=== PATIENT | female | born 1955 | race Caucasian/White ===

== ENCOUNTER → 2020-04-16 15:28 | Outpatient (CLI) | payer MEDICARE, OTHER, SELFPAY ==
[2020-04-16 14:34] VITALS: BMI 20.3
[2020-04-16 17:58] LABS: Absolute Lymphocyte Count 2.22 X10^3/uL (0.83-4.51); Absolute Neutrophil Count 3.5 X10^3/uL (2.0-7.7); Basophil# 0.05 X10^3/uL; Basophil% 0.7 % (0-1); Eosinophil# 0.24 X10^3/uL; Eosinophils% 3.6 % (0-5); Hematocrit 41.7 % (37-47); Hemoglobin 13.1 g/dL (12.0-15.0); Lymphocyte # 2.22 X10^3/ul (4.0); Mean Corp Hgb Conc 31.4 g/dL (32-36); Mean Corpuscular Hgb 29.6 pg (27.0-32.0); Mean Corpuscular Volume 94.3 fL (81-99); Mean Platelet Vol. 10.2 fl (6.2-12.0); Monocyte# 0.66 X10^3/uL; Monocyte% 9.8 % (0-10); NRBC Flagged by Analyzer 0 % (0-5); Neutrophil # 3.54 X10^3/uL (2.7-7.7); Neutrophil % 52.8 % (47-70); Platelet Count 318 K/mm3 (150-450); RBC Distribution Width CV 12.4 % (11.6-14.6); Red Blood Count 4.42 M/mm3 (4.2-5.4); White Blood Count 6.7 K/mm3 (4.4-11.0)
[2020-04-16 18:13] LABS: Erythrocyte Sedimentation Rate 32 mm/hr (0-30)
[2020-04-16 18:15] LABS: ALB/GLOB Ratio 0.8 RATIO (0.9-2.4); AST(SGOT) 33 U/L (15-37); Alanine Aminotransfer ALT/SGPT 14 U/L (13-56); Albumin, Serum 3.4 g/dL (3.2-5.0); Alkaline Phosphatase 128 U/L (45-117); Anion Gap 4 (5-15); BUN 17 mg/dL (7-18); BUN/Creat Ratio 19.7 RATIO (10-20); Calcium,Total 8.9 mg/dL (8.5-10.1); Chloride 106 mmol/L (98-107); Creatinine, Serum 0.86 mg/dL (0.55-1.02); EST Glomerular Filtration Rate 70 mL/min (>60); Est Glom Filt Rate - Afr Amer 85 mL/min (>60); Glucose 97 mg/dL (74-106); Potassium 4.3 mmol/L (3.5-5.1); Protein, Total 7.4 g/dL (6.4-8.2); Sodium Level 139 mmol/L (136-145); T4 Free Direct 1.03 ng/dL (0.76-1.46); Thyroid Stim Hormone (TSH) 2.21 uIU/mL (0.358-3.74)
== END ==
PROVIDERS: PCP Internal Medicine; Referring Provider Internal Medicine; Visit Provider Internal Medicine
DX: R53.83 Other fatigue (principal); R19.00 Intra-abdominal and pelvic swelling, mass and lump, unspecified site; Z13.29 Encounter for screening for other suspected endocrine disorder
CPT/HCPCS: 36415; 80053; 84439; 84443; 85025; 85652

== ENCOUNTER → 2020-04-21 06:43 | Outpatient (CLI) | payer MEDICARE, OTHER, SELFPAY ==
[2020-04-16 14:34] VITALS: BMI 20.3
--- NOTE | 2020-04-21 06:44 | CT_ITS ---
ACR Level 3 findings have been noted. An addendum which confirms receipt of the report will follow. STUDY: CT ABDOMEN AND PELVIS WITHOUT CONTRAST REASON FOR EXAM: Female, 64 years old. Right-sided mass found on physical exam. TECHNIQUE: Transaxial images were obtained from the dome of the diaphragm to the symphysis pubis without oral contrast, and without intravenous contrast. Sagittal and coronal images were reconstructed. Individualized dose optimization techniques were used for this CT. COMPARISON: None. FINDINGS: Partially visualized lower chest: Lung bases unremarkable. Liver: No concerning lesions. Gallbladder and biliary tree: No visible gallstones. No pericholecystic inflammation. No biliary ductal dilation. Pancreas: No pancreatic lesions or inflammation. Spleen: Normal size, no splenic lesions. Adrenal glands: No concerning masses. Kidneys and ureters: No hydronephrosis or renal stones. No concerning masses. No ureteral dilation. Bowel: Normal appendix. No obstruction or inflammation of the bowel. Urinary bladder: No stones or wall thickening. Nondistended. Reproductive: A heterogenous mixed attenuation solid appearing multilobular mixed density mass with numerous areas of internal enhancement replaces and expands the uterine parenchyma; the uterus combined with the mass measures 11.8 x 8.3 x 12.5 cm TRV X AP X craniocaudad. The ovaries are not identifiable separable from this mass which also contains some peripheral calcifications. The mass extends into and expands the lower uterine segment and is difficult to separate from the cervix. The endometrium is not identifiable. Some peripheral more solid enhancing regions are also noted. Vascular: No abdominal aortic aneurysm. Mild atherosclerosis. Retroperitoneal and peritoneal spaces: No ascites or free air. No retroperitoneal lesions. No adenopathy. Osseous: No acute osseous abnormality. Prominent degeneration L5-S1. Transitional lumbosacral anatomy with lumbarization of the left transverse process of S1. Abdominal and pelvic wall: No concerning findings. CT/Abdomen/Pelvis W IV Cont ONLY IMPRESSION: Heterogenous mixed attenuation mass replaces and expands the uterine parenchyma. This most likely represents a large, fibroid uterus. However the marked heterogeneity and irregular enhancement are not classic for fibroids, and, while less likely, uterine or endometrial malignancy is possible. Recommend [facility] protocol MRI with and without gadolinium and evaluation by gynecology. Electronically Signed: Mehrdad Felipe, at 8:09 EDT Tel , Service support ,
== END ==
PROVIDERS: PCP Internal Medicine; Referring Provider Internal Medicine; Visit Provider Internal Medicine
DX: R19.05 Periumbilic swelling, mass or lump (principal)
CPT/HCPCS: 74177; Q9967

== ENCOUNTER → 2020-04-30 10:01 | Outpatient (CLI) | payer MEDICARE, OTHER, SELFPAY ==
[2020-04-16 14:34] VITALS: BMI 20.3
--- NOTE | 2020-04-30 10:02 | MRI_ITS ---
HISTORY: palpable uterine mass, abn CT, no complaints from patient ADDITIONAL HISTORY: None provided. COMPARISON: CT 04/21/2020 TECHNIQUE: Multiplanar, multisequence MRI of the pelvis without and with 11 mm Dotarem IV contrast FINDINGS: BLADDER: Unremarkable. REPRODUCTIVE ORGANS: Enlarged, lobulated uterus with heterogeneous signal intensity on all sequences. There is central low signal intensity with peripheral enhancement in the endometrium extending toward the cornua on the left. The endometrial thickness measures 3.6 cm on sagittal image 14 of series 3. The heterogeneous signal intensity and enhancement extends into the myometrium to the level of the serosal surface along the left side of the uterus, evaluation somewhat limited due to motion artifact. The cervix appears prominent but does not have heterogeneous enhancement as does the rest of the above described area No definite adenopathy is seen. Appearance is suggestive of endometrial carcinoma, and MR findings would represent stage III disease. IMAGED GI TRACT: Unremarkable as imaged. ABDOMINAL WALL: Unremarkable. LYMPH NODES: No pathologic appearing adenopathy. FREE FLUID: None. SKELETON AND SOFT TISSUES: No acute skeletal findings. MRI/Pelvis W/WO Contrast IMPRESSION: Heterogeneous uterus with abnormal enhancing mass suspicious for neoplasm, possibly endometrial carcinoma. Evaluation by gynecologic oncology recommended. at 2015 Reported and signed by: Consuelo Tripp MD Electronically Signed: Consuelo Tripp MD at 20:14 EDT Tel , Service support ,
[2020-05-01 12:32] LABS: Cancer Antigen 125 9.5 U/mL (0.0-38.1); Carcinoembryonic Antigen 3.6 ng/mL (0.0-4.7)
== END ==
PROVIDERS: PCP Internal Medicine; Referring Provider Internal Medicine; Visit Provider Internal Medicine
DX: N85.8 Other specified noninflammatory disorders of uterus (principal); R97.8 Other abnormal tumor markers
CPT/HCPCS: 36415; 72197; 82378; 86304; A9575

== ENCOUNTER → 2020-06-01 14:51 | Outpatient (CLI) | payer MEDICARE, OTHER, SELFPAY ==
[2020-05-05 11:14] VITALS: BMI 20.3
--- NOTE | 2020-06-01 15:30 | PET_ITS ---
EXAMINATION: FDG PET-CT INDICATIONS: A 65-year-old female with history of cervical carcinoma presenting for restaging examination. COMPARISON EXAMINATION: CT of the abdomen and pelvis report dated 04/21/2020, MRI of the pelvis report dated 04/29/2020 INDEX LESION SIZE SUV INTERPRETATION Mid-lower pelvic mesentery-heterogeneous soft tissue mass 8.5 x 12.0-cm (frame 57) 22.06 Fulfills quantitative criteria for viable neoplasm TECHNIQUE: Following the intravenous administration of 12.2 mCi of F-18 deoxyglucose via the right antecubital fossa, multiplanar image acquisitions of the neck, chest, abdomen and pelvis to level of mid thigh, obtained at one hour post radiopharmaceutical administration contemporaneously interpreted with the current CT of the neck, chest, abdomen and pelvis, to level of mid thigh, dated 06/01/[address] of the abdomen and pelvis report dated 04/21/2020, MRI of the pelvis report dated 04/29/2020 reveals: BLOOD GLUCOSE LEVEL:?? 91 mg/dl?HEIGHT:?66 inches?WEIGHT: 125 lbs. FINDINGS: 1. A large heterogeneous focus of enhanced glucose metabolism is noted in the mid-lower pelvic mesentery corresponding to soft tissue mass formation. The calculated maximal standard uptake value is 22.06. The maximal axial diameter of the conglomerate metabolic, morphologic abnormality on review of CT of the pelvis dated 06/01/2020 is 8.5-cm (transverse) x 12.0-cm (AP). 2. Normal physiologic distribution of the radiopharmaceutical is apparent in the hepatic (2.0) and splenic parenchyma, both renal units, bladder and visualized intestinal tract. The visualized portion of the cerebral cortex demonstrate symmetric and preserved glucose metabolism. Diffuse radiopharmaceutical concentration is noted in all four quadrants of the abdomen and pelvis. Facilitated radiopharmaceutical concentration is observed in the ascending and descending thoracic aorta commensurate with activated leukocytes associated with atherosclerotic plaque formation. (Selam et al, Clinical Nuclear Medicine 29:93, 2004). Pertinent CT findings are as follows: CHEST: There is atherosclerotic calcification defined in the thoracic aorta without evidence of dilatation-aneurysm formation. Coronary arterial calcification is observed. Multiple bilateral axillary soft tissue densities with fatty hilus are ametabolic. There are no parenchymal densities-nodules defined in the right and left hemithorax with discernible quantitatively significant increased FDG uptake. ABDOMEN AND PELVIS: A large complex, partially calcified mass is defined within the mid-lower pelvic mesentery demonstrating quantitatively significant increased glucose metabolism previously described. Bilateral inguinal subcentimeter soft tissue densities are ametabolic. Calcified phlebolith formation appears evident in the left lower hemipelvis. There is atherosclerotic calcification defined in the abdominal aorta without evidence of dilatation-aneurysm formation. Pelvic arterial calcification is observed. SKELETAL: Degenerative changes are noted in the cervical, thoracic and lumbar spine. PET/PET/CT Tumor Base -Thigh Init IMPRESSION: 1. ABNORMAL EXAMINATION INDICATIVE OF MALIGNANT VIABLE NEOPLASM. 2. The heterogeneous complex soft tissue mass localized to the mid-lower pelvic mesentery fulfills quantitative criteria for viable neoplasm. 3. No other quantitatively significant hypermetabolic abnormalities are noted. There is no definitive scintigraphic evidence of distant metastatic disease. Electronic Signature Bolivar Joya D.O. Accurate Quantification of SUVs for this report are calculated using the exclusive [place] and [place] patented [employer] Technology. Electronically Signed: Bolivar Joya DO at 22:24 EDT Tel , Service support ,
== END ==
PROVIDERS: PCP Internal Medicine; Referring Provider Obstetrics & Gynecology; Visit Provider Obstetrics & Gynecology
DX: C53.8 Malignant neoplasm of overlapping sites of cervix uteri (principal); R93.89 Abnormal findings on diagnostic imaging of other specified body structures
CPT/HCPCS: 78815; A9552

== ENCOUNTER → 2020-12-24 11:06 | Outpatient (CLI) | payer MEDICARE, OTHER, SELFPAY ==
[2020-12-08 13:53] VITALS: BMI 20.9
--- NOTE | 2020-12-24 13:30 | CT_ITS ---
STUDY: CT ABDOMEN AND PELVIS WITH CONTRAST REASON FOR EXAM: Female, 65 years old. FOLLOW UP ON ENDOMETRIAL CA. HYSTERECTOMY NO OTHER TREATMENT RADIATION DOSAGE (If Supplied By Facility): CTDIvol = ( 11.82 ) mGy, DLP = ( 360.34 ) mGycm TECHNIQUE: Transaxial images were obtained from the dome of the diaphragm to the symphysis pubis with oral contrast. Oral and amp; IV Readi-CAT and amp; 100mL Isovue-300 was administered. Sagittal and coronal images were reconstructed. Individualized dose optimization techniques were used for this CT. COMPARISON: Comparison is made with prior examination dated 04/21/2020. FINDINGS: The visualized lung bases are unremarkable. Coronary artery calcification. Stable 6.8 mm cyst in the left lobe of the liver. Normal gallbladder and extrahepatic biliary system. Normal spleen. Normal pancreas. Normal bilateral adrenal glands. Normal right kidney. Normal left kidney. Normal visualized stomach. Normal small intestine. Normal colon. The appendix is visualized and appears normal. There is scattered atherosclerotic calcification of the abdominal aorta, without a demonstrated aneurysm. Normal inferior vena cava. Normal retroperitoneum. Normal urinary bladder. Normal abdominal wall. There are degenerative changes of the visualized lumbar spine. CT/Abdomen/Pelvis WITH Contrast IMPRESSION: The patient is status post hysterectomy. Stable 6.8 mm cyst in the left lobe of the liver. Electronically Signed: Bishnu George MD at 14:25 EST , Service support ,
== END ==
PROVIDERS: PCP Internal Medicine; Referring Provider Obstetrics & Gynecology; Visit Provider Obstetrics & Gynecology
DX: C54.1 Malignant neoplasm of endometrium (principal)
CPT/HCPCS: 74177; Q9967

== ENCOUNTER → 2021-02-18 10:34 | Outpatient (CLI) | payer MEDICARE, OTHER, SELFPAY ==
[2021-02-18 10:16] VITALS: BMI 21.6
[2021-02-18 12:48] LABS: CRP < 2.90 mg/L (0.0-3.0); Erythrocyte Sedimentation Rate 4 mm/hr (0-30); Rheumatoid Factor < 10.0 IU/mL (<15)
[2021-02-21 09:28] LABS: CCP IgG Antibodies 4 units (0-19)
[2021-02-21 17:58] LABS: ANTINUCLEAR ANTIBODIES DIRECT Negative (Negative)
== END ==
PROVIDERS: PCP Internal Medicine; Referring Provider Internal Medicine; Visit Provider Internal Medicine
DX: M19.90 Unspecified osteoarthritis, unspecified site (principal)
CPT/HCPCS: 36415; 85652; 86038; 86140; 86200; 86225; 86235; 86431

== ENCOUNTER → 2021-03-31 14:09 | Outpatient (CLI) | payer MEDICARE, OTHER, SELFPAY ==
[2021-02-18 10:16] VITALS: BMI 21.6
--- NOTE | 2021-03-31 14:13 | RAD_ITS ---
STUDY: X-RAY - PELVIS REASON FOR EXAM: Female, 65 years old. PAIN TECHNIQUE: One view of the pelvis was obtained. COMPARISON: None. FINDINGS: There is a non-specific bowel gas pattern. Normal visualized soft tissue structures. Normal bilateral iliac wings, sacroiliac joints and visualized sacrum. Normal visualized bilateral superior and inferior pubic rami. Normal pubic symphysis. Normal ischial tuberosities. Normal visualized right femoral head. Normal right acetabulum. Normal right hip joint. Normal visualized left femoral head. Normal left acetabulum. Normal left hip joint. RAD/Pelvis 1 or 2 Views IMPRESSION: Normal x-ray examination of the pelvis. Electronically Signed: Bolivar Hough MD at 8:06 EDT Tel , Service support ,
[2021-03-31 17:34] LABS: Absolute Lymphocyte Count 2.65 X10^3/uL (0.83-4.51); Absolute Neutrophil Count 3.6 X10^3/uL (2.0-7.7); Basophil# 0.09 X10^3/uL; Basophil% 1.2 % (0-1); Eosinophils% 4.1 % (0-5); Hematocrit 46.5 % (37-47); Hemoglobin 14.7 g/dL (12.0-15.0); Lymphocyte # 2.65 X10^3/ul (0.83-4.51); Lymphocyte % 36.6 % (19-41); Mean Corp Hgb Conc 31.6 g/dL (32-36); Mean Corpuscular Hgb 30.5 pg (27.0-32.0); Mean Corpuscular Volume 96.5 fL (81-99); Mean Platelet Vol. 10.3 fl (6.2-12.0); Monocyte# 0.61 X10^3/uL; Monocyte% 8.4 % (0-10); NRBC Flagged by Analyzer 0 % (0-5); Neutrophil # 3.58 X10^3/uL (2.7-7.7); Neutrophil % 49.6 % (47-70); Platelet Count 294 K/mm3 (150-450); RBC Distribution Width CV 12.5 % (11.6-14.6); RBC Distribution Width SD 45.1 fl (35.1-43.9); Red Blood Count 4.82 M/mm3 (4.2-5.4); White Blood Count 7.2 K/mm3 (4.4-11.0)
[2021-03-31 17:55] LABS: ALB/GLOB Ratio 1.2 RATIO (0.9-2.4); AST(SGOT) 26 U/L (15-37); Alanine Aminotransfer ALT/SGPT 13 U/L (13-56); Albumin, Serum 4.3 g/dL (3.2-5.0); Alkaline Phosphatase 106 U/L (45-117); Anion Gap 2 (5-15); BUN 15 mg/dL (7-18); BUN/Creat Ratio 19.9 RATIO (10-20); Calcium,Total 9.6 mg/dL (8.5-10.1); Chloride 108 mmol/L (98-107); Creatinine, Serum 0.76 mg/dL (0.55-1.02); EST Glomerular Filtration Rate 82 mL/min (>60); Est Glom Filt Rate - Afr Amer 99 mL/min (>60); Globulin 3.7 g/dL (2.2-4.2); Glucose 88 mg/dL (74-106); Potassium 3.8 mmol/L (3.5-5.1); Sodium Level 141 mmol/L (136-145)
[2021-04-01 09:25] LABS: Hepatitis B Surface Antibody Non-Reactive; Hepatitis B Surface Antigen Non-Reactive (Nonreactive); Hepatitis C Antibody Non-Reactive (Nonreactive)
[2021-04-02 15:14] LABS: Hepatitis B Core AB IgM Negative (Negative)
== END ==
PROVIDERS: PCP Internal Medicine; Referring Provider Internal Medicine Rheumatology; Visit Provider Internal Medicine Rheumatology
DX: L40.59 Other psoriatic arthropathy (principal); L40.8 Other psoriasis; I10 Essential (primary) hypertension; G62.9 Polyneuropathy, unspecified; F31.9 Bipolar disorder, unspecified
CPT/HCPCS: 36415; 72170; 80053; 85025; 86705; 86706; 86803; 87340

== ENCOUNTER → 2021-06-30 11:30 | Outpatient (CLI) | payer MEDICARE, OTHER, SELFPAY ==
--- NOTE | 2021-06-30 11:37 | CT_ITS ---
STUDY: CT ABDOMEN AND PELVIS WITH CONTRAST REASON FOR EXAM: Female, 66 years old. ENDOMETRIAL CANCER. Follow-up examination. RADIATION DOSAGE (If Supplied By Facility): CTDIvol = ( 13.47 ) mGy, DLP = ( 342.40 ) mGycm TECHNIQUE: Transaxial images were obtained from the dome of the diaphragm to the symphysis pubis with oral contrast. Oral and amp; IV Gastrografin and amp; 100mL Isovue-300 was administered. Sagittal and coronal images were reconstructed. Individualized dose optimization techniques were used for this CT. COMPARISON: Comparison is made with prior examination dated 12/24/2020. FINDINGS: The visualized lung bases are unremarkable. Coronary artery calcification. Stable 6.8 mm cyst in the left lobe of the Normal gallbladder and extrahepatic biliary system. Normal spleen. Normal pancreas. Normal bilateral adrenal glands. Normal right kidney. Normal left kidney. Normal visualized stomach. Normal small intestine. Moderate amount of fecal material is seen in the colon. The appendix is visualized and appears normal. There is scattered atherosclerotic calcification of the abdominal aorta, without a demonstrated aneurysm. Normal inferior vena cava. Normal retroperitoneum. Normal urinary bladder. There is absence of the uterus consistent with a prior hysterectomy. Normal abdominal wall. There are degenerative changes of the visualized lumbar spine. CT/Abdomen/Pelvis WITH Contrast IMPRESSION: Status post hysterectomy. Stable 6.8 mm cyst in the left lobe of the liver. Electronically Signed: Bishnu George MD at 15:00 EDT , Service support ,
[2021-07-01 07:39] LABS: CREATININE FINGERSTICK 0.86 mg/dL (0.55-1.02); EGFR FINGERSTICK > 60 mL/min (>60)
== END ==
PROVIDERS: PCP Internal Medicine
DX: C54.1 Malignant neoplasm of endometrium (principal)
CPT/HCPCS: 74177; Q9967

== ENCOUNTER → 2021-08-05 14:53 | Outpatient (CLI) | payer MEDICARE, OTHER, SELFPAY ==
[2021-08-05 17:46] LABS: Absolute Lymphocyte Count 2.51 X10^3/uL (0.83-4.51); Absolute Neutrophil Count 3.4 X10^3/uL (2.0-7.7); Basophil# 0.08 X10^3/uL; Basophil% 1.1 % (0-1); Eosinophil# 0.28 X10^3/uL; Hematocrit 44.9 % (37-47); Hemoglobin 14.4 g/dL (12.0-15.0); Lymphocyte # 2.51 X10^3/ul (0.83-4.51); Lymphocyte % 35.7 % (19-41); Mean Corp Hgb Conc 32.1 g/dL (32-36); Mean Corpuscular Hgb 31.6 pg (27.0-32.0); Mean Corpuscular Volume 98.5 fL (81-99); Mean Platelet Vol. 10.5 fl (6.2-12.0); NRBC Flagged by Analyzer 0 % (0-5); Neutrophil # 3.44 X10^3/uL (2.7-7.7); Neutrophil % 48.9 % (47-70); Platelet Count 276 K/mm3 (150-450); RBC Distribution Width CV 12.2 % (11.6-14.6); RBC Distribution Width SD 44.5 fl (35.1-43.9); Red Blood Count 4.56 M/mm3 (4.2-5.4)
[2021-08-05 18:22] LABS: AST(SGOT) 20 U/L (15-37); Alanine Aminotransfer ALT/SGPT 15 U/L (13-56); Albumin, Serum 3.9 g/dL (3.2-5.0); Alkaline Phosphatase 104 U/L (45-117); Anion Gap 6 (5-15); BUN 17 mg/dL (7-18); BUN/Creat Ratio 21.5 RATIO (10-20); Calcium,Total 9.5 mg/dL (8.5-10.1); Chloride 107 mmol/L (98-107); Creatinine, Serum 0.79 mg/dL (0.55-1.02); EST Glomerular Filtration Rate 78 mL/min (>60); Est Glom Filt Rate - Afr Amer 94 mL/min (>60); Globulin 3.8 g/dL (2.2-4.2); Glucose 86 mg/dL (74-106); Potassium 4.3 mmol/L (3.5-5.1); Protein, Total 7.7 g/dL (6.4-8.2); Sodium Level 142 mmol/L (136-145)
== END ==
PROVIDERS: PCP Internal Medicine; Referring Provider Internal Medicine Rheumatology; Visit Provider Internal Medicine Rheumatology
DX: L40.59 Other psoriatic arthropathy (principal); I10 Essential (primary) hypertension; G62.9 Polyneuropathy, unspecified; F31.9 Bipolar disorder, unspecified; Z85.42 Personal history of malignant neoplasm of other parts of uterus
CPT/HCPCS: 36415; 80053; 85025

== ENCOUNTER → 2021-10-10 15:17 | Outpatient (CLI) | payer MEDICARE, OTHER, SELFPAY ==
[2021-10-10 17:44] LABS: Absolute Lymphocyte Count 1.78 X10^3/uL (0.83-4.51); Basophil# 0.07 X10^3/uL; Basophil% 1.2 % (0-1); Eosinophil# 0.21 X10^3/uL; Eosinophils% 3.7 % (0-5); Hematocrit 44.4 % (37-47); Hemoglobin 14.5 g/dL (12.0-15.0); Lymphocyte # 1.78 X10^3/ul (0.83-4.51); Lymphocyte % 31.5 % (19-41); Mean Corp Hgb Conc 32.7 g/dL (32-36); Mean Corpuscular Hgb 32.1 pg (27.0-32.0); Mean Corpuscular Volume 98.2 fL (81-99); Mean Platelet Vol. 10.1 fl (6.2-12.0); Monocyte# 0.57 X10^3/uL; Monocyte% 10.1 % (0-10); NRBC Flagged by Analyzer 0 % (0-5); Neutrophil % 53.1 % (47-70); Platelet Count 326 K/mm3 (150-450); RBC Distribution Width SD 46.5 fl (35.1-43.9); Red Blood Count 4.52 M/mm3 (4.2-5.4); White Blood Count 5.7 K/mm3 (4.4-11.0)
[2021-10-10 18:08] LABS: ALB/GLOB Ratio 1.1 RATIO (0.9-2.4); AST(SGOT) 19 U/L (15-37); Alanine Aminotransfer ALT/SGPT 15 U/L (13-56); Alkaline Phosphatase 101 U/L (45-117); Anion Gap 6 (5-15); BUN 18 mg/dL (7-18); BUN/Creat Ratio 22.3 RATIO (10-20); Calcium,Total 9.4 mg/dL (8.5-10.1); Chloride 105 mmol/L (98-107); Creatinine, Serum 0.81 mg/dL (0.55-1.02); EST Glomerular Filtration Rate 76 mL/min (>60); Est Glom Filt Rate - Afr Amer 92 mL/min (>60); Globulin 3.7 g/dL (2.2-4.2); Glucose 95 mg/dL (74-106); Potassium 4.3 mmol/L (3.5-5.1); Protein, Total 7.7 g/dL (6.4-8.2); Sodium Level 140 mmol/L (136-145)
== END ==
PROVIDERS: PCP Internal Medicine; Referring Provider Internal Medicine Rheumatology; Visit Provider Internal Medicine Rheumatology
DX: L40.59 Other psoriatic arthropathy (principal); I10 Essential (primary) hypertension; G62.9 Polyneuropathy, unspecified; F31.9 Bipolar disorder, unspecified; Z79.899 Other long term (current) drug therapy; Z85.42 Personal history of malignant neoplasm of other parts of uterus
CPT/HCPCS: 36415; 80053; 85025

== ENCOUNTER 2021-12-06 11:40 | Outpatient (CLI) | payer MEDICARE, OTHER, SELFPAY ==
[2021-12-06 15:26] LABS: Absolute Lymphocyte Count 2.18 X10^3/uL (0.83-4.51); Absolute Neutrophil Count 3.4 X10^3/uL (2.0-7.7); Basophil# 0.06 X10^3/uL; Basophil% 0.9 % (0-1); Eosinophil# 0.13 X10^3/uL; Eosinophils% 2.1 % (0-5); Hemoglobin 13.7 g/dL (12.0-15.0); Lymphocyte # 2.18 X10^3/ul (0.83-4.51); Lymphocyte % 34.4 % (19-41); Mean Corp Hgb Conc 32.6 g/dL (32-36); Mean Corpuscular Hgb 32.2 pg (27.0-32.0); Mean Corpuscular Volume 98.8 fL (81-99); Mean Platelet Vol. 10.3 fl (6.2-12.0); Monocyte# 0.54 X10^3/uL; Monocyte% 8.5 % (0-10); NRBC Flagged by Analyzer 0 % (0-5); Neutrophil # 3.41 X10^3/uL (2.7-7.7); Neutrophil % 53.9 % (47-70); Platelet Count 279 K/mm3 (150-450); Red Blood Count 4.25 M/mm3 (4.2-5.4); White Blood Count 6.3 K/mm3 (4.4-11.0)
[2021-12-06 15:53] LABS: ALB/GLOB Ratio 1.1 RATIO (0.9-2.4); AST(SGOT) 21 U/L (15-37); Alanine Aminotransfer ALT/SGPT 13 U/L (13-56); Albumin, Serum 3.9 g/dL (3.2-5.0); Alkaline Phosphatase 99 U/L (45-117); Anion Gap 3 (5-15); BUN 14 mg/dL (7-18); BUN/Creat Ratio 18.5 RATIO (10-20); Calcium,Total 9.1 mg/dL (8.5-10.1); Chloride 105 mmol/L (98-107); Creatinine, Serum 0.76 mg/dL (0.55-1.02); EST Glomerular Filtration Rate 82 mL/min (>60); Est Glom Filt Rate - Afr Amer 99 mL/min (>60); Globulin 3.5 g/dL (2.2-4.2); Glucose 124 mg/dL (74-106); Potassium 4.1 mmol/L (3.5-5.1); Protein, Total 7.4 g/dL (6.4-8.2); Sodium Level 137 mmol/L (136-145)
== END 2021-12-06 23:59 | disposition short-term general hospital (02) ==
LOC: MTLAB 11:42
PROVIDERS: PCP Internal Medicine; Referring Provider Internal Medicine Rheumatology; Visit Provider Internal Medicine Rheumatology
DX: L40.59 Other psoriatic arthropathy (principal); F31.9 Bipolar disorder, unspecified; L40.8 Other psoriasis; I10 Essential (primary) hypertension; G62.9 Polyneuropathy, unspecified; Z79.899 Other long term (current) drug therapy; Z85.42 Personal history of malignant neoplasm of other parts of uterus
CPT/HCPCS: 36415; 80053; 85025

== ENCOUNTER 2022-02-02 09:44 | Outpatient (CLI) | payer MEDICARE, OTHER, SELFPAY ==
[2022-02-02 12:11] LABS: Absolute Lymphocyte Count 1.08 X10^3/uL (0.83-4.51); Basophil# 0.09 X10^3/uL; Basophil% 1.2 % (0-1); Eosinophil# 0.06 X10^3/uL; Eosinophils% 0.8 % (0-5); Hematocrit 43.4 % (37-47); Hemoglobin 14.2 g/dL (12.0-15.0); Lymphocyte # 1.08 X10^3/ul (0.83-4.51); Mean Corp Hgb Conc 32.7 g/dL (32-36); Mean Corpuscular Hgb 33.3 pg (27.0-32.0); Mean Corpuscular Volume 101.6 fL (81-99); Monocyte# 0.47 X10^3/uL; Monocyte% 6.1 % (0-10); NRBC Flagged by Analyzer 0 % (0-5); Neutrophil # 5.98 X10^3/uL (2.7-7.7); Neutrophil % 77.5 % (47-70); Platelet Count 293 K/mm3 (150-450); RBC Distribution Width CV 13.7 % (11.6-14.6); RBC Distribution Width SD 50.8 fl (35.1-43.9); Red Blood Count 4.27 M/mm3 (4.2-5.4); White Blood Count 7.7 K/mm3 (4.4-11.0)
[2022-02-02 12:54] LABS: ALB/GLOB Ratio 1.2 RATIO (0.9-2.4); AST(SGOT) 32 U/L (15-37); Alanine Aminotransfer ALT/SGPT 24 U/L (13-56); Alkaline Phosphatase 89 U/L (45-117); Anion Gap 2 (5-15); BUN 15 mg/dL (7-18); BUN/Creat Ratio 18.7 RATIO (10-20); Calcium,Total 9.4 mg/dL (8.5-10.1); Chloride 106 mmol/L (98-107); EST Glomerular Filtration Rate 76 mL/min (>60); Est Glom Filt Rate - Afr Amer 92 mL/min (>60); Globulin 3.4 g/dL (2.2-4.2); Glucose 138 mg/dL (74-106); Potassium 4.4 mmol/L (3.5-5.1); Protein, Total 7.4 g/dL (6.4-8.2); Sodium Level 138 mmol/L (136-145)
== END 2022-02-02 23:59 | disposition home or self-care (01) ==
LOC: MTLAB 09:45
PROVIDERS: PCP Internal Medicine; Referring Provider Internal Medicine Rheumatology; Visit Provider Internal Medicine Rheumatology
DX: L40.59 Other psoriatic arthropathy (principal); F31.9 Bipolar disorder, unspecified; L40.8 Other psoriasis; I10 Essential (primary) hypertension; G62.9 Polyneuropathy, unspecified; Z79.899 Other long term (current) drug therapy; Z85.42 Personal history of malignant neoplasm of other parts of uterus
CPT/HCPCS: 36415; 80053; 85025

== ENCOUNTER 2022-02-09 14:32 | Outpatient (CLI) | payer MEDICARE, OTHER, SELFPAY ==
--- NOTE | 2022-02-09 14:35 | CT_ITS ---
STUDY: CT ABDOMEN AND PELVIS WITH CONTRAST REASON FOR EXAM: Female, 66 years old. MALIGNANT NEOPLASM OF UTERUS PART UNSPECIFIED RADIATION DOSAGE (If Supplied By Facility): CTDIvol = ( 12.3 ) mGy, DLP = ( 568.60 ) mGycm TECHNIQUE: Transaxial images were obtained from the dome of the diaphragm to the symphysis pubis with oral contrast. Oral and IV Readi-CAT and 100mL Isovue-300 was administered. Sagittal and coronal images were reconstructed. Individualized dose optimization techniques were used for this CT. COMPARISON: Comparison is made with prior examination of 06/30/2021. FINDINGS: The visualized lung bases are unremarkable. Coronary artery calcification. There is decreased attenuation of the liver consistent with steatosis. Stable 6.8 mm cyst in the left lobe of the liver. Normal gallbladder and extrahepatic biliary system. Normal spleen. Normal pancreas. Normal bilateral adrenal glands. Normal right kidney. Normal left kidney. Normal visualized stomach. Normal small intestine. Normal colon. The appendix is visualized and appears normal. There is scattered atherosclerotic calcification of the abdominal aorta, without a demonstrated aneurysm. Normal inferior vena cava. Normal retroperitoneum. Normal urinary bladder. There is absence of the uterus consistent with a prior hysterectomy. Normal abdominal wall. There are diffuse degenerative changes of the visualized lumbar spine. CT/Abdomen/Pelvis WITH Contrast IMPRESSION: Stable examination. No acute abnormality is seen. Electronically Signed: Bishnu George MD at 15:03 EDT ,
== END 2022-02-09 23:59 | disposition home or self-care (01) ==
LOC: CT 14:33
PROVIDERS: PCP Internal Medicine; Referring Provider Obstetrics & Gynecology; Visit Provider Obstetrics & Gynecology
DX: C55 Malignant neoplasm of uterus, part unspecified (principal); N31.9 Neuromuscular dysfunction of bladder, unspecified; R33.9 Retention of urine, unspecified
CPT/HCPCS: 74177; Q9967

== ENCOUNTER → 2022-04-05 | Outpatient (CLI) | payer MEDICARE, OTHER, SELFPAY ==
[2022-04-05 12:18] LABS: Absolute Lymphocyte Count 0.75 X10^3/uL (0.83-4.51); Absolute Neutrophil Count 5.5 X10^3/uL (2.0-7.7); Basophil# 0.06 X10^3/uL; Basophil% 0.9 % (0-1); Eosinophil# 0.08 X10^3/uL; Eosinophils% 1.1 % (0-5); Lymphocyte # 0.75 X10^3/ul (0.83-4.51); Lymphocyte % 10.7 % (19-41); Mean Corp Hgb Conc 32.6 g/dL (32-36); Mean Corpuscular Hgb 33.5 pg (27.0-32.0); Mean Corpuscular Volume 102.9 fL (81-99); Mean Platelet Vol. 10.4 fl (6.2-12.0); Monocyte% 8.6 % (0-10); NRBC Flagged by Analyzer 0 % (0-5); Neutrophil # 5.49 X10^3/uL (2.7-7.7); Neutrophil % 78.3 % (47-70); Platelet Count 318 K/mm3 (150-450); RBC Distribution Width CV 13.8 % (11.6-14.6); RBC Distribution Width SD 51.7 fl (35.1-43.9); Red Blood Count 4.18 M/mm3 (4.2-5.4)
[2022-04-05 12:40] LABS: ALB/GLOB Ratio 1.2 RATIO (0.9-2.4); AST(SGOT) 22 U/L (15-37); Alanine Aminotransfer ALT/SGPT 16 U/L (13-56); Albumin, Serum 3.9 g/dL (3.2-5.0); Alkaline Phosphatase 80 U/L (45-117); Anion Gap 7 (5-15); BUN 13 mg/dL (7-18); BUN/Creat Ratio 16.5 RATIO (10-20); Calcium,Total 9.4 mg/dL (8.5-10.1); Chloride 105 mmol/L (98-107); Creatinine, Serum 0.79 mg/dL (0.55-1.02); EST Glomerular Filtration Rate 78 mL/min (>60); Est Glom Filt Rate - Afr Amer 94 mL/min (>60); Globulin 3.2 g/dL (2.2-4.2); Glucose 136 mg/dL (74-106); Potassium 4.7 mmol/L (3.5-5.1); Protein, Total 7.1 g/dL (6.4-8.2); Sodium Level 139 mmol/L (136-145)
== END | disposition home or self-care (01) ==
LOC: MTLAB 10:39
PROVIDERS: PCP Internal Medicine; Referring Provider Internal Medicine Rheumatology; Visit Provider Internal Medicine Rheumatology
DX: L40.59 Other psoriatic arthropathy (principal); F31.9 Bipolar disorder, unspecified; L40.8 Other psoriasis; I10 Essential (primary) hypertension; G62.9 Polyneuropathy, unspecified; Z85.42 Personal history of malignant neoplasm of other parts of uterus; Z79.899 Other long term (current) drug therapy
CPT/HCPCS: 36415; 80053; 85025

== ENCOUNTER → 2022-04-13 | Outpatient (CLI) | payer MEDICARE, OTHER, SELFPAY ==
[2022-04-13 17:02] LABS: Erythrocyte Sedimentation Rate 8 mm/hr (0-30)
[2022-04-13 17:21] LABS: Hemoglobin A1c 5.7 % (3.8-5.6)
[2022-04-13 17:25] LABS: Vitamin B12 308 pg/mL (211-911); Vitamin D,25 Hydroxy 14.6 ng/mL
[2022-04-13 17:26] LABS: Thyroid Stim Hormone (TSH) 0.72 uIU/mL (0.358-3.74)
== END | disposition home or self-care (01) ==
LOC: BIMLAB 15:03
PROVIDERS: PCP Internal Medicine; Visit Provider Internal Medicine
DX: R73.9 Hyperglycemia, unspecified (principal); F41.9 Anxiety disorder, unspecified; F32.A Depression, unspecified; D75.89 Other specified diseases of blood and blood-forming organs; E55.9 Vitamin D deficiency, unspecified; Z85.42 Personal history of malignant neoplasm of other parts of uterus; Z13.29 Encounter for screening for other suspected endocrine disorder
CPT/HCPCS: 36415; 82306; 82607; 83036; 84439; 84443; 85652

== ENCOUNTER → 2022-07-11 | Outpatient (CLI) | payer MEDICARE, OTHER, SELFPAY ==
[2022-07-11 15:06] LABS: Absolute Neutrophil Count 4.4 X10^3/uL (2.0-7.7); Basophil# 0.08 X10^3/uL; Eosinophil# 0.19 X10^3/uL; Eosinophils% 2.4 % (0-5); Hematocrit 40.4 % (37-47); Hemoglobin 13.4 g/dL (12.0-15.0); Lymphocyte % 33.2 % (19-41); Mean Corp Hgb Conc 33.2 g/dL (32-36); Mean Corpuscular Hgb 33.4 pg (27.0-32.0); Mean Corpuscular Volume 100.7 fL (81-99); Monocyte# 0.49 X10^3/uL; Monocyte% 6.3 % (0-10); NRBC Flagged by Analyzer 0 % (0-5); Neutrophil # 4.43 X10^3/uL (2.7-7.7); Neutrophil % 56.7 % (47-70); Platelet Count 252 K/mm3 (150-450); RBC Distribution Width CV 13.2 % (11.6-14.6); RBC Distribution Width SD 48.4 fl (35.1-43.9); Red Blood Count 4.01 M/mm3 (4.2-5.4); White Blood Count 7.8 K/mm3 (4.4-11.0)
[2022-07-11 15:22] LABS: ALB/GLOB Ratio 1.1 RATIO (0.9-2.4); AST(SGOT) 34 U/L (15-37); Alanine Aminotransfer ALT/SGPT 24 U/L (13-56); Albumin, Serum 3.7 g/dL (3.2-5.0); Alkaline Phosphatase 83 U/L (45-117); Anion Gap 7 (5-15); BUN 16 mg/dL (7-18); BUN/Creat Ratio 18.6 RATIO (10-20); Calcium,Total 8.9 mg/dL (8.5-10.1); Chloride 103 mmol/L (98-107); Creatinine, Serum 0.86 mg/dL (0.55-1.02); EST Glomerular Filtration Rate 70 mL/min (>60); Est Glom Filt Rate - Afr Amer 85 mL/min (>60); Globulin 3.3 g/dL (2.2-4.2); Glucose 113 mg/dL (74-106); Sodium Level 139 mmol/L (136-145)
== END | disposition home or self-care (01) ==
LOC: MTLAB 13:04
PROVIDERS: PCP Internal Medicine; Referring Provider Internal Medicine Rheumatology; Visit Provider Internal Medicine Rheumatology
DX: L40.59 Other psoriatic arthropathy (principal); F31.9 Bipolar disorder, unspecified; L40.8 Other psoriasis; I10 Essential (primary) hypertension; G62.9 Polyneuropathy, unspecified; Z85.42 Personal history of malignant neoplasm of other parts of uterus; Z79.899 Other long term (current) drug therapy
CPT/HCPCS: 36415; 80053; 85025

== ENCOUNTER → 2022-10-10 | Outpatient (CLI) | payer MEDICARE, OTHER, SELFPAY ==
[2022-10-10 15:07] LABS: Absolute Lymphocyte Count 1.63 X10^3/uL (0.83-4.51); Absolute Neutrophil Count 6.1 X10^3/uL (2.0-7.7); Basophil# 0.09 X10^3/uL; Basophil% 1.1 % (0-1); Eosinophil# 0.16 X10^3/uL; Eosinophils% 1.9 % (0-5); Hematocrit 40.5 % (37-47); Hemoglobin 13.3 g/dL (12.0-15.0); Lymphocyte # 1.63 X10^3/ul (0.83-4.51); Lymphocyte % 19.1 % (19-41); Mean Corp Hgb Conc 32.8 g/dL (32-36); Mean Corpuscular Hgb 33.6 pg (27.0-32.0); Mean Corpuscular Volume 102.3 fL (81-99); Mean Platelet Vol. 9.8 fl (6.2-12.0); Monocyte% 5.9 % (0-10); NRBC Flagged by Analyzer 0 % (0-5); Neutrophil # 6.13 X10^3/uL (2.7-7.7); Neutrophil % 71.8 % (47-70); Platelet Count 313 K/mm3 (150-450); RBC Distribution Width CV 13.2 % (11.6-14.6); RBC Distribution Width SD 49.1 fl (35.1-43.9); Red Blood Count 3.96 M/mm3 (4.2-5.4); White Blood Count 8.5 K/mm3 (4.4-11.0)
[2022-10-10 15:21] LABS: Hemoglobin A1c 5.5 % (3.8-5.6)
[2022-10-10 15:26] LABS: ALB/GLOB Ratio 1.3 RATIO (0.9-2.4); AST(SGOT) 25 U/L (15-37); Alanine Aminotransfer ALT/SGPT 22 U/L (13-56); Albumin, Serum 3.8 g/dL (3.2-5.0); Alkaline Phosphatase 97 U/L (45-117); Anion Gap 7 (5-15); BUN 18 mg/dL (7-18); BUN/Creat Ratio 24.2 RATIO (10-20); Calcium,Total 9.1 mg/dL (8.5-10.1); Chloride 105 mmol/L (98-107); Creatinine, Serum 0.74 mg/dL (0.55-1.02); EST Glomerular Filtration Rate 83 mL/min (>60); Est Glom Filt Rate - Afr Amer 100 mL/min (>60); Glucose 107 mg/dL (74-106); Potassium 4.2 mmol/L (3.5-5.1); Protein, Total 6.8 g/dL (6.4-8.2); Sodium Level 139 mmol/L (136-145)
== END | disposition home or self-care (01) ==
LOC: MTLAB 13:08
PROVIDERS: PCP Internal Medicine; Referring Provider Internal Medicine Rheumatology; Visit Provider Internal Medicine Rheumatology
DX: L40.59 Other psoriatic arthropathy (principal); F31.9 Bipolar disorder, unspecified; Z79.899 Other long term (current) drug therapy; I10 Essential (primary) hypertension; G62.9 Polyneuropathy, unspecified; Z85.42 Personal history of malignant neoplasm of other parts of uterus
CPT/HCPCS: 36415; 80053; 83036; 85025

== ENCOUNTER 2022-10-14 14:40 | Emergency (ER) | payer MEDICARE, OTHER, SELFPAY ==
[2022-10-14 14:41] VITALS: BP 152/80; PULSE 119; RESP 18; TEMP 36.9; O2SAT 95; BMI 24.2
[2022-10-14 14:43] VITALS: BP 152/80; PULSE 96; RESP 20; TEMP 38.4; O2SAT 97
--- NOTE | 2022-10-14 15:15 | EDS_ITS ---
HPI History of Present Illness Chief Complaint: Fever Detail of Chief Complaint: Fever and left facial swelling Informant: patient Narrative Narrative: Patient presents the emergency department with complaint of fever that started last evening. Patient states that she has had some bilateral jaw pain for several days. This morning she woke up and her left upper face was quite swollen. She noted she had a temperature. Patient also complains of some body aches. She is had some chills. Patient denies sick contacts. She did take some Tylenol around 11 AM. Prior similar symptoms: No PFSH PFSH Medical History Abdominal tenderness Anxiety Arthritis Borderline type 2 diabetes mellitus Cataracts, bilateral Depression Fatigue Health care maintenance Heart murmur History of emotional problems History of endometrial cancer History of suicide attempt History of UTI Macrocytosis Neuropathy Psoriatic arthritis Screening for thyroid disorder Seasonal allergies Vision problems Vitamin D deficiency Home Medications pseudoephedrine HCl 30 mg tablet (Sudafed) 60 mg PO ONCE PRN 01/26/20 [History Last Taken Unknown] clonazepam 0.5 mg tablet 0.5 mg PO BID 12/08/20 [History Last Taken Unknown] hydrocortisone 2.5 % topical cream 1 applic topical BID PRN rash #28.35 grams 02/07/21 [Rx Last Taken Unknown] acetaminophen 500 mg tablet (Tylenol Extra Strength) 500 mg PO Q6H PRN 02/18/21 [History Last Taken Unknown] folic acid 1 mg tablet 1 mg PO DAILY 08/19/21 [History Last Taken Unknown] clobetasol 0.05 % shampoo 1 applic topical DAILY 1 week #118 mL 08/25/21 [Rx Last Taken Unknown] cholecalciferol (vitamin D3) 1,250 mcg (50,000 unit) capsule 1,250 mcg PO QWEEK #14 caps 04/13/22 [Rx Last Taken Unknown] cyanocobalamin (vitamin B-12) 2,000 mcg lozenges 2,000 mcg PO DAILY #100 ea 04/13/22 [Rx Last Taken Unknown] duloxetine 20 mg capsule,delayed release 20 mg PO TID 07/17/22 [History Last Taken Unknown] methotrexate sodium 2.5 mg tablet 20 mg PO QWEEK 07/17/22 [History Last Taken Unknown] gabapentin 600 mg tablet 600 mg PO .Q6 pain 3 months #360 tabs 08/07/22 [Rx Last Taken Unknown] amlodipine 5 mg tablet 5 mg PO DAILY #90 tabs 10/03/22 [Rx Last Taken Unknown] clindamycin HCl 300 mg capsule (Cleocin HCl) 300 mg PO Q6H #40 CAPSULES 10/14/22 [Rx Last Taken Unknown] oxycodone-acetaminophen 5 mg-325 mg tablet 1 tab PO Q6H PRN PRN Pain 3 days #12 TABLETS 10/14/22 [Rx Last Taken Unknown] Allergy/AdvReac Type Severity Reaction Status Date / Time No Known Allergies Allergy Verified 10/14/22 14:41 Family History Father Anxiety Diabetes Depression Heart disease Mental Disorders Psychiatric care CVA (cerebral vascular accident) Sister Anxiety Arthritis Depression Diabetes Heart disease Mental Disorders Psychiatric care Respiratory disease Mother Arthritis Otosclerosis Surgical History History of surgical removal of ganglion cyst Social History Smoking Status: Current every day smoker tobacco type: cigarettes alcohol intake: current details: 1-2 glasses substance use type: does not use caffeine: Yes what type of physical activity do you participate in: walking seatbelt use: always do you feel safe at home: Yes additional social history: -Uri ROS ROS ED Review of Systems ROS Unobtainable: other Constitutional Constitutional ED: Reports fever(s) and lethargy; Denies chills, sweats or weight loss Eyes Eyes: Denies blurry vision, change in vision or diplopia ENT ENT ED: Reports other Details: Left facial swelling ; Denies rhinorrhea or sore throat Cardiovascular Cardiovascular: Denies chest pain, orthopnea or racing heartbeat Respiratory/Chest Respiratory/Chest: Denies cough, dyspnea, dyspnea on exertion, orthopnea or sputum Gastrointestinal Gastrointestinal: Denies abdominal pain, diarrhea, nausea or vomiting Genitourinary Genitourinary ED: Denies dysuria, hematuria or urinary frequency Musculoskeletal Musculoskeletal: Denies arthralgias, back pain, myalgias or neck pain Integumentary Denies abscess, Abrasions or rash Neurologic Neurologic: Denies headache(s) or weakness Psychiatric Psychiatric: Denies anxiety, depression or suicidal thoughts Endocrine Endocrinology: Denies polydipsia, polyphagia or polyuria Hematologic/Lymphatic Hematologic/Lymphatic: Denies easy bleeding, easy bruising or lymphadenopathy Allergic/Immunologic Allergic/Immunologic ED: Denies mouth swelling, tongue swelling or urticaria EXAM Physical Exam Narrative Exam Narrative: Patient decided that she did not want to wait for her influenza and COVID testing. I will treat her for suspected dental abscess with clindamycin and [place] for pain. Patient will be given a list of dentists in the area and she is advised to follow-up with a dentist within next 3 to 5 days. She is to return if increased pain, swelling, or condition worsen anyway. I do not feel there is anything amenable to draining at this time I think this is more an inflammatory response. Const Vital Signs: 10/14/22 14:41 10/14/22 14:43 10/14/22 14:55 Temperature 98.5 F 101.2 F H Temperature Source Temporal Oral Pulse Rate 119 H 96 Respiratory Rate 18 20 H Respiratory Pattern Normal Blood Pressure 152/80 H 152/80 H Blood Pressure Mean 104 104 Pulse Ox 95 97 Oxygen Delivery Method Room Air Room Air Positive well nourished and well developed General Appearance ED: well developed and NAD HEENT Reports TM's clear and moist mucous membranes HEENT Narrative: Patient has left-sided upper facial swelling noted with edema but no cellulitic changes. Patient has a broken and carried tooth worn down to the gumline which is #13. No gingival fluctuance or discrete abscess noted at this time. normocephalic and atraumatic; Negative for trauma or tenderness Tympanic Membrane ED: Yes TM's clear Eyes PERRL and EOMs intact bilaterally General Eye ED: Negative for pale conjunctiva or scleral icterus Neck no lymphadenopathy, supple and no JVD General: Negative for tenderness Chest Wall inspection of chest normal and palpation of chest normal Chest: Negative for tenderness Resp normal respiratory effort and clear to auscultation bilaterally Effort and Inspection: Negative for respiratory distress or pain with movement Auscultation: Negative for rhonchi, wheezes or diminished lung sounds Cardio regular rate, regular rhythm, S1 normal heart sound, S2 normal heart sound and no murmurs Peripheral Pulses: pulses 2+ throughout GI normal to inspection, nondistended, normoactive bowel sounds, soft to palpation, non-tender, non-distended and no masses Back/Spine no CVA tenderness and no thoracic nor lumbar tenderness Extremity normal to inspection General Extremety ED: Negative for edema General Extremity: Negative for edema Neuro oriented x3, CN's II-XII intact bilaterally, no sensory deficits noted and gait normal Sensorium / Orientation: awake, alert, oriented to person, oriented to place and oriented to time Motor Exam: strength 5/5 throughout and strength abnormal Psych mental status grossly normal Skin no rashes or lesions noted and no wounds Discharge Plan Triage Chief Complaint: Fever Other Complaint: Cellulitis ED Provider: Sharri Vazquez Dx/Rx/DC Orders Clinical Impression: Abscess, dental Instructions: ED Tooth Abscess Prescriptions: New clindamycin HCl [Cleocin HCl] 300 mg capsule 300 mg PO Q6H Qty: 40 0RF oxycodone-acetaminophen [oxycodone-acetaminophen] 5-325 mg tablet 1 tab PO Q6H PRN PRN (Reason: Pain) 3 Days Qty: 12 0RF No Action pseudoephedrine HCl [Sudafed] 30 mg tablet 60 mg PO ONCE PRN clonazepam 0.5 mg tablet 0.5 mg PO BID acetaminophen [Tylenol Extra Strength] 500 mg tablet 500 mg PO Q6H PRN folic acid 1 mg tablet 1 mg PO DAILY methotrexate sodium 2.5 mg tablet 20 mg PO QWEEK cholecalciferol (vitamin D3) 1,250 mcg (50,000 unit) capsule 1,250 mcg PO QWEEK Qty: 14 2RF cyanocobalamin (vitamin B-12) 2,000 mcg lozenge 2,000 mcg PO DAILY Qty: 100 3RF duloxetine 20 mg capsule,delayed release(DR/EC) 20 mg PO TID hydrocortisone 2.5 % cream 1 applic TOPICAL BID PRN (Reason: rash) Qty: 28.35 2RF clobetasol 0.05 % shampoo 1 applic TOPICAL DAILY 7 Days Qty: 118 1RF Rx Instructions: May repeat treatment after 1 week if rash persists gabapentin 600 mg tablet 600 mg PO .Q6 90 Days Qty: 360 3RF amlodipine 5 mg tablet 5 mg PO DAILY Qty: 90 3RF Primary Care Provider: Sofia Caldwell Referrals: Sofia Caldwell MD [Primary Care Provider] - Activity Restrictions/Additional Instructions: See a dentist at the earliest possible time. Disposition Disposition: Home, Self Care
[2022-10-14] MEDS: Clindamycin HCl 150 MG Capsule 300 MG PO (15:20)
[2022-10-14] MEDS: oxyCODONE 5 MG Tablet PO (15:21)
[2022-10-14] MEDS: Ibuprofen 600 MG Tablet PO (15:21)
[2022-10-14 15:28] VITALS: O2SAT 99
== END 2022-10-14 15:38 | disposition home or self-care (01) ==
LOC: ED 15:34
PROVIDERS: Emergency Provider Emergency Medicine; PCP Internal Medicine; Visit Provider Emergency Medicine
DX: K04.7 Periapical abscess without sinus (principal); F17.210 Nicotine dependence, cigarettes, uncomplicated
CPT/HCPCS: 87428; 99283

== ENCOUNTER → 2022-12-29 | Outpatient (CLI) | payer MEDICARE, OTHER, SELFPAY ==
[2022-12-29 15:36] LABS: Absolute Lymphocyte Count 2.04 X10^3/uL (0.83-4.51); Absolute Neutrophil Count 4.4 X10^3/uL (2.0-7.7); Basophil# 0.09 X10^3/uL; Basophil% 1.2 % (0-1); Eosinophil# 0.16 X10^3/uL; Eosinophils% 2.1 % (0-5); Hematocrit 42.1 % (37-47); Hemoglobin 13.7 g/dL (12.0-15.0); Lymphocyte # 2.04 X10^3/ul (0.83-4.51); Lymphocyte % 26.7 % (19-41); Mean Corp Hgb Conc 32.5 g/dL (32-36); Mean Corpuscular Volume 101.4 fL (81-99); Mean Platelet Vol. 10.5 fl (6.2-12.0); Monocyte% 11.8 % (0-10); NRBC Flagged by Analyzer 0 % (0-5); Neutrophil # 4.41 X10^3/uL (2.7-7.7); Neutrophil % 57.8 % (47-70); Platelet Count 277 K/mm3 (150-450); RBC Distribution Width CV 13.6 % (11.6-14.6); RBC Distribution Width SD 49.8 fl (35.1-43.9); Red Blood Count 4.15 M/mm3 (4.2-5.4); White Blood Count 7.6 K/mm3 (4.4-11.0)
[2022-12-29 15:48] LABS: ALB/GLOB Ratio 1.1 RATIO (0.9-2.4); AST(SGOT) 25 U/L (15-37); Alanine Aminotransfer ALT/SGPT 17 U/L (13-56); Albumin, Serum 3.8 g/dL (3.2-5.0); Alkaline Phosphatase 114 U/L (45-117); Anion Gap 6 (5-15); BUN 15 mg/dL (7-18); Calcium,Total 9.2 mg/dL (8.5-10.1); Chloride 108 mmol/L (98-107); Cholesterol 210 mg/dL (200); Creatinine, Serum 0.83 mg/dL (0.55-1.02); EST Glomerular Filtration Rate 73 mL/min (>60); Est Glom Filt Rate - Afr Amer 88 mL/min (>60); Globulin 3.6 g/dL (2.2-4.2); Glucose 111 mg/dL (74-106); High Density Lipoprotein 63 mg/dL; Potassium 3.9 mmol/L (3.5-5.1); Protein, Total 7.4 g/dL (6.4-8.2); Sodium Level 141 mmol/L (136-145); Triglycerides 79 mg/dL; Very Low Density Lipoprotein 16 mg/dL (5-40); Vitamin B12 934 pg/mL (211-911); Vitamin D,25 Hydroxy 34.7 ng/mL
== END | disposition home or self-care (01) ==
LOC: BIMLAB 13:25
PROVIDERS: PCP Internal Medicine; Referring Provider Internal Medicine; Visit Provider Internal Medicine
DX: L40.50 Arthropathic psoriasis, unspecified (principal); I10 Essential (primary) hypertension; D75.89 Other specified diseases of blood and blood-forming organs; E55.9 Vitamin D deficiency, unspecified
CPT/HCPCS: 36415; 80053; 80061; 82306; 82607; 85025

== ENCOUNTER 2023-06-06 13:30 | Outpatient (RCR) | payer MEDICARE, OTHER, SELFPAY ==
--- NOTE | 2023-04-12 10:55 | HP.PTEVAL_ITS ---
Patient's Visit Information PHYLICIA SLADE is a 67 year old F referred to Physical Therapy by Dr. Diana Kline MD with a diagnosis of LBP. Date of Evaluation: 04/12/23 Physical Therapist: Axel Benitez DPT, OCS, CSCS - Visit Plan Frequency: 2x /Week Duration: 4-6 Weeks Plan: 2x/week for 4-6 weeks start pool based back and hip and LE ROM. DLS and strength LE and progress to I pool or home based on patient wishes. - Subjective Sent over by rhumatologist. Saw her due to psoriatic arthritis diagnosis 3 yrs ago effecting most of joints. She recently has had an increased pain in LB and B knees. She increased methotrexate and did x rays and showed OA in LB and calcium deposits on knees. Sent for therapy. LBP: middle lower back at 5/10 but can get higher with act lying down or getting up. 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 Mostly comfortable sitting unless sits too long. Denies numbness or tingling in LE. Knees hurt anteriorly. 6/10 as she needs to use them, Stooping or kneeling is awful and hard to get back up. Walking is not terrible in a straight line. Low level pain at rest. Sleep is interrupted in that it is hard to find comfortable position for longer periods of time. Employed: Retired. Hobbies: reading, computer and they are not effected. Lives with who needs some caregiving which she can do. Basic ADLs are getting done. Simple meals are prepped due to weakness and pain. 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 Exercises: none. [place] better when used to work out at - Objective Walks into PT I, trasnfers I bed and chair, painful to roll and sit up. Steps with rail reciprocally with some pain in knees. reflexes LE 2/3 patella and achilles. Sensation LE WNl tog ross light touch. Strength hips 3+, knees 4- and painful ext 4/5 flexion, ankles 4- B. - Balance/Special Test Scores Functional Gait Assessment Score: 25 % Disability: 16.6700 Oswestry Low Back Score: 23 - Goals Goal 1:: Pt feel 75% better in overall pain to 1/10 at worst. Goal Time Frame: 2-4 Weeks Goal 2:: I appropriate HEP(pool, gym or home) to manage condition Goal Time Frame: 4-6 Weeks Goal 3:: Oswestry back 5 or better Goal Time Frame: 4-6 Weeks Goal 4:: sleep without interruption due to discomfort Goal Time Frame: 4-6 Weeks - Rehabilitation Potential Physical Therapy Diagnosis: knee and back pain limiting function and activity Rehabilitation Potential: Fair - Anticipated Interventions Patient/Client Instruction: Educate patient on: Condition, Plan of Care For the Purpose of:: To decrease pain, To improve nutrient delivery to tissue, To improve muscle performance and motor function, To improve gait and locomotor functions Therapeutic Exercise to Include: Strength training, Postural training, In an aquatic setting, Passive ROM, Active ROM, Dynamic Lumbar Stabilization For the Purpose of:: To decrease pain, To increase ROM, To improve nutrient delivery to tissue, To improve muscle performance and motor function, To increase tolerance to activity/condition/position, To improve ability of physical actions for home/community/work/leisure Thank you for the opportunity to evaluate your patient. For Medicare and Medicare HMO plans, please review the plan of care and approve it. It will need to be FAXED BACK to us at [phone] for Medicare purposes. For Medicare only, by signing this I certify the plan of care. Please let me know if there are questions or concerns regarding this plan of care. Physician Signature: Date:
--- NOTE | 2023-06-06 13:40 | HP.PTDCSUM ---
Discharge Summary D/C summary: It has been my pleasure to treat PHYLICIA SLADE referred by Dr. Diana Kline MD, with the diagnosis of LBP for a total of 13 visit(s). Discharge Date: 06/06/23 Please see the following information for a summary of their discharge status. Subjective Subjective: Back is much better. Knees still sore. 40-50 % better. Knees still hurt 6-9/10. Back not really problem. HEP: daily. Sleep is reasonably good. Knees sometimes hurt. Activities at home are pretty normal, strated getting back to yard work. Can work for 30 minutes. Pain LBP: Pain Intensity (Out of 10): 7 BLE: Pain Intensity (Out of 10): 5 Overall Improvement % Improvement: 50 Objective Objective/Function: Walks slowly but safely and without antalgia today, steps reciprocally with one rail. LB AROM is min limited in extension and flexionn and no pain or hesitation today. Goals Goal 1:: Pt feel 75% better in overall pain to 1/10 at worst. Goal Progress: 50% Goal 2:: I appropriate HEP(pool, gym or home) to manage condition Goal Progress: Goal Met Goal 3:: Oswestry back 5 or better Goal Progress: Progressing Goal 4:: sleep without interruption due to discomfort Goal Progress: Progressing Plan Plan: *3 more pool sessions* *BDB CORE *F/U with HEP *FWD LUNGES 2x week for 5 more vists per POC, please treat in the pool with aggressive LE and core strength and ROM to LB. Please provide more aggressive LE strength adn core HEP including rotation via HEP as patient compliance. Will d/c after last aquatic visit if patient doing well and able to manage, otherwise rahman chedule recheck with EG. D/C Information Discharge Comments: Pt to cotninue HEP daily and f/u with doctor next week. Overall back is better but knees still bothersome. d/c sentence: If there are questions or concerns regarding this patient's physical therapy, please feel free to call me at [phone]. Thank you for the referral of this patient. Sincerely, Axel Benitez, DPT, OCS, CSCS Balance/Gait/Functional tests Balance/Special Test Scores Functional Gait Assessment Score: 25 % Disability: 16.6700 Oswestry Low Back Score: 16
== END 2023-06-06 19:00 | disposition home or self-care (01) ==
LOC: PT 13:30
PROVIDERS: PCP Internal Medicine; Referring Provider Internal Medicine; Visit Provider Internal Medicine
DX: M54.50 Low back pain, unspecified (principal)
CPT/HCPCS: 97113; 97161; 97164; 97530

== ENCOUNTER → 2023-07-12 | Outpatient (CLI) | payer MEDICARE, OTHER, SELFPAY ==
--- NOTE | 2023-07-12 12:58 | BD_ITS ---
STUDY: DUAL ENERGY X-RAY ABSORPTIOMETRY / DXA REASON FOR EXAM: Female, 68 years old. 733.00OsteoporosisBONE DENSITY REASON FOR EXAM TECHNIQUE: Bone Mineral Density (BMD) measurements of lumbar spine and bilateral hips were obtained. COMPARISON: None. FINDINGS: Lumbar Spine (L1-L4): g/cm2 (0.863) / T-score (-1.7) / Z-score (0.2) Findings are suggestive of osteopenia with a moderate fracture risk. Left Femur Total: g/cm2 (0.793) / T-score (-1.2) / Z-score (0.1) Left Femoral Neck: g/cm2 (0.766) / T-score (-0.7) / Z-score (0.9) Right Femur Total: g/cm2 (0.815) / T-score (-1.0) / Z-score (0.3) Right Femoral Neck: g/cm2 (0.769) / T-score (-0.7) / Z-score (0.9) BD/Dexa Bone Density Study IMPRESSION: The patient is considered osteopenic as outlined below according to World Wade Organization (WHO) criteria with a moderate fracture risk. Reference Information: The T-score is the number of standard deviations above or below the standard which is normal for young adults at their peak bone mineral density. The World Health Organization (WHO) interprets the T-scores as follows: Above -1 Normal bone density Between -1 and -2.5 Osteopenia Equal to / or below -2.5 Osteoporosis As a practical clinical guideline, osteopenia may be graded as follows: Mild -1 through -1.5 Moderate -1.6 through -2.0 Severe -2.1 through -2.4 The Z-score is the number of standard deviations above or below age-matched controls. A Z-score of less than -1.5 would be considered abnormal. References: 1. NIH Osteoporosis and Related Bone Diseases www osteo.org 2. International Society for Clinical Densitometry www iscd.org 3. National Osteoporosis Foundation www nof.org Electronically Signed: Bishnu George MD at 13:08 EDT ,
== END | disposition home or self-care (01) ==
LOC: OPBD 12:53
PROVIDERS: PCP Internal Medicine; Referring Provider Internal Medicine; Visit Provider Internal Medicine
DX: M81.0 Age-related osteoporosis without current pathological fracture (principal)
CPT/HCPCS: 77080

== ENCOUNTER → 2023-08-16 | Outpatient (CLI) | payer MEDICARE, OTHER, SELFPAY ==
[2023-08-16 17:13] LABS: AST(SGOT) 30 U/L (15-37); Alanine Aminotransfer ALT/SGPT 22 U/L (13-56); Albumin, Serum 3.8 g/dL (3.2-5.0); Alkaline Phosphatase 142 U/L (45-117); Anion Gap 4 (5-15); BUN 12 mg/dL (7-18); BUN/Creat Ratio 17.1 RATIO (10-20); Calcium,Total 9.3 mg/dL (8.5-10.1); Chloride 106 mmol/L (98-107); EST Glomerular Filtration Rate 89 mL/min (>60); Est Glom Filt Rate - Afr Amer 107 mL/min (>60); Globulin 3.7 g/dL (2.2-4.2); Glucose 98 mg/dL (74-106); Potassium 3.7 mmol/L (3.5-5.1); Protein, Total 7.5 g/dL (6.4-8.2); Sodium Level 139 mmol/L (136-145); T4 Free Direct 1.02 ng/dL (0.76-1.46)
[2023-08-16 17:18] LABS: Absolute Lymphocyte Count 2.34 X10^3/uL (0.83-4.51); Absolute Neutrophil Count 3.9 X10^3/uL (2.0-7.7); Basophil# 0.11 X10^3/uL; Basophil% 1.4 % (0-1); Eosinophil# 0.39 X10^3/uL; Eosinophils% 5.1 % (0-5); Hematocrit 42.9 % (37-47); Hemoglobin 14.2 g/dL (12.0-15.0); Lymphocyte # 2.34 X10^3/ul (0.83-4.51); Lymphocyte % 30.4 % (19-41); Mean Corp Hgb Conc 33.1 g/dL (32-36); Mean Corpuscular Hgb 33.6 pg (27.0-32.0); Mean Corpuscular Volume 101.7 fL (81-99); Mean Platelet Vol. 10.1 fl (6.2-12.0); Monocyte# 0.93 X10^3/uL; Monocyte% 12.1 % (0-10); NRBC Flagged by Analyzer 0 % (0-5); Neutrophil # 3.91 X10^3/uL (2.7-7.7); Neutrophil % 50.6 % (47-70); Platelet Count 301 K/mm3 (150-450); RBC Distribution Width CV 13.1 % (11.6-14.6); RBC Distribution Width SD 48.2 fl (35.1-43.9); Red Blood Count 4.22 M/mm3 (4.2-5.4); White Blood Count 7.7 K/mm3 (4.4-11.0)
[2023-08-16 17:24] LABS: Hemoglobin A1c 5.5 % (3.8-5.6)
== END | disposition home or self-care (01) ==
LOC: BIMLAB 16:10
PROVIDERS: PCP Internal Medicine; Visit Provider Internal Medicine
DX: I10 Essential (primary) hypertension (principal); F41.9 Anxiety disorder, unspecified; F32.9 Major depressive disorder, single episode, unspecified; I49.9 Cardiac arrhythmia, unspecified; R73.03 Prediabetes
CPT/HCPCS: 36415; 80053; 83036; 84439; 84443; 85025

== ENCOUNTER → 2023-08-28 | Outpatient (CLI) | payer MEDICARE, OTHER, SELFPAY | END | disposition home or self-care (01) | LOC: PSN 13:00 | PROVIDERS: PCP Internal Medicine; Referring Provider Internal Medicine; Visit Provider Internal Medicine | DX: R00.2 Palpitations (principal); I49.9 Cardiac arrhythmia, unspecified | CPT/HCPCS: 93225; 93226 ==

== ENCOUNTER 2023-09-07 22:07 | Emergency (ER) | payer MEDICARE, OTHER, SELFPAY ==
[2023-09-07 22:07] VITALS: BP 135/84; PULSE 79; RESP 16; TEMP 36.4; O2SAT 93; BMI 24.9
--- NOTE | 2023-09-07 22:42 | EX.ED.DYSGE1 ---
HPI History of Present Illness Chief Complaint: Foreign Body Informant: patient and spouse/S.O. Narrative Narrative: Patient is a 68-year-old female with past medical history of hypertension psoriasis and endometrial cancer. She states that roughly 6 months ago she had an episode where while eating felt like the food became stuck. She states she waited a few hours and the symptoms passed. She states around 7 PM today she was eating beef when she felt like the food once again became stuck. She states that since that time she cannot even swallow water without vomiting. She states she gave the symptoms roughly 3 hours to improve and they have not done so and secondary to this she comes to the hospital for evaluation. [facility] Medical History Abdominal tenderness Anxiety Arrhythmia Arthritis Borderline type 2 diabetes mellitus Cataracts, bilateral Depression Fatigue Flu vaccine need Health care maintenance Hearing loss Heart murmur History of emotional problems History of endometrial cancer History of suicide attempt History of UTI Macrocytosis Neuropathy Psoriatic arthritis Screening for thyroid disorder Seasonal allergies Vision problems Vitamin D deficiency Home Medications pseudoephedrine HCl 30 mg tablet (Sudafed) 60 mg PO ONCE PRN 01/26/20 [History Last Taken Unknown] clonazepam 0.5 mg tablet 0.5 mg PO BID 12/08/20 [History Last Taken Unknown] hydrocortisone 2.5 % topical cream 1 applic topical BID PRN rash #28.35 grams 02/07/21 [Rx Last Taken Unknown] acetaminophen 500 mg tablet (Tylenol Extra Strength) 500 mg PO Q6H PRN 02/18/21 [History Last Taken Unknown] folic acid 1 mg tablet 1 mg PO DAILY 08/19/21 [History Last Taken Unknown] clobetasol 0.05 % shampoo 1 applic topical DAILY 1 week #118 mL 08/25/21 [Rx Last Taken Unknown] amlodipine 10 mg tablet 10 mg PO DAILY #90 tabs 01/01/23 [Rx Last Taken Unknown] cholecalciferol (vitamin D3) 1,250 mcg (50,000 unit) capsule 1,250 mcg PO QWEEK #14 caps 01/09/23 [Rx Last Taken Unknown] duloxetine 20 mg capsule,delayed release 60 mg PO BID 04/09/23 [History Last Taken Unknown] methotrexate sodium 2.5 mg tablet mg PO 08/16/23 [History Last Taken Unknown] cyanocobalamin (vitamin B-12) 2,000 mcg lozenges 2,000 mcg PO DAILY #100 ea 09/03/23 [Rx Last Taken Unknown] gabapentin 600 mg tablet 600 mg PO Q8H pain 3 months #270 tabs 09/03/23 [Rx Last Taken Unknown] Allergy/AdvReac Type Severity Reaction Status Date / Time clindamycin AdvReac Mild Nausea Verified 09/07/23 22:09 Family History Father Anxiety Diabetes Depression Heart disease Mental Disorders Psychiatric care CVA (cerebral vascular accident) Sister Anxiety Arthritis Depression Diabetes Heart disease Mental Disorders Psychiatric care Respiratory disease Mother Arthritis Otosclerosis Surgical History History of surgical removal of ganglion cyst Social History Smoking Status: Current every day smoker tobacco type: cigarettes alcohol intake: current details: 1-2 glasses substance use type: does not use caffeine: Yes what type of physical activity do you participate in: walking seatbelt use: always do you feel safe at home: Yes additional social history: -Uri ROS ROS ED Constitutional Constitutional ED: Denies chills or fever(s) ENT ENT ED: Reports sore throat Cardiovascular Cardiovascular: Denies chest pain Respiratory/Chest Respiratory/Chest: Denies cough or dyspnea Gastrointestinal Gastrointestinal: Reports nausea and vomiting; Denies abdominal pain or diarrhea Genitourinary Genitourinary ED: Denies dysuria Musculoskeletal Musculoskeletal: Denies myalgias Integumentary Denies rash Neurologic Neurologic: Denies headache(s) Hematologic/Lymphatic Hematologic/Lymphatic: Denies easy bleeding or easy bruising EXAM Physical Exam Const Vital Signs: 09/07/23 22:07 09/07/23 22:28 Temperature 97.6 F L Temperature Source Temporal Pulse Rate 79 Respiratory Rate 16 Respiratory Effort Normal Non-Labored Respiratory Pattern Normal Blood Pressure 135/84 H Blood Pressure Mean 101 Pulse Ox 93 Oxygen Delivery Method Room Air Positive well nourished and well developed General Appearance ED: well developed HEENT Reports moist mucous membranes HEENT Narrative: No tongue or lip swelling No foreign body noted Eyes PERRL and EOMs intact bilaterally Neck supple Resp normal respiratory effort and clear to auscultation bilaterally Cardio regular rate and regular rhythm Extremity normal to inspection Neuro oriented x3 and CN's II-XII intact bilaterally Sensorium / Orientation: alert Psych mental status grossly normal Skin no rashes or lesions noted MDM MDM MDM Narrative Medical decision making narrative: Patient presented to the ER in no acute distress with history and exam most consistent with complete esophageal obstruction. At this time she does not have respiratory distress or difficulty breathing so my concern for airway obstruction or aspiration is low and I do not feel there is need for imaging or laboratory studies. The patient was given morphine and Ativan to help relax smooth muscle. She then was made to drink soda and with the medication and increased pressure from the carbonated beverage she did have spontaneous passage of the esophageal food bolus. She was watched for another 10 to 15 minutes in the ER and was able to drink without any pain or difficulty. Therefore at this time as patient's had spontaneous passage of the food bolus with no signs of respiratory distress and no difficulty swallowing after the event she is otherwise safe for discharge History & Record Review Discussion w/independent historian: Patient and Significant other Discharge Plan Triage Chief Complaint: Foreign Body ED Provider: Alek Blanc Dx/Rx/DC Orders Clinical Impression: Esophageal obstruction due to food impaction, Psoriasis, Hypertension Instructions: ED Esophageal Foreign Body, Resolved Prescriptions: No Action pseudoephedrine HCl [Sudafed] 30 mg tablet 60 mg PO ONCE PRN clonazepam 0.5 mg tablet 0.5 mg PO BID acetaminophen [Tylenol Extra Strength] 500 mg tablet 500 mg PO Q6H PRN folic acid 1 mg tablet 1 mg PO DAILY duloxetine 20 mg capsule,delayed release(DR/EC) 60 mg PO BID methotrexate sodium 2.5 mg tablet PO hydrocortisone 2.5 % cream 1 applic TOPICAL BID PRN (Reason: rash) Qty: 28.35 2RF clobetasol 0.05 % shampoo 1 applic TOPICAL DAILY 7 Days Qty: 118 1RF Rx Instructions: May repeat treatment after 1 week if rash persists amlodipine 10 mg tablet 10 mg PO DAILY Qty: 90 3RF cholecalciferol (vitamin D3) 1,250 mcg (50,000 unit) capsule 1,250 mcg PO QWEEK Qty: 14 2RF gabapentin 600 mg tablet 600 mg PO Q8H 90 Days Qty: 270 3RF cyanocobalamin (vitamin B-12) 2,000 mcg lozenge 2,000 mcg PO DAILY Qty: 100 3RF Primary Care Provider: Sofia Caldwell Referrals: Sofia Caldwell MD [Primary Care Provider] - Activity Restrictions/Additional Instructions: Please continue all of your home medications as directed by your doctor. As this is the second time this is happened discussed with your family doctor referral to a drop machine operator for potential EGD. If you have any further concerns or worsening symptoms please return for repeat evaluation Disposition Disposition: Home, Self Care
[2023-09-07] MEDS: Morphine 4 MG/ML Syringe IV (22:59)
[2023-09-07] MEDS: LORazepam 2 MG/ML Syringe 0.5 MG IV (22:59)
[2023-09-07] MEDS: Ondansetron 4 MG/2 ML Vial IV (22:59)
[2023-09-07 23:07] VITALS: BP 110/67; PULSE 71; RESP 15; O2SAT 96
[2023-09-08 00:03] VITALS: BP 110/61; PULSE 71; RESP 15; O2SAT 96
== END 2023-09-08 00:06 | disposition home or self-care (01) ==
PROVIDERS: Emergency Provider Emergency Medicine; PCP Internal Medicine; Visit Provider Emergency Medicine
DX: K22.2 Esophageal obstruction (principal); L40.50 Arthropathic psoriasis, unspecified; R11.2 Nausea with vomiting, unspecified; I10 Essential (primary) hypertension; R73.03 Prediabetes; F17.210 Nicotine dependence, cigarettes, uncomplicated; Z79.899 Other long term (current) drug therapy
CPT/HCPCS: 96374; 96375; 99283; A4216; J2405

== ENCOUNTER 2023-11-13 07:04 | Day surgery (SDC) | payer MEDICARE, OTHER, SELFPAY ==
--- OUTSIDE RECORDS SUMMARY | 2023-11-13 07:13 | XMS RPT_ITS | CCD ---
Author Name Unknown Address [address] [place] [address] Organization [facility] Care Team Providers [employer] Guid[employer] Counselor Name Role Phone MALCOLM GE Unavailable Unavailable MALCOLM GE Unavailable Unavailable REFERRED, SELF Unavailable Unavailable Olecésare, Efewongbe B Primary Care Provider Sofia Caldwell MD Primary Care Provider [phone] MISHEL RAMOS Attending Unavailable HIREN AGUILA Attending Unavailable JAMAAL, IFIJEN Primary Care Unavailable Loren Caldwell MD Primary Care Provider Mishel Aguilar APRN, CNP Unavailable Hiren Aguila MD Unavailable DIANA OSCAR Attending Unavailable OLEGHE, EFEWONGBE B Referring Unavailable OLEGHE, EFEWONGBE B Primary Care Unavailable DIANA OSCAR Referring Unavailable OLEGHE, EFEWONGBE B Primary Care Unavailable DIANA OSCAR Referring Unavailable OLEGHE, EFEWONGBE B Primary Care Unavailable KATELYN HEATH Attending Unavailable DIANA OSCAR Referring Unavailable OLEGHE, EFEWONGBE B Primary Care Unavailable Allergies Allergy Classification Reported Allergen(s) Allergy Type Date of Onset Reaction(s) Facility (2 sources) strawberry allergenic extract; Translations: [STRAWBERRY (DIAGNOSTIC)] Drug Allergy [facility] Repository (1 source) QUERCUS ROBUR; Translations: [QUERCUS ROBUR] Propensity to adverse reactions to drug (disorder) [facility] Repository (1 source) OTHER; Translations: [OTHER] Propensity to adverse reactions to food (disorder) AOF [facility] Repository (2 sources) SHELLFISH-DERIV ED PRODUCTS; Translations: [SHELLFISH-DERI ABNER PRODUCTS] Propensity to adverse reactions to drug (disorder) 7 Nausea And Vomiting [facility] Repository (7 sources) clam allergenic extract; Translations: [CLAMS] Drug Allergy 9 [facility] Work Phone: (7 sources) Codeine; Translations: [CODEINE] Drug Allergy 3 GI Upset [facility] (7 sources) Mold Extract; Translations: [MOLD] Drug Allergy 5 [facility] Work Phone: (7 sources) Norethindrone; Translations: [NORETHINDRONE] Drug Allergy 1 Mental Status Change [facility] Work Phone: (7 sources) [place]; Translations: [STRAWBERRIES] Propensity to adverse reactions 5 [facility] Work Phone: (7 sources) [place]; Translations: [OAK] Propensity to adverse reactions 5 [facility] Work Phone: (7 sources) Oysters; Translations: [OYSTERS] Propensity to adverse reactions 9 [facility] Work Phone: (1 source) Doxycycline Drug Allergy 3 [facility] Medications Current Medications Medication Drug Class(es) Dates Sig (Normalized) Sig (Original) acetaminophen 325 mg oral tablet (8 sources) Start: 07-05-2020 take 650 mg by mouth every six hours, then take 4000 mg by mouth every twenty-four hours 650 mg, Oral, EVERY 6 HOURS, First dose on Sun07/05/20 at 1545 Maximum dose of acetaminophen is 4000 mg from all sources in 24 hours. Post-op Completed/Discontinued Medications Medication Drug Class(es) Dates Sig (Normalized) Sig (Original) ALPRAZolam 0.25 mg disintegrating oral tablet (1 source) Benzodiazepine Start: 07-05-2020 End: 07-05-2020 ALPRAZolam (NIRAVAM) dissolvable tablet 0.25 mg amLODIPine 10 mg oral tablet (6 sources) Dihydropyridine Calcium Channel Kimberly take 1 tablet by mouth once daily amLODIPine (NORVASC) 10 mg tablet Take 10 mg by mouth once daily. 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; Translations: [Malignant neoplasm of endometrium] Onset: 07-05-2020 07-05-2020 Chronic Cancer of uterus (2 sources) FIGO EC stage IIIB; Translations: [Endometrial cancer, FIGO stage IIIB (HCC)] 07-05-2020 Mood disorders (6 sources) Bipolar disorder; Translations: [Bipolar disorder, unspecified] Onset: 03-10-2011 10-31-2021 Chronic Nutritional deficiencies (3 sources) Vitamin D deficiency; Translations: [Vitamin D deficiency, unspecified] Onset: 03-15-2023 Chronic Osteoporosis (2 sources) Osteoporosis; Translations: [Age-related osteoporosis without current pathological fracture] Onset: 03-15-2023 Chronic Other inflammatory condition of skin (10 sources) Psoriatic arthritis; Translations: [Arthropathic psoriasis, unspecified] Onset: 03-15-2023 Chronic Other inflammatory condition of skin (1 source) Arthropathic psoriasis, unspecified; Translations: [Psoriasis with arthropathy (HCC)] Onset: 03-15-2023 Chronic Other non-traumatic joint disorders (2 sources) Multiple joint pain; Translations: [Pain in unspecified joint] Episodic Residual codes; unclassified (6 sources) Insomnia; Translations: [Insomnia, unspecified] 09-13-2005 Episodic Residual codes; unclassified (2 sources) Postoperative state; Translations: [Post-operative state] Onset: 07-05-2020 07-05-2020 Secondary malignancies (3 sources) Malignant tumor involving uterine corpus by direct extension from uterine cervix; Translations: [Secondary malignant neoplasm of genital organs] Onset: 07-05-2020 07-05-2020 Chronic Spondylosis; intervertebral disc disorders; other back problems (1 source) Low back pain; Translations: [Low back pain, unspecified back pain laterality, unspecified chronicity, unspecified whether sciatica present] 06-19-2023 Episodic Thyroid disorders (6 sources) Hypothyroidism; Translations: [Hypothyroidism, unspecified] Onset: 05-30-2011 05-30-2011 Chronic Unclassified (1 source) Low back pain, unspecified back pain laterality, unspecified chronicity, unspecified whether sciatica present; Translations: [Low back pain, unspecified back pain laterality, unspecified chronicity, unspecified whether sciatica present] Onset: 06-19-2023 Past or Other Problems Problem Classification Problem Date Documented Da te Episodic/Chronic Administrative/social admission (6 sources) Person with feared health complaint in whom no diagnosis is made; Translations: [Person with feared complaint in whom no diagnosis was made] Onset: 05-22-2014 05-22-2014 Episodic Other and unspecified benign neoplasm (6 sources) Leiomyoma; Translations: [Benign neoplasm of connective and other soft tissue, unspecified] Onset: 03-10-2011 03-10-2011 Episodic Other connective tissue disease (12 sources) Triggering of digit; Translations: [Trigger finger, right ring finger] Onset: 01-08-2014 01-08-2014 Episodic Other connective tissue disease (6 sources) Pain in limb; Translations: [Pain in unspecified limb] Onset: 05-22-2014 05-22-2014 Episodic Other connective tissue disease (6 sources) Ganglion cyst of right wrist; Translations: [Ganglion, right wrist] Onset: 12-21-2016 12-21-2016 Episodic Other nervous system disorders (6 sources) Sensory disorder; Translations: [Unspecified disturbances of skin sensation] Onset: 05-22-2014 05-22-2014 Episodic Other nervous system disorders (6 sources) Skin sensation disturbance; Translations: [Unspecified disturbances of skin sensation] Onset: 05-22-2014 05-22-2014 Episodic Other non-traumatic joint disorders (1 source) Pain in unspecified joint; Translations: [Pain in joint, multiple sites] Onset: 03-15-2023 Episodic Other nutritional; endocrine; and metabolic disorders (6 sources) Weight loss; Translations: [Abnormal weight loss] Onset: 03-10-2011 03-10-2011 Episodic Results Test Name Value Interpretation Reference Range Facil ity Vital Signs Date Time Vital Sign Value Performing Clinician Facility 06-19-2023 15:34-0400 Body height 167.1 cm Katelyn Heath PA-C Work Phone: [facility] 06-19-2023 15:34-0400 Body weight 69.58 kg Katelyn Heath PA-C Work Phone: [facility] 06-19-2023 15:34-0400 Diastolic blood pressure 70 mm[Hg] Katelyn Barile PA-C Work Phone: [facility] 06-19-2023 15:34-0400 Heart rate 72 /min Katelyn Barile PA-C Work Phone: [facility] 06-19-2023 15:34-0400 SaO2% (BldA) [Mass fraction] 96 % Katelyn Barile PA-C Work Phone: [facility] 06-19-2023 15:34-0400 Systolic blood pressure 122 mm[Hg] Katelyn Barile PA-C Work Phone: [facility] 05-24-2023 14:52-0400 Body height 167.6 cm Hiren Aguila MD Work Phone: [id number] 05-24-2023 14:52-0400 Body mass index (BMI) [Ratio] 22.6 kg/m2 Hiren Aguila MD Work Phone: [facility] [id number] 05-24-2023 14:52-0400 Body weight 63.5 kg Hiren Aguila MD Work Phone: [facility] 05-24-2023 14:52-0400 Diastolic blood pressure 80 mm[Hg] Hiren Aguila MD Work Phone: [facility] [id number] 05-24-2023 14:52-0400 Heart rate 69 /min Hiren Aguila MD Work Phone: [facility] [id number] 05-24-2023 14:52-0400 Systolic blood pressure 134 mm[Hg] Hrien Aguila MD Work Phone: [id number] 03-15-2023 13:33-0400 Body temperature 98.1 [degF] Diana Oscar MD Work Phone: [facility] 03-15-2023 13:33-0400 Diastolic blood pressure 75 mm[Hg] Diana Oscar MD Work Phone: [facility] 03-15-2023 13:33-0400 Heart rate 80 /min Diana Oscar MD Work Phone: [facility] 03-15-2023 13:33-0400 Respiratory rate 10 /min Diana Oscar MD Work Phone: [facility] 03-15-2023 13:33-0400 Systolic blood pressure 122 mm[Hg] Diana Oscar MD Work Phone: [facility] 07-10-2020 08:20-0400 Body Temperature 98.29 [degF] Hiren Moura [facility] - [place], [place] 07-10-2020 08:20-0400 BP Diastolic 74 mm[Hg] [facility]ren [facility] - [place], [place] 07-10-2020 08:20-0400 BP Systolic 135 mm[Hg] [facility] [place] [place] [facility] 08:20-0400 Pulse (Heart Rate) 72 /min Hiren Moura [facility]- [place], [place] 07-10-2020 08:20-0400 Pulse Oximetry 97 % Hiren Moura [facility], [place] 07-10-2020 08:20-0400 Respiratory Rate 12 /min Hiren Moura [facility]- [place], [place] 07-05-2020 06:02-0400 BMI (Body Mass Index) 19.85 kg/m2 Hiren Moura [facility]- [place] 07-05-2020 06:02-0400 Body weight 55.79 kg Hiren Moura [facility] - [place], [place] 07-05-2020 06:02-0400 Height 167.6 cm Hiren Moura [facility] [place], [place] 06-25-2020 13:18-0400 BMI (Body Mass Index) 19.85 kg/m2 Hiren Moura [facility] [place] 06-25-2020 13:18-0400 Body Temperature 99.1 [degF] Hiren Moura [facility]- [place], [place] 06-25-2020 13:18-0400 Body weight 55.79 kg Hiren Muora [facility] [place], [facility] 06-25-2020 13:18-0400 BP Diastolic 90 mm[Hg] Hiren Moura [facility] - [place] 06-25-2020 13:18-0400 BP Systolic 126 mm[Hg] Hiren Moura [facility] [place], [place] 06-25-2020 13:18-0400 Height 167.6 cm Hiren Moura [facility] [place], [place] 06-25-2020 13:18-0400 Pulse (Heart Rate) 84 /min Hiren Moura [facility]- [place], [place] 06-25-2020 13:18-0400 Pulse Oximetry 98 % Hiren Moura [facility], [place] 06-25-2020 13:18-0400 Respiratory Rate 16 /min Hiren Moura [facility] - [place], [place] Encounters Encounter Date Encounter Type Care Provider Facility Start: 10-15-2023 Refill Katelyn pickett PA-C Work Phone: [facility] General Rheumatology and Arthritis Procedures Date Procedure Procedure Detail Performing Clinician Start: 07-08-2020 Urnls dip stick/tabl et rgnt auto w/o microscopy Kaylah Nicesriram Work Phone: Start: 07-08-2020 Culture bacterial quanttative colony count urine Kaylah Nicejamesdilcia Work Phone: Start: 07-06-2020 Creatinine blood Kaylah Zasriram Work Phone: Start: 07-06-2020 Blood count complete auto&auto difrntl wbc Xin I Qasim Work Phone: Start: 07-05-2020 OPERATIVE REPORT 3m Sca nning Start: 07-05-2020 Level iv surg pathol ogy gross&microscopic exam Hiren Aguila Work Phone: Start: 06-25-2020 Blood count complete automated Stephanie Oconnor Work Phone: Start: 06-25-2020 Blood typing serologic abo Stephanie Oconnor Work Phone: Start: 06-24-2019 Lipid 1996 panel - S abe or Plasma Katelyn Heath PA-C Work Phone: Start: 06-18-2018 Colonoscopy Diana erwin MD Work Phone: Start: 06-18-2018 Mammography Diana erwin MD Work Phone: Plan of Treatment Date Care Activity Detail Author Start: 03-15-2026 DIABETES SCREEN DIABETES SCREEN [facility] Start: 03-15-2026 Diabetes Screening Diabetes Screening [facility] Start: 08-16-2025 Pneumococcal Vaccine: 65+ (4 - PPSV23 or PCV20) Pneumococcal Vaccine: 65+ (4 - PPSV23 or PCV20) [facility] Start: 08-16-2025 Pneumococcal Vaccine: 65+ Years (3 - PPSV23 if available, else PCV20) Pneumococcal Vaccine: 65+ Years (3 - PPSV23 if available, else PCV20) [facility] Start: 06-24-2024 Lipid 1996 panel - Serum or Plasma Lipid Screening [facility] Start: 06-24-2024 LIPID SCREEN LIPID SCREEN [facility] Start: 11-22-2023 End: 11-22-2023 Patient encounter procedure 11/22/2023 1:40 PM EST Office Visit [facility] Gynecologic Oncology [address] [place] [address] [address] [place] [id number] Hiren Aguila MD [address], [address] [place] [address] [facility]nec[facility]cology Start: 07-06-2023 Covid-19 Vaccine ( season) Covid-19 Vaccine ( season) [facility] Start: 07-06-2023 Influenza vaccination [facility] Start: 05-17-2023 Screening for malignant neoplasm of cervix [facility] [place] Start: 11-05-2022 ADVANCE DIRECTIVE DISCUSSION ADVANCE DIRECTIVE DISCUSSION [facility] Start: 11-05-2022 DEPRESSION ASSESSMENT DEPRESSION ASSESSMENT [facility] Start: 01-02-2022 DTaP/Tdap/Td vaccine (2 - Td) DTaP/Tdap/Td vaccine (2 - Td) [place], [place] Start: 01-02-2022 DTaP/Tdap/Td Vaccines (2 - Td or Tdap) DTaP/Tdap/Td Vaccines (2 - Td or Tdap) [facility] Start: 01-02-2022 Urine microalbumin profile [facility] Start: 12-26-2021 COVID-19 VACCINE (4 - Booster for Pfizer series) COVID-19 VACCINE (4 - Booster for Pfizer series) [facility] Start: 12-26-2021 COVID-19 VACCINE (4 - Pfizer series) COVID-19 VACCINE (4 - Pfizer series) [facility] Start: 2021 BONE DENSITY BONE DENSITY [facility] Start: 2021 Bone Density Screening Bone Density Screening [facility] Start: 07-16-2020 End: 07-16-2020 Office Visit 07/16/2020 Office Visit Gynecologic Oncology Hiren Aguila MD [address] [place] [address] [phone] [facility] [employer] TECHNICIAN Oncology Start: 07-13-2020 End: 07-13-2020 Office Visit 07/13/2020 Office Visit Gynecologic Oncology Gerri Good PA [address] [place] [id number] [facility] [employer] BI[employer] ENGINE[employer]ING TECHNICIAN Oncology Start: 07-06-2020 Influenza vaccination Flu vaccine (#1) [place], [place] Start: 07-05-2020 End: 07-05-2020 Appointment 07/05/2020 Appointment General Surgery Hiren Aguila MD [address] [place] [address] [phone] [facility] Surgery Start: 06-27-2020 ANNUAL PCP TEAM CHRONIC DISEASE VISIT ANNUAL PCP TEAM CHRONIC DISEASE VISIT [facility] Start: 05-05-2020 Annual Wellness Visit (AWV) Annual Wellness Visit (AWV) [place], [place] Start: 06-18-2019 Colonoscopy COLONOSCOPY [facility] Start: 06-18-2019 COLORECTAL CANCER SCREENING COLORECTAL CANCER SCREENING [facility] Start: 06-18-2019 Mammography [facility] Start: 2016 RSV Vaccine (1 - 1-dose 60+ series) RSV Vaccine (1 - 1-dose 60+ series) [facility] Start: 06-24-2014 Pneumococcal 0-64 years Vaccine (2 of 3 - PCV13) Pneumococcal 0-64 years Vaccine (2 of 3 - PCV13) [place], [place] Start: 06-24-2014 PNEUMOCOCCAL: 65+ (2 - PCV) PNEUMOCOCCAL: 65+ (2 - PCV) [facility] Start: 2006 Screening for malignant neoplasm of breast Breast cancer screen [place], [place] Start: 2006 Screening for malignant neoplasm of colon Colon cancer screen colonoscopy [place], [place] Start: 2001 COLOGUARD (FIT-DNA) COLOGUARD (FIT-DNA) [facility] Start: [address] COLONOGRAPHY [facility] Start: 2001 FECAL OCCULT BLOOD FECAL OCCULT BLOOD [facility] Start: 2001 SIGMOIDOSCOPY SIGMOIDOSCOPY [facility] Start: 1996 Lipid panel Lipid screen [place], [place] Start: 1996 Screening for malignant neoplasm of breast Mammogram [facility] Start: 1974 Diabetes mellitus screening Diabetes Screening [facility] Start: 1974 HEPATITIS C SCREENING HEPATITIS C SCREENING [facility] Start: 1974 Hepatitis C screening Hepatitis C Screening [facility] Start: 1971 HIV screening HIV screen [place], [place] Start: 1968 Depression Screening Depression Screening [facility] Start: 1956 Examination of skin Derm Melanoma Skin Check [facility] Start: 1956 Hepatitis C screening Hepatitis C screen [place], [place] Start: 1956 Lipid panel Lipid Panel [facility] Start: 1956 Medicare Annual Wellness (AWV) Medicare Annual Wellness (AWV) [facility] Start: 1956 Screening for malignant neoplasm of colon [facility] Start: 1956 Screening for osteoporosis Bone Density Scan [facility] End: 03-14-2024 25-hydroxyvitamin D3 [Mass/volume] in Serum or Plasma VITAMIN D 25 HYDROXY Lab Routine Pain in joint, multiple sites Vitamin D deficiency, unspecified 4 Occurrences starting 03/15/2023 until 03/14/2024 [facility] Work Phone: Immunizations Immunization Date Immunization Notes Care Provider [address] 09-04-2022 influenza virus vacc ine, unspecified formulation Hiren Aguila MD Work Phone: [facility] 10-31-2021 Pfizer SARS-CoV-2 Vaccination Hiren Aguila MD Work Phone: [facility] 02-05-2021 Pfizer SARS-CoV-2 Vaccination Hiren Aguila MD Work Phone: [facility] 01-15-2021 Pfizer SARS-CoV-2 Vaccination Hiren Aguila MD Work Phone: [facility] 09-19-2019 influenza, injectabl e, quadrivalent, contains preservative Diana Oscar MD Work Phone: [facility] Work Phone: 12-02-2018 zoster vaccine recombinant Diana Oscar MD Work Phone: [facility] Work Phone: 09-07-2018 influenza, injectabl e, quadrivalent, contains preservative Diana Oscar MD Work Phone: [facility] Work Phone: 04-29-2018 zoster vaccine recombinant Diana Oscar MD Work Phone: [facility] Work Phone: 08-27-2017 influenza, injectabl e, quadrivalent, contains preservative Diana Oscar MD Work Phone: [facility] Work Phone: 08-29-2016 influenza, injectabl e, quadrivalent, contains preservative Diana Oscar MD Work Phone: [facility] 06-24-2013 pneumococcal polysaccharide vaccine, 23 valent Diana Oscar MD Work Phone: [facility] 01-03-2012 tetanus toxoid, redu zac diphtheria toxoid, and acellular pertussis vaccine, adsorbed Diana Oscar MD Work Phone: [facility] Payers Date Payer Category Payer Private Health Insurance [id number] 2021 Private Health Insurance [id number] 2019 Private Health Insurance SHAGGY HERNANDEZ [id number] 2019-Present [phone] [address] [place] [address] [id number] 2011 Medicare [id number] 2011 Medicare [id number] Medicare [id number] Social History Date Type Detail Facility Start: 05-14-2014 End: 06-25-2020 Tobacco smoking status NHIS Current every day smoker [facility] Work Phone: History of tobacco use [facility] Start: 06-25-2020 End: 03-15-2023 Cigarettes smoked current (pack per day) - Reported [facility] Start: 06-25-2020 End: 07-09-2020 Tobacco use and exposure Current user [facility] Start: 06-25-2020 End: 06-19-2023 Alcohol intake Current drinker of alcohol (finding) [facility] Start: 1955 [facility] Start: 05-14-2023 End: 05-24-2023 Exposure to SARS-CoV-2 (event) Not sure [facility] Start: 05-14-2014 Tobacco use and exposure Smokeless tobacco non-user [facility] Work Phone: Start: 11-16-2022 End: 03-15-2023 Tobacco use panel [facility] Start: 11-09-2022 Sexual orientation Heterosexual (gretta marte) [facility] Adult Depression Screening Assessment 1 [facility] Clinical Notes 10-12-2006 to 10-15-2023 Telephone Encounter - Yoly Bone MA - 10/15/2023 3:57 PM ESTTelephone Encounter - Lisa Richards MA - 06/20/2023 2:43 PM Katelyn Florian PA-C - 06/19/2023 3:44 PM EDTPatient Instructions Note Date & Type Note Facility 10-15-2023 Miscellaneous Notes Pharmacy faxed requesting the following refill. Requested Prescriptions Pending Prescriptions Disp Refills folic acid 1 mg tablet [Pharmacy Med Name: FOLIC ACID TABS 1MG] 180 tablet 3 Sig: TAKE 2 TABLETS ONCE DAILY methotrexate 2.5 mg tablet [Pharmacy Med Name: METHOTREXATE TAB 2.5MG] 120 tablet 3 Sig: TAKE 10 TABLETS EVERY SUNDAY Patient last appointment: 06/19/2023 Next Appointment: 12/03/2023 Patient Phone numbers: [phone] (home) Request is for script(s) to be escript to pharmacy. Yoly Bone MA documented in this encounter [facility] 06-20-2023 Miscellaneous Notes Rx mail pharmacy faxed requesting the following refill. [facility] faxed a clarification request. They want to clarify the directions on this patient's prescription for Methotrexate. Noted on patient's 06-19-23 visit: On methotrexate 10 tablets weekly and folic acid daily, joints and psoriasis doing much better with increased dose. Requested Prescriptions Pending Prescriptions Disp Refills methotrexate 2.5 mg tablet 120 tablet 0 Sig: Take 10 tablets by mouth every Sunday. Patient is taking 8 tablets PO on Sunday Patient last appointment: 06/19/23 Next Appointment: 12/03/23 Patient Phone numbers: [phone] (home) Request is for script(s) to be escript to pharmacy. Lisa Richards MA documented in this encounter [facility] 06-19-2023 Note HNO ID: [id number] Author: Katelyn Heath PA-C Service: ? Author Type: Physician [facility] Technician Type: Progress Notes Filed: 06/19/2023 4:41 PM Note Text: [facility] [place] [facility] Ar[facility]ritis [facility] Rheumatology Katelyn Heath [address] [place] [address] RHEUMATOLOGY PROGRESS NOTE Patient is here for a follow up visit for Patient presents with: Osteoporosis: Needs refills HPI: Lizzeth Márquez is a 68 year old female who presents with PsA, OA MTX 10 tabs weekly, FA daily Doing better with increased dose of MTX Knee pain, constant ache. Worse with bending/movement. Did water PT. No longer buckling as much LBP- has improved with water PT Swelling- feet AM stiffness- 20 min No rashes, chest pain, shortness of breath No falls, no fx Brief Rheumatological history - Reviewed notes - Psoriasis, seen by Dr. Watson. MTX. PsA Dr. Thayer - neg MELONIE, RF, CCP. She has been on MTX. She thought it worked well in the beginning. Now has more pain in hips, knees, ankles. Sometimes writs. No swelling. Itchy plaques on scalp. She takes pred 5 mg as needed. No recent x rays. HTN, DM2 Total hysterectomy for endometrial cancer 2020 Family history of autoimmune disease: none Smoking status: Tobacco Use: .5 packs/day, for 20 years. Types: Cigarettes Interval Review of Systems CONSTITUTIONAL: Recent Weight change: No Fever: No EYES: Dryness in nose: No Dryness of mouth: No Oral ulcers: No CARDIOVASCULAR: Pain in chest: No RESPIRATORY: Shortness of breath: No Cough: No GASTROINTESTINAL: Nausea: No Vomiting: No Changes in bowel movements: No Jaundice: No Heartburn: No MUSCULOSKELETAL: Per HPI INTEGUMENTARY: Rash: No HEMATOLOGIC/LYMPHATIC: Anemia: No NEUROLOGICAL SYSTEM: Headaches: No Sensitivity or pain of hands and/or feet: No PSYCHIATRIC: Anxiety: No Poor sleep: No PAST MEDICAL HISTORY Diagnosis Date Depressive disorder, not elsewhere classified Excessive or frequent menstruation Insomnia, unspecified Neuropathy stocking glove. Nystagmus unable to drive and causes vision problems PAST SURGICAL HISTORY Procedure Laterality Date ECT TREATMENT, MULTIPLE X6 ENDOMETRIAL BX W/WO ENDOCERVIX BX W/O DILAT SPX 01/28/2009 Menorrhagia and Irregular Menses PAST SURGICAL HISTORY OF 05/22/2014 Right ring trigger finger release PAST SURGICAL HISTORY OF 09/04/2014 left ring trigger finger release TOTAL ABDOM HYSTERECTOMY UNSPECIFIED ORAL SURGERY PROCEDURE, BY REPORT [place] [facility] History Review: I have reviewed and modified as needed, the following during this visit: Allergies, Past Medical History, Past Surgical History, Past Family History, Past Social History. BP 122/70 (BP Site: Left Arm, BP Position: Sitting) Pulse 72 Ht 167.1 cm (5' 5.78 ) Wt 69.6 kg (153 lb 6.4 oz) LMP 12/08/2010 SpO2 96% BMI 24.93 kg/m? Physical Exam GENERAL: Well appearing, alert, comfortable, in no acute distress, well-hydrated, well nourished. HEENT: Negative for external ears normal. Canals are clear. Both TMs visualized and are normal. Eye Exam normal. External nose normal, no nasal ulcer or throat ulcer. NECK: NECK Supple, no adenopathy; thyroid symmetric, normal size, no bruits CARDIAC: regular rate and rhythm, No murmur asculated., and Equal peripheral pulses RESPIRATORY: Lungs clear to auscultation. No wheezing, rhonchi, rales VASCULAR: RRR without murmur, gallop, or rubs. No ectopy. NEURO: Motor and sensory exam normal MOTOR: Normal; including tone, gait, stressed gait, power and coordination. SKIN: Negative for alopecia, skin rash, malar rash, skin lesion, skin ulcer, pits, thickening, color changes, telangiectasias, nail changes, nail ridging, nail pitting, onycholysis MUSCULOSKELETAL: Mild joint line tenderness bl knees Lab Results: 03/2023 Cr 0.73 LFT normal CBC normal Vit D 52.3 Serology: neg MELONIE, RF, CCP. Radiology: X-rays 03/2023 Knees No radiographic evidence of acute osseous abnormalities. Meniscal calcifications may be seen in setting of chondrocalcinosis. This can be seen in setting of CPPD. Lumbar spine and SI joints Alignment maintained Vertebral body heights maintained Mild disc space narrowing L4/5, and severe narrowing L5/S1 Multilevel endplate osteophytes Lower lumbar predominant facet degenerative change Moderate hip degenerative changes bilaterally SI joints maintained without sclerosis or erosive change, with small osteophytes bilaterally. Lower lumbar degenerative changes. Right-sided sacralization L5. Hip joints maintained bilaterally. No acute fracture or dislocation. Assessment and Plan (L40.50) Psoriasis with arthropathy (HCC) (primary encounter diagnosis) (E55.9) Vitamin D deficiency, unspecified (M54.50) Low back pain, unspecified back pain laterality, unspecified chronicity, unspecified whether sciatica pr (more content not included)... [facility] 06-19-2023 History of Present illness Narrative Images from the original note were not included. [facility] Arthritis [facility] Rheumatology Katelyn Heath [address] [place] [address] RHEUMATOLOGY PROGRESS NOTE Patient is here for a follow up visit for Patient presents with: Osteoporosis: Needs refills HPI: Lizzeth Márquez is a 68 year old female who presents with PsA, OA MTX 10 tabs weekly, FA daily Doing better with increased dose of MTX Knee pain, constant ache. Worse with bending/movement. Did water PT. No longer buckling as much LBP- has improved with water PT Swelling- feet AM stiffness- 20 min No rashes, chest pain, shortness of breath No falls, no fx Brief Rheumatological history - Reviewed notes - Psoriasis, seen by Dr. Watson. MTX. PsA Dr. Thayer - neg MELONIE, RF, CCP. She has been on MTX. She thought it worked well in the beginning. Now has more pain in hips, knees, ankles. Sometimes writs. No swelling. Itchy plaques on scalp. She takes pred 5 mg as needed. No recent x rays. HTN, DM2 Total hysterectomy for endometrial cancer 2019 Family history of autoimmune disease: none Smoking status: Tobacco Use: .5 packs/day, for 20 years. Types: Cigarettes Interval Review of Systems CONSTITUTIONAL: Recent Weight change: No Fever: No EYES: Dryness in nose: No Dryness of mouth: No Oral ulcers: No CARDIOVASCULAR: Pain in chest: No RESPIRATORY: Shortness of breath: No Cough: No GASTROINTESTINAL: Nausea: No Vomiting: No Changes in bowel movements: No Jaundice: No Heartburn: No MUSCULOSKELETAL: Per HPI INTEGUMENTARY: Rash: No HEMATOLOGIC/LYMPHATIC: Anemia: No NEUROLOGICAL SYSTEM: Headaches: No Sensitivity or pain of hands and/or feet: No PSYCHIATRIC: Anxiety: No Poor sleep: No PAST MEDICAL HISTORY Diagnosis Date Depressive disorder, not elsewhere classified Excessive or frequent menstruation Insomnia, unspecified Neuropathy stocking glove. Nystagmus unable to drive and causes vision problems PAST SURGICAL HISTORY Procedure Laterality Date ECT TREATMENT, MULTIPLE X6 ENDOMETRIAL BX W/WO ENDOCERVIX BX W/O DILAT SPX 01/28/2009 Menorrhagia and Irregular Menses PAST SURGICAL HISTORY OF 05/22/2014 Right ring trigger finger release PAST SURGICAL HISTORY OF 09/04/2014 left ring trigger finger release TOTAL ABDOM HYSTERECTOMY UNSPECIFIED ORAL SURGERY PROCEDURE, BY REPORT [place] [facility] History Review: I have reviewed and modified as needed, the following during this visit: Allergies, Past Medical History, Past Surgical History, Past Family History, Past Social History. BP 122/70 (BP Site: Left Arm, BP Position: Sitting) Pulse 72 Ht 167.1 cm (5' 5.78 ) Wt 69.6 kg (153 lb 6.4 oz) LMP 12/08/2010 SpO2 96% BMI 24.93 kg/m Physical Exam GENERAL: Well appearing, alert, comfortable, in no acute distress, well-hydrated, well nourished. HEENT: Negative for external ears normal. Canals are clear. Both TMs visualized and are normal. Eye Exam normal. External nose normal, no nasal ulcer or throat ulcer. NECK: NECK Supple, no adenopathy; thyroid symmetric, normal size, no bruits CARDIAC: regular rate and rhythm, No murmur asculated., and Equal peripheral pulses RESPIRATORY: Lungs clear to auscultation. No wheezing, rhonchi, rales VASCULAR: RRR without murmur, gallop, or rubs. No ectopy. NEURO: Motor and sensory exam normal MOTOR: Normal; including tone, gait, stressed gait, power and coordination. SKIN: Negative for alopecia, skin rash, malar rash, skin lesion, skin ulcer, pits, thickening, color changes, telangiectasias, nail changes, nail ridging, nail pitting, onycholysis MUSCULOSKELETAL: Mild joint line tenderness bl knees Lab Results: 03/2023 Cr 0.73 LFT normal CBC normal Vit D 52.3 Serology: neg MELONIE, RF, CCP. Radiology: X-rays 03/2023 Knees No radiographic evidence of acute osseous abnormalities. Meniscal calcifications may be seen in setting of chondrocalcinosis. This can be seen in setting of CPPD. Lumbar spine and SI joints Alignment maintained Vertebral body heights maintained Mild disc space narrowing L4/5, and severe narrowing L5/S1 Multilevel endplate osteophytes Lower lumbar predominant facet degenerative change Moderate hip degenerative changes bilaterally SI joints maintained without sclerosis or erosive change, with small osteophytes bilaterally. Lower lumbar degenerative changes. Right-sided sacralization L5. Hip joints maintained bilaterally. No acute fracture or dislocation. Assessment and Plan (L40.50) Psoriasis with arthropathy (HCC) (primary encounter diagnosis) (E55.9) Vitamin D deficiency, unspecified (M54.50) Low back pain, unspecified back pain laterality, unspecified chronicity, unspecified whether sciatica present 68-year-old female with previously diagnosed with psoriasis and psoriatic arthritis on methotrexate is here for evaluation management recommendation. 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 On methotrexate 10 tablets weekly and folic acid daily, joints and psoriasis doing much better with increased dose. Blood work every 3 months. Appointments every 3 months. She has osteoarthritis in her lumbar spine, knees, hips. Water therapy recently helped tremendously and has noticed reduced pain. Continue home exercises, Tylenol, ibuprofen as needed. She is postmenopausal. Recommend bone density scan No orders found for this visit on 06/19/23. Medication orders placed this encounter folic acid 1 mg tablet Sig: Take 2 tablets by mouth once daily. Dispense: 180 tablet Refill: 0 methotrexate 2.5 mg tablet Sig: Take 10 tablets by mouth every Sunday. Patient is taking 8 tablets PO on Sunday Dispense: 120 tablet Refill: 0 Return in about 3 months (around 09/19/2023) for PsA, Dr. Oscar. Katelyn Heath PA-C documented in this encounter [facility] 05-24-2023 History of Present illness Narrative Chief Complaint Patient presents with Endometrial Cancer Undifferentiated uterine carcinoma -pt has no concerns HISTORY OF THE PRESENT ILLNESS: Lizzeth Márquez is a 68 y.o. female with stage IIIB undifferentiated uterine carcinoma. I initially saw her in early 05/2020. About 3 weeks prior to presentation she saw her new PCP. She found a mass on examination. The patient was unaware of the mass at the time of her exam. She underwent an magnetic resonance imaging of the pelvis on 04/30/2020. This showed an enlarged, lobular uterus with heterogeneous signal intensities. There is a central low signal intensity with peripheral enhancement and endometrium extending towards the cornua. Endometrial thickness measured 3.6 cm. It appeared that the heterogeneous signal intensity extended to the serosal service on the left side of the uterus. The cervix was prominent. There was no definitive adenopathy seen in the pelvis. Additionally there were T2 hyperintense lesions and L5 and S1 were incompletely assessed. Metastatic disease is a possibility at these sites. CEA and CA-125 were normal. Often accompanied by her sample case porter/counselor and transportation, [place]. Patient underwent endometrial biopsy: DIAGNOSIS: ENDOMETRIAL BIOPSY - FRAGMENTS OF HIGH-GRADE MALIGNANT NEOPLASM. PET scan showed that the bony lesions seen on MRI were not FDG avid. There were no other sites of metastatic disease. Management options discussed with the patient and she agreed to proceed with surgery. On 07/05/2020 underwent: 1. EXPLORATORY LAPAROTOMY. 2. RADICAL ABDOMINAL HYSTERECTOMY WITH BILATERAL SALPINGO-OOPHORECTOMY. 3. BILATERAL PELVIC LYMPH NODE SAMPLING. 4. OMENTAL BIOPSY. Final pathology showed: UNDIFFERENTIATED CARCINOMA OF ENDOMETRIUM, WITH TRANSMURAL INVASION, AND INVOLVEMENT OF CERVICAL STROMA AND PARAMETRIUM SEE COMMENT SPECIMEN Procedure: Radical hysterectomy, Node sampling and omental biopsy TUMOR Histologic Type: Undifferentiated carcinoma Histologic Grade: FIGO grade 3 Myometrial Invasion: Present Depth of Myometrial Invasion (Millimeters): 30 mm Myometrial Thickness (Millimeters): 30 mm Percentage of Myometrial Invasion: 100 % Uterine Serosa Involvement: Present Lower Uterine Segment Involvement: Present, myoinvasive Cervical Stromal Involvement: Present Other Tissue / Organ Involvement: Left ovary Lymphovascular Invasion: Present Margins: Ectocervical / Vaginal Cuff Margin: Uninvolved by carcinoma LYMPH NODES Lymph Node Status: All lymph nodes negative for tumor cells Total Number of Pelvic Nodes Examined: 4 Number of Pelvic [place] Nodes Examined: 0 Total Number of Para-aortic Nodes Examined: 0 Number of Para-aortic [place] Nodes Examined: 0 PATHOLOGIC STAGE CLASSIFICATION (pTNM, AJCC 8th Edition) Note: Reporting of pT, pN, and (when applicable) pM categories is based on information available to the pathologist at the time the report is issued. As per the AJCC (Chapter 1, 8th Ed.) it is the managing physician's responsibility to establish the final pathologic stage based upon all pertinent information, including but potentially not limited to this pathology report. Primary Tumor (pT): pT3a Regional Lymph Nodes (pN): pN0 FIGO STAGE FIGO Stage: IIIB Discharged home with andujar due to urinary retention. Passed void trial in the office several days later. Adjuvant treatment recommended and the patient declined. Interval History: Presents to the office today for routine surveillance of disease. She has been doing well since her last visit. She denies chest pain, shortness of breath, nausea, vomiting, bloating, early satiety. She denies abdominal or pelvic pain, constipation, urinary problems. Denies vaginal bleeding or abnormal vaginal discharge. Sob with exertion, not worsening. Is the primary care provider for her chronically ill . Past Medical History: Diagnosis Date Arthritis Bipolar 2 disorder (CMS/HCC) ([facility]) Cancer (CMS/HCC) ([facility]) Endometrial Cataract bilateral H/O emotional problems Heart murmur HTN (hypertension) Neuropathy Psoriatic arthritis ([facility]) Suicide attempt ([facility]) 2009 or before Past Surgical History: Procedure Laterality Date CYST REMOVAL removed on palms TOTAL ABDOMINAL HYSTERECTOMY W/ BILATERAL SALPINGOOPHORECTOMY 07/05/2020 Exploratory laparotomy, radical abdominal hysterectomy with bilateral salpingo-oophorectomy, bilateral pelvic lymph node sampling, omental biopsy; DR. HIREN VANEGAS [facility]CH [facility] WISDOM TOOTH EXTRACTION Bilateral as teen Social History Socioeconomic History Marital status: Tobacco Use Smoking status: Every Day Packs/day: 0.50 Types: Cigarettes Smokeless tobacco: Current Substance and Sexual Activity Alcohol use: Yes Alcohol/week: 7.0 standard drinks of alcohol Drug use: Never Often accompanied by her casework manager who is a good source of support. Family History Problem Relation Name Age of Onset Depression Father Arthritis Sister Anxiety disorder Sister Mental illness Father psychiatric care Other ([id number]) Father CVA Anxiety disorder Father Other ([id number]) Mother otosclerosis Uterine cancer Neg Hx Heart disease Father Mental illness Sister psychiatric care Breast cancer Neg Hx Arthritis Mother Ovarian cancer Neg Hx Depression Sister Diabetes Father Heart disease Sister Colon cancer Neg Hx Diabetes Sister Current Outpatient Medications on File Prior to Visit Medication Sig Dispense Refill amLODIPine-atorvastatin (Caduet) 10-10 MG tablet Take 1 tablet by mouth daily. cholecalciferol (Vitamin D-3) 1.25 MG (08544 UT) capsule clobetasol (Temovate) 0.05 % cream Apply topically 2 times daily. clonazePAM (KlonoPIN) 0.5 MG tablet Take 0.5 mg by mouth. cyanocobalamin (Vitamin B-12) 1000 MCG tablet Take 1,000 mcg by mouth in the morning and 1,000 mcg in the evening. DULoxetine (Cymbalta) [address] capsule Take 20 mg by mouth 2 times daily. Do not crush or chew. folic acid (Folvite) 1 MG tablet Take by mouth. gabapentin (Neurontin) 600 MG tablet Take 600 mg by mouth. hydrocortisone 0.5 % cream Apply topically 2 times daily. methotrexate 2.5 MG tablet Take by mouth. mirtazapine (Remeron) 30 MG tablet Take 30 mg by mouth Nightly. predniSONE (Deltasone) 5 MG tablet TAKE 1 TABLET Oral EVERY DAY NEEDED take for 3-5 days with a flare No current facility-administered medications on file prior to visit. Allergies as of 05/24/2023 - Reviewed 05/24/2023 Allergen Reaction Noted Doxycycline Dizziness 05/24/2023 Shellfish-derived products Nausea And Vomiting 02/27/2017 [place] (diagnostic) 02/27/2017 REVIEW OF SYSTEMS: A 12 point review of systems was performed and is as per the history of the present illness, all other systems were reviewed and are negative. Vitals: 05/24/23 1452 BP: 134/80 Pulse: 69 Body mass index is 22.6 kg/m . Physical Exam Constitutional: Appearance: Normal appearance. HENT: Head: Normocephalic. Pulmonary: Effort: Pulmonary effort is normal. Abdominal: Palpations: Abdomen is soft. Comments: Well-healed abdominal incision. Genitourinary: Comments: Surgically absent uterus/cervix/adnexa. No lesions visible in the vagina, no masses palpated on bimanual exam. Mild amount of yellow discharge seen at vaginal cuff, atrophic changes. Skin: General: Skin is warm and dry. Neurological: Mental Status: She is alert and oriented to person, place, and time. Psychiatric: Mood and Affect: Mood normal. Behavior: Behavior normal. ASSESSMENT/PLAN: Diagnosis Plan 1. Endometrial cancer, FIGO stage IIIB (HCC) Lizzeth Márquez is a 68 y.o. with stage IIIB undifferentiated endometrial cancer. She is at high risk of recurrence given the advanced stage disease and high risk histology. Again, she is at risk for both local as well as distant recurrence based upon the histology and advanced stage at diagnosis. No evidence of recurrence on exam. The signs and symptoms of recurrence were reviewed and the patient will contact our office in the interim should any of these arise. Follow up in 6 months. We discussed routine surveillance of disease per the NCCN guidelines with history and physical examination every 3-6 months for the first 2 years followed by every 6-12 months for years 3 through 5. We discussed the imaging will be obtained on an as-needed basis, based upon history and physical exam findings. The patient had an opportunity to ask questions, all of which were answered to the best of my ability. She is in agreement with the above noted plan. I spent a total time of 15 minutes reviewing previous notes, test results, obtaining history, communicating results to the patient as well as counseling the patient, documenting clinical information in the patient's electronic medical record and coordinating care for the patient. Disclaimer: This note was dictated by speech recognition. I apologize for minor errors in critical care cns which may be present. documented in this encounter [facility] 04-23-2023 Miscellaneous Notes Faxed signed PT evaluation to [facility] ([facility]) [phone]. Received transmission confirmation. Vita Collado LPN documented in this encounter [facility] 03-15-2023 Note HNO ID: [id number] Author: RT Mickie(R) Service: Radiology Author Type: Technologist Type: Progress Notes Filed: 03/15/2023 2:53 PM Note Text: Radiology Service Progress Note PATIENT NAME: Lizzeth Márquez DATE OF SERVICE: March 15, 2023 TIME: 2:53 PM PATIENT IDENTITY VERIFICATION COMPLETED USING TWO (2) IDENTIFIERS: Name and Date of confirmed by patient verbally. FALL SCREENING: Has the patient had 2 falls in the last year or 1 fall with injury or currently using an Ambulatory Assistive Device (Walker, Cane, Wheelchair, Crutches, etc.)? No PATIENT GENDER DATA: Female. status: : No status: NO. PATIENT RELEVANT IMPLANT DATA REVIEWED: Not Applicable RADIOLOGY DEPARTMENT: General X-ray: Exam(s) Completed: Spine X-Ray(s): Lumbar AP / LAT / L5-S1 Pelvis X-Ray: sacroiliac joints Lower Extremity X-Ray(s): Knee, AP Only Bilateral PERIPHERAL IV DATA: Not applicable SIGNED BY: RT Mickie(R) March 15, 2023 2:53 PM [facility] 03-15-2023 Note HNO ID: [id number] Author: Diana Oscar MD Service: ? Author Type: Physician Type: Progress Notes Filed: 03/15/2023 2:43 PM Note Text: RHEUMATOLOGY NEW PATIENT NOTE REFERRING PHYSICIAN: Sofia Caldwell CHIEF COMPLAINT: Patient presents with: Joint Pain New Patient HPI: Lizzeth Márquez is a 67 year old female who presents with joint pain Reviewed notes - Psoriasis, seen by Dr. Watson. MTX. PsA Dr. Thayer - neg MELONIE, RF, CCP. She has been on MTX. She thought it worked well in the beginning. Now has more pain in hips, knees, ankles. Sometimes writs. No swelling. Itchy plaques on scalp. She takes pred 5 mg as needed. No recent x rays. HTN, DM2 Total hysterectomy for endometrial cancer 2020 Family history of autoimmune disease: none Smoking status: Tobacco Use: .5 packs/day, for 20 years. Types: Cigarettes Rheumatology REVIEW OF SYSTEMS: Constitutional: Recent Weight Change: YES gained 10 lb Fatigue: No Fever: No Night sweats: No Heent: Alopecia: No H/o Inflammatory eye disease (iritis/scleritis): No Hearing loss: No Frequent sinusitis: No Oral ulcers: No [place]: YES dry eyes, dry mouth Parotid swelling: No Hoarseness: No Dysphagia: No Heme/lymph: Lymphadenopathy: No Hematological abnormalities (anemia, thrombocytopenia, leukopenia): No Abnormal bleeding: No Skin: Malar or discoid lesions: No Photosensitivity: No Other rashes: No Raynaud's phenomenon: No Hives: No Tightness: No Nodules/bumps: No Easy Bruising: No Nail changes: No H/o psoriasis: No Gastroenterology: Nausea: No Vomiting: No Change in bowel movements: No Heartburn: No Respiratory: Dry cough/SOB: No Cardiovascular: Pain in chest: No Musculoskeletal: Per HPI Genitourinary: Vaginal dryness: No Rash/ulcers: No Neurological: Headaches: No Sensitivity or pain of hands and/or feet: YES sometimes Psychiatry: Anxiety: No Depression: No Bipolar disorder Poor sleep: YES H/o loss: No H/o thrombosis: No Increased susceptibility to infection: No PAST MEDICAL HISTORY Diagnosis Date Depressive disorder, not elsewhere classified Excessive or frequent menstruation Insomnia, unspecified Neuropathy stocking glove. Nystagmus unable to drive and causes vision problems PAST SURGICAL HISTORY Procedure Laterality Date ECT TREATMENT, MULTIPLE X6 ENDOMETRIAL BX W/WO ENDOCERVIX BX W/O DILAT SPX 01/28/2009 Menorrhagia and Irregular Menses PAST SURGICAL HISTORY OF 05/22/2014 Right ring trigger finger release PAST SURGICAL HISTORY OF 09/04/2014 left ring trigger finger release TOTAL ABDOM HYSTERECTOMY UNSPECIFIED ORAL SURGERY PROCEDURE, BY REPORT [place] [facility] Current Outpatient Medications Medication Sig amLODIPine (NORVASC) 10 mg tablet Take 10 mg by mouth once daily. acetaminophen (TYLENOL EXTRA STRENGTH) 500 mg tablet Take 500 mg by mouth twice daily as needed. Clobetasol Propionate 0.05 % sham Apply to affected area. hydrocortisone 2.5 % cream Apply to affected area. methotrexate 2.5 mg tablet Take by mouth every Sunday. Patient is taking 8 tablets PO on Sunday folic acid 1 mg tablet Take 2 mg by mouth once daily. prednisoLONE 5 mg tab Take 5 mg by mouth. Patient states she takes PRN vitamin D3-vitamin K2 1,250-200 mcg cap Take 1 capsule by mouth one time a week. ergocalciferol, vitamin D2, (VITAMIN D2 ORAL) Take 1,000 Units by mouth once daily. cyanocobalamin (VITAMIN B-12) 1,000 mcg tab Take 1,000 mcg by mouth twice daily. DULoxetine (CYMBALTA) 20 mg capsule Take 60 mg by mouth once daily. clonazePAM (KLONOPIN) 0.5 mg tablet Take 1 tablet by mouth daily at bedtime. gabapentin (NEURONTIN) 600 mg tablet Take 1-2 tablets (600mg to 1200mg) in the morning, 2 tablets (1200mg) at noon, and 2 tablets (1200mg) at bedtime. (Patient taking differently: Take 600 mg by mouth twice daily.) Ibuprofen 200 mg cap Take by mouth as needed. (Patient not taking: Reported on 03/15/2023) mirtazapine (REMERON) 30 mg tablet Take 1 tablet by mouth daily at bedtime. (Patient not taking: Reported on 03/15/2023) multivitamin tablet Take 1 tablet by mouth once daily. (Patient not taking: Reported on 03/15/2023) No current facility-administered medications for this visit. ALLERGIES Allergen Reactions Aygestin [Norethind* Mental Status Change Severe depression Clams Codeine GI Upset Mold [place] Oysters Strawberries FAMILY HISTORY Problem Relation Age of Onset Arthritis Mother Osteoporosis Mother Hearing Loss Mother Heart Father Diabetes Father Stroke Father Cataract Father other (Other) Father other (Menorrhagia) Sister Hysterectomy other (Depression) Paternal Grandmother Heart Paternal Grandfather Diabetes Sister Social History Tobacco Use Smoking status: Every Day Packs/day: 0.50 Years: 20.00 Pack years: 10.00 Types: Cigarettes Smokeless tobacco: Never Vaping Use Vap (more content not included)... [facility] 03-15-2023 History of Present illness Narrative Radiology Service Progress Note PATIENT NAME: Lizzeth Márquez DATE OF SERVICE: March 15, 2023 TIME: 2:53 PM PATIENT IDENTITY VERIFICATION COMPLETED USING TWO (2) IDENTIFIERS: Name and Date of confirmed by patient verbally. FALL SCREENING: Has the patient had 2 falls in the last year or 1 fall with injury or currently using an Ambulatory Assistive Device (Walker, Cane, Wheelchair, Crutches, etc.)? No PATIENT GENDER DATA: Female. status: : No status: NO. PATIENT RELEVANT IMPLANT DATA REVIEWED: Not Applicable RADIOLOGY DEPARTMENT: General X-ray: Exam(s) Completed: Spine X-Ray(s): Lumbar AP / LAT / L5-S1 Pelvis X-Ray: sacroiliac joints Lower Extremity X-Ray(s): Knee, AP Only Bilateral PERIPHERAL IV DATA: Not applicable SIGNED BY: RT Mickie(R) March 15, 2023 2:53 PM documented in this encounter [facility] 03-15-2023 Instructions Diana Oscar MD - 03/15/2023 1:55 PM EDT Patient education: Dry eye (The Basics) Written by the doctors and editors at [facility] What is dry eye? -- Dry eye happens when your eyes either do not make enough tears or the tears that they make evaporate (go away) too quickly. This causes your eyes to feel dry and irritated. The medical term for dry eye is keratoconjunctivitis sicca. What causes dry eye? -- Many people have dry eye, including about one-third of older adults. A few people with dry eye might have another disease, such as Sj gren's syndrome, diabetes, or Parkinson disease. Some medicines can cause dry eye symptoms or make them worse. What are the symptoms of dry eye? -- People have different symptoms but the most common ones are eyes that: ?Feel dry or burn ?Look red Other symptoms can include: ?Being bothered by light ?Feeling like something is in your eyes ?Blurry vision ?Watery eyes ?Discomfort wearing contact lenses In some people the symptoms are worse when it is cold or windy or if they are in a dry environment. Should I see a doctor or nurse? -- Yes. If your eye stays red, irritated, or painful for several days, you should see your doctor or nurse. Will I need tests? -- Probably not. The doctor or nurse should be able to tell if you have dry eye by learning about your symptoms and doing an exam. How is dry eye treated? -- Artificial tears are the main treatment for dry eye. They can keep the eye moist and help with the symptoms of dry eye. You can buy artificial tears at the drug store or grocery store without a prescription. They come in liquid, gel, or ointments. Your doctor or nurse will help you decide which form is best for you. It is usually best to avoid eye drops that are meant to reduce redness. Artificial tears help with the symptoms of dry eye, but they do not cure the condition. They work only as long as you keep using them. Other things you can do to help improve your symptoms are: ?Try to blink a lot, especially when you are reading or using the computer. This helps keep your eye moist. ?Avoid excess air conditioning or heating as much as you can. Also avoid sitting directly in the flow of the cold or hot air. ?Use a humidifier in your bedroom and any other space where you spend a lot of time. ?Avoid smoke and smoky air ?Wear protective eyewear when you are outside. Glasses that cover more of your face, or have special londono on the sides, can protect your eyes from wind and dry air. Over the counter artificial eye drops like Genteal/Systane can be helpful. If your dry eye does not get better in 3 to 4 weeks, your doctor or nurse might send you to see an eye doctor (called an bait digger ). The eye doctor can do more tests and might suggest other treatments. These include prescription eye drops (like Restasis) or ointments, special glasses or goggles, oral medicines (pills), or surgery. This topic retrieved from [employer] on: Jan 24, 2018. BONE MINERAL DENSITY PATIENT INSTRUCTIONS ======= Bone mineral density testing measures the amount of calcium in certain parts of your bones. This information determines how strong your bones are. The test is used to detect osteoporosis, a disease in which the bone's mineral content and density are low, increasing a person's risk of fractures. The lumbar spine (lower back) and the hip are the skeletal sites usually examined. For the test, remember that: 1. You cannot take this test if you are . 2. Eat a normal diet on the day of the test. 3. Take your medications as you normally would. 4. DO NOT take calcium supplements (such as Tums) for 24 hours before the test. 5. On the day of the test, leave valuables (jewelry or credit cards) at home. 6. The test should be performed prior to oral, rectal or IV contrast studies, or at least 7 days after any of these studies. For the test, you may be asked to wear a hospital gown. You will lie on your back, on a padded table, in a comfortable position. Generally, you can resume your usual activities immediately. documented in this encounter [facility] 03-15-2023 History of Present illness Narrative RHEUMATOLOGY NEW PATIENT NOTE REFERRING PHYSICIAN: Sofia Caldwell CHIEF COMPLAINT: Patient presents with: Joint Pain New Patient HPI: Lizzeth Márquez is a 67 year old female who presents with joint pain Reviewed notes - Psoriasis, seen by Dr. Watson. MTX. PsA Dr. Thayer - neg MELONIE, RF, CCP. She has been on MTX. She thought it worked well in the beginning. Now has more pain in hips, knees, ankles. Sometimes writs. No swelling. Itchy plaques on scalp. She takes pred 5 mg as needed. No recent x rays. HTN, DM2 Total hysterectomy for endometrial cancer 2019 Family history of autoimmune disease: none Smoking status: Tobacco Use: .5 packs/day, for 20 years. Types: Cigarettes Rheumatology REVIEW OF SYSTEMS: Constitutional: Recent Weight Change: YES gained 10 lb Fatigue: No Fever: No Night sweats: No Heent: Alopecia: No H/o Inflammatory eye disease (iritis/scleritis): No Hearing loss: No Frequent sinusitis: No Oral ulcers: No Sicca: YES dry eyes, dry mouth Parotid swelling: No Hoarseness: No Dysphagia: No Heme/lymph: Lymphadenopathy: No Hematological abnormalities (anemia, thrombocytopenia, leukopenia): No Abnormal bleeding: No Skin: Malar or discoid lesions: No Photosensitivity: No Other rashes: No Raynaud's phenomenon: No Hives: No Tightness: No Nodules/bumps: No Easy Bruising: No Nail changes: No H/o psoriasis: No Gastroenterology: Nausea: No Vomiting: No Change in bowel movements: No Heartburn: No Respiratory: Dry cough/SOB: No Cardiovascular: Pain in chest: No Musculoskeletal: Per HPI Genitourinary: Vaginal dryness: No Rash/ulcers: No Neurological: Headaches: No Sensitivity or pain of hands and/or feet: YES sometimes Psychiatry: Anxiety: No Depression: No Bipolar disorder Poor sleep: YES H/o loss: No H/o thrombosis: No Increased susceptibility to infection: No PAST MEDICAL HISTORY Diagnosis Date Depressive disorder, not elsewhere classified Excessive or frequent menstruation Insomnia, unspecified Neuropathy stocking glove. Nystagmus unable to drive and causes vision problems PAST SURGICAL HISTORY Procedure Laterality Date ECT TREATMENT, MULTIPLE X6 ENDOMETRIAL BX W/WO ENDOCERVIX BX W/O DILAT SPX 01/28/2009 Menorrhagia and Irregular Menses PAST SURGICAL HISTORY OF 05/22/2014 Right ring trigger finger release PAST SURGICAL HISTORY OF 09/04/2014 left ring trigger finger release TOTAL ABDOM HYSTERECTOMY UNSPECIFIED ORAL SURGERY PROCEDURE, BY REPORT [place] [facility] Current Outpatient Medications Medication Sig amLODIPine (NORVASC) 10 mg tablet Take 10 mg by mouth once daily. acetaminophen (TYLENOL EXTRA STRENGTH) 500 mg tablet Take 500 mg by mouth twice daily as needed. Clobetasol Propionate 0.05 % sham Apply to affected area. hydrocortisone 2.5 % cream Apply to affected area. methotrexate 2.5 mg tablet Take by mouth every Sunday. Patient is taking 8 tablets PO on Sunday folic acid 1 mg tablet Take 2 mg by mouth once daily. prednisoLONE 5 mg tab Take 5 mg by mouth. Patient states she takes PRN vitamin D3-vitamin K2 1,250-200 mcg cap Take 1 capsule by mouth one time a week. ergocalciferol, vitamin D2, (VITAMIN D2 ORAL) Take 1,000 Units by mouth once daily. cyanocobalamin (VITAMIN B-12) 1,000 mcg tab Take 1,000 mcg by mouth twice daily. DULoxetine (CYMBALTA) 20 mg capsule Take 60 mg by mouth once daily. clonazePAM (KLONOPIN) 0.5 mg tablet Take 1 tablet by mouth daily at bedtime. gabapentin (NEURONTIN) 600 mg tablet Take 1-2 tablets (600mg to 1200mg) in the morning, 2 tablets (1200mg) at noon, and 2 tablets (1200mg) at bedtime. (Patient taking differently: Take 600 mg by mouth twice daily.) Ibuprofen 200 mg cap Take by mouth as needed. (Patient not taking: Reported on 03/15/2023) mirtazapine (REMERON) 30 mg tablet Take 1 tablet by mouth daily at bedtime. (Patient not taking: Reported on 03/15/2023) multivitamin tablet Take 1 tablet by mouth once daily. (Patient not taking: Reported on 03/15/2023) No current facility-administered medications for this visit. ALLERGIES Allergen Reactions Aygestin [Norethind* Mental Status Change Severe depression Clams Codeine GI Upset Mold [place] Oysters Strawberries FAMILY HISTORY Problem Relation Age of Onset Arthritis Mother Osteoporosis Mother Hearing Loss Mother Heart Father Diabetes Father Stroke Father Cataract Father other (Other) Father other (Menorrhagia) Sister Hysterectomy other (Depression) Paternal Grandmother Heart Paternal Grandfather Diabetes Sister Social History Tobacco Use Smoking status: Every Day Packs/day: 0.50 Years: 20.00 Pack years: 10.00 Types: Cigarettes Smokeless tobacco: Never Vaping Use Vaping Use: Never used Substance Use Topics Alcohol use: Yes Comment: occasional glass of wine Drug use: No 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 BP 122/75 Pulse 80 Temp 36.7 C (98.1 F) (Temporal) Resp 10 LMP 12/08/2010 Physical Exam GENERAL: Well appearing, alert, comfortable, in no acute distress, well-hydrated, well nourished. HEENT: Negative for external ears normal. Canals are clear. Both TMs visualized and are normal. Eye Exam normal. External nose normal, no nasal ulcer or throat ulcer. NECK: NECK Supple, no adenopathy; thyroid symmetric, normal size, no bruits CARDIAC: regular rate and rhythm, No murmur asculated., and Equal peripheral pulses RESPIRATORY: Lungs clear to auscultation. No wheezing, rhonchi, rales VASCULAR: RRR without murmur, gallop, or rubs. No ectopy. ABDOMEN: Soft, non tender. BS active. No masses or organomegaly. LYMPHATIC: Negative for adenopathy in the neck, axillae, groin, supraclavicular and auricular. NEURO: Motor and sensory exam normal MOTOR: Normal; including tone, gait, stressed gait, power and coordination. SKIN: Negative for alopecia, skin rash, malar rash, skin lesion, skin ulcer, pits, thickening, color changes, telangiectasias, nail changes, nail ridging, nail pitting, onycholysis MUSCULOSKELETAL: DIPS: Normal PIPS: Normal MCPs: Normal Wrists: Normal Elbows: Normal Shoulders: Normal C-Spine: Normal Hips: Normal Knees: Normal Ankles: Normal MTPs / Toes: Normal Arches: Normal Summary of old labs/radiology: Review/request of outside labs and imaging: Pertinent labs: Glucose 88 06/24/2019 ALT 6 06/24/2019 WBC 6.10 06/24/2019 Hemoglobin 13.9 06/24/2019 Platelet Count 309 06/24/2019 WSR 5 04/28/2013 Serology: Pertinent imaging: Assessment and Plan (M81.0) Osteoporosis, unspecified osteoporosis type, unspecified pathological fracture presence (primary encounter diagnosis) (M25.50) Pain in joint, multiple sites (E55.9) Vitamin D deficiency, unspecified 67-year-old female with previously diagnosed with psoriasis and psoriatic arthritis on methotrexate is here for evaluation management recommendation. Patient currently reports pain over her lower back and knees. Reports some itching of psoriatic spots under her scalp. Would like to increase methotrexate from 8 to 10 tablets. Her pain is likely due to osteoarthritis and she may benefit from physical therapy. No synovitis on exam. Also has renal edema for which she was advised to follow-up with primary care physician. Office Visit on 03/15/23 DXA-AXIAL SKELETON XR KNEE SURVEY ARTHRITIS 1V AP BILATERAL XR LUMBAR GENERAL 3V AP/LAT/L5-S1 XR SACROILIAC JOINTS 2V AP PELVIS/FERGUESON CBC + DIFF COMP METABOLIC PANEL VITAMIN D 25 HYDROXY No orders of the defined types were placed in this encounter. No follow-ups on file. Diana Oscar MD documented in this encounter [facility] documented as of this encounter (statuses as of 03/15/2023) [facility] History of Past illness Narrative* Problem Noted Date Resolved Date Pain in limb 10/12/2006 03/10/2011 documented as of this encounter (statuses as of 03/16/2023) [facility] History of Past illness Narrative* Problem Noted Date Resolved Date Pain in limb 10/12/2006 03/10/2011 documented as of this encounter (statuses as of 04/23/2023) [facility] History of Past illness Narrative* Problem Noted Date Diagnosed Date Resolved Date Pain in limb 10/12/2006 03/10/2011 documented as of this encounter (statuses as of 06/20/2023) [place] [address]-08-2006 History of Past illness Narrative* Problem Noted Date Diagnosed Date Resolved Date Pain in limb 10/12/2006 03/10/2011 documented as of this encounter (statuses as of 06/21/2023) [facility] History of Past illness Narrative* Problem Noted Date Diagnosed Date Resolved Date Pain in limb 10/12/2006 03/10/2011 documented as of this encounter (statuses as of 10/16/2023) [facility] note* Diagnosis Osteoporosis, unspecified osteoporosis type, unspecified pathological fracture presence- Primary Pain in joint, multiple sites Vitamin D deficiency, unspecified Psoriasis with arthropathy (HCC) Psoriatic arthropathy documented in this encounter [facility] note* Diagnosis Pain in joint, multiple sites documented in this encounter [facility] note* Diagnosis Endometrial cancer, FIGO stage IIIB (HCC)- Primary documented in this encounter [facility] note* Diagnosis Psoriasis with arthropathy (HCC)- Primary Psoriatic arthropathy Vitamin D deficiency, unspecified Low back pain, unspecified back pain laterality, unspecified chronicity, unspecified whether sciatica present documented in this encounter [facility] note* Diagnosis Psoriasis with arthropathy (HCC) Psoriatic arthropathy documented in this encounter [facility] note* Diagnosis Psoriasis with arthropathy (HCC) Psoriatic arthropathy documented in this encounter [facility] for referral (narrative)* Diagnostic Procedure Only (Routine) - Closed Specialty Diagnoses / Procedures Referred By Contac t Referred To Contact XR IMAGING Diagnoses Pain in joint, multiple sites Procedures XR SACROILIAC JOINTS 2V AP PELVIS/FERGUESON RADIOLOGIC EXAMINATION SACROILIAC JNTS <3 VIEWS Diana Oscar MD [address] [id number] Xr Imaging Referral ID Status Reason Start Date Expiration Date V isits Requested Visits Authorized [id number] Closed Auto-Generate d Referral 03/15/2023 04/13/2024 1 1 * Diagnostic Procedure Only (Routine) - Closed Specialty Diagnoses / Procedures Referred By Contac t Referred To Contact XR IMAGING Diagnoses Pain in joint, multiple sites Procedures XR LUMBAR GENERAL 3V AP/LAT/L5-S1 RADEX SPINE LUMBOSACRAL 2/3 VIEWS Diana Oscar MD [address] [place] [address] Xr Imaging Referral ID Status Reason Start Date Expiration Date V isits Requested Visits Authorized [id number] Closed Auto-Generate d Referral 03/15/2023 04/13/2024 1 1 * Diagnostic Procedure Only (Routine) - Closed Specialty Diagnoses / Procedures Referred By Contac t Referred To Contact XR IMAGING Diagnoses Pain in joint, multiple sites Procedures XR KNEE SURVEY ARTHRITIS 1V AP BILATERAL RADIOLOGIC EXAM BOTH KNEES STANDING ANTEROPOST Diana Oscar MD [address] [place] [address] Xr Imaging Referral ID Status Reason Start Date Expiration Date V isits Requested Visits Authorized [id number] Closed Auto-Generate d Referral 03/15/2023 04/13/2024 1 1 [facility] for referral (narrative)* Diagnostic Procedure Only (Routine) - Closed Specialty Diagnoses / Procedures Referred By Contac t Referred To Contact XR IMAGING Diagnoses Pain in joint, multiple sites Procedures XR SACROILIAC JOINTS 2V AP PELVIS/FERGUESON RADIOLOGIC EXAMINATION SACROILIAC JNTS <3 VIEWS Diana Oscar MD [address] [place] [address] Xr Imaging Referral ID Status Reason Start Date Expiration Date V isits Requested Visits Authorized [id number] Closed Auto-Generate d Referral 03/15/2023 04/13/2024 1 1 * Diagnostic Procedure Only (Routine) - Closed Specialty Diagnoses / Procedures Referred By Contac t Referred To Contact XR IMAGING Diagnoses Pain in joint, multiple sites Procedures XR LUMBAR GENERAL 3V AP/LAT/L5-S1 RADEX SPINE LUMBOSACRAL 2/3 VIEWS Diana Oscar MD [address] [place] [address] Xr Imaging Referral ID Status Reason Start Date Expiration Date V isits Requested Visits Authorized [id number] Closed Auto-Generate d Referral 03/15/2023 04/13/2024 1 1 * Diagnostic Procedure Only (Routine) - Closed Specialty Diagnoses / Procedures Referred By Contac t Referred To Contact XR IMAGING Diagnoses Pain in joint, multiple sites Procedures XR KNEE SURVEY ARTHRITIS 1V AP BILATERAL RADIOLOGIC EXAM BOTH KNEES STANDING ANTEROPOST Diana Oscar MD [address] [place] [address] Xr Imaging Referral ID Status Reason Start Date Expiration Date V isits Requested Visits Authorized [id number] Closed Auto-Generate d Referral 03/15/2023 04/13/2024 1 1 [facility] for visit Narrative* Diagnostic Procedure Only (Routine) - Closed Specialty Diagnoses / Procedures Referred By Contac t Referred To Contact XR IMAGING Diagnoses Pain in joint, multiple sites Procedures XR SACROILIAC JOINTS 2V AP PELVIS/FERGUESON RADIOLOGIC EXAMINATION SACROILIAC JNTS <3 VIEWS Diana Oscar MD [address] [place] [address] Xr Imaging Referral ID Status Reason Start Date Expiration Date V isits Requested Visits Authorized [id number] Closed Auto-Generate d Referral 03/15/2023 04/13/2024 1 1 [facility] Summary Purpose Family History No Family History Records FoundNo Family History Records FoundNo Family History Records FoundNo Family History Records Found Advance Directives Documents on File Type Date Recorded 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 ACP-Advance Directive 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 Latest Code Status on File Code Status Date Activated Date Inactivated Comments Full Code 07/05/2020 3:20 PM Full Code 07/05/2020 5:46 AM 07/05/2020 3:17 PM Documents on File Type Date Recorded 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 Advance Directive(s) 09/04/2014 2:45 PM Advance Directive(s) 09/04/2014 2:46 PM Documents on File Type Date Recorded 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 Please harley the last dose taken (date and time ) on your Daily Medications List provided in your After Visit Summary. Please bring a photo ID and insurance information Do NOT take the following medications on the morning of surgery: Vitamins TAKE the following medications the morning of your surgery: Clonazepam, Gabapentin, Cymbalta You may take your prescription pain medications. You may take Tylenol (Acetaminophen) if needed forpain. No Motrin, Ibuprofen, or Advil 24 hours prior to surgery, or longer if instructed by your surgeon. No Aleve or Naprosyn 3 days prior to surgery, or longer if instructed by your surgeon. If you are on BLOOD THINNERS or ASPIRIN Additional instructions: Shower kit given with instructions. You will receive a reminder call the day before surgery with your Same Day Surgery arrival time. If you have specific questions, please call your surgeon. * Attachments The following attachments cannot be sent through Care Everywhere. * Hysterectomy: Abdominal: Pre-op (Swedish) * Oophorectomy: Laparoscopic: Pre-op (Swedish) documented in this encounter* Discharge Instr - Lab* Vale Higgins RN - 07/09/2020 11:22 AM EDT Your physician has ordered skilled home care services for you. Your home care will be provided by: [facility] [phone] * Additional Instructions* Xin Tripp MD - 07/05/2020 Please follow your post operative care instructions given to you by your Swing Manager Oncologist's office at your pre operative visit. Please call the office with questions or concerns and be sure to follow up at your scheduled post operative visit. * Attachments The following attachments cannot be sent through Care Everywhere. * Coronavirus Disease (COVID-19): General Info (Swedish) documented in this encounter History of Present Illness * Gerardo Littlejohn - 06/25/2020 1:00 PM EDT Labs obtained on first attempt with 22 gauge needle at R AC site, patient tolerated well, site benign. 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 female POD # 5 s/p ex lap, radical YOANDY, BSO, LNS, omental biopsy Patient seen and examined. No complaints this AM. Pain is controlled. Patient is tolerating oral intake. She has a Andujar in place. She denies any vaginal bleeding. She is ambulating without difficulty. She is passing flatus. She had several BMs last night. She denies Fever/Chills, Chest Pain, SOB, N/V. Vitals: Vitals: 07/09/20 1446 07/09/20 1938 07/09/20 2309 07/10/20 0322 BP: 132/76 138/83 133/69 124/66 Pulse: 63 64 69 65 Resp: 15 16 18 16 Temp: 97.6 F (36.4 C) 96.9 F (36.1 C) 97.8 F (36.6 C) 97 F (36.1 C) TempSrc: Temporal Temporal Temporal Temporal SpO2: 97% 98% 98% 97% Weight: Height: Intake/Output: Last Shift: @[id number]@ Current Shift: No intake/output data recorded. Physical Exam: Gen: NAD, alert and cooperative HEENT: Normocephalic, atraumatic, EOMI, MMM Resp: CTABL, no WRR Card: RRR, no murmur Abd: soft, NT/ND, no rebound, no guarding. Present BS Incisions: vertical midline C/D/I with steristrips Ext: No LE edema, no calf tenderness or swelling Medications: Current Facility-Administered Medications Medication Dose Route Frequency Provider Last Rate Last Dose ipratropium (ATROVENT) 0.06 % nasal spray 2 spray 2 spray Each Nostril BID Isauro Medel, bisacodyl (DULCOLAX) suppository 10 mg 10 mg Rectal Daily PRN Kaylah Larry MD 10 mg at 07/09/20 1713 sulfamethoxazole-trimethoprim (BACTRIM DS;SEPTRA DS) 800-160 MG per tablet 1 tablet 1 tablet Oral 2times per day Kaylah Larry MD 1 tablet at 07/09/202120 docusate sodium (COLACE) capsule 100 mg 100 mg Oral BID Kaylah Larry MD 100 mg at 07/09/202120 polyethylene glycol (GLYCOLAX) packet 17 g 17 g Oral Daily Kaylah Larry MD 17 g at 07/09/20 0817 labetalol (NORMODYNE;TRANDATE) injection 5 mg 5 mg Intravenous Q3H PRN Kaylah Larry MD 5 mg at07/07/205 hydrALAZINE (APRESOLINE) injection 5 mg 5 mg Intravenous Q4H PRN Kaylah Larry MD simethicone (MYLICON) chewable tablet 80 mg 80 mg Oral Q6H PRN Steff C Lamari, DO 80 mg at 07/09/20 1225 ibuprofen (ADVIL;MOTRIN) tablet 600 mg 600 mg Oral Q6H Steff C Lamari, DO 600 mg at 07/09/20 1813 enoxaparin (LOVENOX) injection 40 mg 40 mg Subcutaneous Daily Kaylah Larry MD 40 mg at 07/09/20 1226 clonazePAM (KLONOPIN) tablet 0.5 mg 0.5 mg Oral BID PRN Xin Tripp MD 0.5 mg at 07/09/202120 DULoxetine (CYMBALTA) extended release capsule 30 mg 30 mg Oral Daily Xin Tripp MD 30 mg at 07/09/20919 gabapentin (NEURONTIN) capsule 600 mg 600 mg Oral 4x Daily Xin Tripp MD 600 mg at 07/09/202120 mirtazapine (REMERON) tablet 30 mg 30 mg Oral Nightly Xin Tripp MD 30 mg at 07/09/202120 sodium chloride flush 0.9 % injection 10 mL 10 mL Intravenous 2 times per day Xin Tripp MD 10 mL at 07/09/202124 sodium chloride flush 0.9 % injection 10 mL 10 mL Intravenous PRN Xin Tripp MD acetaminophen (TYLENOL) tablet 650 mg 650 mg Oral Q6H Xin Tripp MD 650 mg at 07/09/202120 ondansetron (ZOFRAN) injection 4 mg 4 mg Intravenous Q6H PRN Xin Tripp MD oxyCODONE (ROXICODONE) immediate release tablet 5 mg 5 mg Oral Q4H PRN Xin Tripp MD 5 mg at 07/09/20 1506 Or oxyCODONE (ROXICODONE) immediate release tablet 10 mg 10 mg Oral Q4H PRN Xin Tripp MD 10 mg at 07/07/20 0521 Diagnostics: No results found. Labs: Admission on 07/05/2020 Component Date Value Ref Range Status Surgical Pathology Report 07/05/2020 SEE BELOW NA Final WBC 07/06/2020 15.3* 3.6 - 10.7 10*3/uL Final RBC 07/06/2020 4.06 3.80 - 5.20 10*6/uL Final Hemoglobin 07/06/2020 12.4 11.7 - 16.0 g/dL Final Hematocrit 07/06/2020 37.4 35.0 - 47.0 % Final MCV 07/06/2020 92.1 79.0 - 98.0 fL Final MCH 07/06/2020 30.4 26.0 - 34.0 pg Final MCHC 07/06/2020 33.0 32.0 - 36.0 % Final RDW 07/06/2020 12.7 11.5 - 14.5 % Final Platelets 07/06/2020 323 140 - 440 10*3/uL Final MPV 07/06/2020 8.4 7.4 - 10.4 fL Final Granulocytes % 07/06/2020 84.7* 40.0 - 80.0 % Final Lymphocyte % 07/06/2020 9.3* 20.0 - 40.0 % Final Monocytes 07/06/2020 5.8 2.0 - 10.0 % Final Eosinophils 07/06/2020 0.0* 1.0 - 6.0 % Final Basophils 07/06/2020 0.2 0.0 - 2.0 % Final Absolute Neut # 07/06/2020 13.0* 1.8 - 7.0 10*3/uL Final Absolute Lymph # 07/06/2020 1.4 1.0 - 4.3 10*3/uL Final Absolute [place] # 07/06/2020 0.9* 0.0 - 0.8 10*3/uL Final Absolute Eos # 07/06/2020 0.0 0.0 - 0.5 10*3/uL Final Absolute Baso # 07/06/2020 0.0 0.0 - 0.2 10*3/uL Final CREATININE 07/06/2020 0.58 0.52 - 1.25 mg/dL Final eGFR 07/06/2020 >90.0 >60 mL/min Final EGFR IF NonAfrican [place] 07/06/2020 >90.0 >60 mL/min Final Comment: KDIGO guidelines provide the following GFR categories: Stage GFR(ml/min/1.73 m2) Terms G1 >=90 Normal or high G2 60-89 Mildly decreased* G3a 45-59 Mildly to moderately decreased G3b 30-44 Moderately to severely decreased G4 15-29 Severely decreased G5 <15 Kidney failure *Relative to young adult level. In the absence of evidence of kidney damage, neither GFR category G1 nor G2 fulfill the criteria for CKD. The CKD-EPI equation is validated in individuals 18 years of age and older. Currently the best equation for estimating glomerular filtration rate (GFR) from serum creatinine in children is the Bedside Bustillos equation. It is less accurate in patients with extremes of muscle mass, restriction of dietary protein, ingestion of creatine, extra-renal metabolism of creatinine, or treatment with medications that affect renal tubular creatinine secretion. Urine Culture, Routine 07/08/2020 No growth (<1,000 CFU/ml). Final Glucose, Ur 07/08/2020 Normal Normal (<70) mg/dL Final . Total Protein, Urine 07/08/2020 Negative Negative mg/dL Final . Bilirubin Urine 07/08/2020 Negative Negative mg/dL Final . Urobilinogen, Urine 07/08/2020 Normal Normal (0-1) mg/dL Final . pH, Urine 07/08/2020 6.0 5.0 - 8.0 NA Final . Specific [place], Urine 07/08/2020 1.013 1.005 - 1.030 NA Final . Occult Blood,Urine 07/08/2020 0.5* Negative mg/dL Final . Ketones, Urine 07/08/2020 Negative Negative mg/dL Final . Nitrite, Urine 07/08/2020 Negative Negative NA Final . LEUKOCYTES, UA 07/08/2020 75* Negative Samuel/uL Final . Appearance 07/08/2020 Clear Clear NA Final . Color, Urine 07/08/2020 Light-Yellow Lt. Yellow NA Final . RBC, UA 07/08/2020 >100* 0 - 2 /[HPF] Final . WBC, UA 07/08/2020 11-25* 0 - 5 /[HPF] Final . Bacteria, UA 07/08/2020 Few* Negative /[HPF] Final . Mucous Threads 07/08/2020 Few Negative /[LPF] Final . Assessment/Plan: Lizzeth Márquez 65 y.o. female POD#5 s/p ex lap, radical YOANDY, BSO, LNS, omental biopsy Postoperative Care - Doing well - continue andujar catheter - Encourage ambulation and use of incentive spirometer - Pain controlled: yes - DVT Proph: SCDs while in bed, Lovenox - Diet:General - ADAT Urinary Retention - Andujar in place - to be discharged with Andujar UTI - UA + Leuks - Bactrim started 07/09 - No growth on Urine culture Constipation - bowel regimen ordered - several bowel movements overnight Transient Hypotension - on 07/08 - normotensive since Anxiety, Depression, Bipolar disorder - continue home Klonopin, Cymbalta, Remeron Peripheral Neuropathy - continue home gabapentin Principal Problem: Post-operative state Active Problems: Cancer of lower uterine segment (HCC) 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 * Isauro Medel, DO 07/10/2020, 5:14 AM Associated attestation - Ant Lucero MD - 07/10/2020 7:47 AM EDT Pt doing well. No isues. Agree with D/C home * Kaylah Larry MD - 07/09/2020 6:06 PM EDT Patient was evaluated at the bedside this afternoon. She had no acute complaints. She denies Fever/Chills, Chest Pain, SOB, N/V, BLANCAS, VC. Pain is well- controlled. Andujar remains in place. She denies vaginal bleeding. She is ambulating well. She is passing flatus, denies bowel movement. Physical Exam: Gen: NAD, alert and cooperative Resp: CTABL, no WRR Card: RRR, no murmur Abd: Soft, non-distended, non-tender. No rebound tenderness, guarding, or rigidity. active bowel sounds on auscultation Incisions: C/D/I Ext: No LE edema, no calf tenderness or swelling A&P: Anticipate discharge home tomorrow, bowel regimen ordered * Mitch Oakes, PT - 07/09/2020 9:33 AM EDT Physical Therapy Facility/Department: [facility] Initial Assessment NAME: Lizzeth Márquez : 1955 Date of Service: 07/09/2020 Discharge Recommendations: Home independently Assessment Assessment: pt amb safely without assist or device; no LOB; anticipate pt returning home at disch; no further PT needs identified; disch PT Prognosis: Good Decision Making: Low Complexity REQUIRES PT FOLLOW UP: No Activity Tolerance Activity Tolerance: Patient limited by fatigue Patient Diagnosis(es): There were no encounter diagnoses. has a past medical history of Arthritis, Bipolar 2 disorder (HCC), Cancer (HCC), Cataract, H/O emotional problems, Heart murmur, Neuropathy, and Suicide attempt (HCC). has a past surgical history that includes cyst removal; [place] tooth extraction (Bilateral); and yoandy and bso (cervix removed) (07/05/2020). Restrictions Vision/Hearing Subjective General Chart Reviewed: Yes Patient assessed for rehabilitation services?: Yes Diagnosis: s/p exp lap, radical abd hyst, BSO, biopsy (07/05) Follows Commands: Within Functional Limits Subjective Subjective: pleasant and cooperative; pt states she has impaired vision Pain Screening Patient Currently in Pain: Yes Pain Assessment Pain Level: 3 Pain Location: Abdomen Vital Signs Patient Currently in Pain: Yes Orientation Orientation Overall Orientation Status: Within Normal Limits Social/Functional History Social/Functional History Lives With: Spouse Type of Home: House Home Layout: Two level, Able to Live on Main level with bedroom/bathroom Home Access: Stairs to enter with rails Entrance Stairs - Number of Steps: 2 Bathroom Shower/Tub: Tub/Shower unit Bathroom Toilet: Standard Bathroom Equipment: (NA) Bathroom Accessibility: Accessible Home Equipment: (NA) Receives Help From: Family, Friend(s) ADL Assistance: Independent Homemaking Assistance: Independent Homemaking Responsibilities: Yes Ambulation Assistance: Independent Transfer Assistance: Independent Active Trash Collector: No Mode of Transportation: Walk Occupation: Retired Cognition Objective PROM RLE (degrees) RLE PROM: WNL AROM RLE (degrees) RLE AROM: WNL PROM LLE (degrees) LLE PROM: WNL AROM LLE (degrees) LLE AROM : WNL Strength RLE Strength RLE: WNL Strength LLE Strength LLE: WNL Sensation Overall Sensation Status: (Denies any numbness or tingling Luis Daniel LEs) Bed mobility Supine to Sit: Independent Scooting: Independent Transfers Sit to Stand: Independent Stand to sit: Independent Comment: from bed and chair Ambulation Ambulation?: Yes More Ambulation?: Yes Ambulation 1 Surface: level tile Device: No Device Assistance: Independent Distance: 25 feet Ambulation 2 Surface - 2: level tile Device 2: No device Assistance 2: Independent Distance: 150 feet Stairs/Curb Stairs?: Yes Stairs # Steps : 3 Stairs Height: 6 Rails: Right ascending Assistance: Modified independent Balance Posture: Fair Sitting - Static: Good Sitting - Dynamic: Good Standing - Static: Good;- Standing - Dynamic: Good;- Comments: states she is cautious when amb in unfamiliar places due to decreased vision Exercises Comments: pt performed standing exercises by EOB holding rail for balance; each ex Luis Daniel x10 reps: shallow knee bends, marching, heel raises, hip ABD, hamstring curls; pt provided with written booklet with standing exercises Plan Plan Plan Comment: Disch PT Safety Devices Type of devices: All fall risk precautions in place, Left in chair, Call light within reach, Gait belt AM-PAC Score AM-PAC Inpatient Mobility Raw Score : 24 (07/09/20920) AM-PAC Inpatient T-Scale Score : 61.14 (07/09/20920) Mobility Inpatient CMS 0-100% Score: 0 (07/09/20920) Mobility Inpatient CMS G-Code Modifier : CH (07/09/20920) Goals Therapy Time Individual Concurrent Group Co-treatment Time In 08 Time Out 09 Minutes 23 Timed Code Treatment Minutes: 10 Minutes(Treatment procedure) Patient s Physical Therapy Plan of Care supervision is transferred to [facility] Department Physical Therapist. This PT wore N95, face shield, and gloves throughout the entire session. Pt wore mask while amb in hallway. Mitch Oakes, PT * Kaylah Larry MD - 07/09/2020 6:01 AM EDT Gynecologic Oncology Progress Note Date: 07/09/2020 Time: 6:01 AM Lizzeth Márquez 65 y.o. female POD#4 s/p ex lap, radical YOANDY, BSO, LNS, omental biopsy Patient seen and examined. She had no acute complaints. Pain is controlled. Patient is tolerating oral intake. She is urinating. She denies any vaginal bleeding. She has been ambulating around her room only. She is passing flatus, still denies bowel movement. She denies Fever/Chills, Chest Pain, SOB, N/V. Vitals: Vitals: 07/08/20 2238 07/08/20 2248 07/09/20 0018 07/09/20 0331 BP: (!) 78/47 (!) 82/52 139/81 133/80 Pulse: 65 59 57 Resp: 16 16 Temp: 97.3 F (36.3 C) 98.5 F (36.9 C) TempSrc: Temporal Temporal Temporal SpO2: 97% 96% Weight: Height: Intake/Output: Current Shift: No intake/output data recorded. Physical Exam: Gen: NAD, alert and cooperative HEENT: Normocephalic, atraumatic, EOMI, MMM Resp: CTABL, no WRR Card: RRR, no murmur Abd: soft, NT/ND, no rebound, no guarding. Present BS Incisions: C/D/I Ext: No LE edema, no calf tenderness or swelling Medications: Current Facility-Administered Medications Medication Dose Route Frequency Provider Last Rate Last Dose polyethylene glycol (GLYCOLAX) packet 17 g 17 g Oral Daily Kaylah Larry MD 17 g at 07/08/20 1632 labetalol (NORMODYNE;TRANDATE) injection 5 mg 5 mg Intravenous Q3H PRN Kaylah Larry MD 5 mg at07/07/20 2115 hydrALAZINE (APRESOLINE) injection 5 mg 5 mg Intravenous Q4H PRN Kaylah Larry MD simethicone (MYLICON) chewable tablet 80 mg 80 mg Oral Q6H PRN Steff Huntley, ibuprofen (ADVIL;MOTRIN) tablet 600 mg 600 mg Oral Q6H Steff Huntley, DO 600 mg at 07/09/20 0542 enoxaparin (LOVENOX) injection 40 mg 40 mg Subcutaneous Daily Kaylah Larry MD 40 mg at 07/08/20 1632 clonazePAM (KLONOPIN) tablet 0.5 mg 0.5 mg Oral BID PRN Xin Tripp MD 0.5 mg at 07/08/20 2133 DULoxetine (CYMBALTA) extended release capsule 30 mg 30 mg Oral Daily Xin Tripp MD 30 mg at 07/08/20 0850 gabapentin (NEURONTIN) capsule 600 mg 600 mg Oral 4x Daily Xin Tripp MD 600 mg at 07/08/20 213 mirtazapine (REMERON) tablet 30 mg 30 mg Oral Nightly Xin Tripp MD 30 mg at 07/08/20 2132 sodium chloride flush 0.9 % injection 10 mL 10 mL Intravenous 2 times per day Xin Tripp MD 10 mL at 07/08/20 2138 sodium chloride flush 0.9 % injection 10 mL 10 mL Intravenous PRN Xin Tripp MD acetaminophen (TYLENOL) tablet 650 mg 650 mg Oral Q6H Xin Tripp MD 650 mg at 07/09/20 0331 ondansetron (ZOFRAN) injection 4 mg 4 mg Intravenous Q6H PRN Xin Tripp MD oxyCODONE (ROXICODONE) immediate release tablet 5 mg 5 mg Oral Q4H PRN Xin Tripp MD 5 mg at 07/07/20 1915 Or oxyCODONE (ROXICODONE) immediate release tablet 10 mg 10 mg Oral Q4H PRN Xin Tripp MD 10 mg at 07/07/20 0521 docusate sodium (COLACE) capsule 100 mg 100 mg Oral BID PRN Xin Tripp MD Diagnostics: No results found. Labs: Admission on 07/05/2020 Component Date Value Ref Range Status Surgical Pathology Report 07/05/2020 SEE BELOW NA Final WBC 07/06/2020 15.3* 3.6 - 10.7 10*3/uL Final RBC 07/06/2020 4.06 3.80 - 5.20 10*6/uL Final Hemoglobin 07/06/2020 12.4 11.7 - 16.0 g/dL Final Hematocrit 07/06/2020 37.4 35.0 - 47.0 % Final MCV 07/06/2020 92.1 79.0 - 98.0 fL Final MCH 07/06/2020 30.4 26.0 - 34.0 pg Final MCHC 07/06/2020 33.0 32.0 - 36.0 % Final RDW 07/06/2020 12.7 11.5 - 14.5 % Final Platelets 07/06/2020 323 140 - 440 10*3/uL Final MPV 07/06/2020 8.4 7.4 - 10.4 fL Final Granulocytes % 07/06/2020 84.7* 40.0 - 80.0 % Final Lymphocyte % 07/06/2020 9.3* 20.0 - 40.0 % Final Monocytes 07/06/2020 5.8 2.0 - 10.0 % Final Eosinophils 07/06/2020 0.0* 1.0 - 6.0 % Final Basophils 07/06/2020 0.2 0.0 - 2.0 % Final Absolute Neut # 07/06/2020 13.0* 1.8 - 7.0 10*3/uL Final Absolute Lymph # 07/06/2020 1.4 1.0 - 4.3 10*3/uL Final Absolute [place] # 07/06/2020 0.9* 0.0 - 0.8 10*3/uL Final Absolute Eos # 07/06/2020 0.0 0.0 - 0.5 10*3/uL Final Absolute Baso # 07/06/2020 0.0 0.0 - 0.2 10*3/uL Final CREATININE 07/06/2020 0.58 0.52 - 1.25 mg/dL Final eGFR 07/06/2020 >90.0 >60 mL/min Final EGFR IF NonAfrican [place] 07/06/2020 >90.0 >60 mL/min Final Comment: KDIGO guidelines provide the following GFR categories: Stage GFR(ml/min/1.73 m2) Terms G1 >=90 Normal or high G2 60-89 Mildly decreased* G3a 45-59 Mildly to moderately decreased G3b 30-44 Moderately to severely decreased G4 15-29 Severely decreased G5 <15 Kidney failure *Relative to young adult level. In the absence of evidence of kidney damage, neither GFR category G1 nor G2 fulfill the criteria for CKD. The CKD-EPI equation is validated in individuals 18 years of age and older. Currently the best equation for estimating glomerular filtration rate (GFR) from serum creatinine in children is the Bedside Bustillos equation. It is less accurate in patients with extremes of muscle mass, restriction of dietary protein, ingestion of creatine, extra-renal metabolism of creatinine, or treatment with medications that affect renal tubular creatinine secretion. Glucose, Ur 07/08/2020 Normal Normal (<70) mg/dL Final . Total Protein, Urine 07/08/2020 Negative Negative mg/dL Final . Bilirubin Urine 07/08/2020 Negative Negative mg/dL Final . Urobilinogen, Urine 07/08/2020 Normal Normal (0-1) mg/dL Final . pH, Urine 07/08/2020 6.0 5.0 - 8.0 NA Final . Specific [place], Urine 07/08/2020 1.013 1.005 - 1.030 NA Final . Occult Blood,Urine 07/08/2020 0.5* Negative mg/dL Final . Ketones, Urine 07/08/2020 Negative Negative mg/dL Final . Nitrite, Urine 07/08/2020 Negative Negative NA Final . LEUKOCYTES, UA 07/08/2020 75* Negative Samuel/uL Final . Appearance 07/08/2020 Clear Clear NA Final . Color, Urine 07/08/2020 Light-Yellow Lt. Yellow NA Final . RBC, UA 07/08/2020 >100* 0 - 2 /[HPF] Final . WBC, UA 07/08/2020 11-25* 0 - 5 /[HPF] Final . Bacteria, UA 07/08/2020 Few* Negative /[HPF] Final . Mucous Threads 07/08/2020 Few Negative /[LPF] Final . Assessment/Plan: Lizzeth Márquez 65 y.o. female POD#4 s/p ex lap, radical YOANDY, BSO, LNS, omental biopsy Postoperative care - Doing well - andujar catheter - Encourage ambulation and use of incentive spirometer, PT consulted - Pain controlled - DVT Proph:SCDs while in bed, lovenox - Diet:General - ADAT Urinary retention - andujar in place, will go home with it Pelvic pressure - UA +leuks, will discuss with attending - Urine culture pending Constipation - cont miralax - dulcolax prn Transient hypotension - hypotensive overnight, asymptomatic - resolved spontaneously Anxiety, depression, bipolar disorder - cont home klonopin, cymbalta, remeron Peripheral neuropathy - cont home gabapentin Principal Problem: Post-operative state Active Problems: Cancer of lower uterine segment (HCC) 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 * Kaylah Larry MD 07/09/2020, 6:01 AM Associated attestation - Hiren Aguila MD - 07/09/2020 2:48 PM EDT Attending Supervising Physician's Attestation Statement I performed a history and physical examination on the patient and discussed the management with theresident physician. I reviewed and agree with the findings and plan as documented in her note . Doing well this afternoon. Reports that her pain is well controlled. Continues to have intermittent episodes of dizziness likely secondary to a combination of her psychiatric medications as well as pain medications. She did ambulate with physical therapy this morning and this went well. She felt safe ambulating and has been cleared for discharge to home. She is concerned about her ability to ambulateat home with a Andujar catheter in place. We discussed using a leg bag draining the day and the larger collection bag overnight. She will come into our office on Sunday for a voiding trial. She was able to give herself the Lovenox ingestion today without complication. She is passing flatus but has not had a bowel movement. She is on a bowel regimen consisting of Colace and MiraLAX. I anticipated the patient will be stable for discharge to home tomorrow. Her pathology did result. This is consistent with stage IIIB disease. I did recommend adjuvant treatment given the high-grade histology and advanced stage. The patient is going to consider her options and let me know how she would like to proceed. * Kaylah Larry MD - 07/08/2020 3:55 PM EDT Patient was evaluated at the bedside this afternoon. She had no acute complaints. She denies Fever/Chills, Chest Pain, SOB, N/V, BLANCAS, VC. Pain is well- controlled. Andujar in place, reports some pressure/pain and is concerned for a UTI. She denies vaginal bleeding. She is able to minimally ambulate in her room but has otherwise not gotten up out of bed. She is passing flatus, denies bowel movement. Physical Exam: Gen: NAD, alert and cooperative Resp: CTABL, no WRR Card: RRR, no murmur Abd: Soft, non-distended, non-tender. No rebound tenderness, guarding, or rigidity Incisions: C/D/I Ext: No LE edema, no calf tenderness or swelling A&P: PT consulted. UA/Ucx ordered for pelvic pressure. Miralax ordered as she has not yet had a BM sincesurgery. Continue inpatient care. * Kaylah Larry MD - 07/08/2020 5:36 AM EDT BIOMEDICAL ENGINEERING TECHNICIAN Progress Note Date: 07/08/2020 Time: 5:37 AM Lizzeth Márquez 65 y.o. female POD#3 s/p ex lap, radical YOANDY, BSO, LNS, omental biopsy Patient seen and examined. She has no acute complaints. Pain is controlled on pain medication. Patient is tolerating oral intake. Andujar removed yesterday, PVR on bladder scan consistently >400-600ml. She denies any vaginal bleeding. She is ambulating without difficulty. She is passing flatus but denies BM. She denies Fever/Chills, Chest Pain, SOB, N/V. Vitals: Vitals: 07/07/20 1955 07/07/20 2200 07/07/20 2326 07/08/20 0257 BP: (!) 162/85 (!) 150/76 104/66 (!) 141/76 Pulse: 59 67 63 Resp: 12 16 16 Temp: 98.6 F (37 C) 97.8 F (36.6 C) 97.7 F (36.5 C) TempSrc: Temporal Temporal Temporal SpO2: 96% 95% 95% Weight: Height: Intake/Output: Current Shift: I/O this shift: In: - Out: 859 [Urine:859] Physical Exam: Gen: NAD, alert and cooperative HEENT: Normocephalic, atraumatic, EOMI, MMM Resp: CTABL, no WRR Card: RRR, no murmur Abd: soft, NT/ND, no rebound, no guarding. Present BS Incisions: C/D/I Ext: No LE edema, no calf tenderness or swelling Medications: Current Facility-Administered Medications Medication Dose Route Frequency Provider Last Rate Last Dose labetalol (NORMODYNE;TRANDATE) injection 5 mg 5 mg Intravenous Q3H PRN Kaylah Larry MD 5 mg at07/07/202114 hydrALAZINE (APRESOLINE) injection 5 mg 5 mg Intravenous Q4H PRN Kaylah Larry MD simethicone (MYLICON) chewable tablet 80 mg 80 mg Oral Q6H PRN Steff Huntley DO ibuprofen (ADVIL;MOTRIN) tablet 600 mg 600 mg Oral Q6H Steff Huntley DO 600 mg at 07/08/20 0529 enoxaparin (LOVENOX) injection 40 mg 40 mg Subcutaneous Daily Kaylah Larry MD 40 mg at 07/07/20 141 clonazePAM (KLONOPIN) tablet 0.5 mg 0.5 mg Oral BID PRN Xin Tripp MD 0.5 mg at 07/07/202112 DULoxetine (CYMBALTA) extended release capsule 30 mg 30 mg Oral Daily Xin Tripp MD 30 mg at 07/07/201914 gabapentin (NEURONTIN) capsule 600 mg 600 mg Oral 4x Daily Xin Tripp MD 600 mg at 07/07/202112 mirtazapine (REMERON) tablet 30 mg 30 mg Oral Nightly Xin Tripp MD 30 mg at 07/06/202153 sodium chloride flush 0.9 % injection 10 mL 10 mL Intravenous 2 times per day Xin Tripp MD 10 mL at 07/07/202113 sodium chloride flush 0.9 % injection 10 mL 10 mL Intravenous PRN Xin Tripp MD acetaminophen (TYLENOL) tablet 650 mg 650 mg Oral Q6H Xin Tripp MD 650 mg at 07/08/20 042 promethazine (PHENERGAN) tablet 12.5 mg 12.5 mg Oral Q6H PRN Xin Tripp MD Or ondansetron (ZOFRAN) injection 4 mg 4 mg Intravenous Q6H PRN Xin Tripp MD oxyCODONE (ROXICODONE) immediate release tablet 5 mg 5 mg Oral Q4H PRN Xin Tripp MD 5 mg at 07/07/20 1915 Or oxyCODONE (ROXICODONE) immediate release tablet 10 mg 10 mg Oral Q4H PRN Xin rTipp MD 10 mg at 07/07/20 0521 docusate sodium (COLACE) capsule 100 mg 100 mg Oral BID PRN Xin Tripp MD Diagnostics: No results found. Labs: Admission on 07/05/2020 Component Date Value Ref Range Status WBC 07/06/2020 15.3* 3.6 - 10.7 10*3/uL Final RBC 07/06/2020 4.06 3.80 - 5.20 10*6/uL Final Hemoglobin 07/06/2020 12.4 11.7 - 16.0 g/dL Final Hematocrit 07/06/2020 37.4 35.0 - 47.0 % Final MCV 07/06/2020 92.1 79.0 - 98.0 fL Final MCH 07/06/2020 30.4 26.0 - 34.0 pg Final MCHC 07/06/2020 33.0 32.0 - 36.0 % Final RDW 07/06/2020 12.7 11.5 - 14.5 % Final Platelets 07/06/2020 323 140 - 440 10*3/uL Final MPV 07/06/2020 8.4 7.4 - 10.4 fL Final Granulocytes % 07/06/2020 84.7* 40.0 - 80.0 % Final Lymphocyte % 07/06/2020 9.3* 20.0 - 40.0 % Final Monocytes 07/06/2020 5.8 2.0 - 10.0 % Final Eosinophils 07/06/2020 0.0* 1.0 - 6.0 % Final Basophils 07/06/2020 0.2 0.0 - 2.0 % Final Absolute Neut # 07/06/2020 13.0* 1.8 - 7.0 10*3/uL Final Absolute Lymph # 07/06/2020 1.4 1.0 - 4.3 10*3/uL Final Absolute [place] # 07/06/2020 0.9* 0.0 - 0.8 10*3/uL Final Absolute Eos # 07/06/2020 0.0 0.0 - 0.5 10*3/uL Final Absolute Baso # 07/06/2020 0.0 0.0 - 0.2 10*3/uL Final CREATININE 07/06/2020 0.58 0.52 - 1.25 mg/dL Final eGFR 07/06/2020 >90.0 >60 mL/min Final EGFR IF NonAfrican [place] 07/06/2020 >90.0 >60 mL/min Final Comment: KDIGO guidelines provide the following GFR categories: Stage GFR(ml/min/1.73 m2) Terms G1 >=90 Normal or high G2 60-89 Mildly decreased* G3a 45-59 Mildly to moderately decreased G3b 30-44 Moderately to severely decreased G4 15-29 Severely decreased G5 <15 Kidney failure *Relative to young adult level. In the absence of evidence of kidney damage, neither GFR category G1 nor G2 fulfill the criteria for CKD. The CKD-EPI equation is validated in individuals 18 years of age and older. Currently the best equation for estimating glomerular filtration rate (GFR) from serum creatinine in children is the Bedside Bustillos equation. It is less accurate in patients with extremes of muscle mass, restriction of dietary protein, ingestion of creatine, extra-renal metabolism of creatinine, or treatment with medications that affect renal tubular creatinine secretion. Assessment/Plan: Lizzeth Márquez 65 y.o. female POD#3 s/p ex lap, radical YOANDY, BSO, LNS, omental biopsy 1. Postoperative care - Doing well, vitals stable - andujar reinserted 2/2 urinary retention - Encourage ambulation and use of incentive spirometer - Pain controlled - DVT Proph:SCDs while in bed, lovenox - s/p 2g Ancef - general diet 2. Anxiety, depression, bipolar disorder - cont home klonopin, cymbalta, remeron 3. 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 * Kaylah Larry MD 07/08/2020, 5:37 AM Associated attestation - Hiren Aguila MD - 07/08/2020 3:32 PM EDT Attending Supervising Physician's Attestation Statement I performed a history and physical examination on the patient and discussed the management with theresident physician. I reviewed and agree with the findings and plan as documented in her note . This afternoon, the patient reports that her pain is better controlled than it was yesterday. She is tolerating a regular diet and passing flatus. She has not yet had a bowel movement and is requesting alaxative. She complains of irritation near the urethra and bladder pressures since her Andujar catheter was replaced yesterday for urinary retention. The patient has ambulated to the restroom by herself but has otherwise been primarily confined to the bed. She reports dizziness and feels unsteady with transfers and ambulation. She is concerned about how this will affect her ability to go home. Asksabout operative findings again which we previously discussed and I again reviewed today. Afebrile, vital signs stable. Physical exam findings confirmed. Physical therapy consult. Discussed the need for patient to increase her physical activity. Will check urinalysis and urine culture although I suspect the patient's urinary complaints are secondary to the Andujar catheter. Given the radical nature of her surgery she will require prolonged catheterization. Patient will follow-up in our office nextweek for a voiding trial. * Nikki Villegas RN - 07/07/2020 4:43 PM EDT Pt frequently refusing medication stating I feel too doped up. Refused oxycodone first thing thismorning yet reporting pain 05/14. Refused morning dose cymbalta as well. Informed pt cymbalta would just be re-scheduled for a bit later * Steff Huntley DO - 07/07/2020 3:47 PM EDT BIOMEDICAL ENGINEERING TECHNICIAN Oncology PM Rounding Note Patient was evaluated at the bedside this afternoon. She is complaining of mild upper abdominal pain. She denies Fever/Chills, Chest Pain, SOB, N/V, BLANCAS, VC. She denies vaginal bleeding. She is ambulating well. She is passing flatus, no bowel movement. Andujar removed this AM and patient voided spontaneously but had a PVR of 491. Almost immediately afterwards, she spontaneously voided again for 200cc of urine but had a PVR of 693. Bladder was then straight cathed. Vitals: 07/07/20 1400 BP: (!) 161/101 Pulse: 54 Resp: 18 Temp: 97.8 F (36.6 C) SpO2: 98% Physical Exam: Gen: NAD, alert and cooperative Resp: CTABL, no WRR Card: RRR, no murmur Abd: Soft, non-distended, non-tender. No rebound tenderness, guarding, or rigidity. Active bowel sounds appreciated on auscultation Incisions: C/D/I Ext: No LE edema, no calf tenderness or swelling A&P: - Plan to allow patient to void one more time and obtain PVR. If greater than 150, will plan to replace andujar. - Hydralazine ordered PRN for elevated BP - Ordered simethicone for gas pain and colace ordered PRN as patient has not yet had bowel movementand is likely contributing to discomfort - Last received oxycodone 5mg at 1000 this AM. Continued oxycodone PRN for pain control. Ibuprofen and tylenol scheduled. * Nikki Villegas RN - 07/07/2020 12:24 PM EDT Straight cath done at this time without difficulty, pt tolerated well * Elizabeth Coelho DTR - 07/07/2020 9:20 AM EDT Nutrition rescreen completed. Chart reviewed. Patient to be monitored and followed by the diet agricultural engineering technician. * Kaylah Larry MD - 07/07/2020 5:48 AM EDT Gynecologic Oncology Progress Note Date: 07/07/2020 Time: 5:49 AM Lizzeth Márquez 65 y.o. female POD#2 s/p ex lap, radical YOANDY, BSO, LNS, omental biopsy Patient seen and examined. She has no acute complaints. Pain is controlled. Patient is tolerating oral intake. Andujar remains in place. She denies any vaginal bleeding. She is ambulating without difficulty. She is passing flatus. She denies Fever/Chills, Chest Pain, SOB, N/V. Vitals: Vitals: 07/06/20 1530 07/06/20 1856 07/06/20 2153 07/07/20 0432 BP: 120/72 138/78 (!) 116/54 (!) 158/76 Pulse: 50 50 54 56 Resp: 17 18 16 16 Temp: 97.6 F (36.4 C) 97.1 F (36.2 C) 97.4 F (36.3 C) 97.8 F (36.6 C) TempSrc: Temporal Temporal Temporal Temporal SpO2: 95% 96% 97% 96% Weight: Height: Intake/Output: Current Shift: I/O this shift: In: 800 [P.O.:800] Out: 1500 [Urine:1500] Physical Exam: Gen: NAD, alert and cooperative HEENT: Normocephalic, atraumatic, EOMI, MMM Resp: CTABL, no WRR Card: RRR, no murmur Abd: soft, NT/ND, no rebound, no guarding. Present BS Incisions: C/D/I Ext: No LE edema, no calf tenderness or swelling Medications: Current Facility-Administered Medications Medication Dose Route Frequency Provider Last Rate Last Dose ibuprofen (ADVIL;MOTRIN) tablet 600 mg 600 mg Oral Q6H PRN Kaylah Larry MD enoxaparin (LOVENOX) injection 40 mg 40 mg Subcutaneous Daily Kaylah Larry MD 40 mg at 07/06/20 1628 clonazePAM (KLONOPIN) tablet 0.5 mg 0.5 mg Oral BID PRN Xin Tripp MD 0.5 mg at 07/06/202153 DULoxetine (CYMBALTA) extended release capsule 30 mg 30 mg Oral Daily Xin Tripp MD 30 mg at 07/06/20 1000 gabapentin (NEURONTIN) capsule 600 mg 600 mg Oral 4x Daily Xin Tripp MD 600 mg at 07/06/202153 mirtazapine (REMERON) tablet 30 mg 30 mg Oral Nightly Xin Tripp MD 30 mg at 07/06/202153 sodium chloride flush 0.9 % injection 10 mL 10 mL Intravenous 2 times per day Xin Tripp MD 10 mL at 07/06/202154 sodium chloride flush 0.9 % injection 10 mL 10 mL Intravenous PRN Xin Tripp MD acetaminophen (TYLENOL) tablet 650 mg 650 mg Oral Q6H Xin Tripp MD 650 mg at 07/07/20 0428 promethazine (PHENERGAN) tablet 12.5 mg 12.5 mg Oral Q6H PRN Xin Tripp MD Or ondansetron (ZOFRAN) injection 4 mg 4 mg Intravenous Q6H PRN Xin Tripp MD oxyCODONE (ROXICODONE) immediate release tablet 5 mg 5 mg Oral Q4H PRN Xin Tripp MD 5 mg at 07/06/20 0238 Or oxyCODONE (ROXICODONE) immediate release tablet 10 mg 10 mg Oral Q4H PRN Xin Tripp MD 10 mg at 07/07/20 0521 docusate sodium (COLACE) capsule 100 mg 100 mg Oral BID PRN Xin Tripp MD Diagnostics: No results found. Labs: Admission on 07/05/2020 Component Date Value Ref Range Status WBC 07/06/2020 15.3* 3.6 - 10.7 10*3/uL Final RBC 07/06/2020 4.06 3.80 - 5.20 10*6/uL Final Hemoglobin 07/06/2020 12.4 11.7 - 16.0 g/dL Final Hematocrit 07/06/2020 37.4 35.0 - 47.0 % Final MCV 07/06/2020 92.1 79.0 - 98.0 fL Final MCH 07/06/2020 30.4 26.0 - 34.0 pg Final MCHC 07/06/2020 33.0 32.0 - 36.0 % Final RDW 07/06/2020 12.7 11.5 - 14.5 % Final Platelets 07/06/2020 323 140 - 440 10*3/uL Final MPV 07/06/2020 8.4 7.4 - 10.4 fL Final Granulocytes % 07/06/2020 84.7* 40.0 - 80.0 % Final Lymphocyte % 07/06/2020 9.3* 20.0 - 40.0 % Final Monocytes 07/06/2020 5.8 2.0 - 10.0 % Final Eosinophils 07/06/2020 0.0* 1.0 - 6.0 % Final Basophils 07/06/2020 0.2 0.0 - 2.0 % Final Absolute Neut # 07/06/2020 13.0* 1.8 - 7.0 10*3/uL Final Absolute Lymph # 07/06/2020 1.4 1.0 - 4.3 10*3/uL Final Absolute [place] # 07/06/2020 0.9* 0.0 - 0.8 10*3/uL Final Absolute Eos # 07/06/2020 0.0 0.0 - 0.5 10*3/uL Final Absolute Baso # 07/06/2020 0.0 0.0 - 0.2 10*3/uL Final CREATININE 07/06/2020 0.58 0.52 - 1.25 mg/dL Final eGFR 07/06/2020 >90.0 >60 mL/min Final EGFR IF NonAfrican [place] 07/06/2020 >90.0 >60 mL/min Final Comment: KDIGO guidelines provide the following GFR categories: Stage GFR(ml/min/1.73 m2) Terms G1 >=90 Normal or high G2 60-89 Mildly decreased* G3a 45-59 Mildly to moderately decreased G3b 30-44 Moderately to severely decreased G4 15-29 Severely decreased G5 <15 Kidney failure *Relative to young adult level. In the absence of evidence of kidney damage, neither GFR category G1 nor G2 fulfill the criteria for CKD. The CKD-EPI equation is validated in individuals 18 years of age and older. Currently the best equation for estimating glomerular filtration rate (GFR) from serum creatinine in children is the Bedside Bustillos equation. It is less accurate in patients with extremes of muscle mass, restriction of dietary protein, ingestion of creatine, extra-renal metabolism of creatinine, or treatment with medications that affect renal tubular creatinine secretion. Assessment/Plan: Lizzeth Márquez 65 y.o. female POD#2 s/p ex lap, radical YOANDY, BSO, LNS, omental biopsy 1. Postoperative care - Doing well, vitals stable - remove andujar catheter today and perform bladder scans after voiding - Encourage ambulation and use of incentive spirometer - Pain controlled - DVT Proph:Lovenox, SCDs while in bed - s/p ancef - Diet:General - ADAT 2. Anxiety, depression, bipolar disorder - panic attack yesterday, improved after home klonopin - cont home Cymbalta, Remeron 3. 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 * Kaylah Larry MD 07/07/2020, 5:49 AM Associated attestation - Hiren Aguila MD - 07/07/2020 1:20 PM EDT Attending Supervising Physician's Attestation Statement I performed a history and physical examination on the patient and discussed the management with theresident physician. I reviewed and agree with the findings and plan as documented in her note . Patient sleepy, just got pain medications, more incisional pain today. High PVR earlier today, requiredstraight cath. AFVSS. PE findings confirmed. Discussed that urinary retention is very common following radical hysterectomy and she may have to go home with andujar. Working on optimizing pain control.Remainder of plan as outlined above. * Kenya Camp RN - 07/06/2020 6:46 PM EDT Pt up ambulating in hallway with standby assist . Good tolerance and offers no complaints * Kaylah Larry MD - 07/06/2020 3:56 PM EDT PM Rounds Patient was evaluated at the bedside this afternoon. She had no acute complaints. She denies Fever/Chills, Chest Pain, SOB, N/V, BLANCAS, VC. Pain is well- controlled. Pt has andujar in. She denies vaginal bleeding. Is ambulating. She is passing flatus, denies any bowel movement. She is able to tolerate Verduzco. Physical Exam: Gen: NAD, alert and cooperative Resp: resting comfortably on room air, normal rate Abd: Soft, non-distended, non-tender. No rebound tenderness, guarding, or rigidity. Active bowel sounds on auscultation in all four quadrants Incisions: Midline incision C/D/I Ext: No LE edema, no calf tenderness or swelling A&P: 1. Pt is doing well, no complaints. Continue routine post-operative care. Continue andujar until tomorrow AM. I evaluated the patient this afternoon and agree with above note. Patient meeting post-operative milestones. * Kaylah Larry MD - 07/06/2020 5:47 AM EDT BIOMEDICAL ENGINEERING TECHNICIAN Progress Note Date: 07/06/2020 Time: 5:47 AM Lizzeth Márquez 65 y.o. female POD#1 s/p ex lap, radical YOANDY, BSO, LNS, omental biopsy Patient seen and examined. She has no acute complaints. Pain is controlled. Patient is tolerating oral intake. Andujar in place. She denies any vaginal bleeding. She has not yet ambulated. She is passing flatus. She denies Fever/Chills, Chest Pain, SOB, N/V. Vitals: Vitals: 07/05/20 2311 07/06/20 0229 07/06/20 0505 07/06/20 0543 BP: 114/68 114/70 114/63 Pulse: 52 61 52 56 Resp: 18 16 Temp: 97.7 F (36.5 C) 97.5 F (36.4 C) TempSrc: Temporal Temporal Temporal SpO2: 97% 97% 96% 98% Weight: Height: Intake/Output: Current Shift: I/O this shift: In: 1164.6 [I.V.:1064.6; IV Piggyback:100] Out: 975 [Urine:975] Physical Exam: Gen: NAD, alert and cooperative HEENT: Normocephalic, atraumatic, EOMI, MMM Resp: CTABL, no WRR Card: RRR, no murmur Abd: soft, NT/ND, no rebound, no guarding. Present BS Incisions: C/D/I Ext: No LE edema, no calf tenderness or swelling Medications: Current Facility-Administered Medications Medication Dose Route Frequency Provider Last Rate Last Dose ibuprofen (ADVIL;MOTRIN) tablet 600 mg 600 mg Oral Q6H PRN Kaylah Larry MD clonazePAM (KLONOPIN) tablet 0.5 mg 0.5 mg Oral BID PRN Xin Tripp MD DULoxetine (CYMBALTA) extended release capsule 30 mg 30 mg Oral Daily Xin Tripp MD gabapentin (NEURONTIN) capsule 600 mg 600 mg Oral 4x Daily Xin Tripp MD mirtazapine (REMERON) tablet 30 mg 30 mg Oral Nightly Xin Tripp MD sodium chloride flush 0.9 % injection 10 mL 10 mL Intravenous 2 times per day Xin Tripp MD 10 mL at 07/05/20 1920 sodium chloride flush 0.9 % injection 10 mL 10 mL Intravenous PRN Xin Tripp MD acetaminophen (TYLENOL) tablet 650 mg 650 mg Oral Q6H Xin Tripp MD 650 mg at 07/06/20 0359 promethazine (PHENERGAN) tablet 12.5 mg 12.5 mg Oral Q6H PRN Xin Tripp MD Or ondansetron (ZOFRAN) injection 4 mg 4 mg Intravenous Q6H PRN Xin Tripp MD oxyCODONE (ROXICODONE) immediate release tablet 5 mg 5 mg Oral Q4H PRN Xin Tripp MD 5 mg at 07/06/20 0238 Or oxyCODONE (ROXICODONE) immediate release tablet 10 mg 10 mg Oral Q4H PRN Xin Tripp MD docusate sodium (COLACE) capsule 100 mg 100 mg Oral BID PRN Xin Tripp MD Diagnostics: No results found. Labs: Admission on 07/05/2020 Component Date Value Ref Range Status WBC 07/06/2020 15.3* 3.6 - 10.7 10*3/uL Final RBC 07/06/2020 4.06 3.80 - 5.20 10*6/uL Final Hemoglobin 07/06/2020 12.4 11.7 - 16.0 g/dL Final Hematocrit 07/06/2020 37.4 35.0 - 47.0 % Final MCV 07/06/2020 92.1 79.0 - 98.0 fL Final MCH 07/06/2020 30.4 26.0 - 34.0 pg Final MCHC 07/06/2020 33.0 32.0 - 36.0 % Final RDW 07/06/2020 12.7 11.5 - 14.5 % Final Platelets 07/06/2020 323 140 - 440 10*3/uL Final MPV 07/06/2020 8.4 7.4 - 10.4 fL Final Granulocytes % 07/06/2020 84.7* 40.0 - 80.0 % Final Lymphocyte % 07/06/2020 9.3* 20.0 - 40.0 % Final Monocytes 07/06/2020 5.8 2.0 - 10.0 % Final Eosinophils 07/06/2020 0.0* 1.0 - 6.0 % Final Basophils 07/06/2020 0.2 0.0 - 2.0 % Final Absolute Neut # 07/06/2020 13.0* 1.8 - 7.0 10*3/uL Final Absolute Lymph # 07/06/2020 1.4 1.0 - 4.3 10*3/uL Final Absolute [place] # 07/06/2020 0.9* 0.0 - 0.8 10*3/uL Final Absolute Eos # 07/06/2020 0.0 0.0 - 0.5 10*3/uL Final Absolute Baso # 07/06/2020 0.0 0.0 - 0.2 10*3/uL Final Assessment/Plan: Lizzeth Seng Márquez 65 y.o. female POD#1 s/p ex lap, radical YOANDY, BSO, LNS, omental biopsy 1. Postoperative care - Doing well, vitals stable - continue andujar catheter - Encourage ambulation and use of incentive spirometer - Pain controlled - hgb stable - DVT Proph:SCDs while in bed, lovenox - s/p Ancef - Diet:General - ADAT - s/p IVF 2. Anxiety, depression, bipolar disorder - cont home klonopin, Cymbalta, remeron 3. 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 * Kaylah Larry MD 07/06/2020, 5:47 AM Associated attestation - Hiren Aguila MD - 07/06/2020 12:08 PM EDT Attending Supervising Physician's Attestation Statement I performed a history and physical examination on the patient and discussed the management with theresident physician. I reviewed and agree with the findings and plan as documented in her note . Doing well this morning. Had a panic attack but has anxiety at baseline. Working on optimizing pain regimen. Has not been OOB yet, andujar in place. Tolerated breakfast. AFVSS. PE findings confirmed. Operative findings reviewed with the patient. We discussed the plan for 28 days of prophylactic Lovenox. Plan for voiding trial tomorrow. We discussed that approximately 50% of the time patients who undergo radical hysterectomy are unable to void and need to go home with a catheter temporarily. Continue the remainder of the plan as outlined above. * Leti Malave - 07/05/2020 4:36 PM EDT Belongings taken to pt admit room 7E--711 Cari Davis MA * Jayro Santiago DO - 07/05/2020 3:24 PM EDT PM Rounding Note POD#0 from Radical LDE-MGL-Dbycit Lymph node sampling and omental biopsy. Patient seen and examined. Doing well drowsy from anesthesia. Pain controlled. Tolerating sips of water. Denies nausea/vomiting. Denies flatus. Vitals: 07/05/20 1415 BP: 127/77 Pulse: 51 Resp: 12 Temp: SpO2: 94% Abd: small areas of staining noted on dressing otherwise C/D/I Plan: continue routine post-operative care Andujar to stay in D/C IVF once tolerating PO CBC in AM * Bren Franco RN - 07/05/2020 12:43 PM EDT Patient states no family present at this time. 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 Post- operative state Surgical Operations & Procedures: exploratory laparotomy, radical abdominal hysterectomy with bilateral salpingo-oophorectomy, bilateral pelvic lymph node sampling, omental biopsy 07/05/2020 Consultations: PT Hospital Course: Lizzeth Márquez is a 65 y.o. female admitted on 07/05/2020 for planned exploratory laparotomy, radical abdominal hysterectomy with bilateral salpingo-oophorectomy, bilateral pelvic lymph node sampling, omental biopsy 07/05/2020 due to locally advanced high grade gynecologic malignancy on EMB. She was admitted for post-operative care. She had urinary retention and her andujar remained in place at discharge. She was also diagnosed with (more content not included)... Additional Source Comments INFORMATION SOURCE (unrecogn ized section and content) DATE CREATED AUTHOR AUTHOR'S ORGANIZ ATION 01/27/2021 [facility] DATE CREATED AUTHOR AUTHOR'S ORGANIZ ATION 05/27/2023 [facility] DATE CREATED AUTHOR AUTHOR'S ORGANIZ ATION 06/22/2023 [facility] Source Comments (unrecognize d section and content) In the event this informatio n is protected by the Federal Confidentiality of Alcohol and Drug Abuse Patient Records regulations: The Federal rules restrict any use of the information to criminally investigate or prosecute any alcohol or drug abuse patient.[facility] the event this information is protected by the Federal Confidentiality of Alcohol and Drug Abuse Patient Records regulations: The Federal rules restrict any use of the information to criminally investigate or prosecute any alcohol or drug abuse patient.[facility] the event this information is protected by the Federal Confidentiality of Alcohol and Drug Abuse Patient Records regulations: The Federal rules restrict any use of the information to criminally investigate or prosecute any alcohol or drug abuse patient.[facility] the event this information is protected by the Federal Confidentiality of Alcohol and Drug Abuse Patient Records regulations: The Federal rules restrict any use of the information to criminally investigate or prosecute any alcohol or drug abuse patient.[facility] the event this information is protected by the Federal Confidentiality of Alcohol and Drug Abuse Patient Records regulations: The Federal rules restrict any use of the information to criminally investigate or prosecute any alcohol or drug abuse patient.[facility] System[facility] the event this information is protected by the Federal Confidentiality of Alcohol and Drug Abuse Patient Records regulations: The Federal rules restrict any use of the information to criminally investigate or prosecute any alcohol or drug abuse patient.[facility] Reason for Visit (unrecogniz ed section and content) Reason Comments Orders Reason Comments Endometrial Cancer Undifferentiated [place]ine carcinoma-pt has no concerns Reason Comments Osteoporosis Needs refills Reason Comments medication question clarify directions on medication Reason Comments Refill Request Care Teams (unrecognized sec tion and content) [employer] Guidance Counselor Relationship Specialty Start Date End Date Sofia Caldwell MD [address] [place] [address] PCP - General Internal Medicine 11/08/22 [employer] Guidance Counselor Relationship Specialty Start Date End Date Sofia Caldwell MD [address] [place], [place] [id number] PCP - General Internal Medicine 11/08/22 [employer] Guidance Counselor Relationship Specialty Start Date End Date Loren Caldwell MD [address] [facility] [address] [place], [place] [phone] PCP - General 06/18/20 Mishel Ramos APRN - [facility] [address] [facility] [address] [place], [place] [id number] Nurse Practitioner Certified Nurse Practitioner 11/14/22 Hiren Aguila MD [address] [facility] [place], [place] [phone] Consulting Physician Gynecologic Oncology 05/24/23 [employer] Guidance Counselor Relationship Specialty Start Date End Date Sofia Caldwell MD [address] [place], [place] [phone] PCP - General Internal Medicine 11/08/22 [employer] Guidance Counselor Relationship Specialty Start Date End Date Sofia Caldwell MD [address] [place], [place] [phone] PCP - General Internal Medicine 11/08/22 FOR RECORDS PERTAINING TO PATIENTS WHO ARE OR HAVE BEEN ENROLLED IN A CHEMICAL DEPENDENCY/SUBSTANCEABUSE PROGRAM, SOME INFORMATION MAY BE OMITTED. This clinical summary was aggregated from multiple sources. Caution should be exercised in using it in the provision of clinical care. This summary normalizes information from multiple sources, and as a consequence, information in this document may materially change the coding, format and clinical context of patient data. In addition, data may be omitted in some cases. CLINICAL DECISIONS SHOULD BE BASED ON THE PRIMARY CLINICAL RECORDS. [employer] [facility]. provides no warranty or guarantee of the accuracy or completeness of information in this document.
[2023-11-13] MEDS: Lactated Ringers 1,000 ML 15 ML IV (07:34)
[2023-11-13 07:35] VITALS: BP 135/78; PULSE 71; RESP 18; TEMP 36.8; O2SAT 98; BMI 24.5
--- NOTE | 2023-11-13 08:30 | EGD_PTH ---
PATHOLOGY RESULTS PATIENT: PHYLICIA SLADE LOC: EN U#:[id number] AGE/SX: 68/F ROOM: RE11/13/[address]: Dr. Prasanth Webber MD : 1955 BED: DIS: 11/13/2023 SPEC #: [id number] RECD: 11/13/23 11:43 STATUS: ADOLPH GRANADOS #: [id number] MERRILL: 11/13/23 08:[address]: Prasanth Webber DEPT: SURGICAL PATHOLOGY RECD BY: Nikki Bolaños ENTERED: 11/13/23 11:44 SP TYPE: EGD BIOPSY OTHR DR: Dr. Sofia Caldwell MD Tissues: Gastric mucous membrane Procedures: Surgery Specimen Level IV HEADER OPERATION: EGD with biopsy and dilation PRE-OP DIAGNOSIS: Difficulty swallowing TISSUE SUBMITTED: Gastric antrum biopsy for H. pylori and path MICROSCOPIC DIAGNOSIS Gastric antrum, biopsy: Mild gastritis. See microscopic description and comment. SJ:alex 11/14/2023 COMMENT The results of immunohistochemistry for Helicobacter pylori will be reported separately ([id number]). MICROSCOPIC DESCRIPTION Slides are reviewed. The specimen shows fragments of gastric mucosa with chronic inflammatory cell infiltrates in the lamina propria consisting of lymphocytes and plasma cells, consistent with mild chronic gastritis. GROSS DESCRIPTION Received in fixative is one container labeled with the patient's name and designated gastric antrum biopsy. The specimen consists of multiple irregular fragments of light hooks soft tissue that in aggregate measure 0.6 x 0.3 x 0.1 cm. The specimen is totally submitted in one cassette. / DAVEY:alex 11/13/2023 TC:3 CPT: 97591
--- NOTE | 2023-11-13 08:30 | IMM_PTH ---
PATHOLOGY RESULTS PATIENT: PHYLICIA SLADE LOC: EN U#:[id number] AGE/SX: 68/F ROOM: RE11/13/[address]: Dr. Prasanth Webber MD : 1955 BED: DIS: 11/13/2023 SPEC #: [id number] RECD: 11/13/23 13:53 STATUS: ADOLPH REQ #: [id number] MERRILL: 11/13/23 08:[address]: Prasanth Webber DEPT: IMMUNOHISTOCHEMISTRY RECD BY: Candida Patel ENTERED: 11/13/23 13:54 SP TYPE: IMMUNO OTHR DR: Dr. Sofia Caldwell MD Tissues: Stomach, NOS Procedures: H Pylori (initial) PHYSICIAN & INSTITUTION [place] [address] SPECIMEN INFORMATION: Tissue Source: Gastric antrum Clinical Info: Difficulty swallowing Specimen Number: [id number] CPT code: 71872 METHODOLOGY: Deparaffinized sections of prefer/formalin-fixed tissue or PAP/DQ stained slides are incubated with monoclonal/polyclonal antibodies/oligonucleotide probes. Localization is made via biotin free immunoperoxidase method. Appropriate controls are performed and reacted as expected. Results on target cell population are indicated in the following table: RESULTS: ANTIBODY / CLONE RESULT H Pylori (polyclonal) negative These tests were developed and their performance characteristics determined by [facility]. They may not have been cleared or approved by the U.S. Food and Drug Administration. The FDA has determined that such clearance or approval is not necessary. The above immunohistochemical/dualISH markers are ordered and reviewed by the Pathologist. INTERPRETATION: Gastric antrum, biopsy: Negative for Helicobacter pylori organisms. DAVEY:alex 11/14/2023
--- NOTE | 2023-11-13 08:38 | HP.PCM_ITS ---
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: No Is patient in pain?: Yes (pain while swallowing ) Pain scale (1-10): 2 Allergies oak Allergy (Mild, Verified 10/22/23 08:59) Itchingclams Adverse Reaction (Mild, Verified 10/22/23 08:59) Abd cramps/diarrheaclindamycin Adverse Reaction (Mild, Verified 09/07/23 22:09) Nausea Medications pseudoephedrine HCl 30 mg tablet (Sudafed) 60 mg PO ONCE PRN 01/26/20 [History Confirmed 10/22/23] clonazepam 0.5 mg tablet 0.5 mg PO BID 12/08/20 [History Confirmed 10/22/23] hydrocortisone 2.5 % topical cream 1 applic topical BID PRN rash #28.35 grams 02/07/21 [Rx Confirmed 10/22/23] acetaminophen 500 mg tablet (Tylenol Extra Strength) 500 mg PO Q6H PRN 02/18/21 [History Confirmed 10/22/23] folic acid 1 mg tablet 1 mg PO DAILY 08/19/21 [History Confirmed 10/22/23] clobetasol 0.05 % shampoo 1 applic topical DAILY 1 week #118 mL 08/25/21 [Rx Confirmed 10/22/23] amlodipine 10 mg tablet 10 mg PO DAILY #90 tabs 01/01/23 [Rx Confirmed 10/22/23] cholecalciferol (vitamin D3) 1,250 mcg (50,000 unit) capsule 1,250 mcg PO QWEEK #14 caps 01/09/23 [Rx Confirmed 10/22/23] duloxetine 20 mg capsule,delayed release 60 mg PO BID 04/09/23 [History Confirmed 10/22/23] methotrexate sodium 2.5 mg tablet mg PO 08/16/23 [History Confirmed 10/22/23] gabapentin 600 mg tablet 600 mg PO Q8H pain 3 months #270 tabs 09/03/23 [Rx Confirmed 10/22/23] cyanocobalamin (vitamin B-12) 2,000 mcg tablet 2,000 mcg PO DAILY #90 tabs 09/11/23 [Rx Confirmed 10/22/23] omeprazole 40 mg capsule,delayed release 40 mg PO DAILY #60 caps 10/22/23 [Rx Confirmed 10/22/23] PFSH Medical History (Updated 10/22/23 @ 12:[address] Prasanth Webber MD) Abdominal tenderness Anxiety Arrhythmia Arthritis Borderline type 2 diabetes mellitus Cataracts, bilateral Depression Difficulty swallowing Fatigue Flu vaccine need Health care maintenance Hearing loss Heart murmur History of emotional problems History of endometrial cancer History of suicide attempt History of UTI Macrocytosis Neuropathy Psoriatic arthritis Screening for thyroid disorder Seasonal allergies Vision problems Vitamin D deficiency Surgical History (Updated 10/22/23 @ 08:55 by Vale Mejia LPN) History of surgical removal of ganglion cyst S/P hysterectomy Family History Father Anxiety Diabetes Depression Heart disease Mental Disorders Psychiatric care CVA (cerebral vascular accident) ArthritisSister Anxiety Arthritis Depression Diabetes Heart disease Mental Disorders Psychiatric care Respiratory diseaseMother Arthritis Otosclerosis Social History (Updated 10/22/23 @ 08:56 by Vale Mejia LPN) Smoking Status: Current every day smoker tobacco type: cigarettes alcohol intake: current details: 1-2 glasses substance use type: does not use caffeine: Yes what type of physical activity do you participate in: walking seatbelt use: always do you feel safe at home: Yes additional social history: -Uri HPI HPI HPI: Patient is a 68-year-old female here with dysphagia. She reports that for about a year she has been having difficulty swallowing only occasionally. She reports that it is usually food. She says it feels like a sticking in her chest. She does not take anything for reflux. She has never had an EGD. ROS General General: Yes fatigue; No weight change, appetite, colon cancer, breast cancer or weakness HEENT HEENT: Yes difficulty swallowing; No eye injury, eye surgery, swollen glands or hoarseness Endo Endocrine: No thyroid disease, diabetes mellitus, thyroid cancer, Hair loss, heat intolerance or cold intolerance Skin Skin: No rash or changing moles Breast Breast: No left breast lump, right breast lump, nipple discharge, breast pain, abnormal mammogram, abnormal US or breast enlargement Musc Musculoskeletal: Yes back problems and arthritis; No rheumatoid arthritis, gout or joint pain Cardio Cardiovascular: Yes murmur and high blood pressure; No pacemaker, heart disease, atrial fibrillation, heart attack, heart stent, palpitations, shortness of breat with exertion or chest pain Psych Psychiatric: Yes depression and anxiety; No hearing voices Resp Respiratory: No shortness of breath, No sleep apnea, Yes cough, No COPD, No asthma, No emphysema and No wheezing Gastro Gastrointestinal: No abdominal pain, No nausea or vomiting, No diarrhea, No constipation, No blood in stool, No acid reflux, No hemorrhoids, No ulcers, No gallbladder problem and No black,tarry stools Devyn Hematologic: No blood thinners, No blood disorders, No bleeding, No anemia and No blood clots Neuro Neurologic: No system reviewed and no additional complaints, except as documented, No as per HPI, No abnormal gait, No abnormal hearing, No abnormal movements, No abnormal speech, No behavioral changes, No burning sensations, No confusion, No convulsions, No disequilibrium, No dizziness, No localized weakness, No frequent falls, No headache(s), No lack of coordination, No loss of vision, No memory loss, Yes numbness, No other visual disturbances, No radicular pain, No restless legs, No sensory deficit, No syncope, Yes tingling, No tremor(s), No weakness and No other Exam Const General: cooperative Orientation: alert and oriented x3 HENMT Head: normal to inspection Neck Neck: normal visual inspection and full ROM Chest Chest palpation & inspection: normal inspection of the chest Resp Effort & Inspection: normal respiratory effort Auscultation: clear to auscultation bilaterally Cardio Rate: regular rate Rhythm: regular rhythm GI Inspection: non-distended Palpation: soft and nontender Skin General: no rashes or lesions noted Neuro General: patient alert and patient oriented x3 Extrem General: full ROM Psych Appearance: grossly normal Mental Status: mental status grossly normal Assessment and Plan Assessment and Plan (1) Difficulty swallowing: Status: Acute Qualifiers: Dysphagia type: esophageal phase Qualified Code(s): R13.19 - Other dysphagia Plan: Patient is having dysphagia. I started her on a PPI until I am able to scope her. I explained EGD to her and possible dilation. I explained increased risk of bleeding and perforation with dilation. Patient understands the risks and is when to proceed with EGD and possible dilation. I explained endoscopy in detail to the patient. I explained the risks including but not limited to stroke or heart attack with anesthesia, perforation of the GI tract, bleeding, infection. I explained that any of these could necessitate further emergency surgery. The patient understands and all questions were answered sufficiently. The patient wishes to proceed with procedure. Prasanth Webber MD Pager: [facility] [address] [place] [address] [address] [place] [address] Office: I have examined the patient and the H&P has been reviewed. There are no clinical changes since date of exam.
[2023-11-13 09:06] VITALS: BP 119/75; BP 135/78; PULSE 68; RESP 16; TEMP 37.1; O2SAT 97
--- NOTE | 2023-11-13 09:06 | OP.EGD_ITS ---
Patient Name: Lizzeth Márquez Procedure Date: 11/13/2023 8:49 AM Date of : 1955 Age: 68 Procedure: Upper GI endoscopy Indications: Dysphagia Providers: Prasanth Webber MD Medicines: Monitored Anesthesia Care Patient Profile: This is a 68 year old female. Refer to note in patient chart for documentation of history and physical. Complications: No immediate complications. Estimated blood loss: Minimal. Procedure: Pre-Anesthesia Assessment: - Prior to the procedure, a History and Physical was performed, and patient medications and allergies were reviewed. The patient's tolerance of previous anesthesia was also reviewed. The risks and benefits of the procedure and the sedation options and risks were discussed with the patient. All questions were answered, and informed consent was obtained. Prior Anticoagulants: The patient has taken no anticoagulant or antiplatelet agents. After reviewing the risks and benefits, the patient was deemed in satisfactory condition to undergo the procedure. After obtaining informed consent, the endoscope was passed under direct vision. Throughout the procedure, the patient's blood pressure, pulse, and oxygen saturations were monitored continuously. The Endoscope was introduced through the mouth, and advanced to the fourth part of duodenum. The upper GI endoscopy was accomplished without difficulty. The patient tolerated the procedure well. Scope In: 8:53:22 AM Scope Out: 9:00:13 AM Total Procedure Duration Time 0 hours 6 minutes 51 seconds Findings: One benign-appearing, intrinsic moderate (circumferential scarring or stenosis; an endoscope may pass) stenosis was found at the gastroesophageal junction. This stenosis measured less than one cm (in length). The stenosis was traversed. A TTS dilator was passed through the scope. Dilation with an 18-19-20 mm balloon dilator was performed to 19 mm. The dilation site was examined following endoscope reinsertion and showed moderate improvement in luminal narrowing. The stomach was normal. Biopsies were taken with a cold forceps in the gastric antrum for Helicobacter pylori testing. The examined duodenum was normal. Impression: - Benign-appearing esophageal stenosis. Dilated. - Normal stomach. - Normal examined duodenum. - Biopsies were taken with a cold forceps for Helicobacter pylori testing. Recommendation: - Discharge patient to home. - Soft diet for 2 days. - Continue present medications. Procedure Code(s): --- Professional --- 54798, Esophagogastroduodenoscopy, flexible, transoral; with transendoscopic balloon dilation of esophagus (less than 30 mm diameter) Diagnosis Code(s): --- Professional --- K22.2, Esophageal obstruction R13.10, Dysphagia, unspecified CPT copyright 2021 [employer]. All rights reserved. The codes documented in this report are preliminary and upon mill beam fitter review may be revised to meet current compliance requirements. Prasanth Webber MD 11/13/2023 9:05:36 AM This report has been signed electronically. Number of Addenda: 0 Note Initiated On: 11/13/2023 8:49 AM
--- NOTE | 2023-11-13 09:06 | OP.CCLET_ITS ---
11/13/2023 Sofia Caldwell MD [address] [place] [address] [place] [address] Re : Upper GI endoscopy procedure for Lizzeth Márquez Dear Dr. Caldwell This procedure was performed on Monday, November 13, 2023. My impressions and recommendations are as follows: Impressions : - Benign-appearing esophageal stenosis. Dilated. - Normal stomach. - Normal examined duodenum. - Biopsies were taken with a cold forceps for Helicobacter pylori testing. Recommendations : - Discharge patient to home. - Soft diet for 2 days. - Continue present medications. My findings are described in the full procedure note, which is enclosed. If I can be of further assistance, please feel free to contact me at Doctor phone number(s): , Work: . Sincerely, Prasanth Webber MD 11/13/2023 9:05:36 AM This report has been signed electronically.
[2023-11-13 09:10] VITALS: BP 123/78; BP 135/78; PULSE 67; RESP 16; O2SAT 98
[2023-11-13 09:15] VITALS: BP 121/81; BP 135/78; PULSE 68; RESP 18; O2SAT 97
[2023-11-13 09:20] VITALS: BP 115/76; BP 135/78; PULSE 66; RESP 16; TEMP 36.2; O2SAT 97
[2023-11-13 09:32] VITALS: BP 135/78
== END 2023-11-13 09:46 | disposition home or self-care (01) ==
LOC: EN 07:06 → AC 07:08
PROVIDERS: PCP Internal Medicine; Referring Provider Internal Medicine; Visit Provider Surgery
PROC: 0DJ08ZZ Inspection of Upper Intestinal Tract, Via Natural or Artificial Opening Endoscopic (ICD-10-PCS; CPT 43235; principal; 2023-11-13 08:25)
DX: K29.70 Gastritis, unspecified, without bleeding (principal); K22.2 Esophageal obstruction; F17.210 Nicotine dependence, cigarettes, uncomplicated; I10 Essential (primary) hypertension; K21.9 Gastro-esophageal reflux disease without esophagitis; Z79.899 Other long term (current) drug therapy
CPT/HCPCS: 43249; 43239; 88305; 88342; J7120; J2405

== ENCOUNTER 2024-02-17 14:54 | Emergency (ER) | payer MEDICARE, OTHER, SELFPAY ==
[2024-02-17] VITALS (11 sets, daily range): BP systolic 112–142; BP diastolic 48–86; PULSE 69–83; RESP 13–18; TEMP 36.3–36.7; O2SAT 90–98; BMI 25.4
--- NOTE | 2024-02-17 15:26 | EDS_ITS ---
HPI HPI - GI History of Present Illness Chief Complaint: Foreign Body Narrative Narrative: 68-year-old female past medical history of esophageal stenosis presents via EMS with esophageal food impaction. She states this happened to her a few months ago. She was seen in the emergency department and given morphine and another medication she cannot remember, then drink Coca-Cola which helped her food pass. She states that later on she was scoped by Dr. Webber and was found to have esophageal stenosis where he dilated with a balloon. She was eating a piece of chicken today around lunchtime, a few hours ago, and feels a piece of food stuck in her esophagus more towards the top of her chest. She has been coughing and spitting up ever since. She has attempted to swallow liquids including Coca-Cola, but is unable to do so. [facility] Medical History Abdominal tenderness Alcohol use Anxiety Arrhythmia Arthritis Back pain Borderline type 2 diabetes mellitus Cancer Depression Difficulty swallowing Esophageal stenosis Fatigue Flu vaccine need Gastric reflux Health care maintenance Hearing loss History of edema History of endometrial cancer History of Holter monitoring History of irregular heartbeat History of suicide attempt Hypertension Leg cramps Macrocytosis Marijuana use Neuropathy Psoriatic arthritis Screening for thyroid disorder Smoker Vitamin D deficiency Wears glasses Home Medications pseudoephedrine HCl 30 mg tablet (Sudafed) 60 mg PO ONCE PRN nasal congestion 01/26/20 [History Last Taken Unknown] clonazepam 0.5 mg tablet 0.5 mg PO BID 12/08/20 [History Last Taken 11/12/23] acetaminophen 500 mg tablet (Tylenol Extra Strength) 500 mg PO Q6H PRN pain 02/18/21 [History Last Taken Unknown] folic acid 1 mg tablet 1 mg PO DAILY 08/19/21 [History Last Taken 11/12/23] duloxetine 20 mg capsule,delayed release 60 mg PO BID 04/09/23 [History Last Taken 11/13/23] methotrexate sodium 2.5 mg tablet 25 mg PO SA 08/16/23 [History Last Taken 11/10/23] cyanocobalamin (vitamin B-12) 2,000 mcg tablet 2,000 mcg PO DAILY #90 tabs 09/11/23 [Rx Last Taken 11/12/23] hydrocortisone 2.5 % topical cream 1 applic topical BID PRN rash #28.35 grams 11/02/23 [Rx Last Taken Unknown] clobetasol 0.05 % shampoo 1 applic topical DAILY PRN SKIN 11/08/23 [History Last Taken Unknown] gabapentin 600 mg tablet 600 mg PO BID pain 11/08/23 [History Last Taken 11/13/23] amlodipine 10 mg tablet 10 mg PO DAILY #90 tabs 11/21/23 [Rx Last Taken Unknown] omeprazole 40 mg capsule,delayed release 40 mg PO DAILY #90 caps 01/11/24 [Rx Last Taken Unknown] Allergy/AdvReac Type Severity Reaction Status Date / Time strawberry Allergy Severe Angioedema Verified 11/21/23 14:46 oak Allergy Mild Itching Verified 11/21/23 14:46 clams AdvReac Mild Abd Verified 11/21/23 14:46 cramps/diarrhea clindamycin AdvReac Mild Nausea Verified 11/21/23 14:46 Family History Father Anxiety Diabetes Depression Heart disease Mental Disorders Psychiatric care CVA (cerebral vascular accident) Arthritis Sister Anxiety Arthritis Depression Diabetes Heart disease Mental Disorders Psychiatric care Respiratory disease Mother Arthritis Otosclerosis Surgical History History of surgical removal of ganglion cyst S/P hysterectomy Social History household members: spouse housing: house Smoking Status: Current every day smoker tobacco type: cigarettes alcohol intake: current details: 1-2 glasses substance use type: does not use caffeine: Yes what type of physical activity do you participate in: walking seatbelt use: always do you feel safe at home: Yes additional social history: -Uri HINTON ROS ED ROS Narrative Constitutional: No fever, no chills. HEENT: No sore throat. No neck pain. No loss of vision. No rhinorrhea. Positive esophageal food impaction/foreign body sensation in throat. Cardiovascular: No chest pain. No palpitations. No pedal edema. Respiratory: No cough, no shortness of breath. Abdominal: No abdominal pain. No nausea. No vomiting. Positive spitting up. Unable to handle own secretions. Genitourinary: No dysuria. No hematuria. Musculoskeletal: No myalgias. No arthralgias. Neurologic: No headaches. No dizziness. No lightheadedness. Skin: No rash. No change in color. Psychiatric: No depression. No anxiety. EXAM Physical Exam Narrative Exam Narrative: Afebrile. Vital signs noted. HEENT: Normocephalic. Atraumatic. PERRL, EOMI. Neck soft and supple. No point tenderness or step off. Airway patent. Mild drooling/spitting up of saliva. Cardiovascular: Regular rate and rhythm. No murmurs, rubs, or gallops appreciated. Respiratory: No tachypnea. Lungs clear to auscultation bilaterally. Gastrointestinal: Abdomen soft, nontender, with normoactive bowel sounds. No rebound or guarding. Neurological: Awake. Alert. Nonfocal, nonlateralizing. Skin: No rash. Normal color. No pallor. Musculoskeletal: No pedal edema. Full range of motion extremities. Const Vital Signs: 02/17/24 14:55 02/17/24 15:00 02/17/24 15:02 Temperature 97.9 F Temperature Source Oral Pulse Rate 74 78 Respiratory Rate 16 14 Respiratory Effort Normal Respiratory Pattern Tachypnea Blood Pressure 135/74 H 142/80 H Blood Pressure Mean 94 100 Blood Pressure Source Blood Pressure Position Blood Pressure Location Pulse Ox 90 96 Oxygen Delivery Method Room Air Nasal Cannula Oxygen Flow Rate (L/min) 2 02/17/24 16:00 02/17/24 16:46 02/17/24 16:59 Temperature 98.1 F 97.9 F Temperature Source Oral Oral Pulse Rate 73 80 69 Respiratory Rate 14 13 16 Respiratory Effort Respiratory Pattern Blood Pressure 141/79 H 136/86 H 135/72 H Blood Pressure Mean 99 102 93 Blood Pressure Source Monitor Blood Pressure Position Sitting Blood Pressure Location Left Arm Pulse Ox 91 94 94 Oxygen Delivery Method Nasal Cannula Nasal Cannula Nasal Cannula Oxygen Flow Rate (L/min) 4 4 4 MDM MDM MDM Narrative Medical decision making narrative: I reviewed her prior records. During her last ED visit, she was administered morphine and Ativan and then drinking a carbonated beverage helped her esophageal food impaction past. She had been scoped afterwards by Dr. Prasanth Webber. IV will be inserted and she was given glucagon first. Additionally, in review of her prior records she had endoscopy performed in November, on the , 3 months ago and was found to have benign esophageal stenosis. Dilation was performed at that time. Chest x-ray was obtained in 1 view which shows no evidence of pneumothorax, or pneumonia. I do not feel antibiotics are indicated. I reviewed the radiology report which confirms my independent interpretation. Bedside swallow test with Coca-Cola performed after glucagon had been administered an hour previously show that the patient spit the liquid back up and states that she was having pain. She was given morphine 4 mg intravenously and Ativan 0.5 mg intravenously which she had been given previously. In the event that this is ineffective in treating her food impaction, I discussed the patient with Dr. Webber, who states that he would take her for endoscopy sometime later today. I do feel that she may benefit from endoscopy today even if her food bolus were to pass currently, to relieve any stenosis that may have redeveloped. She is in stable condition. Radiography Diagnostic Testing: Clinical Impression(s) from Imaging Studies Chest X-Ray 02/17/24 15:29 IMPRESSION: No acute cardiopulmonary disease. Electronically Signed: Jh Bianchi MD at 16:04 EDT , Discharge Plan Triage Chief Complaint: Foreign Body ED Provider: Arya Stanton Dx/Rx/DC Orders Prescriptions: No Action pseudoephedrine HCl [Sudafed] 30 mg tablet 60 mg PO ONCE PRN (Reason: nasal congestion) clonazepam 0.5 mg tablet 0.5 mg PO BID acetaminophen [Tylenol Extra Strength] 500 mg tablet 500 mg PO Q6H PRN (Reason: pain) folic acid 1 mg tablet 1 mg PO DAILY duloxetine 20 mg capsule,delayed release(DR/EC) 60 mg PO BID methotrexate sodium 2.5 mg tablet 25 mg PO SA amlodipine 10 mg tablet 10 mg PO DAILY Qty: 90 3RF gabapentin 600 mg tablet 600 mg PO BID clobetasol 0.05 % shampoo 1 applic TOPICAL DAILY PRN (Reason: SKIN) Rx Instructions: May repeat treatment after 1 week if rash persists cyanocobalamin (vitamin B-12) 2,000 mcg tablet 2,000 mcg PO DAILY Qty: 90 3RF hydrocortisone 2.5 % cream 1 applic TOPICAL BID PRN (Reason: rash) Qty: 28.35 2RF omeprazole 40 mg capsule,delayed release(DR/EC) 40 mg PO DAILY Qty: 90 1RF Primary Care Provider: Sofia Caldwell Referrals: Sofia Caldwell MD [Primary Care Provider] -
--- NOTE | 2024-02-17 15:29 | RAD_ITS ---
EXAM: XR CHEST, 1 VIEW CLINICAL INDICATION: hypoxia TECHNIQUE: Frontal view of the chest. COMPARISON: No relevant prior studies available. FINDINGS: LUNGS AND PLEURAL SPACES: Normal. No consolidation or edema. No pneumothorax. No effusion. HEART: Normal heart size. MEDIASTINUM: No mediastinal or hilar mass. BONES/JOINTS: No acute abnormality. RAD/Chest 1 View (Portable) IMPRESSION: No acute cardiopulmonary disease. Electronically Signed: Jh Bianchi MD at 16:04 EDT ,
[2024-02-17] MEDS: Glucagon 1 MG/ML Syringe IV (15:35)
--- NOTE | 2024-02-17 16:35 | NURSING ---
Warm coke given again. Pt could not keep it down. Pt c/o of increased chest pain. MD notified. Order for ativan and morphine given.
[2024-02-17] MEDS: Morphine 4 MG/ML Syringe IM (16:43)
[2024-02-17] MEDS: LORazepam 2 MG/ML Syringe 0.5 MG IV (16:43)
--- NOTE | 2024-02-17 16:52 | NURSING ---
PT requested that Next of kin Uri be called and updated on plan of care. This RN called him as requested.
--- NOTE | 2024-02-17 18:41 | PCM.HP.STD ---
HPI - General HPI Narrative PHYLICIA SLADE, is a 68 F who presents with food stuck in her esophagus. She reports chicken got stuck today and she has not been and able to swallow her saliva. She has tried coke but is only vomited it back up. She had a EGD with dilation in November that I performed. She says she has been taking her PPI and says it has been helping immensely and she has not had any food stuck until now. [facility] Medical History Abdominal tenderness Alcohol use Anxiety Arrhythmia Arthritis Back pain Borderline type 2 diabetes mellitus Cancer Depression Difficulty swallowing Esophageal stenosis Fatigue Flu vaccine need Gastric reflux Health care maintenance Hearing loss History of edema History of endometrial cancer History of Holter monitoring History of irregular heartbeat History of suicide attempt Hypertension Leg cramps Macrocytosis Marijuana use Neuropathy Psoriatic arthritis Screening for thyroid disorder Smoker Vitamin D deficiency Wears glasses Home Medications pseudoephedrine HCl 30 mg tablet (Sudafed) 60 mg PO ONCE PRN nasal congestion 01/26/20 [History Last Taken Unknown] clonazepam 0.5 mg tablet 0.5 mg PO BID 12/08/20 [History Last Taken 11/12/23] acetaminophen 500 mg tablet (Tylenol Extra Strength) 500 mg PO Q6H PRN pain 02/18/21 [History Last Taken Unknown] folic acid 1 mg tablet 1 mg PO DAILY 08/19/21 [History Last Taken 11/12/23] duloxetine 20 mg capsule,delayed release 60 mg PO BID 04/09/23 [History Last Taken 11/13/23] methotrexate sodium 2.5 mg tablet 25 mg PO SA 08/16/23 [History Last Taken 11/10/23] cyanocobalamin (vitamin B-12) 2,000 mcg tablet 2,000 mcg PO DAILY #90 tabs 09/11/23 [Rx Last Taken 11/12/23] hydrocortisone 2.5 % topical cream 1 applic topical BID PRN rash #28.35 grams 11/02/23 [Rx Last Taken Unknown] clobetasol 0.05 % shampoo 1 applic topical DAILY PRN SKIN 11/08/23 [History Last Taken Unknown] gabapentin 600 mg tablet 600 mg PO BID pain 11/08/23 [History Last Taken 11/13/23] amlodipine 10 mg tablet 10 mg PO DAILY #90 tabs 11/21/23 [Rx Last Taken Unknown] omeprazole 40 mg capsule,delayed release 40 mg PO DAILY #90 caps 01/11/24 [Rx Last Taken Unknown] Allergy/AdvReac Type Severity Reaction Status Date / Time strawberry Allergy Severe Angioedema Verified 11/21/23 14:46 oak Allergy Mild Itching Verified 11/21/23 14:46 clams AdvReac Mild Abd Verified 11/21/23 14:46 cramps/diarrhea clindamycin AdvReac Mild Nausea Verified 11/21/23 14:46 Family History Father Anxiety Diabetes Depression Heart disease Mental Disorders Psychiatric care CVA (cerebral vascular accident) Arthritis Sister Anxiety Arthritis Depression Diabetes Heart disease Mental Disorders Psychiatric care Respiratory disease Mother Arthritis Otosclerosis Surgical History History of surgical removal of ganglion cyst S/P hysterectomy Social History household members: spouse housing: house Smoking Status: Current every day smoker tobacco type: cigarettes alcohol intake: current details: 1-2 glasses substance use type: does not use caffeine: Yes what type of physical activity do you participate in: walking seatbelt use: always do you feel safe at home: Yes additional social history: -Uri ROS Constitutional Constitutional: Denies anorexia, chills or fatigue Eyes Eyes: Denies blurry vision ENT HEENT: Denies abnormal hearing Cardiovascular Cardiovascular: Denies chest pain Respiratory/Chest Respiratory/Chest: Denies cough or dyspnea Gastrointestinal Gastrointestinal: Reports dysphagia, nausea and vomiting; Denies abdominal pain or diarrhea Genitourinary Genitourinary: Denies difficulty urinating Musculoskeletal Musculoskeletal: Denies abnormal gait Neurologic Neurologic: Denies abnormal gait Psychiatric Psychiatric: Denies anxiety Endocrine Endocrinology: Denies flushing Vital Signs Vital Signs Vital Signs: 02/17/24 14:55 02/17/24 15:00 02/17/24 15:02 Temperature 97.9 F Temperature Source Oral Pulse Rate 74 78 Respiratory Rate 16 14 Respiratory Effort Normal Respiratory Pattern Tachypnea Blood Pressure 135/74 H 142/80 H Blood Pressure Mean 94 100 Blood Pressure Source Blood Pressure Position Blood Pressure Location Pulse Ox 90 96 Oxygen Delivery Method Room Air Nasal Cannula Oxygen Flow Rate (L/min) 2 04/14/24 16:00 02/17/24 16:46 02/17/24 16:59 Temperature 98.1 F 97.9 F Temperature Source Oral Oral Pulse Rate 73 80 69 Respiratory Rate 14 13 16 Respiratory Effort Respiratory Pattern Blood Pressure 141/79 H 136/86 H 135/72 H Blood Pressure Mean 99 102 93 Blood Pressure Source Monitor Blood Pressure Position Sitting Blood Pressure Location Left Arm Pulse Ox 91 94 94 Oxygen Delivery Method Nasal Cannula Nasal Cannula Nasal Cannula Oxygen Flow Rate (L/min) 4 4 4 02/17/24 17:49 02/17/24 18:10 Temperature 97.8 F 98.1 F Temperature Source Oral Pulse Rate 74 83 Respiratory Rate 16 17 Respiratory Effort Respiratory Pattern Blood Pressure 139/71 H 139/73 H Blood Pressure Mean 93 95 Blood Pressure Source Blood Pressure Position Blood Pressure Location Pulse Ox 96 95 Oxygen Delivery Method Nasal Cannula Oxygen Flow Rate (L/min) 4 Weight Weight: 157 lb 13.616 oz Body Mass Index (BMI) 25.4 Physical Exam Const oriented x3 and no apparent distress Resp normal respiratory effort GI soft to palpation and non-tender Results Imaging Radiology Impression Chest X-Ray 02/17/24 15:29 IMPRESSION: No acute cardiopulmonary disease. Electronically Signed: Jh Bianchi MD at 16:04 EDT , Assessment & Plan Assessment/Plan (1) Esophageal obstruction due to food impaction: PLAN: Patient has food impaction of her esophagus due to chicken that is stuck at her distal esophagus. I discussed performing EGD with passing the chicken down into the stomach. I will likely have to bring her back for elective EGD with recurrent dilation. I discussed endoscopy in detail as well as increased risk of bleeding and aspiration given the foreign body. Patient understands the risks and is on to proceed. I explained endoscopy in detail to the patient. I explained the risks including but not limited to stroke or heart attack with anesthesia, perforation of the GI tract, bleeding, infection. I explained that any of these could necessitate further emergency surgery. The patient understands and all questions were answered sufficiently. The patient wishes to proceed with procedure. Prasanth Webber MD Pager: [facility] [address] [place] [address], [facility] [address] [place] [address] Office:
--- NOTE | 2024-02-17 19:09 | OP.EGD_ITS ---
Patient Name: Lizzeth Márquez Procedure Date: 02/17/2024 6:06 PM Date of : 1955 Age: 68 Procedure: Upper GI endoscopy Indications: Stricture of the esophagus Providers: Prasanth Webber MD Medicines: Propofol per Anesthesia Patient Profile: This is a 68 year old female. Refer to note in patient chart for documentation of history and physical. Complications: No immediate complications. Procedure: Pre-Anesthesia Assessment: - Prior to the procedure, a History and Physical was performed, and patient medications and allergies were reviewed. The patient's tolerance of previous anesthesia was also reviewed. The risks and benefits of the procedure and the sedation options and risks were discussed with the patient. All questions were answered, and informed consent was obtained. Prior Anticoagulants: The patient has taken no anticoagulant or antiplatelet agents. After reviewing the risks and benefits, the patient was deemed in satisfactory condition to undergo the procedure. After obtaining informed consent, the endoscope was passed under direct vision. Throughout the procedure, the patient's blood pressure, pulse, and oxygen saturations were monitored continuously. The adult colonoscope was introduced through the mouth, and advanced to the third part of duodenum. The Endoscope was introduced through the mouth, and advanced to the. The upper GI endoscopy was accomplished without difficulty. The patient tolerated the procedure well. Scope In: 6:09:33 PM Scope Withdrawal Time 0 hours 1 minute 20 seconds Scope Out: 6:18:25 PM Total Procedure Duration Time 0 hours 8 minutes 52 seconds Findings: One benign-appearing, intrinsic severe (stenosis; an endoscope cannot pass) stenosis was found in the upper third of the esophagus. The stenosis was traversed. A TTS dilator was passed through the scope. Dilation with a 10-11-12 mm balloon dilator was performed to 12 mm. The dilation site was examined and showed moderate mucosal disruption. Estimated blood loss was minimal. Impression: - Benign-appearing esophageal stenosis. Dilated. - No specimens collected. Recommendation: - Discharge patient to home. - Soft diet for 2 days. - Continue present medications. - Await pathology results. - Return to my office in 2 weeks. Procedure Code(s): --- Professional --- 60481, Esophagogastroduodenoscopy, flexible, transoral; with transendoscopic balloon dilation of esophagus (less than 30 mm diameter) Diagnosis Code(s): --- Professional --- K22.2, Esophageal obstruction CPT copyright 2021 [employer]. All rights reserved. The codes documented in this report are preliminary and upon detective bureau chief review may be revised to meet current compliance requirements. Prasanth Webber MD 02/17/2024 7:08:43 PM This report has been signed electronically. Number of Addenda: 0 Note Initiated On: 02/17/2024 6:06 PM
--- NOTE | 2024-02-17 19:09 | OP.CCLET_ITS ---
02/18/2024 Sofia Caldwell MD [address] [place] [address] [place] [address] Re : Upper GI endoscopy procedure for Lizzeth Márquez Dear Dr. Caldwell This procedure was performed on Saturday, February 17, 2024. My impressions and recommendations are as follows: Impressions : - Benign-appearing esophageal stenosis. Dilated. - No specimens collected. Recommendations : - Discharge patient to home. - Soft diet for 2 days. - Continue present medications. - Await pathology results. - Return to my office in 2 weeks. My findings are described in the full procedure note, which is enclosed. If I can be of further assistance, please feel free to contact me at Doctor phone number(s): , Work: . Sincerely, Prasanth Webber MD 02/17/2024 7:08:43 PM This report has been signed electronically.
== END 2024-02-17 19:34 | disposition home or self-care (01) ==
PROVIDERS: Surgery; Emergency Provider Emergency Medicine; PCP Internal Medicine; Visit Provider Emergency Medicine
PROC: 0DJ08ZZ Inspection of Upper Intestinal Tract, Via Natural or Artificial Opening Endoscopic (ICD-10-PCS; CPT 43235; principal; 2024-02-17 17:45)
DX: K22.2 Esophageal obstruction (principal); I10 Essential (primary) hypertension; T18.128A Food in esophagus causing other injury, initial encounter; R73.03 Prediabetes; F17.210 Nicotine dependence, cigarettes, uncomplicated; Z79.899 Other long term (current) drug therapy
CPT/HCPCS: 43249; 71045; 96372; 96374; 96375; 99285; J7030; A4216; J1610

== ENCOUNTER → 2024-06-04 | Outpatient (CLI) | payer MEDICARE, OTHER, SELFPAY ==
[2024-06-04 12:52] LABS: Absolute Lymphocyte Count 1.72 X10^3/uL (0.83-4.51); Absolute Neutrophil Count 2.9 X10^3/uL (2.0-7.7); Basophil# 0.08 X10^3/uL; Basophil% 1.4 % (0-1); Eosinophil# 0.16 X10^3/uL; Eosinophils% 2.9 % (0-5); Hematocrit 43.4 % (37-47); Hemoglobin 13.9 g/dL (12.0-15.0); Lymphocyte # 1.72 X10^3/ul (0.83-4.51); Lymphocyte % 31.1 % (19-41); Mean Corpuscular Hgb 32.2 pg (27.0-32.0); Mean Corpuscular Volume 100.5 fL (81-99); Mean Platelet Vol. 10.6 fl (6.2-12.0); Monocyte# 0.63 X10^3/uL; Monocyte% 11.4 % (0-10); NRBC Flagged by Analyzer 0 % (0-5); Neutrophil # 2.93 X10^3/uL (2.7-7.7); Platelet Count 330 K/mm3 (150-450); RBC Distribution Width CV 13.1 % (11.6-14.6); RBC Distribution Width SD 47.9 fl (35.1-43.9); Red Blood Count 4.32 M/mm3 (4.2-5.4); White Blood Count 5.5 K/mm3 (4.4-11.0)
[2024-06-04 13:16] LABS: AST(SGOT) 52 U/L (15-37); Alanine Aminotransfer ALT/SGPT 27 U/L (13-56); Albumin, Serum 3.9 g/dL (3.2-5.0); Alkaline Phosphatase 159 U/L (45-117); Anion Gap 6 (5-15); BUN 14 mg/dL (7-18); BUN/Creat Ratio 19.3 RATIO (10-20); Calcium,Total 9.5 mg/dL (8.5-10.1); Chloride 104 mmol/L (98-107); Cholesterol 239 mg/dL (200); Creatinine, Serum 0.72 mg/dL (0.55-1.02); EST Glomerular Filtration Rate 85 mL/min (>60); Est Glom Filt Rate - Afr Amer 103 mL/min (>60); Globulin 3.8 g/dL (2.2-4.2); Glucose 92 mg/dL (74-106); High Density Lipoprotein 57 mg/dL; Potassium 4.3 mmol/L (3.5-5.1); Protein, Total 7.7 g/dL (6.4-8.2); Sodium Level 137 mmol/L (136-145); Triglycerides 98 mg/dL; Very Low Density Lipoprotein 20 mg/dL (5-40)
== END | disposition home or self-care (01) ==
LOC: BIMLAB 10:56
PROVIDERS: PCP Internal Medicine; Referring Provider Internal Medicine; Visit Provider Internal Medicine
DX: I10 Essential (primary) hypertension (principal)
CPT/HCPCS: 36415; 80053; 80061; 85025

== ENCOUNTER 2024-06-07 12:05 | Emergency (ER) | payer MEDICARE, OTHER, SELFPAY ==
[2024-06-07 12:05] VITALS: BP 131/82; PULSE 99; RESP 18; TEMP 35; O2SAT 97
--- NOTE | 2024-06-07 12:48 | CT_ITS ---
STUDY: CT BRAIN WITHOUT CONTRAST REASON FOR EXAM: Female, 69 years old. Headache after fall RADIATION DOSAGE (If Supplied By Facility): CTDIvol = ( 44.99 ) mGy, DLP = ( 796.11 ) mGycm TECHNIQUE: Transaxial CT imaging of the brain was performed without administration of intravenous contrast material. Individualized dose optimization techniques were used for this CT. COMPARISON: No relevant priors. FINDINGS: Normal soft tissue structures. Normal calvarium. Normal size ventricles and extra-axial spaces for the patient''s age. Normal white matter tracts of the cerebral hemispheres. Normal basal ganglia and thalami. Normal brainstem. Normal cerebellum. There is no intracranial hemorrhage. There are no findings of an acute ischemic infarction. Normal visualized paranasal sinuses. CT/Brain/Head without Contrast IMPRESSION: Chronic involutional changes of the brain, no acute hemorrhage. Electronically Signed: Marvin Bhakta MD at 14:16 EDT ,
--- NOTE | 2024-06-07 12:48 | CT_ITS ---
STUDY: CT FACIAL BONES WITHOUT CONTRAST REASON FOR EXAM: Female, 69 years old. Pain after a fall RADIATION DOSAGE (If Supplied By Facility): CTDIvol = ( 29.38 ) mGy, DLP = ( 620.92 ) mGycm TECHNIQUE: The patient was scanned in a multi detector CT scanner. Sagittal and coronal images were reconstructed. Individualized dose optimization techniques were used for this CT. COMPARISON: None. FINDINGS: Normal soft tissue structures. Normal orbital beckford and orbital contents. Normal nasal bones and anterior nasal spine. Normal facial bones. There is no demonstrated fracture. Minimal mucosal thickening in the paranasal sinuses CT/Sinus/Facial Bone IMPRESSION: No demonstrated fracture or suspicious osseous lesion Paranasal sinusitis Electronically Signed: Marvin Bhakta MD at 14:18 EDT ,
--- NOTE | 2024-06-07 12:48 | CT_ITS ---
STUDY: CT CERVICAL SPINE WITHOUT CONTRAST REASON FOR EXAM: Female, 69 years old. Headache and neck pain after fall RADIATION DOSAGE (If Supplied By Facility): CTDIvol = ( 15.90 ) mGy, DLP = ( 366.23 ) mGycm TECHNIQUE: High resolution transaxial imaging was performed without contrast material. Sagittal and coronal images were reconstructed. Individualized dose optimization techniques were used for this CT. COMPARISON: None FINDINGS: Normal craniovertebral junction. Normal anterior atlantoaxial articulation. Normal odontoid process. There is straightening of the normal cervical lordosis. Normal vertebral bodies and posterior osseous elements. C2-3: Normal endplates. Disc space narrowing.. Normal central canal and intervertebral neuroforamina. C3-4: Normal endplates. Disc space narrowing. No central canal narrowing, bilateral foraminal narrowing due to facet joint hypertrophy. C4-5: Normal endplates. Disc space narrowing.. Normal central canal and intervertebral neuroforamina. C5-6: Normal endplates. Disc space narrowing. No central canal narrowing, bilateral foraminal narrowing due to facet joint hypertrophy. C6-7: Normal endplates. Disc space narrowing. No central canal narrowing, bilateral foraminal narrowing due to facet joint hypertrophy. C7-T1: Normal endplates. Normal disc height and morphology. Normal central canal and intervertebral neuroforamina. Dense calcifications in the carotid artery bulbs, no airway narrowing or deviation. Thyroid gland is unremarkable, lung apices are clear CT/Spine Cervical without Contras IMPRESSION: Multilevel degenerative changes, as described above. Electronically Signed: Marvin Bhakta MD at 14:20 EDT ,
--- NOTE | 2024-06-07 12:49 | EDS_ITS ---
HPI History of Present Illness Chief Complaint: Fall Detail of Chief Complaint: Fall with injury to face and head Narrative Narrative: Patient presents the emergency department after sustaining a fall. Patient states that she was walking when she lost her balance and tripped and fell striking her face on the ground. No loss consciousness. She sustained a laceration to her upper lip. She complains of a headache. She is not anticoagulated. Patient has had multiple falls in the past and has an appointment to follow-up with a neurologist. She also has history of arthritis. She is up-to-date on tetanus. She denies recent illness. [facility] Medical History Abrasion of left upper extremity Change in skin mole Tremor Frequent falls Esophageal stenosis Wears glasses Cancer Marijuana use Alcohol use Back pain Gastric reflux Smoker Leg cramps Hypertension History of edema History of Holter monitoring History of irregular heartbeat Difficulty swallowing Flu vaccine need Arrhythmia Hearing loss Vitamin D deficiency Borderline type 2 diabetes mellitus Fatigue Macrocytosis Screening for thyroid disorder Abdominal tenderness History of endometrial cancer Health care maintenance Psoriatic arthritis History of suicide attempt Depression Anxiety Neuropathy Arthritis Home Medications ?Medication ?Instructions ?Recorded ?Last Taken ?Type acetaminophen 500 mg tablet 500 mg PO Q6H PRN pain 02/18/21 Unknown History (Tylenol Extra Strength) folic acid 1 mg tablet 1 mg PO DAILY 08/19/21 11/12/23 History duloxetine 20 mg capsule,delayed 60 mg PO BID 04/09/23 11/13/23 History release hydrocortisone 2.5 % topical cream 1 applic topical BID PRN rash 11/02/23 Unknown Rx #28.35 grams clobetasol 0.05 % shampoo 1 applic topical DAILY PRN SKIN 11/08/23 Unknown History gabapentin 600 mg tablet 600 mg PO BID pain 11/08/23 11/13/23 History amlodipine 10 mg tablet 10 mg PO DAILY #90 tabs 11/21/23 Unknown Rx omeprazole 40 mg capsule,delayed 40 mg PO DAILY #90 caps 01/11/24 Unknown Rx release methotrexate sodium 2.5 mg tablet 25 mg PO SA 02/20/24 Unknown History albuterol sulfate 90 mcg/actuation 2 puff inhalation Q4-6H PRN 04/01/24 Unknown Rx aerosol inhaler shortness of breath or wheezing #6.7 grams clonazepam 0.5 mg tablet 0.5 mg PO DAILY 06/04/24 Unknown History cyanocobalamin (vitamin B-12) 2,000 mcg PO DAILY #90 tabs 06/04/24 Unknown Rx 2,000 mcg tablet Allergy/AdvReac Type Severity Reaction Status Date / Time strawberry Allergy Severe Angioedema Verified 06/07/24 12:05 oak Allergy Mild Itching Verified 06/07/24 12:05 clams AdvReac Mild Abd Verified 06/07/24 12:05 cramps/diarrhea clindamycin AdvReac Mild Nausea Verified 06/07/24 12:05 Family History Father Anxiety Diabetes Depression Heart disease Mental Disorders Psychiatric care CVA (cerebral vascular accident) Arthritis Sister Anxiety Arthritis Depression Diabetes Heart disease Mental Disorders Psychiatric care Respiratory disease Mother Arthritis Otosclerosis Surgical History S/P hysterectomy History of surgical removal of ganglion cyst Social History household members: spouse housing: house Smoking Status: Current every day smoker tobacco type: cigarettes alcohol intake: current details: 1-2 glasses substance use type: does not use caffeine: Yes what type of physical activity do you participate in: walking seatbelt use: always do you feel safe at home: Yes additional social history: -Uri ROS ROS ED Review of Systems ROS Unobtainable: other Constitutional Constitutional ED: Reports lethargy; Denies chills, fever(s), sweats or weight loss Eyes Eyes: Denies blurry vision, change in vision or diplopia ENT ENT ED: Reports other Details: Upper lip laceration, forehead contusion ; Denies rhinorrhea or sore throat Cardiovascular Cardiovascular: Denies chest pain, orthopnea or racing heartbeat Respiratory/Chest Respiratory/Chest: Denies cough, dyspnea, dyspnea on exertion, orthopnea or sputum Gastrointestinal Gastrointestinal: Denies abdominal pain, diarrhea, nausea or vomiting Genitourinary Genitourinary ED: Denies dysuria, hematuria or urinary frequency Musculoskeletal Musculoskeletal: Denies arthralgias, back pain, myalgias or neck pain Integumentary Denies abscess, Abrasions or rash Neurologic Neurologic: Denies headache(s) or weakness Psychiatric Psychiatric: Denies anxiety, depression or suicidal thoughts Endocrine Endocrinology: Denies polydipsia, polyphagia or polyuria Hematologic/Lymphatic Hematologic/Lymphatic: Denies easy bleeding, easy bruising or lymphadenopathy Allergic/Immunologic Allergic/Immunologic ED: Denies mouth swelling, tongue swelling or urticaria EXAM Physical Exam Const Vital Signs: 06/07/24 12:05 06/07/24 12:56 Temperature 95 F L Temperature Source Temporal Pulse Rate 99 Respiratory Rate 18 Respiratory Effort Normal Blood Pressure 131/82 H Blood Pressure Mean 98 Pulse Ox 97 Oxygen Delivery Method Room Air Room Air Positive well nourished and well developed General Appearance ED: well developed and NAD HEENT Reports TM's clear and moist mucous membranes HEENT Narrative: Patient has a 2 cm laceration to the right upper lip mucosal surface. It does not gape and there is no active bleeding. There is no fat extruding. No involvement of the vermilion border or dermal surface. Dentitions intact. Midface stable. normocephalic and atraumatic; Negative for trauma or tenderness Tympanic Membrane ED: Yes TM's clear Eyes PERRL and EOMs intact bilaterally General Eye ED: Negative for pale conjunctiva or scleral icterus Neck no lymphadenopathy, supple and no JVD Neck Narrative: Mild diffuse tenderness. No bony step-offs or depressions. Good range of motion. General: tenderness Chest Wall inspection of chest normal and palpation of chest normal Chest: Negative for tenderness Resp normal respiratory effort and clear to auscultation bilaterally Effort and Inspection: Negative for respiratory distress or pain with movement Auscultation: Negative for rhonchi, wheezes or diminished lung sounds Cardio regular rate, regular rhythm, S1 normal heart sound, S2 normal heart sound and no murmurs Peripheral Pulses: pulses 2+ throughout GI normal to inspection, nondistended, normoactive bowel sounds, soft to palpation, non-tender, non-distended and no masses Back/Spine no CVA tenderness and no thoracic nor lumbar tenderness Extremity normal to inspection General Extremety ED: Negative for edema General Extremity: Negative for edema Neuro oriented x3, CN's II-XII intact bilaterally, no sensory deficits noted and gait normal Sensorium / Orientation: awake, alert, oriented to person, oriented to place and oriented to time Motor Exam: strength 5/5 throughout and strength abnormal Psych mental status grossly normal Skin no rashes or lesions noted and no wounds MDM MDM MDM Narrative Medical decision making narrative: Patient presents after a mechanical fall with injury to her face. CT scans of the brain and C-spine as well as facial bones obtained were negative. She does have a laceration to her right upper lip mucosal surface only that is well- approximated and there is no fat extrusion. She clinically looks well. I do not feel any repair is indicated. Instructed on a soft diet for the next day or 2. Advised to follow-up with primary care physician for wound check in 3 to 5 days. Radiography Diagnostic Testing: Clinical Impression(s) from Imaging Studies Brain CT 06/07/24 12:48 IMPRESSION: Chronic involutional changes of the brain, no acute hemorrhage. Electronically Signed: Marvin Bhakta MD at 14:16 EDT , Cervical Spine CT 06/07/24 12:48 IMPRESSION: Multilevel degenerative changes, as described above. Electronically Signed: Marvin Bhakta MD at 14:20 EDT , Facial/Sinus 06/07/24 12:48 IMPRESSION: No demonstrated fracture or suspicious osseous lesion Paranasal sinusitis Electronically Signed: Marvin Bhakta MD at 14:18 EDT , Discharge Plan Triage Chief Complaint: Fall ED Provider: Sharri Vazquez Dx/Rx/DC Orders Clinical Impression: Fall, Closed head injury, Contusion of face, Laceration of lip Instructions: ED Facial Contusion, ED Head Injury (Adult), ED Laceration, Lip or Mouth Prescriptions: No Action clonazepam 0.5 mg tablet 0.5 mg PO DAILY acetaminophen [Tylenol Extra Strength] 500 mg tablet 500 mg PO Q6H PRN (Reason: pain) folic acid 1 mg tablet 1 mg PO DAILY duloxetine 20 mg capsule,delayed release(DR/EC) 60 mg PO BID methotrexate sodium 2.5 mg tablet 25 mg PO SA Rx Instructions: 8 pills q week amlodipine 10 mg tablet 10 mg PO DAILY Qty: 90 3RF cyanocobalamin (vitamin B-12) 2,000 mcg tablet 2,000 mcg PO DAILY Qty: 90 3RF albuterol sulfate 90 mcg/actuation HFA aerosol inhaler 2 puff inhalation Q4-6H PRN (Reason: shortness of breath or wheezing) Qty: 6.7 0RF gabapentin 600 mg tablet 600 mg PO BID clobetasol 0.05 % shampoo 1 applic TOPICAL DAILY PRN (Reason: SKIN) Rx Instructions: May repeat treatment after 1 week if rash persists hydrocortisone 2.5 % cream 1 applic TOPICAL BID PRN (Reason: rash) Qty: 28.35 2RF omeprazole 40 mg capsule,delayed release(DR/EC) 40 mg PO DAILY Qty: 90 1RF Primary Care Provider: Sofia Caldwell Referrals: Sofia Caldwell MD [Primary Care Provider] - 3-5 Days Print Language: Luxembourgish Disposition Disposition: Home, Self Care
== END 2024-06-07 15:36 | disposition home or self-care (01) ==
PROVIDERS: Emergency Provider Emergency Medicine; PCP Internal Medicine; Visit Provider Emergency Medicine
DX: S01.511A Laceration without foreign body of lip, initial encounter (principal); W18.09XA Striking against other object with subsequent fall, initial encounter; I10 Essential (primary) hypertension; R73.03 Prediabetes; R29.6 Repeated falls; K21.9 Gastro-esophageal reflux disease without esophagitis; F17.210 Nicotine dependence, cigarettes, uncomplicated; Z79.899 Other long term (current) drug therapy
CPT/HCPCS: 70450; 70486; 72125; 99282

== ENCOUNTER → 2025-01-07 | Outpatient (CLI) | payer MEDICARE, OTHER, SELFPAY ==
[2025-01-07 13:06] LABS: Hemoglobin A1c 5.6 % (<=5.6)
[2025-01-07 13:51] LABS: ALB/GLOB Ratio 1.5 RATIO (0.9-2.4); AST(SGOT) 58 U/L (<=31); Alanine Aminotransfer ALT/SGPT 30 U/L (<=34); Albumin, Serum 4.5 g/dL (3.4-4.8); Alkaline Phosphatase 154 U/L (35-104); Anion Gap 15 (5-15); BUN 16 mg/dL (4-19); BUN/Creat Ratio 21.8 RATIO (10-20); Calcium,Total 9.6 mg/dL (7.6-11.0); Chloride 102 mmol/L (98-108); Cholesterol 244 mg/dL (<=200); Creatinine, Serum 0.72 mg/dL (0.70-1.20); EST Glomerular Filtration Rate 91 (>60); Globulin 3.1 g/dL (2.2-4.2); Glucose 107 mg/dL (70-99); High Density Lipoprotein 64 mg/dL; Low Density Lipoprotein Calc. 160 mg/dL; Potassium 4.3 mmol/L (3.3-5.1); Protein, Total 7.6 g/dL (5.9-8.4); Sodium Level 139 mmol/L (133-145); Total Bilirubin 0.37 mg/dL (0.00-1.30); Triglycerides 96 mg/dL; Very Low Density Lipoprotein 19 mg/dL (5-40); cholesterol:hdl ratio screen 3.79
== END | disposition home or self-care (01) ==
LOC: BIMLAB 10:59
PROVIDERS: PCP Internal Medicine; Referring Provider Internal Medicine; Visit Provider Internal Medicine
DX: E78.5 Hyperlipidemia, unspecified (principal); R73.03 Prediabetes
CPT/HCPCS: 36415; 80053; 80061; 83036

== ENCOUNTER → 2025-02-16 | Outpatient (CLI) | payer MEDICARE, OTHER, SELFPAY ==
[2025-02-16 13:05] LABS: ALB/GLOB Ratio 1.6 RATIO (0.9-2.4); AST(SGOT) 45 U/L (<=31); Alanine Aminotransfer ALT/SGPT 7 U/L (<=34); Albumin, Serum 4.5 g/dL (3.4-4.8); Alkaline Phosphatase 159 U/L (35-104); Anion Gap 10 (5-15); BUN 9 mg/dL (4-19); BUN/Creat Ratio 12.5 RATIO (10-20); Calcium,Total 9.5 mg/dL (7.6-11.0); Carbon Dioxide 25.4 mmol/L (21.0-32.0); Chloride 103 mmol/L (98-108); Creatinine, Serum 0.76 mg/dL (0.70-1.20); EST Glomerular Filtration Rate 86 (>60); Globulin 2.8 g/dL (2.2-4.2); Glucose 104 mg/dL (70-99); Potassium 4.2 mmol/L (3.3-5.1); Protein, Total 7.3 g/dL (5.9-8.4); Sodium Level 139 mmol/L (133-145); Total Bilirubin 0.49 mg/dL (0.00-1.30)
== END | disposition home or self-care (01) ==
LOC: BIMLAB 09:31
PROVIDERS: PCP Internal Medicine; Referring Provider Internal Medicine; Visit Provider Internal Medicine
DX: E78.5 Hyperlipidemia, unspecified (principal)
CPT/HCPCS: 36415; 80053

== ENCOUNTER → 2025-04-22 | Outpatient (CLI) | payer MEDICARE, OTHER, SELFPAY ==
[2025-04-22 12:37] LABS: Absolute Lymphocyte Count 1.44 X10^3/uL (0.83-4.51); Absolute Neutrophil Count 2.9 X10^3/uL (2.0-7.7); Basophil# 0.07 X10^3/uL; Basophil% 1.3 % (0-1); Eosinophil# 0.14 X10^3/uL; Eosinophils% 2.7 % (0-5); Hematocrit 40.3 % (37-47); Hemoglobin 13.3 g/dL (12.0-15.0); Lymphocyte # 1.44 X10^3/ul (0.83-4.51); Lymphocyte % 27.5 % (19-41); Mean Corpuscular Hgb 32.2 pg (27.0-32.0); Mean Corpuscular Volume 97.6 fL (81-99); Mean Platelet Vol. 10.6 fl (6.2-12.0); Monocyte# 0.63 X10^3/uL; NRBC Flagged by Analyzer 0 % (0-5); Neutrophil # 2.93 X10^3/uL (2.7-7.7); Neutrophil % 55.9 % (47-70); Platelet Count 255 K/mm3 (150-450); RBC Distribution Width CV 12.2 % (11.6-14.6); RBC Distribution Width SD 43.8 fl (35.1-43.9); Red Blood Count 4.13 M/mm3 (4.2-5.4); White Blood Count 5.2 K/mm3 (4.4-11.0)
[2025-04-22 13:14] LABS: Hemoglobin A1c 5.9 % (<=5.6)
[2025-04-22 13:25] LABS: ALB/GLOB Ratio 1.6 RATIO (0.9-2.4); AST(SGOT) 46 U/L (<=31); Alanine Aminotransfer ALT/SGPT 9 U/L (<=34); Albumin, Serum 4.3 g/dL (3.4-4.8); Alkaline Phosphatase 159 U/L (35-104); Anion Gap 9 (5-15); BUN 13 mg/dL (4-19); BUN/Creat Ratio 18.8 RATIO (10-20); Calcium,Total 9.4 mg/dL (7.6-11.0); Carbon Dioxide 25.4 mmol/L (21.0-32.0); Chloride 104 mmol/L (98-108); Cholesterol 164 mg/dL (<=200); EST Glomerular Filtration Rate 94 (>60); Globulin 2.7 g/dL (2.2-4.2); Glucose 87 mg/dL (70-99); High Density Lipoprotein 52 mg/dL; Low Density Lipoprotein Calc. 94 mg/dL; Potassium 4.5 mmol/L (3.3-5.1); Protein, Total 7.1 g/dL (5.9-8.4); Sodium Level 139 mmol/L (133-145); Total Bilirubin 0.41 mg/dL (0.00-1.30); Triglycerides 91 mg/dL; Very Low Density Lipoprotein 18 mg/dL (5-40); Vitamin D,25 Hydroxy 14.8 ng/mL (30-100); cholesterol:hdl ratio screen 3.15
== END | disposition home or self-care (01) ==
LOC: BIMLAB 10:05
PROVIDERS: PCP Internal Medicine; Referring Provider Internal Medicine; Visit Provider Internal Medicine
DX: I10 Essential (primary) hypertension (principal); R73.03 Prediabetes; M85.80 Other specified disorders of bone density and structure, unspecified site; Z78.0 Asymptomatic menopausal state
CPT/HCPCS: 36415; 80053; 80061; 82306; 83036; 85025

== ENCOUNTER → 2025-06-19 | Outpatient (CLI) | payer MEDICARE, OTHER, SELFPAY ==
--- OUTSIDE RECORDS SUMMARY | 2025-06-19 06:19 | XMS RPT_ITS | CCD ---
Author Organization [facility] Care Team Providers Care [place] Supervisor Name Role Phone MALCOLM GE Unavailable Unavailable MALCOLM GE Unavailable Unavailable REFERRED, SELF Unavailable Unavailable Bindu Caldwell Primary Care Provider Javi, Dr. Black Primary Care Provider [phone] Javi, Dr. Black Attending Provider 1(330)2 Javi, Dr. Black Referring Provider 1(330)2 Javi, Dr. Black Primary Care Provider 1(33 0) Javi, Dr. Black Attending Provider 1(330)2 Javi, Dr. Black Referring Provider 1(330)2 Javi, Dr. Black Primary Care Provider 1(33 0) Javi, Dr. Black Attending Provider 1(330)2 Javi, Dr. Black Referring Provider 1(330)2 Dr. Bindu Caldwell Primary Care Provider 1(33 0) Dr. Bindu Caldwell Attending Provider 1(330)2 Dr. Bindu Caldwell Referring Provider [phone] Bindu Caldwell MD Primary Care Provider 1(3 30) Javi HI, Loren Granda Primary Care Provider Mishel Aguilar APRN, CNP Unavailable Iwona Aguila MD Unavailable Dr. Bindu Caldwell Primary Care Provider 1(33 0) Javi, Dr. Black Attending Provider 1(330)2 Javi, Dr. Black Referring Provider 1(330)2 Javi, Dr. Black Primary Care Provider 1(33 0) Javi, Dr. Black Attending Provider 1(330)2 Javi, Dr. Black Referring Provider 1(330)2 Javi, Dr. Black Primary Care Provider 1(33 0) Javi, Dr. Black Attending Provider 1(330)2 Javi, Dr. Black Referring Provider 1(330)2 Dr. Prasanth Webber Attending Provider Lawanda, Dr. Rader Other Provider Lewis Colunga CNP, Mishel Unavailable Iwona Aguila MD Unavailable Javi, Dr. Black Primary Care Provider 1(33 0) Javi, Dr. Black Referring Provider 1(330)2 Dr. Prasanth Webber Attending Provider Lawanda, Dr. Rader Other Provider Javi, Dr. Black Attending Provider 1(330)2 Bindu Caldwell MD Primary Care Provider 1(3 30) OLEGHE, EFEWONGBE B Primary Care Unavailable WINSOME HEATH Attending Unavailable DIANA OSCAR Attending Unavailable OLECÉSARE, EFEWONGBE B Primary Care Unavailable DIANA OSCAR Referring Unavailable OLEGHE, EFEWONGBE B Primary Care Unavailable WINSOME HEATH Attending Unavailable Bindu Caldwell MD Primary Care Provider [phone] IWONA AGUILA Attending Unavailable SUSANE, IFIJEN Primary Care Unavailable IWONA AGUILA Attending Unavailable SUSANE, IFIJEN Primary Care Unavailable Loren Caldwell MD M Primary Care Provider Lewis TIRE REPAIR MECHANIC - TAG CLERK, Mishel Unavailable Javi HI, Dr. Black Primary Care Provider Javi HI, Dr. Black Attending Provider [phone] Javi HI, Dr. Black Referring Provider [phone] FEMI HOLMAN JR Referring Unavailable OLEGHE, EFEWONGBE B Primary Care Unavailable FEMI HOLMAN JR Attending Unavailable OLEGHE, EFEWONGBE B Primary Care Unavailable FEMI HOLMAN JR Attending Unavailable OLEGHE, EFEWONGBE B Primary Care Unavailable FEMI HOLMAN JR Attending Unavailable OLEGHE, EFEWONGBE B Primary Care Unavailable Javi HI, Dr. Black Primary Care Provider Javi HI, Dr. Black Attending Provider 1(33 0) Javi HI, Dr. Black Referring Provider 1(33 0) Jose J Wright Attending Provider Oleghe, Efewongbe Referring Unavailable Oleghe, Efewongbe Attending Unavailable Oleghe, Efewongbe Primary Care Unavailable Oleghe, Efewongbe Primary Care Unavailable Oleghe, Efewongbe Referring Unavailable Oleghe, Efewongbe Attending Unavailable Oleghe, Efewongbe Primary Care Unavailable Oleghe, Efewongbe Referring Unavailable Oleghe, Efewongbe Attending Unavailable Oleghe, Efewongbe Referring Unavailable Oleghe, Efewongbe Attending Unavailable Oleghe, Efewongbe Primary Care Unavailable Oleghe, Efewongbe Primary Care Unavailable Oleghe, Efewongbe Referring Unavailable Oleghe, Efewongbe Attending Unavailable Oleghe, Efewongbe Primary Care Unavailable Oleghe, Efewongbe Referring Unavailable Oleghe, Efewongbe Attending Unavailable Oleghe, Efewongbe Referring Unavailable Oleghe, Efewongbe Primary Care Unavailable Jose J Wright Attending Unavailable Allergies Allergy Classification Reported Allergen(s) Allergy Type Date of Onset Reaction(s) Facility Berries (1 source) [place] Food Allergy 5 [facility] clam allergenic extract (1 source) clam allergenic extract Drug Allergy 9 [facility] Work Phone: Mold Extract (1 source) Mold Extract Drug Allergy 5 [facility] Work Phone: Norethindrone (1 source) Norethindrone Drug Allergy 1 Mental Status Change [facility] Work Phone: Opioid Agonists (1 source) Codeine Drug Allergy 3 GI Upset [facility] (6 sources) strawberry allergenic extract; Translations: [STRAWBERRY (DIAGNOSTIC)] Drug Allergy 7 [facility] Repository (1 source) QUERCUS ROBUR; Translations: [QUERCUS ROBUR] Propensity to adverse reactions to drug (disorder) 7 [facility] Repository (1 source) OTHER; Translations: [OTHER] Propensity to adverse reactions to food (disorder) [facility] ([facility] sources) SHELLFISH-DERIVED PRODUCTS; Translations: [SHELLFISH-DERIVE D PRODUCTS] Propensity to adverse reactions to drug (disorder) 7 Nausea And Vomiting [facility] Repository (20 sources) clam allergenic extract; Translations: [CLAMS] Drug Allergy 9 Abd cramps/diarrhe a [facility] Work Phone: Comment on above: intolerance (19 sources) Codeine; Translations: [CODEINE] Drug Allergy 3 GI Upset [facility] (19 sources) Mold Extract; Translations: [MOLD] Drug Allergy 5 [facility] Work Phone: (19 sources) Norethindrone; Translations: [NORETHINDRONE] Drug Allergy 1 Mental Status Change [facility] Work Phone: (19 sources) [place]; Translations: [STRAWBERRIES] Propensity to adverse reactions 5 [facility] Work Phone: (20 sources) [place]; Translations: [OAK] Propensity to adverse reactions 5 Itching [facility] Work Phone: Comment on above: sneezing (20 sources) Oysters; Translations: [OYSTERS] Propensity to adverse reactions 9 [facility] Work Phone: (5 sources) Doxycycline Drug Allergy 3 Dizziness [facility] (9 sources) Clindamycin Drug Allergy 3 Nausea [facility] (6 sources) strawberry allergenic extract Drug Allergy 4 Angioedema [facility] (1 source) Clindamycin Drug Allergy 5 [facility] Repository (1 source) strawberry allergenic extract Drug Allergy 5 [facility] Repository (1 source) clams Drug allergy (disorder) 5 [facility] Repository Medications Current Medications Medication Drug Class(es) Dates Sig (Normalized) Sig (Original) acetaminophen 500 mg oral tablet (20 sources) Start: 02-18-2021 take 1 tablet by mouth every six hours as needed for pain Acetaminophen (Tylenol Extra Strength) 500 mg tablet Active 500 mg PO EVERY 6 HOURS as needed for pain February 18, 2021 12:00am Start: 07-05-2020 take 650 mg by mouth every six hours, then take 4000 mg by mouth every twenty-four hours 650 mg, Oral, EVERY 6 HOURS, First dose on Sun07/05/20 at 1545 Maximum dose of acetaminophen is 4000 mg from all sources in 24 hours. Post-op take 1 tablet by paige th every twelve hours as needed acetaminophen (TYLENOL EXTRA STRENGTH) 500 mg tablet Take 500 mg by mouth twice daily as needed. Active take 1 tablet by paige th every six hours as needed for pain acetaminophen (TYLENOL) 500 MG tablet Take 500 mg by mouth every 6 hours as needed for Pain 0 Active Comment on above: Take 500 mg by mouth twice daily as needed. amLODIPine 10 mg / atorvastatin 10 mg oral tablet (6 sources) Dihydropyridine Calcium Channel Kimberly, HMG-CoA Reductase Inhibitor take 1 tablet by mouth once daily amLODIPine-atorvasta tin (Caduet) 10-10 MG tablet Take 1 tablet by mouth daily. Active atorvastatin 20 mg oral tablet (8 sources) HMG-CoA Reductase Inhibitor Start: 01-09-20 End: 02-18-20 take 1 tablet by mouth once daily Atorvastatin 20 mg tablet Active 20 mg PO daily 90 1 February 17, 2025 11:59am bisacodyl 10 mg rectal suppository (1 source) Stimulant Laxative Start: 07-09-20 bisacodyl (DULCOLAX) suppository 10 mg carbidopa 50 mg / levodopa 200 mg extended release oral tablet (20 sources) Aromatic Amino Acid Decarboxylation Inhibitor, Aromatic Amino Acid Start: 04-22-20 Carbidopa-Levodopa 50-200 mg tablet extended release Active 1 {tbl} PO AT BEDTIME April 22, 2025 12:00am Start: 04-17-2025 End: 10-17-2025 carbidopa-levodopa CR (LETHA ET CR) 50-200 mg per tablet Indications: Parkinson's disease, unspecified whether dyskinesia present, unspecified whether manifestations fluctuate (HCC) Take 1 tablet at bedtime. 90 tablet 3 04/17/2025 10/17/2025 Active Start: 09-08-2024 End: 04-22-2025 Carbidopa-Levodopa 25-100 mg tablet Active 1.5 {tbl} PO THREE TIMES A DAY April 22, 2025 9:15am Start: 07-25-2024 End: 04-17-2025 carbidopa-levodopa (SINEMET) 25-100 mg per tablet Indications: Parkinson's disease, unspecified whether dyskinesia present, unspecified whether manifestations fluctuate (HCC) Take 1.5 tab with breakfast, lunch and dinner (about 4-5 hours apart). 405 tablet 3 04/17/2025 Active docusate sodium 100 mg oral capsule (2 sources) Start: 07-05-2020 End: 07-09-2020 docusate sodium (COLACE) capsule 100 mg DULoxetine 20 mg delayed release oral capsule (20 sources) Serotonin and Norepinephrine Reuptake Inhibitor Start: 04-09-2023 take 3 capsules by mouth twice daily Duloxetine 20 mg capsule,delayed release(DR/EC) Active 60 mg PO TWICE A DAY April 09, 2023 1:04pm Start: 04-09-2023 take 60 mg by mouth twice sanjiv y Duloxetine Active 60 MG PO TWICE A DAY April 09, 2023 1:04pm Start: 07-17-2022 End: 04-09-2023 take 1 capsule by mouth three times daily Duloxetine 20 mg capsule,delayed release(DR/EC) Discontinued 20 mg PO THREE TIMES A DAY July 17, 2022 12:00am April 09, 2023 1:04pm Start: 05-20-2021 End: 07-17-2022 take 1 capsule by mouth twice daily Duloxetine 40 mg capsule,delayed release(DR/EC) Discontinued 40 mg PO TWICE A DAY May 20, 2021 9:35am July 17, 2022 1:32pm Start: 02-18-2021 End: 05-20-2021 take 1 capsule by mouth once daily Duloxetine 40 mg capsule,delayed release(DR/EC) Discontinued 40 mg PO DAILY February 18, 2021 12:00am May 20, 2021 9:36am Start: 01-26-2020 End: 02-18-2021 take 1 capsule by mouth once daily Duloxetine 30 mg capsule,delayed release(DR/EC) Discontinued 30 mg PO DAILY January 26, 2020 12:00am February 18, 2021 10:13am Start: 04-23-2018 take 3 capsules by m outh once daily DULoxetine (CYMBALTA) 20 mg capsule Take 60 mg by mouth once daily. 04/23/2018 Active take 1 capsule by mo uth twice daily DULoxetine (Cymbalta) [address] capsule Take 20 mg by mouth 2 times daily. Do not crush or chew. Active Comment on above: Take 60 mg by mouth once daily. 0.4 ml enoxaparin sodium 100 mg/ml prefilled syringe (2 sources) Low Molecular Weight Heparin Start: 07-09-2020 End: 08-03-2020 enoxaparin (LOVENOX) 40 MG/0.4ML injection Inject 0.4 mLs into the skin daily for 25 days 10 mL 0 07/09/2020 08/03/2020 Active Start: 07-06-2020 enoxaparin (LO VENOX) injection 40 mg folic acid 1 mg oral tablet (20 sources) Start: 01-31-2024 take 2 tablets by mouth once daily folic acid 1 mg tablet Indications: Psoriasis with arthropathy (HCC) Take 2 tablets by mouth once daily. 180 tablet 3 01/31/2024 Active Start: 10-15-2023 folic acid 1 m g tablet Indications: Psoriasis with arthropathy (HCC) TAKE 2 TABLETS ONCE DAILY 180 tablet 3 10/15/2023 Active Start: 06-19-2023 End: 09-17-2023 take 2 tablets by mouth once daily folic acid 1 mg tablet Indications: Psoriasis with arthropathy (HCC) Take 2 tablets by mouth once daily. 180 tablet 0 06/19/2023 09/17/2023 Active Start: 08-19-2021 End: 04-22-2025 take 1 tablet by mouth once daily Folic Acid 1 mg tablet Discontinued 1 mg PO DAILY August 19, 2021 12:00am April 22, 2025 9:16am Comment on above: Take 2 mg by mouth o nce daily. Take 2 tablets by mo uth once daily. TAKE 2 TABLETS ONCE DAILY gabapentin 600 mg oral tablet (20 sources) Anti-epileptic Agent Start: 04-22-2025 take 1 tablet by mouth once Gabapentin 600 mg tablet Active 600 mg PO ONCE April 22, 2025 9:16am pain Start: 08-25-2021 End: 12-29-2022 take 6 tablets by mouth once Gabapentin 600 mg tablet Discontinued 600 mg PO .Q6 360 90 August 07, 2022 10:31am December 29, 2022 2:02pm pain Start: 07-06-2020 take 600 mg by mouth four times daily 600 mg, Oral, 4 TIMES DAILY, First dose on Sun07/06/20 at 0900 Start: 01-26-2020 End: 08-19-2021 take 1 tablet by mouth every six hours Gabapentin 600 mg tablet Discontinued 600 mg PO EVERY 6 HOURS 120 0 July 12, 2021 10:43am August 19, 2021 11:06am pain Start: 01-26-2020 End: 08-25-2021 take 1 tablet by mouth four times daily Gabapentin 600 mg tablet Discontinued 600 mg PO .QID August 19, 2021 11:06am August 25, 2021 1:06pm pain Start: 01-26-2020 End: 11-08-2023 take 1 tablet by mouth every eight hours Gabapentin 600 mg tablet Discontinued 600 mg PO Q8H 270 90 3 September 03, 2023 9:15am November 08, 2023 4:42pm pain Start: 01-26-2020 End: 04-22-2025 take 1 tablet by mouth twice daily Gabapentin 600 mg tablet Discontinued 600 mg PO TWICE A DAY 180 November 06, 2024 11:46am April 22, 2025 9:16am pain Comment on above: Take 1-2 tablets (60 0mg to 1200mg) in the morning, 2 tablets (1200mg) at noon, and 2 tablets (1200mg) at bedtime. 1 ml hydrALAZINE hydrochloride 20 mg/ml injection (1 source) Arteriolar Vasodilator Start: 07-07-2020 hydrALAZINE (APRESOLINE) injection 5 mg hydrocortisone 25 mg/ml topical cream (20 sources) Corticosteroid Start: 12-09-2024 Hydrocortisone 2.5 % cream Active 1 NMA TOPICAL TWICE A DAY as needed for rash 28.35 2 December 09, 2024 1:35pm Start: 11-02-2023 End: 12-09-2024 Hydrocortisone 2.5 % cream D iscontinued 1 NMA TOPICAL TWICE A DAY as needed for rash 28.35 2 November 02, 2023 1:10pm December 09, 2024 1:35pm Start: 02-07-2021 End: 11-02-2023 Hydrocortisone 2.5 % cream D iscontinued 1 NMA TOPICAL TWICE A DAY as needed for rash 28.35 2 February 07, 2021 4:47pm November 02, 2023 1:10pm Start: 08-16-2020 End: 02-07-2021 Hydrocortisone 2.5 % cream D iscontinued 1 NMA TOPICAL TWICE A DAY as needed for rash 28.35 2 August 16, 2020 12:00am February 07, 2021 4:47pm Start: 08-16-2020 End: 11-02-2023 Hydrocortisone Discontinued 1 APPLIC TOPICAL TWICE A DAY 28.35 February 07, 2021 4:47pm November 02, 2023 1:10pm hydrocortisone 2 .5 % cream Apply to affected area. Active hydrocortisone 0 .5 % cream Apply topically 2 times daily. Active Comment on above: Apply to affected ar ea. 4 ml labetalol hydrochloride 5 mg/ml cartridge (1 source) beta-Adrenergic Kimberly Start: 0 labetalol (NORMODYNE;TRANDAT E) injection 5 mg meloxicam 15 mg oral tablet (20 sources) Nonsteroidal Anti-inflammatory Drug Start: 08-08-202 5 take 1 tablet by mouth once daily Meloxicam 15 mg tablet Active 15 mg PO daily 30 0 June 12, 2025 12:00am Start: 12-08-2020 End: 01-09-2022 take 1 tablet by mouth once daily as needed for pain Meloxicam 15 mg tablet Discontinued 15 mg PO DAILY as needed for pain 90 1 May 30, 2021 4:01pm January 09, 2022 12:04pm mirtazapine 15 mg oral tablet (20 sources) Start: 07-06-2020 take 30 mg by mouth once daily 30 mg, Oral, NIGHTLY, First dose on Sun07/06/20 at 2100 Start: 07-07-2014 End: 11-20-2023 take 1 tablet by mouth once daily Mirtazapine 30 mg tablet Discontinued 30 mg PO DAILY January 26, 2020 12:00am July 17, 2022 1:34pm Comment on above: Take 1 tablet by paige th daily at bedtime. 2 ml ondansetron 2 mg/ml injection (1 source) Serotonin-3 Receptor Antagonist Start: 0 take 4 mg by mouth every six hours as needed for nausea 4 mg, Intravenous, EVERY 6 HOURS PRN, Nausea, Vomiting, Starting Sun07/05/20 at 1520 Administer if oral route cannot be used. Post-op oxyCODONE hydrochloride 5 mg oral tablet (3 sources) Opioid Agonist Start: 0 End: 0 take 1 tablet by mouth every six hours as needed for pain, then take 1 tablet by mouth as needed for pain oxyCODONE (ROXICODONE) 5 MG immediate release tablet Indications: Post-operative state Take 1 tablet by mouth every 6 hours as needed for Pain for up to 7 days. Intended supply: 7 days. Take lowest dose possible to manage pain 20 tablet 0 07/10/2020 07/17/2020 Active Start: 07-05-2020 oxyCODONE (JOSLYN ICODONE) immediate release tablet 5 mg polyethylene glycol 3350 [id number] mg powder for oral solution (1 source) Osmotic Laxative Start: 07-08-2020 polyethylene glycol (GLYCOLAX) packet 17 g simethicone 80 mg chewable tablet (1 source) Start: 07-07-2020 simethicone (M YLICON) chewable tablet 80 mg 3 ml sodium chloride 9 mg/ml injection (3 sources) Start: 07-05-2020 10 mL, Intrave nous, EVERY 12 HOURS SCHEDULED (2 times per day), First dose on Sun07/05/20 at 2100, Post-op Start: 07-05-2020 take 10 mL intravenous route o nce 10 mL, Intravenous, PRN, Line Care, Starting Sun07/05/20 at 1520 After every IV line use Post-op Start: 07-05-2020 End: 07-06-2020 take 1 mL by mouth every hour Intravenous, at 125 mL/h r, CONTINUOUS, Starting Sun07/05/20 at 1545 Until tolerating PO fluids Post-op sulfamethoxazole 800 mg / trimethoprim 160 mg oral tablet (1 source) Dihydrofolate Reductase Inhibitor Antibacterial, Sulfonamide Antimicrobial Start: 07-09-2020 End: 07-12-2020 sulfamethoxazole-trimethopri m (BACTRIM DS;SEPTRA DS) 800-160 MG per tablet 1 tablet Completed/Discontinued Medications Medication Drug Class(es) Dates Sig (Normalized) Sig (Original) acetaminophen 325 mg / oxyCODONE hydrochloride 5 mg oral tablet (14 sources) Opioid Agonist Start: 10-14-2022 End: 12-29-2022 Oxycodone-Acetamino phen 5-325 mg tablet Discontinued 1 {tbl} PO EVERY 6 HOURS NEEDED as needed for Pain 12 3 0 October 14, 2022 December 29, 2022 2:01pm Dental abscess Periapical abscess without sinus Start: 10-14-2022 End: 12-29-2022 take 1 tablet by mouth every six hours as needed Oxycodone-Acetaminophen Discontinued 1 TABLET PO EVERY 6 HOURS NEEDED 12 3 October 14, 2022 December 29, 2022 2:01pm [id number] 200 actuat albuterol 0.09 mg/actuat metered dose inhaler (4 sources) beta2-Adrenergic Agonist Start: 04-01-2024 End: 09-08-2024 Albuterol Sulfate 90 mcg/actuation HFA aerosol inhaler Discontinued 2 NMA INHALATION EVERY 4-6 HOURS as needed for shortness of breath or wheezing 6.7 0 April 01, 2024 12:00am September 08, 2024 10:42am ALPRAZolam 0.25 mg disintegrating oral tablet (1 source) Benzodiazepine Start: 07-05-2020 End: 07-05-2020 ALPRAZolam (NIRAVAM) dissolvable tablet 0.25 mg amLODIPine 10 mg oral tablet (20 sources) Dihydropyridine Calcium Channel Kimberly Start: 01-01-2023 End: 12-09-2024 take 1 tablet by mouth once daily Amlodipine 10 mg tablet Discontinued 10 mg PO DAILY 90 3 November 21, 2023 4:22pm December 09, 2024 1:35pm Start: 09-15-2020 End: 01-01-2023 take 1 tablet by mouth once daily Amlodipine 5 mg tablet Discontinued 5 mg PO DAILY 90 3 October 03, 2022 1:51pm January 01, 2023 10:47am Comment on above: Take 10 mg by mouth once daily. apremilast 30 mg oral tablet (18 sources) Start: 0 End: 1 take 1 tablet by mouth once Apremilast (Otezla Starter) 10 mg (4)-20 mg (4)-30 mg (47) tablets,dose pack Discontinued 0 PO per package directions October 11, 2020 1:00am December 08, 2020 2:57pm PO PER PKG DIR calcium chloride 0.0014 meq/ml / potassium chloride 0.004 meq/ml / sodium chloride 0.103 meq/ml / sodium lactate 0.028 meq/ml injectable solution (1 source) Start: 0 End: 0 lactated ringers infusion ceFAZolin 2000 mg injection (2 sources) Cephalosporin Antibacterial Start: 0 End: 0 2 g, Intravenous, EVERY 8 HOURS, 2 doses, First dose on Sun07/05/20 at 1600, Last dose on Sun07/06/20 at 0000, Post-op Start: 07-05-2020 End: 07-05-2020 ceFAZolin (ANCEF) 2 g in dex trose 4 % 100 mL IVPB (premix) chlorhexidine gluconate 20 m g/ml medicated pad (1 source) Start: 07-05-2020 End: 07-05-2020 chlorhexidine 2% cloth Start: 07-05-2020 End: 07-05-2020 chlorhexidine 2% cloth cholecalciferol 1.25 mg oral capsule (20 sources) Vitamin D Start: 04-13-2022 End: 02-17-2024 take 1 capsule by mouth every week Cholecalciferol (Vitamin D3) 1,250 mcg (50,000 unit) capsule Discontinued 1250 ug PO EVERY WEEK 14 2 January 09, 2023 11:57am February 17, 2024 3:04pm clindamycin 300 mg oral capsule (14 sources) Lincosamide Antibacterial Start: 10-14-2022 End: 12-29-2022 take 1 capsule by mouth every six hours Clindamycin Hcl (Cleocin Hcl) 300 mg capsule Discontinued 300 mg PO EVERY 6 HOURS 40 0 October 14, 2022 1:00am December 29, 2022 2:00pm clobetasol propionate 0.5 mg/ml medicated shampoo (20 sources) Corticosteroid Start: 11-02-2023 End: 11-08-2023 Clobetasol 0.05 % shampoo Discontinued 1 NMA TOPICAL DAILY 118 7 1 November 02, 2023 1:10pm November 08, 2023 4:42pm May repeat treatment after 1 week if rash persists Start: 03-16-2021 End: 11-02-2023 Clobetasol 0.05 % shampoo Di scontinued 1 NMA TOPICAL DAILY 118 7 1 August 25, 2021 1:06pm November 02, 2023 1:10pm May repeat treatment after 1 week if rash persists Start: 09-15-2020 End: 09-08-2024 Clobetasol 0.05 % shampoo Di scontinued 1 NMA TOPICAL DAILY as needed for SKIN November 08, 2023 1:00am September 08, 2024 11:17am May repeat treatment after 1 week if rash persists Start: 09-15-2020 End: 03-16-2021 Clobetasol 0.05 % shampoo Di scontinued 1 NMA TOPICAL DAILY 118 7 2 September 15, 2020 1:00am March 16, 2021 3:18pm May repeat treatment after 1 week if rash persists Clobetasol Propi sona 0.05 % sham Apply to affected area. Active clobetasol (Juve vate) 0.05 % cream Apply topically 2 times daily. Active Comment on above: Apply to affected ar ea. clonazePAM 0.5 mg oral tablet (20 sources) Benzodiazepine Start: End: 4 take 1 tablet by mouth twice daily Clonazepam 0.5 mg tablet Discontinued 0.5 mg PO TWICE A DAY December 08, 2020 2:57pm June 04, 2024 10:28am Start: 08-16-2020 End: 12-08-2020 take 0.25 mg by mouth twice daily Clonazepam 0.5 mg tablet Discontinued 0.25 mg PO TWICE A DAY August 16, 2020 1:30pm December 08, 2020 2:58pm Start: 08-16-2020 End: 12-08-2020 take 0.25 mg by mouth twice daily Clonazepam Discontinued 0.25 MG PO TWICE A DAY August 16, 2020 1:30pm December 08, 2020 2:58pm Start: 07-05-2020 take 0.5 mg by mouth twice daily as needed for anxiety 0.5 mg, Oral, 2 TIMES DAILY PRN, Anxiety, Starting 07/05/20 at 1520 Start: 01-26-2020 End: 04-16-2020 take 1 tablet by mouth 30 minutes before bedtime Clonazepam 0.5 mg tablet Discontinued 0.5 mg PO AT BEDTIME January 26, 2020 12:00am April 16, 2020 2:35pm administer 30 minutes before bedtime Start: 01-26-2020 End: 08-16-2020 take 0.25 mg by mouth once daily Clonazepam 0.5 mg tablet Discontinued 0.25 mg PO DAILY January 26, 2020 12:00am August 16, 2020 1:30pm Start: 01-26-2020 End: 08-16-2020 take 0.25 mg by mouth once daily Clonazepam Discontinued 0.25 MG PO DAILY January 26, 2020 12:00am August 16, 2020 1:30pm Start: 02-25-2014 take 1 tablet by paige th once daily Clonazepam 0.5 mg tablet Active 0.5 mg PO DAILY June 04, 2024 10:26am Comment on above: Take 1 tablet by paige th daily at bedtime. doxycycline hyclate 100 mg oral capsule (4 sources) Tetracycline-class Drug Start: 4 End: 4 take 1 capsule by mouth twice daily Doxycycline Hyclate 100 mg capsule Discontinued 100 mg PO TWICE A DAY 14 7 0 April 01, 2024 12:00am April 07, 2024 12:00am April 08, 2024 12:04am ergocalciferol, vitamin D2, (VITAMIN D2 ORAL) (17 sources) End: take 1000 [IU] by mouth once daily ergocalciferol, vitamin D2, (VITAMIN D2 ORAL) Take 1,000 Units by mouth once daily. Out of med 10/17/2024 Discontinued take 1000 [IU] by mouth once marylu ly ergocalciferol, vitamin D2, (VITAMIN D2 ORAL) Take 1,000 Units by mouth once daily. Out of med Active take 1000 [IU] by mouth once marylu ly ergocalciferol, vitamin D2, (VITAMIN D2 ORAL) Take 1,000 Units by mouth once daily. Out of med 0 Active take 1000 [IU] by mouth once marylu ly ergocalciferol, vitamin D2, (VITAMIN D2 ORAL) Take 1,000 Units by mouth once daily. 0 Active Comment on above: Take 1,000 Units by mouth once daily. famotidine 20 mg oral tablet (1 source) Histamine-2 Receptor Antagonist Start: 07-05-2020 End: 07-05-2020 famotidine (PEPCID) tablet 20 mg Start: 07-05-2020 End: 07-05-2020 famotidine (PEPCID) tablet 2 0 mg Fluad Quad (65yr up)(PF) 60 mcg (15 mcg x 4)/0.5mL IM syringe (flu vac (4 sources) Start: 08-19-2021 End: 08-19-2021 Fluad Quad (65yr up)(PF) 60 mcg (15 mcg x 4)/0.5mL IM syringe (flu vac Discontinued 60 MCG IM ONCE 0.5 August 19, 2021 10:31am August 19, 2021 11:56am 1 ml HYDROmorphone hydrochloride 1 mg/ml cartridge (2 sources) Opioid Agonist Start: 07-05-2020 End: 07-05-2020 HYDROmorphone (DILAUDID) injection 0.5 mg ibuprofen 600 mg oral tablet (20 sources) Nonsteroidal Anti-inflammatory Drug Start: 07-07-2020 End: 07-10-2020 take 1 tablet by mouth every six hours as needed for pain ibuprofen (ADVIL;MOTRIN) 600 MG tablet Take 1 tablet by mouth every 6 hours as needed for Pain 60 tablet 0 07/10/2020 07/10/2020 Discontinued (REORDER) Start: 01-26-2020 End: 12-08-2020 take 2 tablets by mouth every six hours Ibuprofen (Advil) 200 mg tablet Discontinued 400 mg PO EVERY 6 HOURS January 26, 2020 12:00am December 08, 2020 3:20pm End: 10-17-2024 Ibuprofen 200 mg cap Take by mouth as needed. 10/17/2024 Discontinued Comment on above: Take by mouth as nee ded. 1 ml ketorolac tromethamine 30 mg/ml cartridge (1 source) Nonsteroidal Anti-inflammatory Drug, Cyclooxygenase Inhibitor Start: 07-05-20 End: 07-06-20 20 30 mg, Intravenous, EVERY 6 HOURS, First dose on Sun07/05/20 at 1600, For 8 doses Do not administer for more than 5 days. Post-op methotrexate 2.5 mg oral tablet (20 sources) Folate Analog Metabolic Inhibitor Start: 01-31-20 End: 04-22-20 25 take 8 tablets by mouth every week Methotrexate Sodium 2.5 mg tablet Discontinued 25 mg PO February 20, 2024 12:45pm April 22, 2025 9:16am 8 pills q week Start: 08-16-2023 End: 02-20-2024 Methotrexate Sodium 2.5 mg t ablet Discontinued 25 mg PO August 16, 2023 12:00am February 20, 2024 12:46pm Start: 08-16-2023 Methotrexate S odium Active 25 MG PO SA August 16, 2023 12:00am Start: 08-16-2023 Methotrexate S odium Active MG PO August 16, 2023 12:00am Start: 06-23-2023 End: 01-07-2024 methotrexate 2.5 mg tablet Indications: Psoriasis with arthropathy (HCC) TAKE 10 TABLETS EVERY SUNDAY 120 tablet 0 01/07/2024 Active Start: 06-23-2023 End: 06-20-2023 methotrexate 2.5 mg tablet Indications: Psoriasis with arthropathy (HCC) Take 10 tablets by mouth every Sunday. Patient is taking 8 tablets PO on Sunday 120 tablet 0 06/23/2023 06/20/2023 Discontinued Start: 06-23-2023 End: 09-21-2023 methotrexate 2.5 mg tablet Indications: Psoriasis with arthropathy (HCC) Take 10 tablets by mouth every Sunday. 120 tablet 0 06/23/2023 09/21/2023 Active Start: 04-09-2023 End: 07-08-2023 Methotrexate Sodium 2.5 mg t ablet Discontinued 25 mg PO EVERY WEEK 130 90 0 April 09, 2023 1:21pm July 07, 2023 12:00am July 08, 2023 12:03am Start: 04-09-2023 End: 07-08-2023 take 25 mg by mouth every week Methotrexate Sodium Dis continued 25 MG PO EVERY WEEK 130 90 April 09, 2023 1:21pm July 08, 2023 12:03am Start: 07-17-2022 End: 04-09-2023 Methotrexate Sodium 2.5 mg t ablet Discontinued 20 mg PO EVERY WEEK 104 90 3 November 02, 2022 2:04pm April 09, 2023 1:04pm Start: 07-17-2022 End: 04-09-2023 take 20 mg by mouth every week Methotrexate Sodium Dis continued 20 MG PO EVERY WEEK 104 90 November 02, 2022 2:04pm April 09, 2023 1:04pm Start: 01-09-2022 End: 07-17-2022 Methotrexate Sodium 2.5 mg t ablet Discontinued 17.5 mg PO EVERY WEEK January 09, 2022 12:02pm July 17, 2022 1:34pm Start: 01-09-2022 End: 07-17-2022 take 17.5 mg by mouth every week Methotrexate Sodium Discontinued 17.5 MG PO EVERY WEEK January 09, 2022 12:02pm July 17, 2022 1:34pm Start: 08-19-2021 methotrexate 2 .5 MG tablet Take by mouth. 08/19/2021 Active Start: 08-19-2021 End: 01-09-2022 take 4 tablets by mouth every week Methotrexate Sodium 2.5 mg tablet Discontinued 10 mg PO EVERY WEEK August 19, 2021 12:00am January 09, 2022 12:03pm Start: 08-19-2021 End: 01-09-2022 take 10 mg by mouth every week Methotrexate Sodium Dis continued 10 MG PO EVERY WEEK August 19, 2021 12:00am January 09, 2022 12:03pm End: 06-19-2023 take 8 tablets by mouth once methotrexate 2.5 mg table t Take by mouth every Sunday. Patient is taking 8 tablets PO on Sunday 0 06/19/2023 Discontinued Comment on above: Take by mouth every Sunday. Patient is taking 8 tablets PO on Sunday Take 10 tablets by m outh every Sunday. Patient is taking 8 tablets PO on Sunday Take 10 tablets by m outh every Sunday. TAKE 10 TABLETS EVER Y SUNDAY multivitamin tablet (8 sources) Start: 01-08-2014 End: 04-22-2024 take 1 tablet by mouth once daily multivitamin tablet Take 1 tablet by mouth once daily. 0 01/08/2014 04/22/2024 Discontinued Start: 01-08-2014 take 1 tablet by paige th once daily multivitamin tablet Take 1 tablet by mouth once daily. 0 01/08/2014 Active Comment on above: Take 1 tablet by paige th once daily. omeprazole 40 mg delayed release oral capsule (20 sources) Proton Pump Inhibitor Start: 2022 End: 2023 take 1 capsule by mouth once daily Omeprazole 40 mg capsule,delayed release(DR/EC) Discontinued 40 mg PO DAILY 90 1 January 11, 2024 5:05pm July 10, 2024 1:11pm prednisoLONE 5 mg oral tablet (4 sources) Corticosteroid End: 2022 prednisoLONE 5 mg tab Take 5 mg by mouth. Patient states she takes PRN 0 06/19/2023 Discontinued Comment on above: Take 5 mg by mouth. Patient states she takes PRN predniSONE 5 mg oral tablet (3 sources) Start: 2020 End: 2023 take 1 tablet by mouth once daily as needed predniSONE (Deltasone) 5 MG tablet TAKE 1 TABLET Oral EVERY DAY NEEDED take for 3-5 days with a flare 0 09/14/2021 11/20/2023 Discontinued (Therapy completed) pseudoephedrine hydrochloride 30 mg oral tablet (20 sources) alpha-Adrenergic Agonist Start: 2019 End: 2023 take 2 tablets by mouth once as needed for congestion Pseudoephedrine Hcl (Sudafed) 30 mg tablet Discontinued 60 mg PO ONCE as needed for nasal congestion January 26, 2020 12:00am February 20, 2024 12:46pm take 1 tablet by paige th every four hours as needed for congestion pseudoephedrine (SUDAFED) 30 MG tablet T thomas 30 mg by mouth every 4 hours as needed for Congestion 0 Active vitamin b12 2 mg oral tablet (20 sources) Vitamin B12 Start: 09-11-2023 End: 09-08-2024 take 1 tablet by mouth once daily Cyanocobalamin (Vitamin B-12) 2,000 mcg tablet Discontinued 2000 ug PO DAILY 90 3 September 11, 2023 1:41pm June 04, 2024 10:57am Start: 09-03-2023 End: 09-11-2023 take 2000 ug by mouth once daily Cyanocobalamin (Vitamin B-12) 2,000 mcg lozenge Discontinued 2000 ug PO DAILY 100 3 September 03, 2023 9:15am September 11, 2023 1:39pm Start: 09-03-2023 End: 09-11-2023 take 2000 ug by mouth once daily Cyanocobalamin (Vitamin B-12) 2,000 mcg lozenge Discontinued 2000 ug PO DAILY 100 September 03, 2023 9:15am September 11, 2023 1:39pm Start: 09-03-2023 End: 09-11-2023 take 2000 ug by mouth once daily Cyanocobalamin (Vitamin B-12) Discontinued 2000 MCG PO DAILY 100 September 03, 2023 9:15am September 11, 2023 1:39pm Start: 09-03-2023 End: 09-11-2023 take 2000 ug by mouth once daily Cyanocobalamin (Vitamin B-12) Discontinued 2000 MCG PO DAILY 100 September 03, 2023 8:15am September 11, 2023 12:39pm Start: 09-03-2023 take 2000 ug by mout h once daily Cyanocobalamin (Vitamin B-12) Active 2000 MCG PO DAILY 100 September 03, 2023 9:15am Start: 04-13-2022 take 2000 ug by mout h once daily Cyanocobalamin (Vitamin B-12) Active 2000 MCG PO DAILY April 13, 2022 5:57pm Start: 04-13-2022 End: 09-03-2023 take 2000 ug by mouth once daily Cyanocobalamin (Vitamin B-12) 2,000 mcg lozenge Discontinued 2000 ug PO DAILY 100 3 April 13, 2022 12:00am September 03, 2023 9:15am Start: 04-13-2022 End: 09-03-2023 take 2000 ug by mouth once daily Cyanocobalamin (Vitamin B-12) 2,000 mcg lozenge Discontinued 2000 ug PO DAILY April 13, 2022 12:00am September 03, 2023 9:15am Start: 04-13-2022 End: 09-03-2023 take 2000 ug by mouth once daily Cyanocobalamin (Vitamin B-12) Discontinued 2000 MCG PO DAILY April 12, 2022 11:00pm September 03, 2023 8:15am Start: 04-13-2022 End: 09-03-2023 take 2000 ug by mouth once daily Cyanocobalamin (Vitamin B-12) Discontinued 2000 MCG PO DAILY April 13, 2022 12:00am September 03, 2023 9:15am Start: 04-13-2022 take 2000 ug by mout h once daily Cyanocobalamin (Vitamin B-12) Active 2000 MCG PO DAILY April 13, 2022 12:00am Start: 04-13-2022 take 2000 ug by mout h once daily Cyanocobalamin (Vitamin B-12) Active 2000 MCG PO DAILY April 12, 2022 11:00pm End: 10-17-2024 take 1 tablet by mouth twice daily cyanocobalamin (VITAMIN B-12) 1,000 mcg tab Take 1,000 mcg by mouth two times a day. Ran out of med 10/17/2024 Discontinued Comment on above: Take 1,000 mcg by mo uth twice daily. vitamin D3-vitamin K2 1,250-200 mcg cap (17 sources) End: 10-17-2024 take 1 capsule by mouth every week vitamin D3-vitamin K2 1,250-200 mcg cap Take 1 capsule by mouth one time a week. Out of med 10/17/2024 Discontinued take 1 capsule by mouth every we ek vitamin D3-vitamin K2 1,250-200 mcg cap Take 1 capsule by mouth one time a week. Out of med Active take 1 capsule by mouth every we ek vitamin D3-vitamin K2 1,250-200 mcg cap Take 1 capsule by mouth one time a week. Out of med 0 Active take 1 capsule by mouth every we ek vitamin D3-vitamin K2 1,250-200 mcg cap Take 1 capsule by mouth one time a week. 0 Active Comment on above: Take 1 capsule by mo uth one time a week. Problems Active Problems Problem Classification Problem Date Documented Da te Episodic/Chronic Abdominal pain (20 sources) Abdominal tenderness; Translations: [Abdominal tenderness, unspecified site] Episodic Acute bronchitis (4 sources) Acute bronchitis; Translations: [Acute bronchitis, unspecified] 04-01-2024 Episodic Adjustment disorders (7 sources) Grief finding; Translations: [Adjustment disorder with depressed mood] 01-07-2025 Chronic Anxiety disorders (20 sources) Mixed anxiety and depressive disorder; Translations: [Anxiety disorder, unspecified] Chronic Cancer of uterus (19 sources) 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; Translations: [FIGO EC stage IIIB] Onset: 07-05-2020 07-05-2020 Chronic Cancer of uterus (20 sources) History of malignant neoplasm of endometrium; Translations: [Personal history of malignant neoplasm of other parts of uterus] Episodic Cancer of uterus (2 sources) FIGO EC stage IIIB; Translations: [Endometrial cancer, FIGO stage IIIB (HCC)] 07-05-2020 Cardiac dysrhythmias (13 sources) Cardiac arrhythmia; Translations: [Cardiac arrhythmia, unspecified] 08-16-2023 Chronic Complications of surgical procedures or medical care (4 sources) Drug therapy finding; Translations: [Unspecified adverse effect of drug or medicament, initial encounter] 04-22-2025 Episodic Diabetes mellitus without complication (20 sources) Prediabetes; Translations: [Prediabetes] Onset: 04-22-2025 Episodic Disorders of lipid metabolism (5 sources) Hyperlipidemia; Translations: [Hyperlipidemia, unspecified] Onset: 02-20-2025 06-09-2024 Chronic Disorders of teeth and jaw (14 sources) Dental abscess; Translations: [Periapical abscess without sinus] 10-22-2022 Episodic E Codes: Fall (4 sources) Fall; Translations: [Unspecified fall, initial encounter] 06-15-2024 Episodic Esophageal disorders (6 sources) Lesion of esophagus; Translations: [Esophageal obstruction] 11-21-2023 Chronic Essential hypertension (20 sources) Hypertensive disorder; Translations: [Essential (primary) hypertension] Onset: 04-29-2025 Chronic Immunizations and screening for infectious disease (13 sources) Needs influenza immunization; Translations: [Encounter for immunization] 08-16-2023 Episodic Malaise and fatigue (20 sources) Fatigue; Translations: [Other fatigue] Episodic Mood disorders (18 sources) Bipolar disorder; Translations: [Bipolar disorder, unspecified] Onset: 03-10-2011 10-31-2021 Chronic Nutritional deficiencies (20 sources) Vitamin D deficiency; Translations: [Vitamin D deficiency, unspecified] Onset: 04-22-2024 Chronic Open wounds of head; neck; and trunk (4 sources) Laceration of lip ; Translations: [Laceration without foreign body of lip, initial encounter] 06-15-2024 Episodic Osteoarthritis (20 sources) Arthritis; Translations: [Unspecified osteoarthritis, unspecified site] Onset: 04-22-2024 12-08-2020 Chronic Osteoporosis (1 source) Osteoporosis; Translations: [Age-related osteoporosis without current pathological fracture] Chronic Other and unspecified benign neoplasm (4 sources) Change in skin lesion; Translations: [Melanocytic nevi, unspecified] 02-20-2024 Episodic Other bone disease and musculoskeletal deformities (2 sources) Osteopenia; Translations: [Other specified disorders of bone density and structure, multiple sites] 04-22-2024 Episodic Other bone disease and musculoskeletal deformities (1 source) Other specified disorders of bone density and structure, multiple sites; Translations: [Osteopenia of multiple sites] Onset: 04-22-2024 Episodic Other bone disease and musculoskeletal deformities (1 source) Other specified disorders of bone density and structure, unspecified site; Translations: [Other specified disorders of bone density and structure, unspecified site] Onset: 04-22-2025 Episodic Other connective tissue disease (6 sources) Recurrent falls ; Translations: [Repeated falls] 07-25-2024 Episodic Other ear and sense organ disorders (12 sources) Hearing loss; Translations: [Unspecified hearing loss, unspecified ear] 12-29-2022 Chronic Comment on above: MILD LOSS Other ear and sense organ disorders (1 source) Unspecified hearing loss, unspecified ear; Translations: [Unspecified hearing loss] 12-29-2022 Chronic Other female genital disorders (18 sources) Mass of uterus; Translations: [Other specified noninflammatory disorders of uterus] 05-20-2020 Episodic Comment on above: based on MRI suspect endometrial cancer stage III/IV, 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 onc referralEMB- fragments of high grade malignant neoplasm Other gastrointestinal disorders (6 sources) Dysphagia; Translations: [Dysphagia, unspecified] 11-08-2023 Episodic Comment on above: FOOD GETS STUCK Other gastrointestinal disorders (2 sources) Dysphagia, unspecified; Translations: [Dysphagia, unspecified] 10-22-2023 Episodic Other gastrointestinal disorders (4 sources) Passing flatus; Translations: [Flatulence] 04-22-2025 Episodic Other hematologic conditions (15 sources) Macrocytosis; Translations: [Other specified diseases of blood and blood-forming organs] 04-13-2022 Chronic Other hematologic conditions (1 source) Other specified diseases of blood and blood-forming organs; Translations: [Other specified diseases of blood and blood-forming organs] Chronic Other inflammatory condition of skin (20 sources) Psoriatic arthritis; Translations: [Arthropathic psoriasis, unspecified] Onset: 03-15-2023 05-20-2021 Chronic Comment on above: ON METHOTREXATE Other inflammatory condition of skin (18 sources) Psoriasis; Translations: [Psoriasis, unspecified] 10-11-2020 Chronic Other inflammatory condition of skin (10 sources) Arthropathic psoriasis, unspecified; Translations: [Psoriatic arthropathy] Onset: 03-15-2023 Chronic Other injuries and conditions due to external causes (11 sources) Obstruction of esophagus; Translations: [Food in esophagus causing other injury, initial encounter] 09-07-2023 Episodic Other injuries and conditions due to external causes (4 sources) Closed injury of head; Translations: [Unspecified injury of head, initial encounter] 06-15-2024 Episodic Other nervous system disorders (8 sources) Tremor; Translations: [Tremor, unspecified] 04-22-2024 Episodic Other nervous system disorders (1 source) Impairment of balance; Translations: [Other abnormalities of gait and mobility] 04-22-2024 Episodic Other nervous system disorders (1 source) Tremor, unspecified; Translations: [Tremor] Onset: 04-22-2024 Episodic Other nervous system disorders (1 source) Other abnormalities of gait and mobility; Translations: [Balance disorder] Onset: 04-22-2024 Episodic Other nervous system disorders (2 sources) Abnormal gait; Translations: [Unspecified abnormalities of gait and mobility] 07-25-2024 Episodic Other non-traumatic joint disorders (2 sources) Multiple joint pain; Translations: [Pain in unspecified joint] Episodic Other non-traumatic joint disorders (3 sources) Pain in left knee; Translations: [Left knee pain] Onset: 06-12-2025 06-12-2025 Episodic Other screening for suspected conditions (not mental disorders or infectious disease) (16 sources) Patient encounter status; Translations: [Encounter for screening for other suspected endocrine disorder] Episodic Parkinson`s disease (1 source) Parkinson`s disease; Translations: [Parkinson's disease, unspecified whether dyskinesia present, unspecified whether manifestations fluctuate (HCC)] Onset: 08-28-2024 Residual codes; unclassified (18 sources) Insomnia; Translations: [Insomnia, unspecified] 09-13-2005 Episodic Residual codes; unclassified (3 sources) Postmenopausal state; Translations: [Asymptomatic menopausal state] 04-22-2025 Episodic Residual codes; unclassified (4 sources) Detailed recall of dream; Translations: [Other general symptoms and signs] 04-22-2025 Episodic Residual codes; unclassified (1 source) Asymptomatic menopausal state; Translations: [Asymptomatic menopausal state] Onset: 04-22-2025 Episodic Residual codes; unclassified (2 sources) Postoperative state; Translations: [Post-operative state] Onset: 07-05-2020 07-05-2020 Secondary malignancies (8 sources) Malignant tumor involving uterine corpus by direct extension from uterine cervix; Translations: [Secondary malignant neoplasm of genital organs] Onset: 07-05-2020 07-05-2020 Chronic Spondylosis; intervertebral disc disorders; other back problems (1 source) Low back pain; Translations: [Low back pain, unspecified back pain laterality, unspecified chronicity, unspecified whether sciatica present] 06-19-2023 Episodic Superficial injury; contusion (8 sources) Abrasion of left upper arm, initial encounter; Translations: [Abrasion of left upper extremity] 04-29-2024 Episodic Thyroid disorders (18 sources) Hypothyroidism; Translations: [Hypothyroidism, unspecified] Onset: 05-30-2011 05-30-2011 Chronic Unclassified (6 sources) Parkinson's disease; Translations: [Parkinson's disease, unspecified whether dyskinesia present, unspecified whether manifestations fluctuate (HCC)] 07-25-2024 Chronic Unclassified (1 source) Low back pain, unspecified back pain laterality, unspecified chronicity, unspecified whether sciatica present; Translations: [Low back pain, unspecified back pain laterality, unspecified chronicity, unspecified whether sciatica present] Onset: 06-19-2023 Past or Other Problems Problem Classification Problem Date Documented Date Episodic/Chronic Administrative/social admission (18 sources) Person with feared health complaint in whom no diagnosis is made; Translations: [Person with feared complaint in whom no diagnosis was made] Onset: 05-22-2014 05-22-2014 Episodic Other and unspecified benign neoplasm (18 sources) Leiomyoma; Translations: [Benign neoplasm of connective and other soft tissue, unspecified] Onset: 03-10-2011 03-10-2011 Episodic Other connective tissue disease (20 sources) Triggering of digit; Translations: [Trigger finger, right ring finger] Onset: 01-08-2014 01-08-2014 Episodic Other connective tissue disease (20 sources) Pain in limb; Translations: [Pain in unspecified limb] Onset: 10-12-2006 Resolved: 03-10-2011 05-22-2014 Episodic Other connective tissue disease (18 sources) Ganglion cyst of right wrist; Translations: [Ganglion, right wrist] Onset: 12-21-2016 12-21-2016 Episodic Other connective tissue disease (1 source) Repeated falls; Translations: [Recurrent falls] Onset: 08-28-2024 Episodic Other nervous system disorders (18 sources) Sensory disorder; Translations: [Unspecified disturbances of skin sensation] Onset: 05-22-2014 05-22-2014 Episodic Other nervous system disorders (18 sources) Skin sensation disturbance; Translations: [Unspecified disturbances of skin sensation] Onset: 05-22-2014 05-22-2014 Episodic Other nervous system disorders (1 source) Unspecified abnormalities of gait and mobility; Translations: [Abnormality of gait] Onset: 08-28-2024 Episodic Other nutritional; endocrine; and metabolic disorders (17 sources) Weight loss; Translations: [Abnormal weight loss] Onset: 03-10-2011 03-10-2011 Episodic Other nutritional; endocrine; and metabolic disorders (1 source) Weight decreased; Translations: [Abnormal weight loss] Onset: 03-10-2011 03-10-2011 Episodic Results Test Name Value Interpretation Reference Range Facility Internal Medicine Office Vis venkatesh 06-12-2025 Internal Medicine Office Visit [facility] [address] [place] [address] [place], [place] [id number] OFFICE VISIT Date of Service: 06/12/25 MR#: [id number] Acct: [id number] Name: LIZZETH SLADE Rep #: [id number] : [id number] Provider: TI Rabago Age/Sex: 70/F Location: [facility] Status: Signed Intake Vital Signs 04/22/25 09:13 06/12/25 12:45 Height 5 ft 6 in 5 ft 6 in Weight: 157 lb 160 lb 4 oz BMI 25.3 25.8 BP 118/70 118/58 L Blood Pressure Location Lt brachial Lt brachial Position Sitting Sitting Respiration 17 16 Pulse 72 71 Pulse Source Monitor Monitor Temp 98.0 F 97.3 F L Temp Source Temporal Temporal Pulse Oximetry (%) 98 97 Oxygen Delivery Method room air room air Intake Visit Reasons: LEFT KNEE PAIN Chief Complaint: L 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: No Accompanied by: Self Is patient in pain?: Yes Allergies strawberry Allergy (Severe, Verified 06/12/25 12:40) Angioedema oak Allergy (Mild, Verified 06/12/25 12:40) Itching clams Adverse Reaction (Mild, Verified 06/12/25 12:40) Abd cramps/diarrhea clindamycin Adverse Reaction (Mild, Verified 06/12/25 12:40) Nausea Medications ???Medication ???Instructions ???Recorded ???Confirmed ???Type acetaminophen 500 mg tablet 500 mg PO Q6H PRN pain 02/18/21 History (Tylenol Extra Strength) duloxetine 20 mg capsule,delayed 60 mg PO BID 04/09/23 06/12/25 His tory release clonazepam 0.5 mg tablet 0.5 mg PO DAILY 06/04/24 06/12/25 History omeprazole 40 mg capsule,delayed 40 mg PO DAILY #90 caps 07/10/24 0 06/12/25 Rx release clobetasol 0.05 % shampoo 1 applic topical DAILY PRN SKIN 06/12/25 Rx #118 mL amlodipine 10 mg tablet 10 mg PO DAILY #90 tabs 12/09/24 0 06/12/25 Rx hydrocortisone 2.5 % topical cream 1 applic topical BID PRN rash 06/12/25 Rx #28.35 grams atorvastatin 20 mg tablet 20 mg PO QDAY #90 tabs 02/17/25 Rx carbidopa 25 mg-levodopa 100 mg 1.5 tab PO TID 04/22/25 06/12/25 H istory tablet carbidopa ER 50 mg-levodopa 200 mg 1 tab PO QHS 04/22/25 06/12/25 H istory tablet,extended release gabapentin 600 mg tablet 600 mg PO ONCE pain 04/22/2506/12 History meloxicam 15 mg tablet 15 mg PO QDAY #30 tabs 06/12/25 Rx Have you fallen in the past year?: Yes Nurse's Note: 70 year old F patient presents with L knee pain. She says there was no injury to cause the pain. The pain is more medial and during extension with popping/clicking. Says the pain while moving is 7 of 8 out of 10. Pain has been present for 1 month, and has been taking extra strength tylenol for the pain. Patient has a history of arthritis and recenlty diagnosised with parkinson's disease by Dr. Holman at [facility] last year. [facility] Medical History (Updated 06/12/25 @ 13:16 by TI Matthews) Flatulence Vivid dream Medication side effects Post-menopausal Grief reaction Hyperlipidemia Abrasion of left upper extremity Change in skin mole Tremor Frequent falls Esophageal stenosis Wears glasses Cancer Marijuana use Alcohol use Back pain Gastric reflux Smoker Leg cramps Hypertension History of edema History of Holter monitoring History of irregular heartbeat Difficulty swallowing Flu vaccine need Arrhythmia Hearing loss Vitamin D deficiency Borderline type 2 diabetes mellitus Fatigue Macrocytosis Screening for thyroid disorder Abdominal tenderness History of endometrial cancer Health care maintenance Psoriatic arthritis History of suicide attempt Depression Anxiety Neuropathy Arthritis Surgical History S/P hysterectomy History of surgical removal of ganglion cyst Family History Father Anxiety Diabetes Depression Heart disease Mental Disorders Psychiatric care CVA (cerebral vascular accident) Arthritis Sister Anxiety Arthritis Depression Diabetes Heart disease Mental Disorders Psychiatric care Respiratory disease Mother Arthritis Otosclerosis Social History household members: spouse housing: house Smoking Status: Current every day smoker tobacco type: cigarettes alcohol intake: current details: 1-2 glasses substance use type: does not use caffeine: Yes what type of physical activity do you participate in: walking seatbelt use: always do you feel safe at home: Yes additional social history: -Uri HPI HPI Chief Complaint: L Knee Details: LIZZETH SLADE, is a 70 F who presents to the office today for left knee pains for probably around the past month. She does not recall any injury or new activities. She states that she did do a lot of gardening (more content not included)... Normal [facility] Absolute lymphocyte countOrd ered By: Bindu Caldwell on 04-22-2025 Lymphocytes Auto (Unsp spec) [#/Vol] 1.44 10*3/uL 0.83-4.51 [facility] Absolute neutrophil countOrd ered By: Bindu Caldwell on 04-22-2025 Neutrophils (Bld) [#/Vol] 2.9 10*3/uL 2.0-7.7 [facility] Anion gap in Serum or Plasma Ordered By: Bindu Caldwell on 04-22-2025 Anion gap [Moles/Vol] 9 mmol/L 5-15 [facility] Automated lymphocyte count a s percentage of total leukocytesOrdered By: Bindu Caldwell on 04-22-2025 Lymphocytes/100 WBC Auto (Unsp spec) 27.5 % 19-41 [facility] BUN/creatinine ratioOrdered By: Bindu Caldwell on 04-22-2025 Urea nitrogen/Creatinine [Mass ratio] 18.8 mg/mg 10-20 [facility] Basophil percentageOrdered B y: Bindu Caldwell on 04-22-2025 Basophils/100 WBC (Bld) 1.3 % High 0-1 [facility] Bilirubin, totalOrdered By: Bindu Caldwell on 04-22-2025 Bilirubin [Mass/Vol] 0.41 mg/dL 0.00-1.30 [facility] CBC W/Diff, Automatedon 04-05 Absolute Lymph 1.44 X10 3/uL Normal 0.83-4.51 [facility] Comment on above: Performed By: #### L 500.4050, L500.4100, L100.0100, L506.1001, L501.9985 #### [facility] [address] [place], [address] Absolute Neut 2.9 X10 3/uL Normal 2.0-7.7 [facility] Comment on above: Performed By: #### L 500.4050, L500.4100, L100.0100, L506.1001, L501.9985 #### [facility] [address] [place], [address] Basophils/100 WBC (Bld) 1.3 % High 0-1 [facility] Comment on above: Performed By: #### L 500.4050, L500.4100, L100.0100, L506.1001, L501.9985 #### [facility] [address] [place], [address] Eosinophils/100 WBC (Bld) 2.7 % Normal 0-5 [facility] Comment on above: Performed By: #### L 500.4050, L500.4100, L100.0100, L506.1001, L501.9985 #### [facility] [address] [place], [address] Erythrocyte distribution width (RBC) [Ratio] 12.2 % Normal 11.6-14.6 [facility] Comment on above: Performed By: #### L 500.4050, L500.4100, L100.0100, L506.1001, L501.9985 #### [facility] [address] [place], [address] Hematocrit (Bld) [Volume fraction] 40.3 % Normal 37-47 [facility] Comment on above: Performed By: #### L 500.4050, L500.4100, L100.0100, L506.1001, L501.9985 #### [facility] [address] [place], [address] Hemoglobin (Bld) [Mass/Vol] 13.3 g/dL Normal 12.0-15.0 [facility] Comment on above: Performed By: #### L 500.4050, L500.4100, L100.0100, L506.1001, L501.9985 #### [facility] [address] [place], [address] IG% 0.600 Normal 0.0-0.9 [facility] Comment on above: Result Comment: IG% - Immature Granulocytes (promyelocytes, myelocytes and metamyelocytes) > 1% indicates that a LEFT SHIFT is Present. Performed By: #### L 500.4050, L500.4100, L100.0100, L506.1001, L501.9985 #### [facility] [address] [place], [address] Lymphocytes/100 WBC (Bld) 27.5 % Normal 19-41 [facility] Comment on above: Performed By: #### L 500.4050, L500.4100, L100.0100, L506.1001, L501.9985 #### [facility] [address] [place], [address] MCH (RBC) [Entitic mass] 32.2 pg High 27.0-32.0 [facility] Comment on above: Performed By: #### L 500.4050, L500.4100, L100.0100, L506.1001, L501.9985 #### [facility] [address] [place], [address] MCHC (RBC) [Mass/Vol] 33.0 g/dL Normal 32-36 [facility] Comment on above: Performed By: #### L 500.4050, L500.4100, L100.0100, L506.1001, L501.9985 #### [facility] [address] [place], [address] MCV (RBC) [Entitic vol] 97.6 fL Normal 81-99 [facility] Comment on above: Performed By: #### L 500.4050, L500.4100, L100.0100, L506.1001, L501.9985 #### [facility] [address] [place], [address] Monocytes/100 WBC (Bld) 12.0 % High 0-10 [facility] Comment on above: Performed By: #### L 500.4050, L500.4100, L100.0100, L506.1001, L501.9985 #### [facility] [address] [place], [address] Neutrophils/100 WBC (Bld) 55.9 % Normal 47-70 [facility] Comment on above: Performed By: #### L 500.4050, L500.4100, L100.0100, L506.1001, L501.9985 #### [facility] [address] [place], [address] Nucleated RBC (Bld) [#/Vol] 0 10*3/uL Normal 0-5 [facility] Comment on above: Performed By: #### L 500.4050, L500.4100, L100.0100, L506.1001, L501.9985 #### [facility] [address] [place], [address] Platelet mean volume (Bld) [Entitic vol] 10.6 fL Normal 6.2-12.0 [facility] Comment on above: Performed By: #### L 500.4050, L500.4100, L100.0100, L506.1001, L501.9985 #### [facility] [address] [place], [address] Platelets (Bld) [#/Vol] 255 10*3/uL Normal 150-450 [facility] Comment on above: Performed By: #### L 500.4050, L500.4100, L100.0100, L506.1001, L501.9985 #### [facility] [address] [place], [address] RBC (Bld) [#/Vol] 4.13 10*6/uL Low 4.2-5.4 [facility] Comment on above: Performed By: #### L 500.4050, L500.4100, L100.0100, L506.1001, L501.9985 #### [facility] [address] [place], [address] RDW SD 43.8 fl Normal 35.1-43.9 [facility] Comment on above: Performed By: #### L 500.4050, L500.4100, L100.0100, L506.1001, L501.9985 #### [facility] [address] [place], [address] WBC (Bld) [#/Vol] 5.2 10*3/uL Normal 4.4-11.0 [facility] Comment on above: Performed By: #### L 500.4050, L500.4100, L100.0100, L506.1001, L501.9985 #### [facility] [address] [place], [address] Calculated very low density lipoprotein (VLDL) cholesterol measurementOrdered By: Bindu Caldwell on 04-22-2025 Calculated very low density lipoprotein (VLDL) cholesterol measurement 18 mg/dL 5-40 [facility] Carbon dioxide, total [Moles /volume] in Central venous bloodOrdered By: Bindu Caldwell on 04-22-2025 CO2 [Moles/Vol] 25.4 mmol/L 21.0-32.0 [facility] Chloride assayOrdered By: Kash Caldwell on 04-22-2025 Chloride [Moles/Vol] 104 mmol/L 98-108 [facility] Comprehensive Metabolic Prof ilon 04-22-2025 Albumin [Mass/Vol] 4.3 g/dL Normal 3.4-4.8 [facility] Comment on above: Performed By: #### L 500.4050, L500.4100, L100.0100, L506.1001, L501.9985 #### [facility] [address] [place], [address] Albumin/Globulin [Mass ratio] 1.6 {ratio} Normal 0.9-2.4 [facility] Comment on above: Performed By: #### L 500.4050, L500.4100, L100.0100, L506.1001, L501.9985 #### [facility] [address] [place], [address] ALK PHOS 159 U/L High 35-104 [facility] Comment on above: Performed By: #### L 500.4050, L500.4100, L100.0100, L506.1001, L501.9985 #### [facility] [address] [place], [address] ALT [Catalytic activity/Vol] 9 U/L Normal <=34 [facility] Comment on above: Performed By: #### L 500.4050, L500.4100, L100.0100, L506.1001, L501.9985 #### [facility] [address] [place], [address] AST [Catalytic activity/Vol] 46 U/L High <=31 [facility] Comment on above: Performed By: #### L 500.4050, L500.4100, L100.0100, L506.1001, L501.9985 #### [facility] [address] [place], [address] Bilirubin [Mass/Vol] 0.41 mg/dL Normal 0.00-1.30 [facility] Comment on above: Performed By: #### L 500.4050, L500.4100, L100.0100, L506.1001, L501.9985 #### [facility] [address] [place], [address] BUN/CRE 18.8 RATIO Normal 10-20 [facility] Comment on above: Performed By: #### L 500.4050, L500.4100, L100.0100, L506.1001, L501.9985 #### [facility] [address] [place], [address] Calcium [Mass/Vol] 9.4 mg/dL Normal 7.6-11.0 [facility] Comment on above: Performed By: #### L 500.4050, L500.4100, L100.0100, L506.1001, L501.9985 #### [facility] [address] [place], [address] Chloride [Moles/Vol] 104 mmol/L Normal 98-108 [facility] Comment on above: Performed By: #### L 500.4050, L500.4100, L100.0100, L506.1001, L501.9985 #### [facility] [address] [place], [address] CO2 [Moles/Vol] 25.4 mmol/L Normal 21.0-32.0 [facility] Comment on above: Performed By: #### L 500.4050, L500.4100, L100.0100, L506.1001, L501.9985 #### [facility] [address] [place], [address] Creatinine [Mass/Vol] 0.70 mg/dL Normal 0.70-1.20 [facility] Comment on above: Performed By: #### L 500.4050, L500.4100, L100.0100, L506.1001, L501.9985 #### [facility] [address] [place], [address] GAP 9 Normal 5-15 [facility] Comment on above: Performed By: #### L 500.4050, L500.4100, L100.0100, L506.1001, L501.9985 #### [facility] [address] [place], [address] GFR/1.73 sq M.predicted among non-blacks MDRD (S/P/Bld) [Vol rate/Area] 94 mL/min/{1.73_m2} Normal >60 [facility] Comment on above: Result Comment: mL/m in/1.73m2 CKD-EPI Creatinine Equation (2020) Performed By: #### L 500.4050, L500.4100, L100.0100, L506.1001, L501.9985 #### [facility] [address] [place], [address] Globulin (S) [Mass/Vol] 2.7 g/dL Normal 2.2-4.2 [facility] Comment on above: Performed By: #### L 500.4050, L500.4100, L100.0100, L506.1001, L501.9985 #### [facility] [address] [place], [address] Glucose [Mass/Vol] 87 mg/dL Normal 70-99 [facility] Comment on above: Performed By: #### L 500.4050, L500.4100, L100.0100, L506.1001, L501.9985 #### [facility] [address] [place], [address] Potassium [Moles/Vol] 4.5 mmol/L Normal 3.3-5.1 [facility] Comment on above: Performed By: #### L 500.4050, L500.4100, L100.0100, L506.1001, L501.9985 #### [facility] [address] [place], [address] Sodium [Moles/Vol] 139 mmol/L Normal 133-145 [facility] Comment on above: Performed By: #### L 500.4050, L500.4100, L100.0100, L506.1001, L501.9985 #### [facility] [address] [place], [address] T PROT 7.1 g/dL Normal 5.9-8.4 [facility] Comment on above: Performed By: #### L 500.4050, L500.4100, L100.0100, L506.1001, L501.9985 #### [facility] [address] [place], [address] Urea nitrogen [Mass/Vol] 13 mg/dL Normal 4-19 [facility] Comment on above: Performed By: #### L 500.4050, L500.4100, L100.0100, L506.1001, L501.9985 #### [facility] [address] [place], [address] Eosinophil percentageOrdered By: Bindu Caldwell on 04-22-2025 Eosinophils/100 WBC (Bld) 2.7 % 0-5 [facility] Erythrocyte distribution wid th ratioOrdered By: Bindu Caldwell on 04-22-2025 Erythrocyte distribution width (RBC) [Ratio] 12.2 % 11.6-14.6 [facility] Erythrocyte distribution wid th standard deviationOrdered By: Bindu Caldwell on 04-22-2025 Erythrocyte distribution width (RBC) [Ratio] 43.8 fl 35.1-43.9 [facility] Glomerular filtration rate ( GFR) estimation/1.73 sq m using serum, plasma, or whole bOrdered By: Bindu Caldwell on 04-22-2025 GFR/1.73 sq M.predicted among non-blacks MDRD (S/P/Bld) [Vol rate/Area] 94 mL/min/{1.73_m2} >60 [facility] Comment on above: mL/min/1.73m2 CKD-EP I Creatinine Equation (2020) Hematocrit Auto (Bld) [Volum e fraction]Ordered By: Bindu Caldwell on 04-22-2025 Hematocrit (Bld) [Volume fraction] 40.3 % 37-47 [facility] Hemoglobin A1con 04-22-2025 HbA1c (Bld) [Mass fraction] 5.9 % High <=5.6 [facility] Comment on above: Result Comment: Norm al < 5.7 % Prediabetic 5.7 - 6.4 % Diabetic >or= 6.5 % Please note range changes. Performed By: #### L 500.4050, L500.4100, L100.0100, L506.1001, L501.9985 #### [facility] [place], [address] Hemoglobin A1c percentageOrd ered By: Bindu Caldwell on 04-22-2025 HbA1c (Bld) [Mass fraction] 5.9 % High <5.7 [facility] Comment on above: Normal < 5.7 % Predi abetic 5.7 - 6.4 % Diabetic >or= 6.5 % Please note range changes. Hemoglobin measurementOrdere d By: Bindu Caldwell on 04-22-2025 Hemoglobin (Bld) [Mass/Vol] 13.3 g/dL 12.0-15.0 [facility] Immature granulocytes/100 WB C Auto (Bld)Ordered By: Bindu Caldwell on 04-22-2025 Immature granulocytes/100 WBC (Bld) 0.600 % 0.0-0.9 [facility] Comment on above: IG% - Immature Granu locytes (promyelocytes, myelocytes and metamyelocytes) > 1% indicates that a LEFT SHIFT is Present. Internal Medicine Office Vis venkatesh 04-22-2025 Internal Medicine Office Visit [facility] [address] [place] [address] [place] [address] OFFICE VISIT Date of Service: 04/22/25 MR#: [id number] Acct: [id number] Name: LIZZETH SLADE Rep #: [id number] : 1955 Provider: Dr. Bindu campbell MD Age/Sex: 69/F Location: [facility] Status: Signed Intake Vital Signs 01/07/25 10:26 04/22/25 09:13 Height 5 ft 6 in 5 ft 6 in Weight: 157 lb BMI 25.3 BP 118/70 Blood Pressure Location Lt brachial Position Sitting Respiration 17 Pulse 72 Pulse Source Monitor Temp 98.0 F Temp Source Temporal Pulse Oximetry (%) 98 Oxygen Delivery Method room air Intake Visit Reasons: 3 M FU Chief Complaint: 3 M FU Is patient in pain?: No Allergies strawberry Allergy (Severe, Verified 04/22/25 09:14) Angioedema oak Allergy (Mild, Verified 04/22/25 09:14) Itching clams Adverse Reaction (Mild, Verified 04/22/25 09:14) Abd cramps/diarrhea clindamycin Adverse Reaction (Mild, Verified 04/22/25 09:14) Nausea Medications ???Medication ???Instructions ???Recorded ???Confirmed ???Type acetaminophen 500 mg tablet 500 mg PO Q6H PRN pain 02/18/21 History (Tylenol Extra Strength) duloxetine 20 mg capsule,delayed 60 mg PO BID 04/09/23 04/22/25 His tory release clonazepam 0.5 mg tablet 0.5 mg PO DAILY 06/04/24 04/22/25 History omeprazole 40 mg capsule,delayed 40 mg PO DAILY #90 caps 07/10/24 0 04/22/25 Rx release clobetasol 0.05 % shampoo 1 applic topical DAILY PRN SKIN 04/22/25 Rx #118 mL amlodipine 10 mg tablet 10 mg PO DAILY #90 tabs 12/09/24 0 04/22/25 Rx hydrocortisone 2.5 % topical cream 1 applic topical BID PRN rash 04/22/25 Rx #28.35 grams atorvastatin 20 mg tablet 20 mg PO QDAY #90 tabs 02/17/25 Rx carbidopa 25 mg-levodopa 100 mg 1.5 tab PO TID 04/22/25 04/22/25 H istory tablet carbidopa ER 50 mg-levodopa 200 mg 1 tab PO QHS 04/22/25 04/22/25 H istory tablet,extended release gabapentin 600 mg tablet 600 mg PO ONCE pain 04/22/25 Hist ory Have you fallen in the past year?: Yes (x1) [facility] Medical History (Updated 04/22/25 @ 20:[address] Bindu Caldwell MD) Flatulence Vivid dream Medication side effects Post-menopausal Grief reaction Hyperlipidemia Abrasion of left upper extremity Change in skin mole Tremor Frequent falls Esophageal stenosis Wears glasses Cancer Marijuana use Alcohol use Back pain Gastric reflux Smoker Leg cramps Hypertension History of edema History of Holter monitoring History of irregular heartbeat Difficulty swallowing Flu vaccine need Arrhythmia Hearing loss Vitamin D deficiency Borderline type 2 diabetes mellitus Fatigue Macrocytosis Screening for thyroid disorder Abdominal tenderness History of endometrial cancer Health care maintenance Psoriatic arthritis History of suicide attempt Depression Anxiety Neuropathy Arthritis Surgical History S/P hysterectomy History of surgical removal of ganglion cyst Family History Father Anxiety Diabetes Depression Heart disease Mental Disorders Psychiatric care CVA (cerebral vascular accident) Arthritis Sister Anxiety Arthritis Depression Diabetes Heart disease Mental Disorders Psychiatric care Respiratory disease Mother Arthritis Otosclerosis Social History household members: spouse housing: house Smoking Status: Current every day smoker tobacco type: cigarettes alcohol intake: current details: 1-2 glasses substance use type: does not use caffeine: Yes what type of physical activity do you participate in: walking seatbelt use: always do you feel safe at home: Yes additional social history: -Uri [facility] HPI Chief Complaint: 3 M FU Details: Lizzeth Slade is a 69-year-old female presenting with fatigue, unsteadiness on feet, and medication side effects following an increased dose of Carbidopa/Levodopa. The patient reports increased fatigue since her neurologist, Dr. Holman, adjusted her Carbidopa/Levodopa dosage last week. She recalls experiencing similar symptoms when initially prescribed the medication a year ago, including tiredness and gastrointestinal discomfort. The adjustment was made to address her unsteadiness, particularly in the mornings, and weakness in her left arm and hand. The patient has not yet noticed any improvement in these symptoms. Additionally, she experiences vivid dreams, which have persisted for several months, though she is uncertain if they are related to her medication. Gastrointestinal issues include frequent gas, which she finds embarrassing, but not painful. (more content not included)... Normal [facility] LDL calc ser/plasOrdered By: Bindu Caldwell on 04-22-2025 Cholesterol in LDL [Mass/Vol] 94 mg/dL [facility] Comment on above: Nfzjfjplru=443-505 m g/dL & Higher Pmpp=658 mg/dL or greater Laboratory - Chemistry and C hemistry - challengeOrdered By: Bindu Caldwell on 04-22-2025 AST [Catalytic activity/Vol] 46 U/L High <32 [facility] Lipid Profileon 04-22-2025 CHOL:HDL 3.15 Normal [facility] Comment on above: Performed By: #### L 500.4050, L500.4100, L100.0100, L506.1001, L501.9985 ####[facility] [address] [place], [address] Cholesterol [Mass/Vol] 164 mg/dL Normal <=200 [facility] Comment on above: Result Comment: Chol esterol level, Desirable <200 mg/dL Borderline high cholesterol 200-239 mg/dL High cholesterol >=240 mg/dL Recommendations of the NCEP Adult Treatment Panel for the following risk-cutoff thresholds for the [place] population. Performed By: #### L 500.4050, L500.4100, L100.0100, L506.1001, L501.9985 ####[facility] [address] [place], [address] Cholesterol in HDL [Mass/Vol] 52 mg/dL Normal [facility] Comment on above: Result Comment: Jossy onal Cholesterol Education Program (NCEP) guidelines: <40 mg/dL: Low HDL-cholesterol (major risk factor for CHD) >= 60 mg/dL: High HDL-cholesterol (negative risk factor for CHD) HDL-cholesterol is affected by a number of factors, e.g. smoking, exercise, hormones, sex and age. Performed By: #### L 500.4050, L500.4100, L100.0100, L506.1001, L501.9985 ####[facility] [address] [place], [address] Cholesterol in LDL [Mass/Vol] 94 mg/dL Normal [facility] Comment on above: Result Comment: Bord nrwrxt=535-537 mg/dL Higher Bmdn=316 mg/dL or greater Performed By: #### L 500.4050, L500.4100, L100.0100, L506.1001, L501.9985 ####[facility] [address] [place], [address] Cholesterol in VLDL [Mass/Vol] 18 mg/dL Normal 5-40 [facility] Comment on above: Performed By: #### L 500.4050, L500.4100, L100.0100, L506.1001, L501.9985 ####[facility] [address] [place], [address] Triglyceride [Mass/Vol] 91 mg/dL Normal [facility] Comment on above: Result Comment: The drugs N-Acetylcysteine and Metamizole may falsely depress this assay. Normal range: <150 mg/dL Borderline High: 150-199 mg/dL High: 200-499 mg/dL Very High: >500 mg/dL Performed By: #### L 500.4050, L500.4100, L100.0100, L506.1001, L501.9985 ####[facility] [address] [place], [address] MCV (mean corpuscular volume ) determinationOrdered By: Bindu Caldwell on 04-22-2025 MCV (RBC) [Entitic vol] 97.6 fL 81-99 [facility] Mean corpuscular hemoglobin (MCH) determinationOrdered By: Bindu Caldwell on 04-22-2025 MCH (RBC) [Entitic mass] 32.2 pg High 27.0-32.0 [facility] Mean corpuscular hemoglobin concentration (MCHC) determinationOrdered By: Bindu Caldwell on 04-22-2025 MCHC (RBC) [Mass/Vol] 33.0 g/dL 32-36 [facility] Mean platelet volume determi nationOrdered By: Bindu Caldwell on 04-22-2025 Platelet mean volume (Bld) [Entitic vol] 10.6 fL 6.2-12.0 [facility] Monocyte percentageOrdered B y: Bindu Caldwell on 04-22-2025 Monocytes/100 WBC (Bld) 12.0 % High 0-10 [facility] Neutrophil percentageOrdered By: Bindu Caldwell on 04-22-2025 Neutrophils/100 WBC (Bld) 55.9 % 47-70 [facility] Nucleated red blood cell per centageOrdered By: Bindu Caldwell on 04-22-2025 Nucleated RBC/100 WBC (Bld) [Ratio] 0 % 0-5 [facility] Platelet countOrdered By: Kash Caldwell on 04-22-2025 Platelets (Bld) [#/Vol] 255 10*3/uL 150-450 [facility] Potassium measurement (mass/ volume)Ordered By: Bindu Caldwell on 04-22-2025 Potassium (Unsp spec) [Mass/Vol] 4.5 mmol/L 3.3-5.1 [facility] RBC Auto (Bld) [#/Vol]Ordere d By: Bindu Caldwell on 04-22-2025 RBC (Bld) [#/Vol] 4.13 10*6/uL Low 4.2-5.4 [facility] Screening total cholesterol/ high density lipoprotein (HDL) cholesterol ratioOrdered By: Bindu Caldwell on 04-22-2025 Cholesterol.total/Grisel sterol in HDL [Mass ratio] 3.15 {ratio} [facility] Serum creatinine measurement (mass/volume)Ordered By: Bindu Caldwell on 04-22-2025 Creatinine [Mass/Vol] 0.70 mg/dL 0.70-1.20 [facility] Serum globulin measurementOr dered By: Bindu Caldwell on 04-22-2025 Globulin (S) [Mass/Vol] 2.7 g/dL 2.2-4.2 [facility] [facility] Serum glucose measurement (m ass/volume)Ordered By: Bindu Caldwell on 04-22-2025 Glucose [Mass/Vol] 87 mg/dL 70-99 [facility] Serum or plasma alanine savage otransferase (ALT) measurementOrdered By: Bindu Caldwell on 04-22-2025 ALT [Catalytic activity/Vol] 9 U/L <35 [facility] Serum or plasma albumin elefgo urement (mass/volume)Ordered By: Bindu Caldwell on 04-22-2025 Albumin [Mass/Vol] 4.3 g/dL 3.4-4.8 [facility] Serum or plasma albumin/glob ulin mass ratioOrdered By: Bindu Caldwell on 04-22-2025 Albumin/Globulin [Mass ratio] 1.6 {ratio} 0.9-2.4 [facility] Serum or plasma alkaline juan josé sphatase measurementOrdered By: Bindu Caldwell on 04-22-2025 ALP [Catalytic activity/Vol] 159 U/L High 35-104 [facility] Serum or plasma calcium elfego urement (mass/volume)Ordered By: Bindu Caldwell on 04-22-2025 Calcium [Mass/Vol] 9.4 mg/dL 7.6-11.0 [facility] Serum or plasma cholesterol in HDL measurement (mass/volume)Ordered By: Bindu Caldwell on 04-22-2025 Cholesterol in HDL [Mass/Vol] 52 mg/dL >40 [facility] Comment on above: National Cholesterol Education Program (NCEP) guidelines:<40 mg/dL: Low HDL-cholesterol (major risk factor for CHD)>= 60 mg/dL: High HDL-cholesterol (negative risk factor for CHD)HDL-cholesterol is affected by a number of factors, e.g. smoking, exercise, hormones, sex and age. Serum or plasma cholesterol measurement (mass/volume)Ordered By: Bindu Caldwell on 04-22-2025 Cholesterol [Mass/Vol] 164 mg/dL <201 [facility] Comment on above: Cholesterol level, D esirable <200 mg/dLBorderline high cholesterol 200-239 mg/dLHigh cholesterol >=240 mg/dLRecommendations of the NCEP Adult Treatment Panel for the following risk-cutoff thresholds for the [place] population. Serum or plasma urea nitroge n measurement (mass/volume)Ordered By: Bindu Caldwell on 04-22-2025 Urea nitrogen [Mass/Vol] 13 mg/dL 4-19 [facility] Sodium levelOrdered By: Naye burnettekatielucho Caldwell on 04-22-2025 Sodium [Moles/Vol] 139 mmol/L 133-145 [facility] Total proteinOrdered By: Garrett Caldwell on 04-22-2025 Protein [Mass/Vol] 7.1 g/dL 5.9-8.4 [facility] Triglycerides measurementOrd ered By: Bindu Caldwell on 04-22-2025 Triglyceride [Mass/Vol] 91 mg/dL <199 [facility] Comment on above: The drugs N-Acetylcy steine and Metamizole may falsely depress this assay. Normal range: <150 mg/dLBorderline High: 150-199 mg/dLHigh: 200-499 mg/dLVery High: >500 mg/dL Vitamin D,25 Hydroxyon 04-22 Vitamin D 25-OH 14.8 ng/mL Low 30-100 [facility] Comment on above: Result Comment: Kary min D Status Deficiency: <20 ng/mL (50nmol/L) Insufficiency: 20-30 ng/mL (50-75 nmol/L) Sufficiency: 30-100 ng/mL (75-250 nmol/L) Toxicity: >100 ng/mL (>250 nmol/L) Performed By: #### L 500.4050, L500.4100, L100.0100, L506.1001, L501.9985 ####[facility] [address] [place], [address] White blood cell (WBC) count Ordered By: Bindu Caldwell on 04-22-2025 WBC (Bld) [#/Vol] 5.2 10*3/uL 4.4-11.0 [facility] CNOVon 04-17-2025 CNOV Office Visit (MARY ANN ) ----- LIZZETH SLADE ([id number]) 1955 F Date Time Provider Department 04/17/25 10:20 AM FEMI HOLMAN JR During your visit today, we recorded the following information about you: Pulse Respiration Blood pressure Weight 90/minute 16/minute 128/80 70.6 kg Femi Holman Jr., MD 04/17/2025 11:01 AM Signed ESTABLISHED PATIENT VISIT CHIEF COMPLAINT: Follow Up HISTORY OF PRESENT ILLNESS: Lizzeth Slade is a 69 year old female, BMI 25.11 kg/m2 with a PMH significant for and per last visit of 10/17/24: 1. Parkinson's disease, unspecified whether dyskinesia present, unspecified whether manifestations fluctuate ([facility]) - ICD9: 332.0, ICD10: G20.A1 Overall patient doing well on Sinemet 25/100mg TID with meals as above with no side effects, and definite improvements on neurologic examination. Still room for further improvement. Discussed with patient and will try to further increase Sinemet to 1.5 tablets with breakfast, lunch and dinner. Again reviewed possible SE and ADRs with patient. Encouraged exercise.Discussed therapy programs. Patient will contact us immediately if any difficulties tolerating higher dose of Sinemet. Patient reports a little better since increase in Sinemet. No falls. However still feels unsteady on feet. Most unsteady first thing in the AM. States is having some discomfort in the legs at night. Feels tone more increased later at night around bedtime at 10PM - about 4 hours after last dose of Sinemet. No tremors. No constipation. Hands occasionally feel cramped up. In a PD class weekly for therapy. REVIEW OF SYSTEMS GENERAL:No weight loss, malaise or fevers. HEENT:Negative for frequent or significant headaches, No changes in hearing or vision, no nose bleeds or other nasal problems NECK:Negative for lumps, goiter, pain and significant neck swelling RESPIRATORY: Negative for cough, wheezing or shortness of breath. CARDIOVASCULAR: Negative for chest pain, leg swelling or palpitations. GASTROINTESTINAL: Negative for abdominal discomfort, blood in stools or black stools or change in bowel habits GENITOURINARY: No history of dysuria, frequency or incontinence MUSCULOSKELETAL: Negative for joint pain or swelling, back pain or muscle pain. NEUROLOGIC:Negative for focal numbness or weakness, headaches and dizziness or syncope, vision changes, speech/languag changes - EXCEPT that as per HPI above. LAB/IMAGING: Those performed since patient's last visit have been reviewed. WBC (k/uL) Date Value 01/29/2024 5.46 RBC (m/uL) Date Value 01/29/2024 4.10 Hemoglobin (g/dL) Date Value 01/29/2024 13.6 Hematocrit (%) Date Value 01/29/2024 42.2 MCV (fL) Date Value 01/29/2024 102.9 (H) MCH (pg) Date Value 01/29/2024 33.2 MCHC (g/dL) Date Value 01/29/2024 32.2 RDW-CV (%) Date Value 01/29/2024 13.3 Platelet Count (k/uL) Date Value 01/29/2024 319 MPV (fL) Date Value 01/29/2024 10.2 Glucose (mg/dL) Date Value 01/29/2024 75 BUN (mg/dL) Date Value 01/29/2024 14 Creatinine (mg/dL) Date Value 01/29/2024 0.67 Sodium (mmol/L) Date Value 01/29/2024 138 Potassium (mmol/L) Date Value 01/29/2024 4.1 Chloride (mmol/L) Date Value 01/29/2024 102 CO2 (mmol/L) Date Value 01/29/2024 25 Protein, Total (g/dL) Date Value 01/29/2024 7.2 Albumin (g/dL) Date Value 01/29/2024 4.5 Calcium, Total (mg/dL) Date Value 01/29/2024 9.4 Alkaline Phosphatase (U/L) Date Value 01/29/2024 153 (H) Bilirubin, Total (mg/dL) Date Value 01/29/2024 0.6 AST (U/L) Date Value 01/29/2024 42 (H) ALT (U/L) Date Value 01/29/2024 12 MEDICATIONS: atorvastatin (LIPITOR) 20 mg tablet Take 20 mg by mouth once daily. carbidopa-levodopa (SINEMET) 25-100 mg per tablet Take 1.5 tab with breakfast, lunch and dinner (about 4-5 hours apart). omeprazole (PRILOSEC) 40 mg capsule Take 40 mg by mouth once daily. folic acid 1 mg tablet Take 2 tablets by mouth once daily. amLODIPine (NORVASC) 10 mg tablet Take 10 mg by mouth once daily. acetaminophen (TYLENOL EXTRA STRENGTH) 500 mg tablet Take 500 mg by mouth twice daily as needed. Clobetasol Propionate 0.05 % sham Apply to affected area. hydrocortisone 2.5 % cream Apply to affected area. gabapentin (NEURONTIN) 600 mg tablet Take 1-2 tablets (600mg to 1200mg) in the morning, 2 tablets (1200mg) at noon, and 2 tablets (1200mg) at bedtime. (Patient taking differently: Take 600 mg by mouth daily at bedtime.) DULoxetine (CYMBALTA) 20 mg capsule Take 60 mg by mouth once daily. clonazePAM (KLONOPIN) 0.5 mg tablet Take 1 tablet by mouth daily at bedtime. methotrexate 2.5 mg tablet Take 8 tablets by mouth one time a week. (Patient not taking: Reported on 04/17/2025) HISTORIES PAST MEDICAL HISTORY Diagnosis Date Depressive disorder, not elsewhere classified Excessive or f (more content not included)... Normal [facility] Anion gap in Serum or Plasma Ordered By: Bindu Caldwell on 02-16-2025 Anion gap [Moles/Vol] 10 mmol/L 5-15 [facility] BUN/creatinine ratioOrdered By: Bindu Caldwell on 02-16-2025 Urea nitrogen/Creatinine [Mass ratio] 12.5 mg/mg 10-20 [facility] Bilirubin, totalOrdered By: Bindu Caldwell on 02-16-2025 Bilirubin [Mass/Vol] 0.49 mg/dL 0.00-1.30 [facility] Carbon dioxide, total [Moles /volume] in Central venous bloodOrdered By: Bindu Caldwell on 02-16-2025 CO2 [Moles/Vol] 25.4 mmol/L 21.0-32.0 [facility] Chloride assayOrdered By: Kash Caldwell on 02-16-2025 Chloride [Moles/Vol] 103 mmol/L 98-108 [facility] Comprehensive Metabolic Prof ilon 02-16-2025 Albumin [Mass/Vol] 4.5 g/dL Normal 3.4-4.8 [facility] Comment on above: Performed By: #### L 500.4050 ####[facility] [address] [place], [address] Albumin/Globulin [Mass ratio] 1.6 {ratio} Normal 0.9-2.4 [facility] Comment on above: Performed By: #### L 500.4050 ####[facility] [address] [place], [address] ALK PHOS 159 U/L High 35-104 [facility] Comment on above: Performed By: #### L 500.4050 ####[facility] [address] [place], [address] ALT [Catalytic activity/Vol] 7 U/L Normal <=34 [facility] Comment on above: Performed By: #### L 500.4050 ####[facility] [address] [place], [address] AST [Catalytic activity/Vol] 45 U/L High <=31 [facility] Comment on above: Performed By: #### L 500.4050 ####[facility] [address] [place], [address] Bilirubin [Mass/Vol] 0.49 mg/dL Normal 0.00-1.30 [facility] Comment on above: Performed By: #### L 500.4050 ####[facility] [address] [place], [address] BUN/CRE 12.5 RATIO Normal 10-20 [facility] Comment on above: Performed By: #### L 500.4050 ####[facility] [address] [place], [address] Calcium [Mass/Vol] 9.5 mg/dL Normal 7.6-11.0 [facility] Comment on above: Performed By: #### L 500.4050 ####[facility] [address] [place], [address] Chloride [Moles/Vol] 103 mmol/L Normal 98-108 [facility] Comment on above: Performed By: #### L 500.4050 ####[facility] [address] [place], [address] CO2 [Moles/Vol] 25.4 mmol/L Normal 21.0-32.0 [facility] Comment on above: Performed By: #### L 500.4050 ####[facility] [address] [place], [address] Creatinine [Mass/Vol] 0.76 mg/dL Normal 0.70-1.20 [facility] Comment on above: Performed By: #### L 500.4050 ####[facility] [address] [place], [address] GAP 10 Normal 5-15 [facility] Comment on above: Performed By: #### L 500.4050 ####[facility] [address] [place], [address] GFR/1.73 sq M.predicted among non-blacks MDRD (S/P/Bld) [Vol rate/Area] 86 mL/min/{1.73_m2} Normal >60 [facility] Comment on above: Result Comment: mL/m in/1.73m2 CKD-EPI Creatinine Equation (2020) Performed By: #### L 500.4050 ####[facility] [address] [place], [address] Globulin (S) [Mass/Vol] 2.8 g/dL Normal 2.2-4.2 [facility] Comment on above: Performed By: #### L 500.4050 ####[facility] [address] [place], [address] Glucose [Mass/Vol] 104 mg/dL High 70-99 [facility] Comment on above: Performed By: #### L 500.4050 ####[facility] [address] [place], [address] Potassium [Moles/Vol] 4.2 mmol/L Normal 3.3-5.1 [facility] Comment on above: Performed By: #### L 500.4050 ####[facility] [address] [place], [address] Sodium [Moles/Vol] 139 mmol/L Normal 133-145 [facility] Comment on above: Performed By: #### L 500.4050 ####[facility] [address] [place], [address] T PROT 7.3 g/dL Normal 5.9-8.4 [facility] Comment on above: Performed By: #### L 500.4050 ####[facility] [address] [place], [address] Urea nitrogen [Mass/Vol] 9 mg/dL Normal 4-19 [facility] Comment on above: Performed By: #### L 500.4050 ####[facility] [address] [place], [address] Glomerular filtration rate ( GFR) estimation/1.73 sq m using serum, plasma, or whole bOrdered By: Bindu Caldwell on 02-16-2025 GFR/1.73 sq M.predicted among non-blacks MDRD (S/P/Bld) [Vol rate/Area] 86 mL/min/{1.73_m2} >60 [facility] Comment on above: mL/min/1.73m2 CKD-EP I Creatinine Equation (2020) Laboratory - Chemistry and C hemistry - challengeOrdered By: Bindu Caldwell on 02-16-2025 AST [Catalytic activity/Vol] 45 U/L High <32 [facility] Potassium measurement (mass/ volume)Ordered By: Bindu Caldwell on 02-16-2025 Potassium (Unsp spec) [Mass/Vol] 4.2 mmol/L 3.3-5.1 [facility] Serum creatinine measurement (mass/volume)Ordered By: Bindu Caldwell on 02-16-2025 Creatinine [Mass/Vol] 0.76 mg/dL 0.70-1.20 [facility] Serum globulin measurementOr dered By: Bindu Caldwell on 02-16-2025 Globulin (S) [Mass/Vol] 2.8 g/dL 2.2-4.2 [facility] Serum glucose measurement (m ass/volume)Ordered By: Bindu Caldwell 02-16-2025 Glucose [Mass/Vol] 104 mg/dL High 70-99 [facility] Serum or plasma alanine savage otransferase (ALT) measurementOrdered By: Bindu Caldwell 02-16-2025 ALT [Catalytic activity/Vol] 7 U/L <35 [facility] Serum or plasma albumin elfego urement (mass/volume)Ordered By: Bindu Caldwell 02-16-2025 Albumin [Mass/Vol] 4.5 g/dL 3.4-4.8 [facility] Serum or plasma albumin/glob ulin mass ratioOrdered By: Bindu Caldwell 02-16-2025 Albumin/Globulin [Mass ratio] 1.6 {ratio} 0.9-2.4 [facility] Serum or plasma alkaline juan josé sphatase measurementOrdered By: Bindu Caldwell on 02-16-2025 ALP [Catalytic activity/Vol] 159 U/L High 35-104 [facility] Serum or plasma calcium elfego urement (mass/volume)Ordered By: Bindu Caldwell on 02-16-2025 Calcium [Mass/Vol] 9.5 mg/dL 7.6-11.0 [facility] Serum or plasma urea nitroge n measurement (mass/volume)Ordered By: Bindu Caldwell on 02-16-2025 Urea nitrogen [Mass/Vol] 9 mg/dL 4-19 [facility] Sodium levelOrdered By: Naye Caldwell on 02-16-2025 Sodium [Moles/Vol] 139 mmol/L 133-145 [facility] Total proteinOrdered By: Garrett Caldwell on 02-16-2025 Protein [Mass/Vol] 7.3 g/dL 5.9-8.4 [facility] Anion gap in Serum or Plasma Ordered By: Bindu Caldwell on 01-07-2025 Anion gap [Moles/Vol] 15 mmol/L 5-15 [facility] BUN/creatinine ratioOrdered By: Bindu Caldwell on 01-07-2025 Urea nitrogen/Creatinine [Mass ratio] 21.8 mg/mg High 10-20 [facility] Bilirubin, totalOrdered By: Bindu Caldwell on 01-07-2025 Bilirubin [Mass/Vol] 0.37 mg/dL 0.00-1.30 [facility] Calculated very low density lipoprotein (VLDL) cholesterol measurementOrdered By: Bindu Caldwell on 01-07-2025 Calculated very low density lipoprotein (VLDL) cholesterol measurement 19 mg/dL 5-40 [facility] VLDL Cholesterol 19 mg/dL 5-40 [facility] Carbon dioxide, total [Moles /volume] in Central venous bloodOrdered By: Bindu Caldwell on 01-07-2025 CO2 [Moles/Vol] 22.0 mmol/L 21.0-32.0 [facility] Chloride assayOrdered By: Kash Caldwell on 01-07-2025 Chloride [Moles/Vol] 102 mmol/L 98-108 [facility] Comprehensive Metabolic Prof ilon 01-07-2025 Albumin [Mass/Vol] 4.5 g/dL Normal 3.4-4.8 [facility] Comment on above: Performed By: #### L 500.4100, L500.4050, L501.9985 #### [facility] [address] [place], [address] Albumin/Globulin [Mass ratio] 1.5 {ratio} Normal 0.9-2.4 [facility] Comment on above: Performed By: #### L 500.4100, L500.4050, L501.9985 #### [facility] [address] [place], [address] ALK PHOS 154 U/L High 35-104 [facility] Comment on above: Performed By: #### L 500.4100, L500.4050, L501.9985 #### [facility] [address] [place], [address] ALT [Catalytic activity/Vol] 30 U/L Normal <=34 [facility] Comment on above: Performed By: #### L 500.4100, L500.4050, L501.9985 #### [facility] [address] [place], [address] AST [Catalytic activity/Vol] 58 U/L High <=31 [facility] Comment on above: Performed By: #### L 500.4100, L500.4050, L501.9985 #### [facility] [address] [place], [address] Bilirubin [Mass/Vol] 0.37 mg/dL Normal 0.00-1.30 [facility] Comment on above: Performed By: #### L 500.4100, L500.4050, L501.9985 #### [facility] [address] [place], [address] BUN/CRE 21.8 RATIO High 10-20 [facility] Comment on above: Performed By: #### L 500.4100, L500.4050, L501.9985 #### [facility] [address] [place], [address] Calcium [Mass/Vol] 9.6 mg/dL Normal 7.6-11.0 [facility] Comment on above: Performed By: #### L 500.4100, L500.4050, L501.9985 #### [facility] [address] [place], [address] Chloride [Moles/Vol] 102 mmol/L Normal 98-108 [facility] Comment on above: Performed By: #### L 500.4100, L500.4050, L501.9985 #### [facility] [address] [place], [address] CO2 [Moles/Vol] 22.0 mmol/L Normal 21.0-32.0 [facility] Comment on above: Performed By: #### L 500.4100, L500.4050, L501.9985 #### [facility] [address] [place], [address] Creatinine [Mass/Vol] 0.72 mg/dL Normal 0.70-1.20 [facility] Comment on above: Performed By: #### L 500.4100, L500.4050, L501.9985 #### [facility] [address] [place], [address] GAP 15 Normal 5-15 [facility] Comment on above: Performed By: #### L 500.4100, L500.4050, L501.9985 #### [facility] [address] [place], [address] GFR/1.73 sq M.predicted among non-blacks MDRD (S/P/Bld) [Vol rate/Area] 91 mL/min/{1.73_m2} Normal >60 [facility] Comment on above: Result Comment: mL/m in/1.73m2 CKD-EPI Creatinine Equation (2020) Performed By: #### L 500.4100, L500.4050, L501.9985 #### [facility] [address] [place], [address] Globulin (S) [Mass/Vol] 3.1 g/dL Normal 2.2-4.2 [facility] Comment on above: Performed By: #### L 500.4100, L500.4050, L501.9985 #### [facility] [address] [place], [address] Glucose [Mass/Vol] 107 mg/dL High 70-99 [facility] Comment on above: Performed By: #### L 500.4100, L500.4050, L501.9985 #### [facility] [address] [place], [address] Potassium [Moles/Vol] 4.3 mmol/L Normal 3.3-5.1 [facility] Comment on above: Performed By: #### L 500.4100, L500.4050, L501.9985 #### [facility] [address] [place], [address] Sodium [Moles/Vol] 139 mmol/L Normal 133-145 [facility] Comment on above: Performed By: #### L 500.4100, L500.4050, L501.9985 #### [facility] [address] [place], [address] T PROT 7.6 g/dL Normal 5.9-8.4 [facility] Comment on above: Performed By: #### L 500.4100, L500.4050, L501.9985 #### [facility] [address] [place], [address] Urea nitrogen [Mass/Vol] 16 mg/dL Normal 4-19 [facility] Comment on above: Performed By: #### L 500.4100, L500.4050, L501.9985 #### [facility] [address] [place], [address] GFR/1.73 sq M.predicted lyn g non-blacks MDRD (S/P/Bld) [Vol rate/Area]Ordered By: Bindu Caldwell on 01-07-2025 Estimated GFR (MDRD) Non-Af Amer 91 >60 [facility] Comment on above: mL/min/1.73m2 CKD-EP I Creatinine Equation (2020) Glomerular filtration rate ( GFR) estimation/1.73 sq m using serum, plasma, or whole bOrdered By: Bindu Caldwell on 01-07-2025 GFR/1.73 sq M.predicted among non-blacks MDRD (S/P/Bld) [Vol rate/Area] 91 mL/min/{1.73_m2} >60 [facility] Comment on above: mL/min/1.73m2 CKD-EP I Creatinine Equation (2020) Hemoglobin A1con 01-07-2025 HbA1c (Bld) [Mass fraction] 5.6 % Low <=5.6 [facility] Comment on above: Performed By: #### L 500.4100, L500.4050, L501.9985 #### [facility] [address] [place], [address] Hemoglobin A1c percentageOrd ered By: Bindu Caldwell on 01-07-2025 HbA1c (Bld) [Mass fraction] 5.6 % Low >5.7 [facility] Internal Medicine Office Vis venkatesh 01-07-2025 Internal Medicine Office Visit [facility] [address] [place] [address] [address] [place], [place] [address] OFFICE VISIT Date of Service: 01/07/25 MR#: [id number] Acct: [id number] Name: LIZZETH SLADE Rep #: [id number] : 1955 Provider: Dr. Bindu campbell MD Age/Sex: 69/F Location: [email or web address] Status: Signed Intake Vital Signs 09/08/24 09:44 01/07/25 10:26 Height 5 ft 6 in 5 ft 6 in Weight: 158 lb BMI 25.4 BP 122/74 H Blood Pressure Location Lt brachial Position Sitting Respiration 14 Pulse 83 Pulse Source Monitor Temp 97.5 F L Temp Source Temporal Pulse Oximetry (%) 98 Oxygen Delivery Method room air Intake Visit Reasons: 4 M FU Chief Complaint: 3 M FU 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: No Is patient in pain?: No Allergies strawberry Allergy (Severe, Verified 01/07/25 10:21) Angioedema oak Allergy (Mild, Verified 01/07/25 10:21) Itching clams Adverse Reaction (Mild, Verified 01/07/25 10:21) Abd cramps/diarrhea clindamycin Adverse Reaction (Mild, Verified 01/07/25 10:21) Nausea Medications ???Medication ???Instructions ???Recorded ???Confirmed ???Type acetaminophen 500 mg tablet 500 mg PO Q6H PRN pain 02/18/21 History (Tylenol Extra Strength) folic acid 1 mg tablet 1 mg PO DAILY 08/19/21 01/07/25 Hi story duloxetine 20 mg capsule,delayed 60 mg PO BID 04/09/23 01/07/25 His tory release methotrexate sodium 2.5 mg tablet 25 mg PO SA 02/20/24 01/07/25 His tory clonazepam 0.5 mg tablet 0.5 mg PO DAILY 06/04/24 01/07/25 History omeprazole 40 mg capsule,delayed 40 mg PO DAILY #90 caps 07/10/24 0 01/07/25 Rx release carbidopa 25 mg-levodopa 100 mg 1 tab PO TID 09/08/24 01/07/25 His tory tablet clobetasol 0.05 % shampoo 1 applic topical DAILY PRN SKIN 01/07/25 Rx #118 mL gabapentin 600 mg tablet 600 mg PO BID pain #180 tabs 11/0601/07/25 Rx amlodipine 10 mg tablet 10 mg PO DAILY #90 tabs 12/09/24 0 01/07/25 Rx hydrocortisone 2.5 % topical cream 1 applic topical BID PRN rash 01/07/25 Rx #28.35 grams Have you fallen in the past year?: Yes (05/2024) [facility] Medical History (Updated 01/07/25 @ 17:[address] Bindu Caldwell MD) Grief reaction Hyperlipidemia Abrasion of left upper extremity Change in skin mole Tremor Frequent falls Esophageal stenosis Wears glasses Cancer Marijuana use Alcohol use Back pain Gastric reflux Smoker Leg cramps Hypertension History of edema History of Holter monitoring History of irregular heartbeat Difficulty swallowing Flu vaccine need Arrhythmia Hearing loss Vitamin D deficiency Borderline type 2 diabetes mellitus Fatigue Macrocytosis Screening for thyroid disorder Abdominal tenderness History of endometrial cancer Health care maintenance Psoriatic arthritis History of suicide attempt Depression Anxiety Neuropathy Arthritis Surgical History S/P hysterectomy History of surgical removal of ganglion cyst Family History Father Anxiety Diabetes Depression Heart disease Mental Disorders Psychiatric care CVA (cerebral vascular accident) Arthritis Sister Anxiety Arthritis Depression Diabetes Heart disease Mental Disorders Psychiatric care Respiratory disease Mother Arthritis Otosclerosis Social History household members: spouse housing: house Smoking Status: Current every day smoker tobacco type: cigarettes alcohol intake: current details: 1-2 glasses substance use type: does not use caffeine: Yes what type of physical activity do you participate in: walking seatbelt use: always do you feel safe at home: Yes additional social history: -[facility] HPI Chief Complaint: 3 M FU Details: LIZZETH SLADE, is a 69 F who presents to the office today for follow-up. Recently lost her only sibling. She states that she feels lost. Following up with her therapist/counselor. Otherwise, medically she feels good. Blood pressure today is at 122/74 mmHg. No chest pain, palpitation or shortness of breath. Other chronic medical conditions are stable. ROS Const Constitutional: No body ache, chills, excessive sweating, fatigue, fever(s), frequent falls, headache(s), snoring, weakness, sleep problems or change in appetite Eyes Eyes: No blurry vision, change in vision, eye pain or Light sensitivity ENT ENT: No abnormal hearing, ear or mastoid pain, tinnitus, nasal congestion, headache(s), neck pain or sore throat Resp Respiratory: No cough, shortness of breath, snoring or wheezing Cardio Cardiology: No chest pain at rest, chest pain with exertion, excessive sweating, sh (more content not included)... Normal [facility] LDL calc ser/plasOrdered By: Bindu Caldwell on 01-07-2025 Cholesterol in LDL [Mass/Vol] 160 mg/dL [facility] Comment on above: Ljxkvippqz=738-854 m g/dL & Higher Unca=122 mg/dL or greater LDL Cholesterol, Calculated 160 mg/dL [facility] Comment on above: Seeyhruxrf=556-641 m g/dL & Higher Fgqu=612 mg/dL or greater Laboratory - Chemistry and C hemistry - challengeOrdered By: Bindu Caldwell on 01-07-2025 AST [Catalytic activity/Vol] 58 U/L High <32 [facility] Lipid Profileon 01-07-2025 CHOL:HDL 3.79 Normal [facility] Comment on above: Performed By: #### L 500.4100, L500.4050, L501.9985 #### [facility] [address] [place], [address] Cholesterol [Mass/Vol] 244 mg/dL High <=200 [facility] Comment on above: Result Comment: Chol esterol level, Desirable <200 mg/dL Borderline high cholesterol 200-239 mg/dL High cholesterol >=240 mg/dL Recommendations of the NCEP Adult Treatment Panel for the following risk-cutoff thresholds for the [place] population. Performed By: #### L 500.4100, L500.4050, L501.9985 #### [facility] [address] [place], [address] Cholesterol in HDL [Mass/Vol] 64 mg/dL Normal [facility] Comment on above: Result Comment: Jossy onal Cholesterol Education Program (NCEP) guidelines: <40 mg/dL: Low HDL-cholesterol (major risk factor for CHD) >= 60 mg/dL: High HDL-cholesterol (negative risk factor for CHD) HDL-cholesterol is affected by a number of factors, e.g. smoking, exercise, hormones, sex and age. Performed By: #### L 500.4100, L500.4050, L501.9985 #### [facility] [address] [place], [address] Cholesterol in LDL [Mass/Vol] 160 mg/dL Normal [facility] Comment on above: Result Comment: Bord efnfsj=938-171 mg/dL Higher Zomb=550 mg/dL or greater Performed By: #### L 500.4100, L500.4050, L501.9985 #### [facility] [address] [place], [address] Cholesterol in VLDL [Mass/Vol] 19 mg/dL Normal 5-40 [facility] Comment on above: Performed By: #### L 500.4100, L500.4050, L501.9985 #### [facility] [address] [place], [address] Triglyceride [Mass/Vol] 96 mg/dL Normal [facility] Comment on above: Result Comment: The drugs N-Acetylcysteine and Metamizole may falsely depress this assay. Normal range: <150 mg/dL Borderline High: 150-199 mg/dL High: 200-499 mg/dL Very High: >500 mg/dL Performed By: #### L 500.4100, L500.4050, L501.9985 #### [facility] [address] [place], [address] Potassium (Unsp spec) [Mass/ Vol]Ordered By: Bindu Caldwell on 01-07-2025 Potassium [Moles/Vol] 4.3 mmol/L 3.3-5.1 [facility] Potassium measurement (mass/ volume)Ordered By: Bindu Caldwell on 01-07-2025 Potassium (Unsp spec) [Mass/Vol] 4.3 mmol/L 3.3-5.1 [facility] Screening total cholesterol/ high density lipoprotein (HDL) cholesterol ratioOrdered By: Bindu Caldwell on 01-07-2025 Cholesterol.total/Grisel sterol in HDL [Mass ratio] 3.79 {ratio} [facility] Serum creatinine measurement (mass/volume)Ordered By: Bindu Caldwell on 01-07-2025 Creatinine [Mass/Vol] 0.72 mg/dL 0.70-1.20 [facility] Serum globulin measurementOr dered By: Bindu Caldwell on 01-07-2025 Globulin (S) [Mass/Vol] 3.1 g/dL 2.2-4.2 [facility] Serum glucose measurement (m ass/volume)Ordered By: Bindu Caldwell on 01-07-2025 Glucose [Mass/Vol] 107 mg/dL High 70-99 [facility] Serum or plasma alanine savage otransferase (ALT) measurementOrdered By: Bindu Caldwell on 01-07-2025 ALT [Catalytic activity/Vol] 30 U/L <35 [facility] Serum or plasma albumin elfego urement (mass/volume)Ordered By: Bindu Caldwell on 01-07-2025 Albumin [Mass/Vol] 4.5 g/dL 3.4-4.8 [facility] Serum or plasma albumin/glob ulin mass ratioOrdered By: Bindu Caldwell on 01-07-2025 Albumin/Globulin [Mass ratio] 1.5 {ratio} 0.9-2.4 [facility] Serum or plasma alkaline juan josé sphatase measurementOrdered By: Bindu Caldwell on 01-07-2025 ALP [Catalytic activity/Vol] 154 U/L High 35-104 [facility] Serum or plasma calcium elfego urement (mass/volume)Ordered By: Bindu Caldwell on 01-07-2025 Calcium [Mass/Vol] 9.6 mg/dL 7.6-11.0 [facility] Serum or plasma cholesterol in HDL measurement (mass/volume)Ordered By: Bindu Caldwell on 01-07-2025 Cholesterol in HDL [Mass/Vol] 64 mg/dL >40 [facility] Comment on above: National Cholesterol Education Program (NCEP) guidelines:<40 mg/dL: Low HDL-cholesterol (major risk factor for CHD)>= 60 mg/dL: High HDL-cholesterol (negative risk factor for CHD)HDL-cholesterol is affected by a number of factors, e.g. smoking, exercise, hormones, sex and age. Serum or plasma cholesterol measurement (mass/volume)Ordered By: Bindu Caldwell on 01-07-2025 Cholesterol [Mass/Vol] 244 mg/dL High <201 [facility] Comment on above: Cholesterol level, D esirable <200 mg/dLBorderline high cholesterol 200-239 mg/dLHigh cholesterol >=240 mg/dLRecommendations of the NCEP Adult Treatment Panel for the following risk-cutoff thresholds for the [place] population. Serum or plasma urea nitroge n measurement (mass/volume)Ordered By: Bindu Caldwell on 01-07-2025 Urea nitrogen [Mass/Vol] 16 mg/dL 4-19 [facility] Sodium levelOrdered By: Naye Caldwell on 01-07-2025 Sodium [Moles/Vol] 139 mmol/L 133-145 [facility] Total proteinOrdered By: Garrett Caldwell on 01-07-2025 Protein [Mass/Vol] 7.6 g/dL 5.9-8.4 [facility] Triglycerides measurementOrd ered By: Bindu Caldwell on 01-07-2025 Triglyceride [Mass/Vol] 96 mg/dL <199 [facility] Comment on above: The drugs N-Acetylcy steine and Metamizole may falsely depress this assay. Normal range: <150 mg/dLBorderline High: 150-199 mg/dLHigh: 200-499 mg/dLVery High: >500 mg/dL CNOVon 10-17-2024 CNOV Office Visit (NEMOWS ) ----- LIZZETH SLADE ([id number]) 1955 F Date Time Provider Department 10/17/24 9:00 AM FEMI HOLMAN JR During your visit today, we recorded the following information about you: Pulse Blood pressure Weight 93/minute 138/84 71 kg Femi Holman Jr., MD 10/21/2024 11:24 PM Signed ESTABLISHED PATIENT VISIT CHIEF COMPLAINT: Follow Up HISTORY OF PRESENT ILLNESS: Lizzeth Slade is a 69 year old female, BMI 25.28 kg/m2 with a PMH significant for and per last office visit of 07/25/24: 1. Parkinson's disease, unspecified whether dyskinesia present, unspecified whether manifestations fluctuate (HCC) - ICD9: 332.0, ICD10: G20.A1 (primary diagnosis) 2. Recurrent falls - ICD9: V15.88, ICD10: R29.6 3. Abnormality of gait - ICD9: 781.2, ICD10: R26.9 Patient with history and specifically and exam strongly suggestive of Parkinson's disease (PD). Noted family history of PD as above. While patient has been on meds that could result in Parkinsonism such as Abilify, it has been years and was only taking for a short time per provided history. Dx d/w pt in detail including etiologies, physiology, workup (clinical dx), treatment and prognosis. I explained to pt that as she has never had an MRI brain, I would like to proceed with such to confirm no other contributing factors of symptoms such as old strokes or vascular Parkinsonism. She agrees. However, I would also like to try and treat symptoms based on clinical presentation, and we discussed various PD med options, including SEs and ADRs. Pt agrees with starting treatment and decision made to start Sinemet 25/100mg TID with meals (4-5 hours apart). SE and ADRs d/w pt. She will contact us if any issues. Encouraged exercise and discussed topic of use it or lose it. No therapy at this time but may benefit in future if not increasing exercise on own. Follow up in about 8 weeks to see how pt is doing on meds. States tremors in hands much improved since on Sinemet but still difficulties with balance. 1 fall since last seen - states was walking out of the dentist office and fell over a curb. Currently taking Sinemet 25/100mg at breakfast, lunch and bedtime. No side effects from medication. MRI brain reviewed with pt and unremarkable for acute process or source of events; per rad report: No acute intracranial abnormality. Chronic microvascular ischemic changes and generalized parenchymal volume loss. No new symptoms. No side effects including no changes in mood. No definite on-off effect. REVIEW OF SYSTEMS GENERAL:No weight loss, malaise or fevers. HEENT:Negative for frequent or significant headaches, No changes in hearing or vision, no nose bleeds or other nasal problems NECK:Negative for lumps, goiter, pain and significant neck swelling RESPIRATORY: Negative for cough, wheezing or shortness of breath. CARDIOVASCULAR: Negative for chest pain, leg swelling or palpitations. GASTROINTESTINAL: Negative for abdominal discomfort, blood in stools or black stools or change in bowel habits GENITOURINARY: No history of dysuria, frequency or incontinence MUSCULOSKELETAL: Chronic knee pain. NEUROLOGIC:Negative for focal numbness or weakness, headaches and dizziness or syncope, vision changes, speech/languag changes - EXCEPT that as per HPI above. SKIN:Negative for lesions, rash, and itching. LAB/IMAGING: Those performed since patient's last visit have been reviewed. WBC (k/uL) Date Value 01/29/2024 5.46 RBC (m/uL) Date Value 01/29/2024 4.10 Hemoglobin (g/dL) Date Value 01/29/2024 13.6 Hematocrit (%) Date Value 01/29/2024 42.2 MCV (fL) Date Value 01/29/2024 102.9 (H) MCH (pg) Date Value 01/29/2024 33.2 MCHC (g/dL) Date Value 01/29/2024 32.2 RDW-CV (%) Date Value 01/29/2024 13.3 Platelet Count (k/uL) Date Value 01/29/2024 319 MPV (fL) Date Value 01/29/2024 10.2 Glucose (mg/dL) Date Value 01/29/2024 75 BUN (mg/dL) Date Value 01/29/2024 14 Creatinine (mg/dL) Date Value 01/29/2024 0.67 Sodium (mmol/L) Date Value 01/29/2024 138 Potassium (mmol/L) Date Value 01/29/2024 4.1 Chloride (mmol/L) Date Value 01/29/2024 102 CO2 (mmol/L) Date Value 01/29/2024 25 Protein, Total (g/dL) Date Value 01/29/2024 7.2 Albumin (g/dL) Date Value 01/29/2024 4.5 Calcium, Total (mg/dL) Date Value 01/29/2024 9.4 Alkaline Phosphatase (U/L) Date Value 01/29/2024 153 (H) Bilirubin, Total (mg/dL) Date Value 01/29/2024 0.6 AST (U/L) Date Value 01/29/2024 42 (H) ALT (U/L) Date Value 01/29/2024 12 MEDICATIONS: carbidopa-levodopa (SINEMET) 25-100 mg per tablet Take 1 tab with breakfast, lunch and dinner (about 4-5 hours apart). methotrexate 2.5 mg tablet Take 8 tablets by mouth one time a week. omeprazole (PRILOSEC) 40 mg capsule Take 40 mg by mouth onc (more content not included)... Normal [facility] Internal Medicine Office Vis iton 09-08-2024 Internal Medicine Office Visit [facility] [place] [address] OFFICE VISIT Date of Service: 09/08/24 MR#: [id number] Acct: [id number] Name: LIZZETH SLADE Rep #: [id number] : 1955 Provider: Dr. Bindu campbell MD Age/Sex: 69/F Location: [facility] Status: Signed Intake Vital Signs 06/04/24 10:20 06/07/24 12:05 09/08/24 09:44 Height 5 ft 6 in 5 ft 6 in 5 ft 6 in Weight: 154 lb BMI 24.8 BP 118/72 Blood Pressure Location Lt brachial Position Sitting Respiration 17 Pulse 88 Pulse Source Monitor Temp 97.4 F L Temp Source Temporal Pulse Oximetry (%) 97 Oxygen Delivery Method room air Intake Visit Reasons: 3 M FU Chief Complaint: 3 M FU Is patient in pain?: No Allergies strawberry Allergy (Severe, Verified 09/08/24 09:39) Angioedema oak Allergy (Mild, Verified 09/08/24 09:39) Itching clams Adverse Reaction (Mild, Verified 09/08/24 09:39) Abd cramps/diarrhea clindamycin Adverse Reaction (Mild, Verified 09/08/24 09:39) Nausea Medications ???Medication ???Instructions ???Recorded ???Confirmed ???Type acetaminophen 500 mg tablet 500 mg PO Q6H PRN pain 02/18/21 09/08/24 History (Tylenol Extra Strength) folic acid 1 mg tablet 1 mg PO DAILY 08/19/21 09/08/24 History duloxetine 20 mg capsule,delayed 60 mg PO BID 04/09/23 09/08/24 History release hydrocortisone 2.5 % topical cream 1 applic topical BID PRN rash 11/02/23 09/08/24 Rx #28.35 grams gabapentin 600 mg tablet 600 mg PO BID pain 11/08/23 09/08/24 History amlodipine 10 mg tablet 10 mg PO DAILY #90 tabs 11/21/23 09/08/24 Rx methotrexate sodium 2.5 mg tablet 25 mg PO SA 02/20/24 09/08/24 History clonazepam 0.5 mg tablet 0.5 mg PO DAILY 06/04/24 09/08/24 History omeprazole 40 mg capsule,delayed 40 mg PO DAILY #90 caps 07/10/24 09/08/24 Rx release carbidopa 25 mg-levodopa 100 mg 1 tab PO TID 09/08/24 09/08/24 History tablet clobetasol 0.05 % shampoo 1 applic topical DAILY PRN SKIN 09/08/24 09/08/24 Rx #118 mL Have you fallen in the past year?: Yes (x5) [facility] Medical History (Updated 09/08/24 @ 12:[address] Bindu Caldwell MD) Hyperlipidemia Abrasion of left upper extremity Change in skin mole Tremor Frequent falls Esophageal stenosis Wears glasses Cancer Marijuana use Alcohol use Back pain Gastric reflux Smoker Leg cramps Hypertension History of edema History of Holter monitoring History of irregular heartbeat Difficulty swallowing Flu vaccine need Arrhythmia Hearing loss Vitamin D deficiency Borderline type 2 diabetes mellitus Fatigue Macrocytosis Screening for thyroid disorder Abdominal tenderness History of endometrial cancer Health care maintenance Psoriatic arthritis History of suicide attempt Depression Anxiety Neuropathy Arthritis Surgical History S/P hysterectomy History of surgical removal of ganglion cyst Family History Father Anxiety Diabetes Depression Heart disease Mental Disorders Psychiatric care CVA (cerebral vascular accident) Arthritis Sister Anxiety Arthritis Depression Diabetes Heart disease Mental Disorders Psychiatric care Respiratory disease Mother Arthritis Otosclerosis Social History household members: spouse housing: house Smoking Status: Current every day smoker tobacco type: cigarettes alcohol intake: current details: 1-2 glasses substance use type: does not use caffeine: Yes what type of physical activity do you participate in: walking seatbelt use: always do you feel safe at home: Yes additional social history: -[facility] HPI HPI Chief Complaint: 3 M FU Details: LIZZETH SLADE, is a 69 F who presents to the office today for follow-up. No acute concerns at this time. Since her last visit, started on carbidopa levodopa by neurology due to concern for early Parkinson's. She states that since being on this medication, she has had no falls compared to about 5 prior. She also believes that tremors have improved. No concerning side effects. Other chronic medical conditions are stable. Blood pressure today is at 118/72 mmHg. No chest pain, palpitation or shortness of breath. Feels well. ROS Const Constitutional: No body ache, chills, excessive sweating, fatigue, fever(s), frequent falls, headache(s), snoring, weight change, sleep problems, abnormal sleep pattern or change in appetite Eyes Eyes: No blurry vision, change in vision, bulging eyes, floaters, visual disturbances, eye pain or Light sensitivity ENT ENT: No abnormal hearing, ear or mastoid pain, tinnitus, balance problems, nosebleed/epistaxis, nasal congestion, he (more content not included)... Normal [facility] MR Brain WO contrast 08-28 IMPRESSION: No acute intracranial abnormality. Chronic microvascular ischemic changes and generalized parenchymal volume loss. U.[place]. Senator: LISANDRO Transcribe Date/Time: Aug 28 2024 2:43P Dictated by : WILMER CARRION MD This examination was interpreted and the report reviewed and electronically signed by: WILMER CARRION MD on Aug 28 2024 2:50PM [facility] DIVISION OF RADIOLOGY * * *Final Report* * * DATE OF EXAM: Aug 28 2024 1:26PM [facility] 0294 - MRI BRAIN WO IVCON / PROCEDURE REASON: multiple diagnoses * * * * Physician Interpretation * * * * EXAMINATION: MRI BRAIN WO IVCON CLINICAL HISTORY: Parkinson's disease TECHNIQUE: Routine noncontrast MRI protocol including diffusion images. MQ: MRBWO_2 COMPARISON: CTA head 10/16/2013 RESULT: Acute Change: There is no evidence of restricted diffusion to suggest an acute infarct. Hemorrhage: No evidence of prior parenchymal hemorrhage on the susceptibility weighted images. Mass Lesion/ Mass Effect: No evidence of an intracranial mass or extra-axial fluid collection. No significant mass effect. Chronic Change: Scattered patchy areas of increased T2 and FLAIR signal are present in the supratentorial and infratentorial white matter which is a nonspecific finding but likely represents mild chronic microvascular ischemia. There may be a tiny remote infarct within the right cerebellum. Parenchyma: There is mild generalized parenchymal volume loss. The brain parenchyma is otherwise within normal limits of signal intensity and morphology. Ventricles: Normal caliber and morphology. Skull Base: Hypothalamic and pituitary region are grossly normal. Craniocervical junction is normal. No significant marrow replacement process. Vasculature: Major intracranial arterial structures, and dural venous sinuses show typical flow void, suggesting patency by spin echo criteria. Other: Minimal scattered mucosal thickening throughout the paranasal sinuses. DIVISION OF RADIOLOGY Provider, [facility] - 08/28/2024 * * *Final Report* * * DATE OF EXAM: Aug 28 2024 1:26PM [facility] 0294 - MRI BRAIN WO IVCON / PROCEDURE REASON: multiple diagnoses * * * * Physician Interpretation * * * * EXAMINATION: MRI BRAIN WO IVCON CLINICAL HISTORY: Parkinson's disease TECHNIQUE: Routine noncontrast MRI protocol including diffusion images. MQ: MRBWO_2 COMPARISON: CTA head 10/16/2013 RESULT: Acute Change: There is no evidence of restricted diffusion to suggest an acute infarct. Hemorrhage: No evidence of prior parenchymal hemorrhage on the susceptibility weighted images. Mass Lesion/ Mass Effect: No evidence of an intracranial mass or extra-axial fluid collection. No significant mass effect. Chronic Change: Scattered patchy areas of increased T2 and FLAIR signal are present in the supratentorial and infratentorial white matter which is a nonspecific finding but likely represents mild chronic microvascular ischemia. There may be a tiny remote infarct within the right cerebellum. Parenchyma: There is mild generalized parenchymal volume loss. The brain parenchyma is otherwise within normal limits of signal intensity and morphology. Ventricles: Normal caliber and morphology. Skull Base: Hypothalamic and pituitary region are grossly normal. Craniocervical junction is normal. No significant marrow replacement process. Vasculature: Major intracranial arterial structures, and dural venous sinuses show typical flow void, suggesting patency by spin echo criteria. Other: Minimal scattered mucosal thickening throughout the paranasal sinuses. IMPRESSION IMPRESSION: No acute intracranial abnormality. Chronic microvascular ischemic changes and generalized parenchymal volume loss. U.S. Senator: LISANDRO Transcribe Date/Time: Aug 28 2024 2:43P Dictated by : WILMER CARRION MD This examination was interpreted and the report reviewed and electronically signed by: WILMER CARRION MD on Aug 28 2024 2:50PM [facility] Radiology Study observation (narrative) [facility] MR Brain WO contrastOrdered By: [facility] Provider on 08-28-2024 [facility] MRI BRAIN WO IVCONon 024 MRI BRAIN WO IVCON * * *Final Report* * * DATE OF EXAM: Aug 28 2024 1:26PM [facility] 0294 - MRI BRAIN WO IVCON / PROCEDURE REASON: multiple diagnoses * * * * Physician Interpretation * * * * EXAMINATION: MRI BRAIN WO IVCON CLINICAL HISTORY: Parkinson's disease TECHNIQUE: Routine noncontrast MRI protocol including diffusion images. MQ: MRBWO_2 COMPARISON: CTA head 10/16/2013 RESULT: Acute Change: There is no evidence of restricted diffusion to suggest an acute infarct. Hemorrhage: No evidence of prior parenchymal hemorrhage on the susceptibility weighted images. Mass Lesion/ Mass Effect: No evidence of an intracranial mass or extra-axial fluid collection. No significant mass effect. Chronic Change: Scattered patchy areas of increased T2 and FLAIR signal are present in the supratentorial and infratentorial white matter which is a nonspecific finding but likely represents mild chronic microvascular ischemia. There may be a tiny remote infarct within the right cerebellum. Parenchyma: There is mild generalized parenchymal volume loss. The brain parenchyma is otherwise within normal limits of signal intensity and morphology. Ventricles: Normal caliber and morphology. Skull Base: Hypothalamic and pituitary region are grossly normal. Craniocervical junction is normal. No significant marrow replacement process. Vasculature: Major intracranial arterial structures, and dural venous sinuses show typical flow void, suggesting patency by spin echo criteria. Other: Minimal scattered mucosal thickening throughout the paranasal sinuses. IMPRESSION: No acute intracranial abnormality. Chronic microvascular ischemic changes and generalized parenchymal volume loss. U.S. Senator: PSCB Transcribe Date/Time: Aug 28 2024 2:43P Dictated by : WILMER CARRION MD This examination was interpreted and the report reviewed and electronically signed by: WILMER CARRION MD on Aug 28 2024 2:50PM EST [id number] Normal [facility] CNOVon 07-25-2024 CNOV Office Visit (NEMLITZY ) ----- LIZEZTH SLADE ([id number]) 1955 F Date Time Provider Department 07/25/24 2:20 PM FEMI HOLMAN JR During your visit today, we recorded the following information about you: Pulse Blood pressure Weight 83/minute 122/82 69.8 kg Femi Holman Jr., MD 07/25/2024 3:26 PM Signed 07/25/2024 PROMIS Global Health Physical Health Summary Physical health: Fair Everyday physical activity, ability: A little Fatigue: Moderate Pain level: 4 General health: Fair Social activities/roles, ability: Fair Physical Health T-Score 34.9 (Poor) Physical Health Percentile 7 PROMIS Global Health Mental Health Summary Quality of life: Fair Mental health (mood,thinking): Fair Social satisfaction: Fair Emotional problems (anxious,depressed): Often Mental Health T-Score 33.8 (Fair) Mental Health Percentile 5 PHQ-9 Score: 11(Moderate Depression) RACHELL-7 Score: 13(Moderate Anxiety) NEURO-QOL Cognitive Function T-Score 45(Within Normal Limits) Neuro-Qol Cognitive Function Percentile 31 PROMIS Physical Function T-Score 31(Moderate Dysfunction) PROMIS Physical Function Percentile 3 PROMIS Pain Interference T-Score 63(Moderate) PROMIS Pain Interference Percentile 10 Percentiles provide an indication of how a patient's score ranks in relation to the [place] general population. > 31st percentile is within normal limits or better *< 31st percentile is at least ? SD worse than population, which may be clinically relevant < 16th percentile is at least 1 SD worse than population and warrants attention 07/25/2024 Sleep Apnea Probability Snores loudly: Yes Tired, fatigued or sleepy in daytime: No Stops breathing or choking/gasping during sleep: No High blood pressure: Yes Sleep Apnea Probability Score: 29 (Sleep study not recommended) Femi Holman Jr., MD 07/25/2024 3:26 PM Signed NEW PATIENT (CONSULT) HISTORY AND PHYSICAL EXAM PRIMARY CARE PHYSICIAN: Bindu Caldwell MD REASON FOR CONSULT: See below REFERRING PHYSICIAN: No ref. provider found CHIEF COMPLAINT: Abnormal gait and unsteady on my feet. Consultation requested by No ref. provider found for an opinion regarding chief complaint of Patient presents with: New Patient: Abnormal gait, poor balance, tremor in hands and my final recommendations will be communicated back to the requesting physician by way of shared medical record or letter via US mail. HISTORY OF PRESENT ILLNESS: Lizzeth Slade is a 69 year old female, BMI 24.82 kg/m2 with a PMH significant for that noted below including documentation of neuropathy. Per neuro notes in 2013: Lizzeth Slade is a 59 year old female with history of presumptive peripheral neuropathy (unknown cause), vertical nystagmus, bipolar disease and trigger finger presenting for evaluation of burning pain in her hands and feet. Exam is significant for distal limb predominant hyperesthesia/dysesthesia , and vertical nystagmus with impaired station (possible truncal titubation). She has previously been evaluated for neuropathy with EMG, QSART, and lab work (vitamins B1, B6, B12, MMA, HgA1C) but studies essentially unrevealing. Findings of intact reflexes and hyperesthesia are most consistent with small fiber neuropathy. 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 Skin biopsy on 07/25/14: The epidermal nerve fiber densities are normal at all sites. There is no evidence of a small fiber sensory neuropathy. Pt now presents with complaint of falling over the past 5 months (5 falls total). Adds that she now has tremors in luis daniel fingers (with posture). States no warning. Not tripping on anything. Balance just disappears. Typically falls forward. No dizziness or lightheadedness. States it is quite sudden. No loc. Off lithium years ago. States PCP concerned Cymbalta impacting hands. Still on gabapentin for electrical shock pain in all 4 extremities. States the latter has resolved. No neck pain but notes having OA in lower back. XR of L spine in 2022 per report: Lower lumbar predominant degenerative changes Variant lumbosacral anatomy Counting reference: Lumbosacral junction. For the purposes of this report, L4-5 is considered the level of the iliac crest. Lumbarization S1 States has to remind self to picking supervisor feet when walks as finds self shuffling. No changes in sense of smell. No changes in handwriting. Rare constipation. Difficulties with fine motor tasks. No definite RBD symptoms. Paternal uncle with Parkinson's. Chronic nystagmus (unchanged today vs last notes of years ago). CT brain on 06/07/24 at [facility] per report showed no acute changes. CT C spine that same data per report make no mention of fx, acute change or central canal narrowing. REVIEW OF SYSTEMS GENERAL:No weigh (more content not included)... Normal [facility] 36on 05-20-2024 36 Pt called and left V M with a sweatband maker to do a pelvic exam for surveillance. Dr. Lizzeth Sin is in [place]. Normal [facility] 36 Pt called and is ask ing if she can see an oncologist in [place] due to transportation issues and being cancer free for 4 years. If so would you recommend anyone in particular? Normal [facility] 36 Patient stated they were unable to make appt on 05/23 due to transportation. Stated they were unsure of next steps if they should try to see an Oncologist in [place] or r/s with provider. Please advise, thank you! Normal [facility] CNOVon 04-22-2024 CNOV Office Visit (RHBATH ) ----- LIZZETH SLADE ([id number]) 1955 F Date Time Provider Department 04/22/24 1:00 PM WINSOME HEATH During your visit today, we recorded the following information about you: Pulse Blood pressure Weight Height 89/minute 124/77 68.7 kg 1.676 m Winsome Heath PA-C 04/22/2024 3:06 PM Signed [facility] General Arthritis and Rheumatology Winsome Heath PA-C [place]- [address] [place] [address] [place]- [address] [place] [address] [place]- [address] [place] [address] ; RHEUMATOLOGY PROGRESS NOTE Patient is here for a follow up visit for Patient presents with: psoriasis with arthropathy HPI: Lizzeth Slade is a 68 year old female who presents with PsA, OA MTX 8 tabs weekly, FA 2 mg daily- she splits MTX dose Doing better with increased dose of MTX Missed 1 dose- forgot MTX. No recent infections 3/10 pain in low back, hips, knees Still doing exercises at home. Chair yoga weekly. Completed water PT. Walking more. Swelling- none AM stiffness- 10 min Psoriasis- none. Scalp lesions are gone now Tylenol prn 2x weekly Vit D 1000 units daily No chest pain, shortness of breath No falls, [...] .5 packs/day, for 20 years. Types: Cigarettes PAST MEDICAL HISTORY Diagnosis Date Depressive disorder, [...] HYSTERECTOMY UNSPECIFIED ORAL SURGERY PROCEDURE, BY REPORT [place] [facility] History Review: I have reviewed and modified as needed, the following during this visit: Allergies, Past Medical History, Past Surgical History, Past Family History, Past Social History. Interval Review of Systems CONSTITUTIONAL: Recent Weight [...] No PSYCHIATRIC: Anxiety: No Poor sleep: No BP 124/77 (BP Site: Left Arm, BP Position: Sitting) Pulse 89 Ht 167.6 cm (5' 6) Wt 68.7 kg (151 lb 8 oz) LMP 12/08/2010 SpO2 97% BMI 24.45 kg/m? Physical Exam GENERAL: Well appearing, alert, [...] joint line tenderness bl knees Lab Results: 01/26 Cr 0.67 AST 42, ALT 12, alk phos 153 CBC with MCV 102.9 Vit D 21.2 03/2023 Cr 0.73 LFT normal CBC normal [...] severe narrowing L5/S1 Multilevel endplate osteophytes Lower lumb (more content not included)... Normal [facility] CNPNon 04-22-2024 CNPN Telephone (RHBATH) ----- LIZZETH SLADE ([id number]) 1955 F Date Time Provider Department 04/22/24 WINSOME HEATH [facility] During your visit today, we recorded the following information about you: Nancy Lucio 04/22/2024 2:06 PM Signed Referral to Neurology: Your form has been successfully submitted and your request is being processed. Confirmation number: [id number] Allergies As of Date: 04/22/2024 Noted Allergy Reaction AYGESTIN (NORETHINDRONE) 03/10/2011 1 - Mental Status Change Comments: Severe depression CLAMS 01/28/2009 CODEINE 05/15/2013 8 - GI Upset MOLD 07/05/2005 OAK 07/05/2005 OYSTERS 01/14/2009 STRAWBERRIES 07/05/2005 Date Reviewed: 04/22/2024 Reviewed by: Winsome Heath PA-C - Fully Assessed Prescriptions as of 04/22/2024 - methotrexate 2.5 mg tablet Take 8 tablets by mouth one time a week. - omeprazole (PRILOSEC) 40 mg capsule Take 40 mg by mouth once daily. - folic acid 1 mg tablet Take 2 tablets by mouth once daily. - amLODIPine (NORVASC) 10 mg tablet Take 10 mg by mouth once daily. - acetaminophen (TYLENOL EXTRA STRENGTH) 500 mg tablet Take 500 mg by mouth twice daily as needed. - Clobetasol Propionate 0.05 % sham Apply to affected area. - hydrocortisone 2.5 % cream Apply to affected area. - vitamin D3-vitamin K2 1,250-200 mcg cap Take 1 capsule by mouth one time a week. Out of med - ergocalciferol, vitamin D2, (VITAMIN D2 ORAL) Take 1,000 Units by mouth once daily. Out of med - cyanocobalamin (VITAMIN B-12) 1,000 mcg tab Take 1,000 mcg by mouth two times a day. Ran out of med - gabapentin (NEURONTIN) 600 mg tablet Take 1-2 tablets (600mg to 1200mg) in the morning, 2 tablets (1200mg) at noon, and 2 tablets (1200mg) at bedtime. - Ibuprofen 200 mg cap Take by mouth as needed. - DULoxetine (CYMBALTA) 20 mg capsule Take 60 mg by mouth once daily. - clonazePAM (KLONOPIN) 0.5 mg tablet Take 1 tablet by mouth daily at bedtime. Problem List As Of Date 04/22/2024 Noted Resolved INSOMNIA NOS [G47.00] Pain in limb [M79.609] 10/12/2006 03/10/2011 Bipolar affective disorder (HCC) [F31.9] 03/10/2011 Weight loss [R63.4] 03/10/2011 Leiomyoma [D21.9] 03/10/2011 Hypothyroid [E03.9] 05/30/2011 Trigger ring finger of right hand [M65.341] 01/08/2014 Trigger ring finger of left hand [M65.342] 03/09/2014 Sensation disorder [R20.9] 05/22/2014 Disturbance of skin sensation [R20.9] 05/22/2014 Pain in limb [M79.609] 05/22/2014 Concern about neurological disease without diag*05/22/2014 Ganglion, right wrist [M67.431] 12/21/2016 Psoriasis with arthropathy (HCC) [L40.50] 03/15/2023 Encounter Status:Closed by NANCY LUCIO on 04/22/24 [facility] CNOVon 01-31-2024 CNOV Office Visit (RHBATH ) ----- LIZZETH SLADE ([id number]) 1955 F Date Time Provider Department 01/31/24 12:20 PM DIANA OSCAR [facility]BR[facility] During your visit today, we recorded the following information about you: Temperature Pulse Respiration Blood pressure 98.7 degrees 70/minute 13/minute 123/66 Weight 69.4 kg Diana Oscar MD 01/31/2024 1:07 PM Signed RHEUMATOLOGY PROGRESS NOTE Patient is here for a follow up visit for Patient presents with: Joint Pain HPI: Lizzeth Slade is a 68 year old female who [...] HYSTERECTOMY UNSPECIFIED ORAL SURGERY PROCEDURE, BY REPORT [place] [facility] History Review: I have reviewed and modified as needed, the following during this visit: Allergies, Past Medical History, Past Surgical History, Past Family History, Past Social History. BP 123/66 Pulse 70 Temp 37.1 ?C (98.7 ?F) (Temporal) Resp 13 Wt 69.4 kg (153 lb) LMP 12/08/2010 BMI 24.86 kg/m? Physical Exam GENERAL: Well appearing, alert, [...] maintained bilaterally. No acute fracture or dislocation. BMD 07/28 - osteopenia. Lowest T score -1.7 L spine Assessment and Plan (L40.50) Psoriasis with arthropathy (HCC) 68-year-old female with previously diagnosed with psoriasis and p (more content not included)... Normal [facility] Office Visiton 11-22-2023 Follow-up visit [id number] Ozzy Slade 1955 F Date Provider Department Center 11/22/2023 [id number] [id number]*[facility] [employer] None Family History Problem Relation Age of Onset Depression Father Arthritis Sister Anxiety disorder Sister Mental illness Father Comments: psychiatric care Other Father Comments: CVA Anxiety disorder Father Other Mother Comments: otosclerosis Uterine cancer Neg Hx Heart disease Father Mental illness Sister Comments: psychiatric care Breast cancer Neg Hx Arthritis Mother Ovarian cancer Neg Hx Depression Sister Diabetes Father Heart disease Sister Colon cancer Neg Hx Diabetes Sister Family Status - Relation Status Age at Father Sister Mother Neg Hx Level of Service:06002 DC OFFICE/OUTPATIENT ESTABLISHED [facility] 10 MIN Reason for Visit and Comments: Endometrial Cancer [562] - Pt has no concerns Normal [facility] Progress Noteon 11-22-2023 Progress Note Chief Complaint Patient presents with Endometrial Cancer Pt has no concerns HISTORY OF THE PRESENT ILLNESS: Lizzeth Slade is a 68 y.o. female with stage [...] these sites. CEA and CA-125 were normal. Patient underwent endometrial biopsy: DIAGNOSIS: ENDOMETRIAL BIOPSY [...] Pelvic Nodes Examined: 4 Number of Pelvic Empire Nodes Examined: 0 Total Number of Para-aortic Nodes Examined: 0 Number of Para-aortic Empire Nodes Examined: 0 PATHOLOGIC STAGE CLASSIFICATION (pTNM, [...] STAGE FIGO Stage: IIIB Discharged home with wharton due to urinary retention. Passed void trial in the office several days later. Adjuvant treatment recommended and the patient declined. Interval History: Presents to the office today for routine surveillance of disease. She has been doing well since her last visit. She denies chest pain, shortness of breath, nausea, vomiting, bloating, early satiety. She denies abdominal or pelvic pain, constipation, urinary problems. Used to have regular bowel movements daily in the morning. Sometimes in the middle of the day or the night she will have to have a bowel movement as well. Denies blood in stool. BRBPR, melena, pencil thin stools, etc. Denies vaginal bleeding or abnormal vaginal discharge. Is the primary care provider for her chronically ill . Had endoscopy and esophageal dilation. Started on omeprazole. Had food stuck for 4 hours, ended up in the ER. Feeling better since the dilation. Past Medical History: Diagnosis Date Arthritis Bipolar 2 disorder (CMS/HCC) (HCC) Cancer (CMS/HCC) ([facility]) Endometrial Cataract bilateral H/O emotional problems Heart murmur HTN (hypertension) Neuropathy Psoriatic arthritis (HCC) Suicide attempt ([facility]) 2009 or before Past Surgical History: Procedure Laterality Date CYST REMOVAL removed on palms TOTAL ABDOMINAL HYSTERECTOMY W/ BILATERAL SALPINGOOPHORECTOMY 07/05/2020 Exploratory laparotomy, radical abdominal hysterectomy with bilateral salpingo-oophorectomy, bilateral pelvic lymph node sampling, omental biopsy; DR. IWONA VANEGAS [facility] WISDOM TOOTH EXTRACTION Bilateral as teen Social History Socioeconomic History Marital status: Tobacco Use Smoking status: Every Day Packs/day: .5 Types: Cigarettes (more content not included)... Normal [facility] - Hematology and Cell countson 11-21-2023 HbA1c (Bld) [Mass fraction] 5.6 % 4.2-6.3 [facility] Absolute lymphocyte countOrd ered By: Bindu Caldwell on 08-16-2023 Lymphocytes Auto (Unsp spec) [#/Vol] 2.34 10*3/uL 0.83-4.51 [facility] Basophil percentageOrdered B y: Bindu Caldwell on 08-16-2023 Basophils/100 WBC (Bld) 1.4 % 0-1 [facility] Bilirubin [Mass/Vol] 0.60 mg/dL 0.20-1.00 [facility] Comment on above: For patients on eltr ombopag therapy, use of Dimension [place] TBIL is not recommended. Chloride [Moles/Vol] 106 mmol/L 98-107 [facility] Eosinophils/100 WBC (Bld) 5.1 % 0-5 [facility] Glucose [Mass/Vol] 98 mg/dL 74-106 [facility] Neutrophils (Bld) [#/Vol] 3.9 10*3/uL 2.0-7.7 [facility] Neutrophils/100 WBC (Bld) 50.6 % 47-70 [facility] Potassium [Moles/Vol] 3.7 mmol/L 3.5-5.1 [facility] Protein [Mass/Vol] 7.5 g/dL 6.4-8.2 [facility] Sodium [Moles/Vol] 139 mmol/L 136-145 [facility] WBC (Bld) [#/Vol] 7.7 10*3/uL 4.4-11.0 [facility] Blood erythrocytes count (nu mber/volume)Ordered By: Bindu Caldwell on 08-16-2023 RBC (Bld) [#/Vol] 4.22 10*6/uL 4.2-5.4 [facility] Blood hemoglobin measurement (mass/volume)Ordered By: Bindu Caldwell on 08-16-2023 Hemoglobin (Bld) [Mass/Vol] 14.2 g/dL 12.0-15.0 [facility] Blood lymphocytes/100 leukoc ytesOrdered By: Bindu Caldwell on 08-16-2023 Lymphocytes/100 WBC (Bld) 30.4 % 19-41 [facility] Blood monocytes/100 leukocyt esOrdered By: Bindu Caldwell on 08-16-2023 Monocytes/100 WBC (Bld) 12.1 % 0-10 [facility] Blood platelet mean volumeOr dered By: Bindu Caldwell on 08-16-2023 Platelet mean volume (Bld) [Entitic vol] 10.1 fL 6.2-12.0 [facility] Determination of erythrocyte mean corpuscular volume (MCV)Ordered By: Bindu Caldwell on 08-16-2023 MCV (RBC) [Entitic vol] 101.7 fL 81-99 [facility] Hematocrit Auto (Bld) [Volum e fraction]Ordered By: Bindu Caldwell on 08-16-2023 Hematocrit (Bld) [Volume fraction] 42.9 % 37-47 [facility] Laboratory - Chemistry and C hemistry - challengeOrdered By: [facility] Caldwell on 08-16-2023 ALP [Catalytic activity/Vol] 142 U/L 45-117 [facility] ALT [Catalytic activity/Vol] 22 U/L 13-56 [facility] CO2 [Moles/Vol] 29.0 mmol/L 21.0-32.0 [facility] Free T4 [Mass/Vol] 1.02 ng/dL 0.76-1.46 [facility] Globulin (S) [Mass/Vol] 3.7 g/dL 2.2-4.2 [facility] Urea nitrogen/Creatinine [Mass ratio] 17.1 mg/mg 10-20 [facility] Laboratory - Hematology and Cell countsOrdered By: [facility] Paredeslucho on 08-16-2023 Erythrocyte distribution width (RBC) [Entitic vol] 48.2 fL 35.1-43.9 [facility] Erythrocyte distribution width (RBC) [Ratio] 13.1 % 11.6-14.6 [facility] Immature granulocytes/100 WBC (Bld) 0.400 % 0.0-0.9 [facility] Comment on above: IG% - Immature Granu locytes (promyelocytes, myelocytes and metamyelocytes) > 1% indicates that a LEFT SHIFT is Present. MCH (RBC) [Entitic mass] 33.6 pg 27.0-32.0 [facility] Nucleated RBC/100 WBC (Bld) [Ratio] 0 % 0-5 [facility] MCHC Auto (RBC) [Mass/Vol]Or dered By: Bindu Caldwell on 08-16-2023 MCHC (RBC) [Mass/Vol] 33.1 g/dL 32-36 [facility] No Panel InformationOrdered By: Bindu Caldwell on 08-16-2023 Estimated GFR (MDRD) Amer 107 mL/min >60 [facility] Comment on above: GFR Calc Estimated GFR (MDRD) Non-Af Amer 89 mL/min >60 [facility] Comment on above: Non- GFR Calc Thyroid Stimulating Hormone (TSH) 2.00 uIU/mL 0.358-3.74 [facility] Platelets bldOrdered By: Garrett Caldwell on 08-16-2023 Platelets (Bld) [#/Vol] 301 10*3/uL 150-450 [facility] Serum or plasma albumin elfego urement (mass/volume)Ordered By: Bindu Caldwell on 08-16-2023 Albumin [Mass/Vol] 3.8 g/dL 3.2-5.0 [facility] Serum or plasma albumin/glob ulin mass ratioOrdered By: Bindu Caldwell on 08-16-2023 Albumin/Globulin [Mass ratio] 1.0 {ratio} 0.9-2.4 [facility] Serum or plasma calcium elfego urement (mass/volume)Ordered By: Bindu Caldwell on 08-16-2023 Calcium [Mass/Vol] 9.3 mg/dL 8.5-10.1 [facility] Serum or plasma creatinine m easurement (mass/volume)Ordered By: Bindu Caldwell on 08-16-2023 Creatinine [Mass/Vol] 0.70 mg/dL 0.55-1.02 [facility] Comment on above: The validity of the calculated GFR & GFRAA in patients over 70 years has not been determined. Clinical correlation is essential. Serum or plasma urea nitroge n measurement (mass/volume)Ordered By: Bindu Caldwell on 08-16-2023 Urea nitrogen [Mass/Vol] 12 mg/dL 7-18 [facility] Thin prep Papanicolaou smear with manual screeningOrdered By: Bindu Caldwell on 08-16-2023 Thin prep Papanicolaou smear with manual screening 30 U/L 15-37 [facility] Thin prep Papanicolaou smear with manual screening 4 5-15 [facility] Whole blood hemoglobin A1c/t otal hemoglobin ratio (mass fraction)Ordered By: Bindu Caldwell on 08-16-2023 HbA1c (Bld) [Mass fraction] 5.5 % 3.8-5.6 [facility] Comment on above: Normal < 5.7 % Predi abetic 5.7 - 6.4 % Diabetic >or= 6.5 % Please note range changes. Anya 06-20-2023 CNPN Telephone ([facility]) ----- LIZZETH SLADE ([id number]) 1955 F Date Time Provider Department 06/20/23 WINSOME HEATH During your visit today, we recorded the following information about you: Lisa Richards MA 06/20/2023 2:55 PM Signed Rx mail pharmacy faxed requesting the following [...] 06/19/23 Next Appointment: 12/03/23 Patient Phone numbers: [phone] (home) Request is for script(s) to be escript to pharmacy. Lisa Richards MA Allergies As of Date: 06/20/2023 Noted Allergy Reaction AYGESTIN (NORETHINDRONE) 03/10/2011 1 - Mental Status Change Comments: Severe depression CLAMS 01/28/2009 CODEINE 05/15/2013 8 - GI Upset MOLD 07/05/2005 OAK 07/05/2005 OYSTERS 01/14/2009 STRAWBERRIES 07/05/2005 Date Reviewed: 06/19/2023 Reviewed by: Winsome Heath PA-C - Fully Assessed Reason for Visit: medication question [Other] clarify directions on medication [Other] Visit Diagnosis:Psoriasis with arthropathy (HCC) [L40.50] Order(s):[START ON 06/23/2023] methotrexate 2.5 mg tabletTake 10 tablets by mouth every Sunday.Disp: 120 tabletRfl: 0 Prescriptions as of 06/21/2023 - methotrexate 2.5 mg tablet Take 10 tablets by mouth every Sunday. - folic acid 1 mg tablet Take 2 tablets by mouth once daily. - amLODIPine (NORVASC) 10 mg tablet Take 10 mg by mouth once daily. - acetaminophen (TYLENOL EXTRA STRENGTH) 500 mg tablet Take 500 mg by mouth twice daily as needed. - Clobetasol Propionate 0.05 % sham Apply to affected area. - hydrocortisone 2.5 % cream Apply to affected area. - vitamin D3-vitamin K2 1,250-200 mcg cap Take 1 capsule by mouth one time a week. - ergocalciferol, vitamin D2, (VITAMIN D2 ORAL) Take 1,000 Units by mouth once daily. - cyanocobalamin (VITAMIN B-12) 1,000 mcg tab Take 1,000 mcg by mouth twice daily. - gabapentin (NEURONTIN) 600 mg tablet Take 1-2 tablets (600mg to 1200mg) in the morning, 2 tablets (1200mg) at noon, and 2 tablets (1200mg) at bedtime. - Ibuprofen 200 mg cap Take by mouth as needed. - DULoxetine (CYMBALTA) 20 mg capsule Take 60 mg by mouth once daily. - clonazePAM (KLONOPIN) 0.5 mg tablet Take 1 tablet by mouth daily at bedtime. - multivitamin tablet Take 1 tablet by mouth once daily. Problem List As Of Date 06/20/2023 Noted Resolved INSOMNIA NOS [G47.00] Pain in limb [M79.609] 10/12/2006 03/10/2011 Bipolar affective disorder (HCC) [F31.9] 03/10/2011 Weight loss [R63.4] 03/10/2011 Leiomyoma [D21.9] 03/10/2011 Hypothyroid [E03.9] 05/30/2011 Trigger ring finger of right hand [M65.341] 01/08/2014 Trigger ring finger of left hand [M65.342] 03/09/2014 Sensation disorder [R20.9] 05/22/2014 Disturbance of skin sensation [R20.9] 05/22/2014 Pain in limb [M79.609] 05/22/2014 Concern about neurological disease without diag*05/22/2014 Ganglion, right wrist [M67.431] 12/21/2016 Psoriasis with arthropathy (HCC) [L40.50] 03/15/2023 Prescriptions ordered this encounter Disp Refills Start End METHOTREXATE SODIUM 2.5 MG TABLET 120 * 0 06/23/2023 09/21/2023 Route: ORAL Sig: Take 10 tablets by mouth every Sunday. Medications Discontinued During This Encounter Prescriptions - methotrexate 2.5 mg tablet (Discontinued) Take 10 tablets by mouth every Sunday. Patient is taking 8 tablets PO on Sunday Encounter Status:Closed by WINSOME HEATH on 06/21/23 [facility] CNOVon 06-19-2023 CNOV Office Visit (RHBATH ) ----- LIZZETH SLADE ([id number]) 1955 F Date Time Provider Department 06/19/23 3:20 PM WINSOME HEATH During your visit today, we recorded the following information about you: Pulse Blood pressure Weight Height 72/minute 122/70 69.6 kg 1.671 m Winsome Heath PA-C 06/19/2023 4:41 PM Signed [facility] Arthritis and Rheumatology Winsome Heath [address] [place] [address] RHEUMATOLOGY PROGRESS NOTE Patient is here for a follow up visit for Patient presents with: Osteoporosis: Needs refills HPI: Lizzeth Slade is a 68 year old female who [...] HYSTERECTOMY UNSPECIFIED ORAL SURGERY PROCEDURE, BY REPORT [place] [facility] History Review: I have reviewed and modified as needed, the following during this visit: Allergies, Past Medical History, Past Surgical History, Past Family History, Past Social History. BP 122/70 (BP Site: Left Arm, BP Position: Sitting) Pulse 72 Ht 167.1 cm (5' 5.78) Wt 69.6 kg (153 lb 6.4 oz) [...] maintained bilaterally. No acute fracture or dislocation. Assess (more content not included)... Normal [facility] Office Visiton 05-24-2023 Follow-up visit [id number] Ozzy Slade on L 1955 F Date Provider Department Center 05/24/2023 [id number] AGUILA*[facility] [employer] None Family History Problem Relation Age of Onset Depression Father Arthritis Sister Anxiety disorder Sister Mental illness Father Comments: psychiatric care Other Father Comments: CVA Anxiety disorder Father Other Mother Comments: otosclerosis Uterine cancer Neg Hx Heart disease Father Mental illness Sister Comments: psychiatric care Breast cancer Neg Hx Arthritis Mother Ovarian cancer Neg Hx Depression Sister Diabetes Father Heart disease Sister Colon cancer Neg Hx Diabetes Sister Family Status - Relation Status Age at Father Sister Mother Neg Hx Level of Service:27014 DC OFFICE/OUTPATIENT ESTABLISHED [facility] 10-19 MIN Reason for Visit and Comments: Endometrial Cancer [562] - Undifferentiated uterine carcinoma -pt has no concerns [facility] Progress Noteon 05-24-2023 Progress Note Chief Complaint Patient presents with Endometrial Cancer Undifferentiated uterine carcinoma -pt has no concerns HISTORY OF THE PRESENT ILLNESS: Lizzeth Slade is a 68 y.o. female with stage [...] CA-125 were normal. Often accompanied by her case sealer/counselor and transportation, Miroslava. Patient underwent endometrial biopsy: [...] Pelvic Nodes Examined: 4 Number of Pelvic Empire Nodes Examined: 0 Total Number of Para-aortic Nodes Examined: 0 Number of Para-aortic Empire Nodes Examined: 0 PATHOLOGIC STAGE CLASSIFICATION (pTNM, [...] STAGE FIGO Stage: IIIB Discharged home with wharton due to urinary retention. Passed void trial [...] Diagnosis Date Arthritis Bipolar 2 disorder (CMS/HCC) ([facility]) Cancer (CMS/HCC) ([facility]) Endometrial Cataract bilateral H/O emotional problems Heart murmur HTN (hypertension) Neuropathy Psoriatic arthritis (HCC) Suicide attempt ([facility]) 2009 or before Past Surgical History: Procedure Laterality Date CYST REMOVAL removed on palms TOTAL ABDOMINAL HYSTERECTOMY W/ BILATERAL SALPINGOOPHORECTOMY 07/05/2020 Exploratory laparotomy, radical abdominal hysterectomy with bilateral salpingo-oophorectomy, bilateral pelvic lymph node sampling, omental biopsy; DR. IWONA MARIEE [facility] WISDOM TOOTH EXTRACTION Bilateral as teen Social History Socioeconomic History Marital status: Tobacco Use Smoking status: Every Day Packs/day: 0.50 Types: Cigarettes Smokeless tobacco: Current Substance and Sexual Activity Alcohol use: Yes Alcohol/week: 7.0 standard drinks of alcohol Drug use: Never Often accompanied by her case work aide who is a good source of support. (more content not included)... Normal [facility] CBC W Auto Differential pane l (Bld)on 03-15-2023 Basophils (Bld) [#/Vol] 0.09 10*3/uL <0.11 k/uL [facility] Basophils/100 WBC (Bld) 1.2 % C [facility] Differential cell count method Nom (Bld) Auto [facility] Eosinophils (Bld) [#/Vol] 0.17 10*3/uL <0.46 k/uL [facility] Eosinophils/100 WBC (Bld) 2.3 % [facility] Erythrocyte distribution width (RBC) [Ratio] 13.4 % 11.5 - 15.0 % [facility] Hematocrit (Bld) [Volume fraction] 40.7 % 36.0 - 46.0 % [facility] Hemoglobin (Bld) [Mass/Vol] 13.5 g/dL 11.5 - 15.5 g/dL [facility] Immature granulocytes (Bld) [#/Vol] <0.10 k/uL [facility] Immature granulocytes/100 WBC (Bld) 0.3 % [facility] Lymphocytes (Bld) [#/Vol] 2.08 10*3/uL 1.00 - 4.00 k/uL [facility] Lymphocytes/100 WBC (Bld) 28.0 % [facility] MCH (RBC) [Entitic mass] 33.2 pg 26.0 - 34.0 pg [facility] MCHC (RBC) [Mass/Vol] 33.2 g/dL 30.5 - 36.0 g/dL [facility] MCV (RBC) [Entitic vol] 100.0 fL 80.0 - 100.0 fL [facility] Monocytes (Bld) [#/Vol] 0.81 10*3/uL <0.87 k/uL [facility] Monocytes/100 WBC (Bld) 10.9 % C [facility] Neutrophils (Bld) [#/Vol] 4.27 10*3/uL 1.45 - 7.50 k/uL [facility] Neutrophils/100 WBC (Bld) 57.3 % [facility] Nucleated RBC (Bld) [#/Vol] <0.01 k/uL [facility] Nucleated RBC/100 WBC (Bld) [Ratio] 0.0 /100 WBC [facility] Platelet mean volume (Bld) [Entitic vol] 9.9 fL 9.0 - 12.7 fL [facility] Platelets (Bld) [#/Vol] 282 10*3/uL 150 - 400 k/uL [facility] RBC (Bld) [#/Vol] 4.07 10*6/uL 3.90 - 5.2 0 m/uL [facility] WBC (Bld) [#/Vol] 7.44 10*3/uL 3.70 - 11.00 k/uL [facility] Comprehensive metabolic 2000 panelon 03-15-2023 Albumin [Mass/Vol] 4.6 g/dL 3.9 - 4.9 g/dL [facility] ALP [Catalytic activity/Vol] 116 U/L 34 - 123 U/L [facility] ALT With P-5'-P [Catalytic activity/Vol] 17 U/L 7 - 38 U/L [facility] Anion gap [Moles/Vol] 10 mmol/L 9 - 18 mmol/L [facility] AST With P-5'-P [Catalytic activity/Vol] 32 U/L 13 - 35 U/L [facility] Bilirubin [Mass/Vol] 0.4 mg/dL 0.2 - 1 .3 mg/dL [facility] Calcium [Mass/Vol] 9.8 mg/dL 8.5 - 10. 2 mg/dL [facility] Chloride [Moles/Vol] 101 mmol/L 97 - 10 5 mmol/L [facility] CO2 [Moles/Vol] 27 mmol/L 22 - 30 mmol/L [facility] Creatinine [Mass/Vol] 0.74 mg/dL 0.58 - 0.96 mg/dL [facility] Estimated Glomerular Filtration Rate 89 mL/min/1.73m >=60 mL/min/1.73 m [facility] Glucose [Mass/Vol] 103 mg/dL High 74 - 99 mg/dL [facility] Potassium [Moles/Vol] 4.2 mmol/L 3.7 - 5.1 mmol/L [facility] Protein [Mass/Vol] 7.2 g/dL 6.3 - 8.0 g/dL [facility] Sodium [Moles/Vol] 138 mmol/L 136 - 144 mmol/L [facility] Urea nitrogen [Mass/Vol] 11 mg/dL 7 - 21 mg/dL [facility] Absolute lymphocyte countOrd ered By: Dr. Caldwell on 12-29-2022 Lymphocytes Auto (Unsp spec) [#/Vol] 2.04 10*3/uL 0.83-4.51 [facility] Basophil percentageOrdered B y: Dr. Caldwell on 12-29-2022 Basophils/100 WBC (Bld) 1.2 % 0-1 [facility] Bilirubin [Mass/Vol] 0.30 mg/dL 0.20-1.00 [facility] Comment on above: For patients on eltr ombopag therapy, use of Dimension [place] TBIL is not recommended. Chloride [Moles/Vol] 108 mmol/L 98-107 [facility] Cholesterol [Mass/Vol] 210 mg/dL <200 [facility] Comment on above: <200 mg/dL Desirable 200-240 mg/dL Borderline >240 mg/dL High Risk Eosinophils/100 WBC (Bld) 2.1 % 0-5 [facility] Glucose [Mass/Vol] 111 mg/dL 74-106 [facility] Comment on above: Fasting Glucose resu lt from 100 to 125 mg/dL suggests IMPAIRED HOMEOSTASIS per A.D.A. criteria. Neutrophils (Bld) [#/Vol] 4.4 10*3/uL 2.0-7.7 [facility] Neutrophils/100 WBC (Bld) 57.8 % 47-70 [facility] Potassium [Moles/Vol] 3.9 mmol/L 3.5-5.1 [facility] Protein [Mass/Vol] 7.4 g/dL 6.4-8.2 [facility] Sodium [Moles/Vol] 141 mmol/L 136-145 [facility] Triglyceride [Mass/Vol] 79 mg/dL <199 [facility] Comment on above: The drugs N-Acetylcy steine and Metamizole may falsely depress this assay.Serum Triglycerides Reference Interval Normal <150 mg/dL Borderline high 150 - 199 mg/dL High 200 - 499 mg/dL Very High > or = 500 mg/dL WBC (Bld) [#/Vol] 7.6 10*3/uL 4.4-11.0 [facility] Blood erythrocytes count (nu mber/volume)Ordered By: Dr. Caldwell on 12-29-2022 RBC (Bld) [#/Vol] 4.15 10*6/uL 4.2-5.4 [facility] Blood hemoglobin measurement (mass/volume)Ordered By: Dr. Caldwell on 12-29-2022 Hemoglobin (Bld) [Mass/Vol] 13.7 g/dL 12.0-15.0 [facility] Blood lymphocytes/100 leukoc ytesOrdered By: Dr. Caldwell on 12-29-2022 Lymphocytes/100 WBC (Bld) 26.7 % 19-41 [facility] Blood monocytes/100 leukocyt esOrdered By: Dr. Caldwell on 12-29-2022 Monocytes/100 WBC (Bld) 11.8 % 0-10 [facility] Blood platelet mean volumeOr dered By: Dr. Caldwell on 12-29-2022 Platelet mean volume (Bld) [Entitic vol] 10.5 fL 6.2-12.0 [facility] Determination of erythrocyte mean corpuscular volume (MCV)Ordered By: Dr. Caldwell on 12-29-2022 MCV (RBC) [Entitic vol] 101.4 fL 81-99 [facility] Hematocrit Auto (Bld) [Volum e fraction]Ordered By: Dr. Caldwell on 12-29-2022 Hematocrit (Bld) [Volume fraction] 42.1 % 37-47 [facility] Laboratory - Chemistry and C hemistry - challengeOrdered By: Dr. Caldwell on 12-29-2022 ALP [Catalytic activity/Vol] 114 U/L 45-117 [facility] ALT [Catalytic activity/Vol] 17 U/L 13-56 [facility] CO2 [Moles/Vol] 27.0 mmol/L 21.0-32.0 [facility] Cobalamin (Vitamin B12) [Mass/Vol] 934 pg/mL 211-911 [facility] Globulin (S) [Mass/Vol] 3.6 g/dL 2.2-4.2 [facility] Urea nitrogen/Creatinine [Mass ratio] 18.0 mg/mg 10-20 [facility] Laboratory - Hematology and Cell countsOrdered By: Dr. Caldwell on 12-29-2022 Erythrocyte distribution width (RBC) [Entitic vol] 49.8 fL 35.1-43.9 [facility] Erythrocyte distribution width (RBC) [Ratio] 13.6 % 11.6-14.6 [facility] Immature granulocytes/100 WBC (Bld) 0.400 % 0.0-0.9 [facility] Comment on above: IG% - Immature Granu locytes (promyelocytes, myelocytes and metamyelocytes) > 1% indicates that a LEFT SHIFT is Present. MCH (RBC) [Entitic mass] 33.0 pg 27.0-32.0 [facility] Nucleated RBC/100 WBC (Bld) [Ratio] 0 % 0-5 [facility] MCHC Auto (RBC) [Mass/Vol]Or dered By: Dr. Caldwell on 12-29-2022 MCHC (RBC) [Mass/Vol] 32.5 g/dL 32-36 [facility] No Panel InformationOrdered By: Dr. Caldwell on 12-29-2022 Estimated GFR (MDRD) Amer 88 mL/min >60 [facility] Comment on above: GFR Calc Estimated GFR (MDRD) Non-Af Amer 73 mL/min >60 [facility] Comment on above: Non- GFR Calc Vitamin D 25-Hydroxy 34.7 ng/mL [facility] Comment on above: Vitamin D 25(OH) Sta tus Range Deficiency <20 ng/mL (50nmol/L) Insufficiency 20 - 30 ng/mL (50 - 75 nmol/L) Sufficiency 30 - 100 ng/mL (75 - 250 nmol/L) Toxicity >100 ng/mL (>250 nmol/L) Platelets bldOrdered By: Dr. Caldwell on 12-29-2022 Platelets (Bld) [#/Vol] 277 10*3/uL 150-450 [facility] Serum or plasma albumin elfego urement (mass/volume)Ordered By: Dr. Caldwell on 12-29-2022 Albumin [Mass/Vol] 3.8 g/dL 3.2-5.0 [facility] Serum or plasma albumin/glob ulin mass ratioOrdered By: Dr. Caldwell on 12-29-2022 Albumin/Globulin [Mass ratio] 1.1 {ratio} 0.9-2.4 [facility] Serum or plasma calcium elfego urement (mass/volume)Ordered By: Dr. Caldwell on 12-29-2022 Calcium [Mass/Vol] 9.2 mg/dL 8.5-10.1 [facility] Serum or plasma cholesterol in HDL measurement (mass/volume)Ordered By: Dr. Caldwell on 12-29-2022 Cholesterol in HDL [Mass/Vol] 63 mg/dL >40 [facility] Comment on above: The drugs N-Acetylcy steine and Metamizole may falsely depress this assay. Reference Range HDL <40 mg/dL Low HDL Cholesterol HDL >or= 60 mg/dL High HDL Cholesterol Serum or plasma cholesterol in VLDL measurement (mass/volume)Ordered By: Dr. Caldwell on 12-29-2022 Cholesterol in VLDL [Mass/Vol] 16 mg/dL 5-40 [facility] Serum or plasma creatinine m easurement (mass/volume)Ordered By: Dr. Caldwell on 12-29-2022 Creatinine [Mass/Vol] 0.83 mg/dL 0.55-1.02 [facility] Comment on above: The validity of the calculated GFR & GFRAA in patients over 70 years has not been determined. Clinical correlation is essential. Serum or plasma low density lipoprotein (LDL) cholesterol measurement (mass/volume)Ordered By: Dr. Caldwell on 12-29-2022 Cholesterol in LDL [Mass/Vol] 131 mg/dL 0-130 [facility] Serum or plasma urea nitroge n measurement (mass/volume)Ordered By: Dr. Caldwell on 12-29-2022 Urea nitrogen [Mass/Vol] 15 mg/dL 7-18 [facility] Thin prep Papanicolaou smear with manual screeningOrdered By: Dr. Caldwell on 12-29-2022 Thin prep Papanicolaou smear with manual screening 25 U/L 15-37 [facility] Thin prep Papanicolaou smear with manual screening 6 5-15 [facility] Influenza virus A and B and SARS-CoV-2 (COVID-19) Ag panel - Upper respiratory specimOrdered By: Dr. Vazquez on 10-14-2022 SARS-CoV-2 (COVID-19) RNA MAYELA+probe Ql (Resp) [facility] Absolute lymphocyte countOrd ered By: Dr. Thayer on 10-10-2022 Lymphocytes Auto (Unsp spec) [#/Vol] 1.63 10*3/uL 0.83-4.51 [facility] Basophil percentageOrdered B y: Dr. Thayer on 10-10-2022 Basophils/100 WBC (Bld) 1.1 % 0-1 [facility] Bilirubin [Mass/Vol] 0.40 mg/dL 0.20-1.00 [facility] Comment on above: For patients on eltr ombopag therapy, use of [employer] [place] TBIL is not recommended. Chloride [Moles/Vol] 105 mmol/L 98-107 [facility] Eosinophils/100 WBC (Bld) 1.9 % 0-5 [facility] Glucose [Mass/Vol] 107 mg/dL 74-106 [facility] Comment on above: Fasting Glucose resu lt from 100 to 125 mg/dL suggests IMPAIRED HOMEOSTASIS per A.D.A. criteria. Neutrophils (Bld) [#/Vol] 6.1 10*3/uL 2.0-7.7 [facility] Neutrophils/100 WBC (Bld) 71.8 % 47-70 [facility] Potassium [Moles/Vol] 4.2 mmol/L 3.5-5.1 [facility] Protein [Mass/Vol] 6.8 g/dL 6.4-8.2 [facility] Sodium [Moles/Vol] 139 mmol/L 136-145 [facility] WBC (Bld) [#/Vol] 8.5 10*3/uL 4.4-11.0 [facility] Blood erythrocytes count (nu mber/volume)Ordered By: Dr. Thayer on 10-10-2022 RBC (Bld) [#/Vol] 3.96 10*6/uL 4.2-5.4 [facility] Blood hemoglobin measurement (mass/volume)Ordered By: Dr. Thayer on 10-10-2022 Hemoglobin (Bld) [Mass/Vol] 13.3 g/dL 12.0-15.0 [facility] Blood lymphocytes/100 leukoc ytesOrdered By: Dr. Thayer on 10-10-2022 Lymphocytes/100 WBC (Bld) 19.1 % 19-41 [facility] Blood monocytes/100 leukocyt esOrdered By: Dr. Thayer on 10-10-2022 Monocytes/100 WBC (Bld) 5.9 % 0-10 [facility] Blood platelet mean volumeOr dered By: Dr. Thayer on 10-10-2022 Platelet mean volume (Bld) [Entitic vol] 9.8 fL 6.2-12.0 [facility] Determination of erythrocyte mean corpuscular volume (MCV)Ordered By: Dr. Thayer on 10-10-2022 MCV (RBC) [Entitic vol] 102.3 fL 81-99 [facility] Hematocrit Auto (Bld) [Volum e fraction]Ordered By: Dr. Thayer on 10-10-2022 Hematocrit (Bld) [Volume fraction] 40.5 % 37-47 [facility] Laboratory - Chemistry and C hemistry - challengeOrdered By: Dr. Thayer on 10-10-2022 ALP [Catalytic activity/Vol] 97 U/L 45-117 [facility] ALT [Catalytic activity/Vol] 22 U/L 13-56 [facility] CO2 [Moles/Vol] 27.0 mmol/L 21.0-32.0 [facility] Globulin (S) [Mass/Vol] 3.0 g/dL 2.2-4.2 [facility] Urea nitrogen/Creatinine [Mass ratio] 24.2 mg/mg 10-20 [facility] Laboratory - Hematology and Cell countsOrdered By: Dr. Thayer on 10-10-2022 Erythrocyte distribution width (RBC) [Entitic vol] 49.1 fL 35.1-43.9 [facility] Erythrocyte distribution width (RBC) [Ratio] 13.2 % 11.6-14.6 [facility] Immature granulocytes/100 WBC (Bld) 0.200 % 0.0-0.9 [facility] Comment on above: IG% - Immature Granu locytes (promyelocytes, myelocytes and metamyelocytes) > 1% indicates that a LEFT SHIFT is Present. MCH (RBC) [Entitic mass] 33.6 pg 27.0-32.0 [facility] Nucleated RBC/100 WBC (Bld) [Ratio] 0 % 0-5 [facility] MCHC Auto (RBC) [Mass/Vol]Or dered By: Dr. Thayer on 10-10-2022 MCHC (RBC) [Mass/Vol] 32.8 g/dL 32-36 [facility] No Panel InformationOrdered By: Dr. Thayer on 10-10-2022 Estimated GFR (MDRD) Amer 100 mL/min >60 [facility] Comment on above: GFR Calc Estimated GFR (MDRD) Non-Af Amer 83 mL/min >60 [facility] Comment on above: Non- GFR Calc Platelets bldOrdered By: Dr. Thayer on 10-10-2022 Platelets (Bld) [#/Vol] 313 10*3/uL 150-450 [facility] Serum or plasma albumin elfego urement (mass/volume)Ordered By: Dr. Thayer on 10-10-2022 Albumin [Mass/Vol] 3.8 g/dL 3.2-5.0 [facility] Serum or plasma albumin/glob ulin mass ratioOrdered By: Dr. Thayer on 10-10-2022 Albumin/Globulin [Mass ratio] 1.3 {ratio} 0.9-2.4 [facility] Serum or plasma calcium elfego urement (mass/volume)Ordered By: Dr. Thayer on 10-10-2022 Calcium [Mass/Vol] 9.1 mg/dL 8.5-10.1 [facility] Serum or plasma creatinine m easurement (mass/volume)Ordered By: Dr. Thayer on 10-10-2022 Creatinine [Mass/Vol] 0.74 mg/dL 0.55-1.02 [facility] Comment on above: The validity of the calculated GFR & GFRAA in patients over 70 years has not been determined. Clinical correlation is essential. Serum or plasma urea nitroge n measurement (mass/volume)Ordered By: Dr. Thayer on 10-10-2022 Urea nitrogen [Mass/Vol] 18 mg/dL 7-18 [facility] Thin prep Papanicolaou smear with manual screeningOrdered By: Dr. Thayer on 10-10-2022 Thin prep Papanicolaou smear with manual screening 25 U/L 15-37 [facility] Thin prep Papanicolaou smear with manual screening 7 5-15 [facility] Whole blood hemoglobin A1c/t otal hemoglobin ratio (mass fraction)Ordered By: Dr. Caldwell on 10-10-2022 HbA1c (Bld) [Mass fraction] 5.5 % 3.8-5.6 [facility] Comment on above: Normal < 5.7 % Predi abetic 5.7 - 6.4 % Diabetic >or= 6.5 % Please note range changes. Absolute lymphocyte counton 07-11-2022 Lymphocytes Auto (Unsp spec) [#/Vol] 2.60 10*3/uL 0.83-4.51 [facility] Work Phone: Basophil percentageon 2021 Basophils/100 WBC (Bld) 1.0 % 0-1 [facility] Work Phone: Bilirubin [Mass/Vol] 0.60 mg/dL 0.20-1.00 [facility] Work Phone: Comment on above: For patients on eltr ombopag therapy, use of [employer] [place] TBIL is not recommended. Chloride [Moles/Vol] 103 mmol/L 98-107 [facility] Work Phone: Eosinophils/100 WBC (Bld) 2.4 % 0-5 [facility] Work Phone: Glucose [Mass/Vol] 113 mg/dL 74-106 [facility] Work Phone: Comment on above: Fasting Glucose resu lt from 100 to 125 mg/dL suggests IMPAIRED HOMEOSTASIS per A.D.A. criteria. Neutrophils (Bld) [#/Vol] 4.4 10*3/uL 2.0-7.7 [facility] Work Phone: Neutrophils/100 WBC (Bld) 56.7 % 47-70 [facility] Work Phone: Potassium [Moles/Vol] 4.0 mmol/L 3.5-5.1 [facility] Work Phone: Protein [Mass/Vol] 7.0 g/dL 6.4-8.2 [facility] Work Phone: Sodium [Moles/Vol] 139 mmol/L 136-145 [facility] Work Phone: WBC (Bld) [#/Vol] 7.8 10*3/uL 4.4-11.0 [facility] Work Phone: Blood erythrocytes count (nu mber/volume)on 07-11-2022 RBC (Bld) [#/Vol] 4.01 10*6/uL 4.2-5.4 [facility] Work [facility]: Blood hemoglobin measurement (mass/volume)on 07-11-2022 Hemoglobin (Bld) [Mass/Vol] 13.4 g/dL 12.0-15.0 [facility] Work Phone: Blood lymphocytes/100 leukoc yteson 07-11-2022 Lymphocytes/100 WBC (Bld) 33.2 % 19-41 [facility] Work Phone: Blood monocytes/100 leukocyt eson 07-11-2022 Monocytes/100 WBC (Bld) 6.3 % 0-10 [facility] Work Phone: Blood platelet mean volumeon 07-11-2022 Platelet mean volume (Bld) [Entitic vol] 10.0 fL 6.2-12.0 [facility] Work Phone: Determination of erythrocyte mean corpuscular volume (MCV)on 07-11-2022 MCV (RBC) [Entitic vol] 100.7 fL 81-99 [facility] Work Phone: Hematocrit Auto (Bld) [Volum e fraction]on 07-11-2022 Hematocrit (Bld) [Volume fraction] 40.4 % 37-47 [facility] Work Phone: Laboratory - Chemistry and C hemistry - challengeon 07-11-2022 ALP [Catalytic activity/Vol] 83 U/L 45-117 [facility] Work Phone: ALT [Catalytic activity/Vol] 24 U/L 13-56 [facility] Work Phone: CO2 [Moles/Vol] 29.0 mmol/L 21.0-32.0 [facility] Work Phone: Globulin (S) [Mass/Vol] 3.3 g/dL 2.2-4.2 [facility] Work Phone: Urea nitrogen/Creatinine [Mass ratio] 18.6 mg/mg 10-20 [facility] Work Phone: Laboratory - Hematology and Cell countson 07-11-2022 Erythrocyte distribution width (RBC) [Entitic vol] 48.4 fL 35.1-43.9 [facility] Work Phone: Erythrocyte distribution width (RBC) [Ratio] 13.2 % 11.6-14.6 [facility] Work Phone: Immature granulocytes/100 WBC (Bld) 0.400 % 0.0-0.9 [facility] Work Phone: Comment on above: IG% - Immature Granu locytes (promyelocytes, myelocytes and metamyelocytes) > 1% indicates that a LEFT SHIFT is Present. MCH (RBC) [Entitic mass] 33.4 pg 27.0-32.0 [facility] Work Phone: Nucleated RBC/100 WBC (Bld) [Ratio] 0 % 0-5 [facility] Work Phone: MCHC Auto (RBC) [Mass/Vol]on 07-11-2022 MCHC (RBC) [Mass/Vol] 33.2 g/dL 32-[address] Work Phone: No Panel Informationon 07-11 Estimated GFR (MDRD) Amer 85 mL/min >60 [facility] Work Phone: Comment on above: GFR Calc Estimated GFR (MDRD) Non-Af Amer 70 mL/min >60 [facility] Work Phone: Comment on above: Non- GFR Calc Platelets bldon 07-11-2022 Platelets (Bld) [#/Vol] 252 10*3/uL 150-450 [facility] Work Phone: Serum or plasma albumin elfego urement (mass/volume)on 07-11-2022 Albumin [Mass/Vol] 3.7 g/dL 3.2-5.0 [facility] Work Phone: Serum or plasma albumin/glob ulin mass ratioon 07-11-2022 Albumin/Globulin [Mass ratio] 1.1 {ratio} 0.9-2.4 [facility] Work Phone: Serum or plasma calcium elfego urement (mass/volume)on 07-11-2022 Calcium [Mass/Vol] 8.9 mg/dL 8.5-10.1 [facility] Work Phone: Serum or plasma creatinine m easurement (mass/volume)on 07-11-2022 Creatinine [Mass/Vol] 0.86 mg/dL 0.55-1.02 [facility] Work Phone: Comment on above: The validity of the calculated GFR & GFRAA in patients over 70 years has not been determined. Clinical correlation is essential. Serum or plasma urea nitroge n measurement (mass/volume)on 07-11-2022 Urea nitrogen [Mass/Vol] 16 mg/dL 7-18 [facility] Work Phone: Thin prep Papanicolaou smear with manual screeningon 07-11-2022 Thin prep Papanicolaou smear with manual screening 34 U/L 15-37 [facility] Work Phone: Thin prep Papanicolaou smear with manual screening 7 5-15 [facility] Work Phone: Erythrocyte sedimentation ra pawel 04-13-2022 ESR (Bld) [Velocity] 8 mm/h 0-30 [facility] Work Phone: Laboratory - Chemistry and C hemistry - challengeon 04-13-2022 Cobalamin (Vitamin B12) [Mass/Vol] 308 pg/mL 211-911 [facility] Work Phone: Free T4 [Mass/Vol] 0.90 ng/dL 0.76-1.46 [facility] Work Phone: No Panel Informationon 04-13 Thyroid Stimulating Hormone (TSH) 0.72 uIU/mL 0.358-3.74 [facility] Work Phone: Vitamin D 25-Hydroxy 14.6 ng/mL [facility] Work Phone: Comment on above: Vitamin D 25(OH) Sta tus Range Deficiency <20 ng/mL (50nmol/L) Insufficiency 20 - 30 ng/mL (50 - 75 nmol/L) Sufficiency 30 - 100 ng/mL (75 - 250 nmol/L) Toxicity >100 ng/mL (>250 nmol/L) Whole blood hemoglobin A1c/t otal hemoglobin ratio (mass fraction)on 04-13-2022 HbA1c (Bld) [Mass fraction] 5.7 % 3.8-5.6 [facility] Work Phone: Comment on above: Normal < 5.7 % Predi abetic 5.7 - 6.4 % Diabetic >or= 6.5 % Please note range changes. Absolute lymphocyte counton 04-05-2022 Lymphocytes Auto (Unsp spec) [#/Vol] 0.75 10*3/uL 0.83-4.51 [facility] Work Phone: Basophil percentageon 2021 Basophils/100 WBC (Bld) 0.9 % 0-1 [facility] Work Phone: Bilirubin [Mass/Vol] 0.40 mg/dL 0.20-1.00 [facility] Work Phone: Comment on above: For patients on eltr ombopag therapy, use of Dimension [place] TBIL is not recommended. Chloride [Moles/Vol] 105 mmol/L 98-107 [facility] Work Phone: Eosinophils/100 WBC (Bld) 1.1 % 0-5 [facility] Work Phone: Glucose [Mass/Vol] 136 mg/dL 74-106 [facility] Work Phone: Comment on above: Fasting Glucose resu lt greater than or equal to 126 mg/dL suggests DIABETES MELLITUS per A.D.A. criteria. Neutrophils (Bld) [#/Vol] 5.5 10*3/uL 2.0-7.7 [facility] Work Phone: Neutrophils/100 WBC (Bld) 78.3 % 47-70 [facility] Work Phone: Potassium [Moles/Vol] 4.7 mmol/L 3.5-5.1 [facility] Work Phone: [phone] Protein [Mass/Vol] 7.1 g/dL 6.4-8.2 [facility] Work Phone: Sodium [Moles/Vol] 139 mmol/L 136-145 [facility] Work Phone: WBC (Bld) [#/Vol] 7.0 10*3/uL 4.4-11.0 [facility] Work Phone: Blood erythrocytes count (nu mber/volume)on 04-05-2022 RBC (Bld) [#/Vol] 4.18 10*6/uL 4.2-5.4 [facility] Work Phone: Blood hemoglobin measurement (mass/volume)on 04-05-2022 Hemoglobin (Bld) [Mass/Vol] 14.0 g/dL 12.0-15.0 [facility] Work Phone: [phone] Blood lymphocytes/100 leukoc yteson 04-05-2022 Lymphocytes/100 WBC (Bld) 10.7 % 19-41 [facility] Work Phone: Blood monocytes/100 leukocyt eson 04-05-2022 Monocytes/100 WBC (Bld) 8.6 % 0-10 [facility] Work Phone: Blood platelet mean volumeon 04-05-2022 Platelet mean volume (Bld) [Entitic vol] 10.4 fL 6.2-12.0 [facility] Work Phone: Determination of erythrocyte mean corpuscular volume (MCV)on 04-05-2022 MCV (RBC) [Entitic vol] 102.9 fL 81-99 [facility] Work Phone: Hematocrit Auto (Bld) [Volum e fraction]on 04-05-2022 Hematocrit (Bld) [Volume fraction] 43.0 % 37-47 [facility] Work Phone: Laboratory - Chemistry and C hemistry - challengeon 04-05-2022 ALP [Catalytic activity/Vol] 80 U/L 45-117 [facility] Work Phone: ALT [Catalytic activity/Vol] 16 U/L 13-56 [facility] Work Phone: CO2 [Moles/Vol] 27.0 mmol/L 21.0-32.0 [facility] Work Phone: Globulin (S) [Mass/Vol] 3.2 g/dL 2.2-4.2 [facility] Work Phone: Urea nitrogen/Creatinine [Mass ratio] 16.5 mg/mg 10-20 [facility] Work Phone: Laboratory - Hematology and Cell countson 04-05-2022 Erythrocyte distribution width (RBC) [Entitic vol] 51.7 fL 35.1-43.9 [facility] Work Phone: Erythrocyte distribution width (RBC) [Ratio] 13.8 % 11.6-14.6 [facility] Work Phone: Immature granulocytes/100 WBC (Bld) 0.400 % 0.0-0.9 [facility] Work Phone: Comment on above: IG% - Immature Granu locytes (promyelocytes, myelocytes and metamyelocytes) > 1% indicates that a LEFT SHIFT is Present. MCH (RBC) [Entitic mass] 33.5 pg 27.0-32.0 [facility] Work Phone: Nucleated RBC/100 WBC (Bld) [Ratio] 0 % 0-5 [facility] Work Phone: MCHC Auto (RBC) [Mass/Vol]on 04-05-2022 MCHC (RBC) [Mass/Vol] 32.6 g/dL 32-36 [facility] Work Phone: No Panel Informationon 04-05 Estimated GFR (MDRD) Amer 94 mL/min >60 [facility] Work Phone: Comment on above: GFR Calc Estimated GFR (MDRD) Non-Af Amer 78 mL/min >60 [facility] Work Phone: Comment on above: Non- GFR Calc Platelets bldon 04-05-2022 Platelets (Bld) [#/Vol] 318 10*3/uL 150-450 [facility] Work Phone: Serum or plasma albumin elfego urement (mass/volume)on 04-05-2022 Albumin [Mass/Vol] 3.9 g/dL 3.2-5.0 [facility] Work Phone: Serum or plasma albumin/glob ulin mass ratioon 04-05-2022 Albumin/Globulin [Mass ratio] 1.2 {ratio} 0.9-2.4 [facility] Work Phone: Serum or plasma calcium elfego urement (mass/volume)on 04-05-2022 Calcium [Mass/Vol] 9.4 mg/dL 8.5-10.1 [facility] Work Phone: Serum or plasma creatinine m easurement (mass/volume)on 04-05-2022 Creatinine [Mass/Vol] 0.79 mg/dL 0.55-1.02 [facility] Work Phone: Comment on above: The validity of the calculated GFR & GFRAA in patients over 70 years has not been determined. Clinical correlation is essential. Serum or plasma urea nitroge n measurement (mass/volume)on 04-05-2022 Urea nitrogen [Mass/Vol] 13 mg/dL 7-18 [facility] Work Phone: Thin prep Papanicolaou smear with manual screeningon 04-05-2022 Thin prep Papanicolaou smear with manual screening 22 U/L 15-37 [facility] Work Phone: Thin prep Papanicolaou smear with manual screening 7 5-15 [facility] Work Phone: Absolute lymphocyte counton 02-02-2022 Lymphocytes Auto (Unsp spec) [#/Vol] 1.08 10*3/uL 0.83-4.51 [facility] Work Phone: Basophil percentageon 2021 Basophils/100 WBC (Bld) 1.2 % 0-1 [facility] Work Phone: Bilirubin [Mass/Vol] 0.60 mg/dL 0.20-1.00 [facility] Work Phone: Comment on above: For patients on eltr ombopag therapy, use of Dimension [place] TBIL is not recommended. Chloride [Moles/Vol] 106 mmol/L 98-107 [facility] Work Phone: Eosinophils/100 WBC (Bld) 0.8 % 0-5 [facility] Work Phone: Glucose [Mass/Vol] 138 mg/dL 74-106 [facility] Work Phone: Comment on above: Fasting Glucose resu lt greater than or equal to 126 mg/dL suggests DIABETES MELLITUS per A.D.A. criteria. Neutrophils (Bld) [#/Vol] 6.0 10*3/uL 2.0-7.7 [facility] Work Phone: Neutrophils/100 WBC (Bld) 77.5 % 47-70 [facility] Work Phone: [phone] Potassium [Moles/Vol] 4.4 mmol/L 3.5-5.1 [facility] Work Phone: Protein [Mass/Vol] 7.4 g/dL 6.4-8.2 [facility] Work Phone: Sodium [Moles/Vol] 138 mmol/L 136-145 [facility] Work Phone: WBC (Bld) [#/Vol] 7.7 10*3/uL 4.4-11.0 [facility] Work Phone: Blood erythrocytes count (nu mber/volume)on 02-02-2022 RBC (Bld) [#/Vol] 4.27 10*6/uL 4.2-5.4 [facility] Work [facility]: Blood hemoglobin measurement (mass/volume)on 02-02-2022 Hemoglobin (Bld) [Mass/Vol] 14.2 g/dL 12.0-15.0 [facility] Work Phone: Blood lymphocytes/100 leukoc yteson 02-02-2022 Lymphocytes/100 WBC (Bld) 14.0 % 19-41 [facility] Work Phone: Blood monocytes/100 leukocyt eson 02-02-2022 Monocytes/100 WBC (Bld) 6.1 % 0-10 [facility] Work Phone: Blood platelet mean volumeon 02-02-2022 Platelet mean volume (Bld) [Entitic vol] 10.0 fL 6.2-12.0 [facility] Work Phone: Determination of erythrocyte mean corpuscular volume (MCV)on 02-02-2022 MCV (RBC) [Entitic vol] 101.6 fL 81-99 [facility] Work Phone: Hematocrit Auto (Bld) [Volum e fraction]on 02-02-2022 Hematocrit (Bld) [Volume fraction] 43.4 % 37-47 [facility] Work Phone: Laboratory - Chemistry and C hemistry - challengeon 02-02-2022 ALP [Catalytic activity/Vol] 89 U/L 45-117 [facility] Work Phone: [phone] ALT [Catalytic activity/Vol] 24 U/L 13-56 [facility] Work Phone: CO2 [Moles/Vol] 30.0 mmol/L 21.0-32.0 [facility] Work Phone: Globulin (S) [Mass/Vol] 3.4 g/dL 2.2-4.2 [facility] Work Phone: Urea nitrogen/Creatinine [Mass ratio] 18.7 mg/mg 10-20 [facility] Work Phone: Laboratory - Hematology and Cell countson 02-02-2022 Erythrocyte distribution width (RBC) [Entitic vol] 50.8 fL 35.1-43.9 [facility] Work Phone: Erythrocyte distribution width (RBC) [Ratio] 13.7 % 11.6-14.6 [facility] Work Phone: Immature granulocytes/100 WBC (Bld) 0.400 % 0.0-0.9 [facility] Work Phone: Comment on above: IG% - Immature Granu locytes (promyelocytes, myelocytes and metamyelocytes) > 1% indicates that a LEFT SHIFT is Present. MCH (RBC) [Entitic mass] 33.3 pg 27.0-32.0 [facility] Work Phone: Nucleated RBC/100 WBC (Bld) [Ratio] 0 % 0-5 [facility] Work Phone: MCHC Auto (RBC) [Mass/Vol]on 02-02-2022 MCHC (RBC) [Mass/Vol] 32.7 g/dL 32-[address] [facility] [facility] Work Phone: No Panel Informationon 02-02 Estimated GFR (MDRD) Amer 92 mL/min >60 [facility] Work Phone: Comment on above: GFR Calc Estimated GFR (MDRD) Non-Af Amer 76 mL/min >60 [facility] Work Phone: Comment on above: Non- GFR Calc Platelets bldon 02-02-2022 Platelets (Bld) [#/Vol] 293 10*3/uL 150-450 [facility] Work Phone: Serum or plasma albumin elfego urement (mass/volume)on 02-02-2022 Albumin [Mass/Vol] 4.0 g/dL 3.2-5.0 [facility] Work Phone: Serum or plasma albumin/glob ulin mass ratioon 02-02-2022 Albumin/Globulin [Mass ratio] 1.2 {ratio} 0.9-2.4 [facility] Work Phone: Serum or plasma calcium elfego urement (mass/volume)on 02-02-2022 Calcium [Mass/Vol] 9.4 mg/dL 8.5-10.1 [facility] Work Phone: Serum or plasma creatinine m easurement (mass/volume)on 02-02-2022 Creatinine [Mass/Vol] 0.80 mg/dL 0.55-1.02 [facility] Work Phone: Comment on above: The validity of the calculated GFR & GFRAA in patients over 70 years has not been determined. Clinical correlation is essential. Serum or plasma urea nitroge n measurement (mass/volume)on 02-02-2022 Urea nitrogen [Mass/Vol] 15 mg/dL 7-18 [facility] Work Phone: Thin prep Papanicolaou smear with manual screeningon 02-02-2022 Thin prep Papanicolaou smear with manual screening 32 U/L 15-37 [facility] Work Phone: Thin prep Papanicolaou smear with manual screening 2 5-15 [facility] Work Phone: Absolute lymphocyte counton 12-06-2021 Lymphocytes Auto (Unsp spec) [#/Vol] 2.18 10*3/uL 0.83-4.51 [facility] Work Phone: Basophil percentageon 2021 Basophils/100 WBC (Bld) 0.9 % 0-1 [facility] Work Phone: Bilirubin [Mass/Vol] 0.40 mg/dL 0.20-1.00 [facility] Work Phone: Comment on above: For patients on eltr ombopag therapy, use of Dimension [place] TBIL is not recommended. Chloride [Moles/Vol] 105 mmol/L 98-107 [facility] Work Phone: Eosinophils/100 WBC (Bld) 2.1 % 0-5 [facility] Work Phone: Glucose [Mass/Vol] 124 mg/dL 74-106 [facility] Work Phone: Comment on above: Fasting Glucose resu lt from 100 to 125 mg/dL suggests IMPAIRED HOMEOSTASIS per A.D.A. criteria. Neutrophils (Bld) [#/Vol] 3.4 10*3/uL 2.0-7.7 [facility] Work Phone: Neutrophils/100 WBC (Bld) 53.9 % 47-70 [facility] Work Phone: Potassium [Moles/Vol] 4.1 mmol/L 3.5-5.1 [facility] Work Phone: Protein [Mass/Vol] 7.4 g/dL 6.4-8.2 [facility] Work Phone: Sodium [Moles/Vol] 137 mmol/L 136-145 [facility] Work Phone: WBC (Bld) [#/Vol] 6.3 10*3/uL 4.4-11.0 [facility] Work Phone: [phone] Blood erythrocytes count (nu mber/volume)on 12-06-2021 RBC (Bld) [#/Vol] 4.25 10*6/uL 4.2-5.4 [facility] Work Phone: Blood hemoglobin measurement (mass/volume)on 12-06-2021 Hemoglobin (Bld) [Mass/Vol] 13.7 g/dL 12.0-15.0 [facility] Work Phone: [phone] Blood lymphocytes/100 leukoc yteson 12-06-2021 Lymphocytes/100 WBC (Bld) 34.4 % 19-41 [facility] Work Phone: [phone] Blood monocytes/100 leukocyt eson 12-06-2021 Monocytes/100 WBC (Bld) 8.5 % 0-10 [facility] Work Phone: Blood platelet mean volumeon 12-06-2021 Platelet mean volume (Bld) [Entitic vol] 10.3 fL 6.2-12.0 [facility] Work Phone: Determination of erythrocyte mean corpuscular volume (MCV)on 12-06-2021 MCV (RBC) [Entitic vol] 98.8 fL 81-99 [facility] Work Phone: Hematocrit Auto (Bld) [Volum e fraction]on 12-06-2021 Hematocrit (Bld) [Volume fraction] 42.0 % 37-47 [facility] Work Phone: Laboratory - Chemistry and C hemistry - challengeon 12-06-2021 ALP [Catalytic activity/Vol] 99 U/L 45-117 [facility] Work Phone: ALT [Catalytic activity/Vol] 13 U/L 13-56 [facility] Work Phone: CO2 [Moles/Vol] 29.0 mmol/L 21.0-32.0 [facility] Work Phone: Globulin (S) [Mass/Vol] 3.5 g/dL 2.2-4.2 [facility] Work Phone: Urea nitrogen/Creatinine [Mass ratio] 18.5 mg/mg 10-20 [facility] Work Phone: Laboratory - Hematology and Cell countson 12-06-2021 Erythrocyte distribution width (RBC) [Entitic vol] 46.0 fL 35.1-43.9 [facility] Work Phone: Erythrocyte distribution width (RBC) [Ratio] 13.0 % 11.6-14.6 [facility] Work Phone: Immature granulocytes/100 WBC (Bld) 0.200 % 0.0-0.9 [facility] Work Phone: Comment on above: IG% - Immature Granu locytes (promyelocytes, myelocytes and metamyelocytes) > 1% indicates that a LEFT SHIFT is Present. MCH (RBC) [Entitic mass] 32.2 pg 27.0-32.0 [facility] Work Phone: Nucleated RBC/100 WBC (Bld) [Ratio] 0 % 0-5 [facility] Work Phone: MCHC Auto (RBC) [Mass/Vol]on 12-06-2021 MCHC (RBC) [Mass/Vol] 32.6 g/dL 32-36 [facility] Work Phone: No Panel Informationon 12-06 Estimated GFR (MDRD) Amer 99 mL/min >60 [facility] Work Phone: Comment on above: GFR Calc Estimated GFR (MDRD) Non-Af Amer 82 mL/min >60 [facility] Work Phone: Comment on above: Non- GFR Calc Platelets bldon 12-06-2021 Platelets (Bld) [#/Vol] 279 10*3/uL 150-450 [facility] Work Phone: Serum or plasma albumin elfego urement (mass/volume)on 12-06-2021 Albumin [Mass/Vol] 3.9 g/dL 3.2-5.0 [facility] Work Phone: Serum or plasma albumin/glob ulin mass ratioon 12-06-2021 Albumin/Globulin [Mass ratio] 1.1 {ratio} 0.9-2.4 [facility] Work Phone: Serum or plasma calcium elfego urement (mass/volume)on 12-06-2021 Calcium [Mass/Vol] 9.1 mg/dL 8.5-10.1 [facility] Work Phone: Serum or plasma creatinine m easurement (mass/volume)on 12-06-2021 Creatinine [Mass/Vol] 0.76 mg/dL 0.55-1.02 [facility] Work Phone: Comment on above: The validity of the calculated GFR & GFRAA in patients over 70 years has not been determined. Clinical correlation is essential. Serum or plasma urea nitroge n measurement (mass/volume)on 12-06-2021 Urea nitrogen [Mass/Vol] 14 mg/dL 7-18 [facility] Work Phone: Thin prep Papanicolaou smear with manual screeningon 12-06-2021 Thin prep Papanicolaou smear with manual screening 21 U/L 15-37 [facility] Work Phone: Thin prep Papanicolaou smear with manual screening 3 5-15 [facility] Work Phone: CULTURE URINEon 07-09-2020 CULTURE URINE CULTURE URINE --> St atus: F No growth (<1,000 CFU/ml). Normal [facility] Comment on above: Order Comment: Speci men Source Comment:Urine, clean catch Performed By: #### C /UR #### [address] [address] [place], [place] Culture, Urineon 07-09-2020 Bacteria identified Cx Nom (U) No growth (<1,000 CFU/ml). [facility] [place], [employer] Test Performed by [facility], [facility] [place] [address] Specimen Source Comment:Urine, clean catch [facility] [place], [place] Complete Urinalysison 2019 Appearance (U) Clear Normal Clear [facility] Comment on above: Result Comment: . Performed By: #### C UA2 #### [address] [address] [address] [place], [place] Bacteria LM.HPF (Urine sed) [#/Area] Few Abnormal Negative [facility] Comment on above: Result Comment: . Performed By: #### C UA2 #### [facility] [employer] [facility] [address], [place] Bilirubin,Urine Negative Normal Negative [facility] Comment on above: Result Comment: . Performed By: #### C UA2 #### [address] [address] [place], [place] Color (U) Light-Yellow Normal Lt. Yellow [facility] Comment on above: Result Comment: . Performed By: #### C UA2 #### [facility] [address], [place] Glucose Ql (U) Normal Normal Normal (<70) [facility] Comment on above: Result Comment: . Performed By: #### C UA2 #### [facility] [address], [place] Ketone,Urine Negative Normal Negative [facility] Comment on above: Result Comment: . Performed By: #### C UA2 #### [facility] [address], [place] Leukocytes,Urine 75 Samuel/uL Abnormal Negative [facility] Comment on above: Result Comment: . Performed By: #### C UA2 #### [address] [address] [address] [place], [place] Mucous Threads Few Normal Negative [facility] Comment on above: Result Comment: . Performed By: #### C UA2 #### [address] [address] [address] [place], [place] Nitrites,Urine Negative Normal Negative [facility] Comment on above: Result Comment: . Performed By: #### C UA2 #### [address] [address] [address] [place], [place] Occult Blood,Urine 0.5 mg/dL Abnormal Negative [facility] Comment on above: Result Comment: . Performed By: #### C UA2 #### [facility] [address], [place] pH (U) 6.0 Normal 5.0-8.0 [facility] Comment on above: Result Comment: . Performed By: #### C UA2 #### [address] [address] [address] [place], [place] Protein (U) [Mass/Vol] Negative Normal Negative [facility] Comment on above: Result Comment: . Performed By: #### C UA2 #### [facility] [address], [place] RBC LM.HPF (Urine sed) [#/Area] /[HPF] Abnormal 0-2 [facility] Comment on above: Result Comment: . Performed By: #### C UA2 #### [facility] [address] [place] [address] Specific [place],Urine 1.013 Normal 1.005 - 1.030 [facility] Comment on above: Result Comment: . Performed By: #### C UA2 #### [facility] [address] [place] [address] Urobilinogen,Urine Normal Normal Normal (0-1) [facility] Comment on above: Result Comment: . Performed By: #### C UA2 #### [facility] [address] [place] [address] WBC LM.HPF (Urine sed) [#/Area] 11 - 25 Abnormal 0-5 [facility] Comment on above: Result Comment: . Performed By: #### C UA2 #### [facility] [address] [place] [address] Surgical Pathologyon 020 Sodium [Moles/Vol] SEE BELOW [place], [place] 1 [id number] [facility] PATHOLOG[facility]ORATORY MEDICINE [address] [place] [address] FINAL SURGICAL PATHOLOGY REPORT NAME: LIZZETH SLADE Seng : 1955 65 Y F BILLING NO.: [id number] LOCATION: [facility] [id number] PROCEDURE 07/05/2020 DATE: SURGEON: IWONA AGUILA M.D. RECEIVED 07/05/2020 DATE: ATTENDING: IWONA AGUILA M.D. REPORT DATE: 07/08/2020 COPIES TO: DIAGNOSIS: A. UTERUS, BILATERAL FALLOPIAN TUBES AND OVARIES, RADICAL HYSTERECTOMY UNDIFFERENTIATED CARCINOMA OF ENDOMETRIUM, WITH TRANSMURAL INVASION, AND INVOLVEMENT OF CERVICAL STROMA AND PARAMETRIUM SEE COMMENT Comment: Multiple sections were examined from this large endometrial mass that fills the uterus with involvement of the endocervix and cervical stroma and focal invasion into parametrium. The tumor shows extensive necrosis. The tumor cells show solid growth pattern, in areas with transitional appearance and large areas with rhabdoid cytomorphology. Immunostains were performed. The epithelioid areas are strongly positive for keratin; the rhabdoid areas are strongly positive for both keratin and vimentin. The possiblity of carcinosarcoma with dedifferentiation cannot be excluded. Synaptophysin and chromogranin are negative, ruling out neuroendocrine differentiation. B. LEFT PELVIC LYMPH NODES , EXCISION - TWO LYMPH NODES, NEGATIVE FOR MALIGNANCY (0/2) C. RIGHT PELVIC LYMPH NODES, EXCISION - TWO LYMPH NODES, NEGATIVE FOR MALIGNANCY (0/2) D. OMENTUM, BIOPSY - PORTION OF OMENTAL TISSUE, NEGATIVE FOR MALIGNANCY SPECIMEN Procedure: Radical hysterectomy, Node sampling and [...] Pelvic Nodes Examined: 4 Number of Pelvic Empire Nodes Examined: 0 Total Number of Para-aortic Nodes Examined: 0 Number of Para-aortic Empire Nodes Examined: 0 PATHOLOGIC STAGE CLASSIFICATION (pTNM, [...] Nodes (pN): pN0 FIGO STAGE FIGO Stage: IIIA HAUNTED HISTORY TOUR GUIDE TUMOR BLOCK(S): A1-4 DC/DC Signature> CHICA IZAGUIRRE M.D. CLINICAL INFORMATION: Endometrial cancer SPECIMEN: (A) UTERUS (RFN), WITH/WITHOUT TUBES AND OVARIES (B) LYMPH NODE(S) SPECIMEN (C) LYMPH NODE(S) SPECIMEN (D) OMENTUM BIOPSY GROSS DESCRIPTION: A. Radical hysterectomy, bilateral fallopian tubes and bilateral ovaries Received in formalin is a radical hysterectomy with bilateral fallopian tubes and bilateral ovaries weigh 666 grams. The cervix measures 7 x 6 cm is round, irregular, pink hooks in color with a 3 x 2 cm lesion. The lesion is located on the right half of the cervix. The serosal surface is pink hooks, irregular, evidence of multiple bulging subserosal nodules. No identifiable parametrium is seen. The ectocervical lower uterine are inked with black ink. The specimen is bivalved to reveal a white yellow hooks mass with areas of hemorrhage. The mass is soft with a friable texture. It occupies the endometrial cavity and the endocervical canal. The tumor appears to involve the full thickness of the myometrium and serosal surface. It occupies a 14.5 x 12 area of cut surface. The possible left ovary abuts to the uterus. It measures approximately 2.5 x 2.3 x 2 cm. Sectioning through reveals a yellow white hooks area of hemorrhage. A possible left fallopian tube is also abutting the uterus and sectioning through it reveals a pink lumen. The fallopian tube measures 4 cm in length and 0.6 cm in average diameter. The right ovary is also abutting the uterus. The fallopian tube with fimbria is also abutting the uterus and measures 4 cm in length and 0.7 cm in average diameter. Sectioning through reveals a pinpoint lumen. Resistance Machine Welder Setter sections are submitted. Cassette Summary: 1 anterior cervix; 2 posterior cervix; 3 - 22 insurance service representative sections of the tumor from the endocervical canal to the endometrial cavity; 23 left ovary with abutting fallopian tube; 24 and 25 left fallopian tubes with fimbria; 26 right ovary; 27 - 29 are right fallopian tubes with fimbria. B. Left pelvic lymph nodes Received in formalin are two fibrofatty tissues with the first measuring 2 x 1.5 x 3 cm and the second measuring 2 x 1 x 0.8 cm. They are both bisected and submitted in two separate cassettes. C. Right pelvic lymph nodes Received in formalin are two fibrofatty tissues the first measuring 2 x 1.8 x 0.8 and the second measuring 1.6 x 1.1 x 0.6 cm. They are both bisected and submitted in two separate cassettes. D. Omental biopsy Received in formalin is a yellow fatty tissue that measures 7 x 6 x 2 cm. A insurance service representative section is submitted in one cassette. ENK/MARKUS Disclaimer: The following statement applies to all immunohistochemistry, in situ hybridization, molecular studies, and immunofluorescence testing. The use of one or more reagents in the above tests is regulated as an analyte specific reagent (ASR). These tests were developed and their performance characteristics determined by the clinical laboratories of [facility]. They have not been cleared by the US Food and Drug Administration (FDA). The FDA has determined that such clearance or approval is not necessary. All the above immunostains were performed on paraffin embedded tissue. Appropriate positive and negative controls (where applicable) were run in parallel with the patient's specimen; these controls showed expected staining pattern, with acceptable intensity of staining. Immunohistochemical assays have not been validated on decalcified tissues. Results should be interpreted with caution given the raised possibility of false negativity on decalcified specimens. Professional Performing Location: [address] [address]. DEPARTMENT OF PATHOLOGY AND LABORATORY MEDICINE [place], [place] [address] [facility], [place] Urinalysison 07-08-2020 Appearance (U) Clear Clear NA [facility], [place] Comment on above: . Bacteria, UA Few Abnormal Negative /[HPF] [place] Comment on above: . Bilirubin Urine Negative Negative mg/dL [place] Comment on above: . Color (U) Light-Yellow Lt. Yellow NA [place] Comment on above: . Glucose, Ur Normal Normal (<70) mg/dL [place] Comment on above: . Interpretation and review of laboratory results Abnormal [place] Ketones Ql (U) Negative Negative mg/dL [place] Comment on above: . LEUKOCYTES, UA 75 Abnormal Negative Samuel/uL [place] Comment on above: . Mucous Threads Few Negative /[LPF] [place] Comment on above: . Nitrite, Urine Negative Negative NA [place] Comment on above: . Occult Blood,Urine 0.5 mg/dL Abnormal Negative [place] Comment on above: . pH (U) 6.0 [pH] [place] Comment on above: . Protein (U) [Mass/Vol] Negative Negat clovis mg/dL [place] Comment on above: . RBC (U) [#/Vol] /uL Abnormal 0 - 2 /[HPF] [place] Comment on above: . Specific [place], Urine 1.013 [place] Comment on above: . Urobilinogen, Urine Normal Normal (0-1) mg/dL [place] Comment on above: . WBC, UA 11-25 Abnormal 0 - 5 /[HPF] [place] Comment on above: . Test Performed by [facility], [address] [place] [id number] [place] CBC Auto Differentialon 09-0 Absolute Baso # 0.0 10*3/uL 0 - 0.2 10*3/uL [place] Absolute Neut # 13.0 10*3/uL High 1.8 - 7 10*3/uL [place] Basophils/100 WBC (Bld) 0.2 % 0 - 2 % [place] Eosinophils (Bld) [#/Vol] 0.0 10*3/uL 0 - 0.5 10*3/uL [place] Eosinophils/100 WBC (Bld) 0.0 % Low 1 - 6 % [place] Erythrocyte distribution width (RBC) [Ratio] 12.7 % 11.5 - 14.5 % [place] Granulocytes/100 WBC (Bld) 84.7 % High 40 - 80 % [place] Hematocrit (Bld) [Volume fraction] 37.4 % 35 - 47 % [place] Hemoglobin (Bld) [Mass/Vol] 12.4 g/dL 11.7 - 16 g/dL [place] Interpretation and review of laboratory results Abnormal [place] Lymphocytes (Bld) [#/Vol] 1.4 10*3/uL 1 - 4.3 10*3/uL [place] Lymphocytes/100 WBC (Bld) 9.3 % Low 20 - 40 % [place] MCH (RBC) [Entitic mass] 30.4 pg 26 - 34 pg [place] MCHC (RBC) [Mass/Vol] 33.0 % 32 - 36 % [place] MCV (RBC) [Entitic vol] 92.1 fL 79 - 98 fL [place] Monocytes (Bld) [#/Vol] 0.9 10*3/uL High 0 - 0.8 10*3/uL [place] Monocytes/100 WBC (Bld) 5.8 % 2 - 10 % [place] Platelet mean volume (Bld) [Entitic vol] 8.4 fL 7.4 - 10.4 fL [place] Platelets (Bld) [#/Vol] 323 10*3/uL 140 - 440 10*3/uL [place] RBC (Bld) [#/Vol] 4.06 10*6/uL 3.8 - 5.2 10*6/uL [place] WBC (Bld) [#/Vol] 15.3 10*3/uL High 3.6 - 10.7 10*3/uL [place] Test Performed by [facility], [address] [place] [id number] [place] CREATININE, SERUMon 07-06-20 20 Creatinine [Mass/Vol] 0.58 mg/dL 0.52 - 1.25 mg/dL [place] EGFR IF NonAfrican Lebanese >90.0 >60 mL/min [place] Comment on above: KDIGO guidelines pro vide the following GFR categories: Stage GFR(ml/min/1.73 m2) [...] medications that affect renal tubular creatinine secretion. GFR/1.73 sq M predicted among blacks MDRD (S/P/Bld) [Vol rate/Area] mL/min/{1.73_m2} >60 mL/min [place] Test Performed by [facility], [address] [place] [id number] [place] [address] Creatinineon 07-06-2020 Creatinine [Mass/Vol] mg/dL Normal >60 [facility] Comment on above: Performed By: #### C RTN3 #### [facility] [address] [place] [address] Result Comment: KDIG O guidelines provide the following GFR categories: Stage [...] medications that affect renal tubular creatinine secretion. Creatinine [Mass/Vol] 0.58 mg/dL Normal 0.52-1.25 [facility] Comment on above: Performed By: #### C RTN3 #### [address] [place], [place] Hemogram w/ Autodiffon 07-06 Abs Baso Cnt 0.0 10*3/uL Normal 0.0-0.2 [facility] Comment on above: Performed By: #### H EMDF #### [address] Abs Neutrophile Cnt 13.0 10*3/uL High 1.8-7.0 [facility] Comment on above: Performed By: #### H EMDF #### [address] Basophils/100 WBC (Bld) 0.2 % Normal 0.0-2.0 [facility] Comment on above: Performed By: #### H EMDF #### [address] Eosinophils (Bld) [#/Vol] 0.0 10*3/uL Normal 0.0-0.5 [facility] Comment on above: Performed By: #### H EMDF #### [address] Eosinophils/100 WBC (Bld) 0.0 % Low 1.0-6.0 [facility] Comment on above: Performed By: #### H EMDF #### [address] Erythrocyte distribution width (RBC) [Ratio] 12.7 % Normal 11.5-14.5 [facility] Comment on above: Performed By: #### H EMDF #### [address] [place] [place] [address] Granulocytes/100 WBC (Bld) 84.7 % High 40.0-80.0 [facility] Comment on above: Performed By: #### H EMDF #### [address] [address] [address] [place], [place] Hematocrit (Bld) [Volume fraction] 37.4 % Normal 35.0-47.0 [facility] Comment on above: Performed By: #### H EMDF #### [address] [address] [address] [place], [place] Hemoglobin (Bld) [Mass/Vol] 12.4 g/dL Normal 11.7-16.0 [facility] Comment on above: Performed By: #### H EMDF #### [address] Lymphocytes (Bld) [#/Vol] 1.4 10*3/uL Normal 1.0-4.3 [facility] Comment on above: Performed By: #### H EMDF #### [address] [address] [place], [place] Lymphocytes/100 WBC (Bld) 9.3 % Low 20.0-40.0 [facility] Comment on above: Performed By: #### H EMDF #### [address] MCH (RBC) [Entitic mass] 30.4 pg Normal 26.0-34.0 [facility] Comment on above: Performed By: #### H EMDF #### [address] [address] [address] [place], [place] MCHC (RBC) [Mass/Vol] 33.0 % Normal 32.0-36.0 [facility] Comment on above: Performed By: #### H EMDF #### [address] MCV (RBC) [Entitic vol] 92.1 fL Normal 79.0-98.0 [facility] Comment on above: Performed By: #### H EMDF #### [address] [place] [address] Monocytes (Bld) [#/Vol] 0.9 10*3/uL High 0.0-0.8 [facility] Comment on above: Performed By: #### H EMDF #### [facility] [address] [place] [address] Monocytes/100 WBC (Bld) 5.8 % Normal 2.0-10.0 [facility] Comment on above: Performed By: #### H EMDF #### [address] [place] [address] Platelet mean volume (Bld) [Entitic vol] 8.4 fL Normal 7.4-10.4 [facility] Comment on above: Performed By: #### H EMDF #### [address] [place] [address] Platelets (Bld) [#/Vol] 323 10*3/uL Normal 140-440 [facility] Comment on above: Performed By: #### H EMDF #### [address] [place] [address] RBC (Bld) [#/Vol] 4.06 10*6/uL Normal 3.80-5.20 [facility] Comment on above: Performed By: #### H EMDF #### [address] [place] [address] WBC (Bld) [#/Vol] 15.3 10*3/uL High 3.6-10.7 [facility] Comment on above: Performed By: #### H EMDF #### [address] [place] [address] Op Noteon 07-05-2020 Op Note PATIENT: KRISTAN SLDAE ADMISSION DATE: 07/05/2020 SURGERY DATE: 07/05/2020 DATE OF : 1955 AGE: 65 ADMITTING PHYSICIAN: Iwona Aguila MD ATTENDING PHYSICIAN: Iwona Aguila MD DICTATING PHYSICIAN: Iwona Aguila MD OPERATIVE RECORD PRIMARY CARE PHYSICIAN: Dr. Caldwell Procedure: 1. EXPLORATORY LAPAROTOMY. 2. RADICAL ABDOMINAL HYSTERECTOMY WITH BILATERAL SALPINGO-OOPHORECTOMY. 3. BILATERAL PELVIC LYMPH NODE SAMPLING. 4. OMENTAL BIOPSY. 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 Anesthesia: General endotracheal anesthesia/TAP block. Assistants: 1. Xin Tripp. 2. Jayro Santiago. Estimated Blood Loss: 300 cc. IV Fluids: 1700 cc crystalloid. URINE OUTPUT: 430 cc with Wharton catheter. Specimen: 1. Radical hysterectomy with bilateral tubes and ovaries. 2. Left pelvic lymph nodes. 3. Right pelvic lymph nodes. 4. Omental biopsy. Complications: None apparent. Disposition: Stable to the PACU. Indications: The patient is a pleasant 65-year-old female who initially presented to her primary care physician for routine examination. A mass was palpable on examination. An MRI scan was ordered on 04/30/2020 that showed an enlarged lobular heterogeneous uterus. There was peripheral enhancement extending to the cornea as well as endometrial thickness. It did appear that the heterogeneous signal intensity extended to the serosa on the left side of the uterus and the cervix was prominent. Additionally, there was a T2 hyperintense lesion, possibility of metastatic disease. Tumor markers were normal. The patient underwent an endometrial biopsy which was consistent with a high-grade neoplasm of gynecologic origin. A PET scan showed that the bony lesions on MRI were not FDG avid. There were no other sites of metastatic disease. Management options were discussed with the patient and she elected to proceed with definitive surgical staging. Findings: Examination under anesthesia revealed normal external genitalia. The vagina was smooth. The cervix was enlarged measuring approximately 4 cm in width with what appeared to be tumor protruding through the endocervical canal. Again, there was no involving of the vagina. On bimanual examination, it did feel that the uterus was enlarged but mobile. There was no obvious parametrial disease. Significant findings at the time of laparotomy included normal upper abdomen. The patient's bilateral hemidiaphragms were smooth and palpation as was the liver capsule and spleen. The omentum was normal in appearance. There were no enlarged periaortic lymph nodes. Within the patient's pelvis, there were bilateral enlarged pelvic lymph nodes that were encountered. The uterus was enlarged and grossly abnormal with what appeared to be tumor extending all the way to just under the uterine serosa. The uterus itself was firm, friable and necrotic. The tubes and ovaries were somewhat indurated, but it was unclear if this was secondary to involvement with disease versus inflammatory changes. It did also appear that was a concern for growth beyond the uterine serosa into the left parametrial tissue. Given the extent of the disease and the cervical dilation, the radical hysterectomy was required in order to mobilize the ureters lateral and inferior in order to complete the hysterectomy. Description of Procedure: After informed, written consent was obtained, the patient was identified in the preoperative holding area and taken to the operating room where anesthesia was found to be adequate. She was then prepped and draped in the usual sterile fashion in the dorsal lithotomy position with Luis Armando stirrups. Care was taken to neither hyperextend or hyperflex the patient's hips or knees. A surgical time-out was performed. Entry into the abdominal cavity was performed via midline vertical incision with a 10 blade scalpel and carried through to the underlying layer of fascia with the Bovie. The fascia was scored in the midline and extended under direct visualization. The rectus muscles were dissected off the midline, the peritoneum was identified, grasped with tonsil clamps, entered sharply with Metzenbaum scissors. The peritoneal incision was extended under direct visualization. Exploration of the patient's abdominal cavity revealed the above-noted findings. The Brandon wound retractor was then placed without difficulty. The patient was then placed in slight Trendelenburg position and the bowel was displaced out of the pelvis. This was done with moist laparotomy sponges and a Bookwalter retractor. The physiologic adhesions of the colon to the left pelvic sidewall were taken down using Bovie cautery. The left retroperitoneal space was opened and all anatomic landmarks were identified including the ureter. The left round ligament was cauterized and transected using the Enseal device. Ureterolysis was then performed using a combination of blunt dissection with a right angle dissector and intermittent bursts of monopolar cautery. This allowed for mobilization of the ureter off the medial leaf of the broad ligament. I was then able to skeletonize the left infundibulopelvic ligament which was then serially coagulated and divided with the EnSeal device. The dissection of the ureter continued down to the level of the uterine vessels. In order to facilitate further dissection, the bladder flap was created anteriorly. This was done with a combination of intermittent bursts of monopolar cautery and the Kittner. I was then able to skeletonize the uterine vessels as they crossed over the ureter. These were then transected using clips and Metzenbaum scissors. The dissection through the parametrial tunnel was quite challenging due to the distention of the cervix and induration of the surrounding structures. The posterior leaf of the broad ligament was taken down to the level of the internal cervical os. I then mobilized the colon off of the posterior aspect of the uterus and cervix. This was done using a combination of sharp dissection, blunt dissection with a right angle retractor and intermittent bursts of monopolar cautery. The EnSeal device was then used to coagulate and divide the uterosacral ligament. Zeppelin clamps were then used to serially clamp, transect, and suture ligate with a 0 Vicryl the Mary transection stitch the cardinal ligaments. The above procedure was repeated on the right-hand side. Again, once we assured that the bladder and ureters had been sufficiently mobilized laterally and off of the cervix and upper vagina, the sharply curved zeppelin clamps were placed across the base of the cervical vaginal junction. The uterus and cervix were then amputated using Cesar scissors. The vaginal cuff was reapproximated using [id number] stitches of 0 Vicryl. Again, this was a tedious dissection that was quite challenging due to the large size of the uterus as well as the distention of the cervix and possible parametrial involvement. A radical hysterectomy was required which did entail mobilizing the ureters all the way from the pelvic brim through the parametrial tunnel and off of the upper vagina. Similarly, the rectovaginal septum had been entered and the rectum was mobilized posteriorly. The large bites were taken of the uterosacral ligaments, all consistent with the radical hysterectomy. The abdomen and pelvis were irrigated. All surgical sites were inspected and noted to be hemostatic. It was at this point in time that we did encounter several enlarged pelvic lymph nodes. These were grasped with and dissected from the surrounding structures using a combination of blunt dissection and intermittent bursts of monopolar cautery. Once again, hemostasis was assured in the pelvis prior to unpacking the upper abdomen. An omental biopsy was then obtained by serially cauterizing and transecting the infracolic omentum using the EnSeal device. All laparotomy sponges and retractors were removed at this time. It was at this point in time that all surgical personnel rescrubbed, gowned, and gloved. All new instruments were used for closure of the anterior abdominal wall in accordance with the open hysterectomy bundle. The anterior abdominal wall and fascia were reapproximated using a 0 looped PDS in a running mass closure. The subcutaneous tissue was irrigated and all areas of bleeding were cauterized. The subcutaneous tissue was reapproximated using buried interrupted stitches of 3-0 plain gut and the skin was closed with 4-0 Monocryl with a subcuticular stitch, Steri-Strips, and Tegaderm nursery at the operative site. The patient tolerated the procedure well. Sponge, lap, needle, and instrument counts were correct x2. The patient was awakened and taken to the recovery room in stable condition. She did receive preoperative antibiotics with intraoperative re-dosing due to the duration of the time under anesthesia in accordance with SCIP guidelines. She received DVT prophylaxis in the form of serial compression devices during the surgery. cc: Dr. Javi Ashley Job ID: [id number] Iwona Aguila MD DOD:07/05/2020 03:56 P RLK/munira DOT:07/05/2020 05:37 P Job Number: [id number] Document Number: [id number] cc: Iwona Aguila MD [facility] [address] [facility] [address] Normal [facility] Surgical Pathologyon 020 Surgical Pathology [id number] [facility] PATHOLOGY AND LABORATORY MEDICINE [address] [place] [id number] FINAL SURGICAL PATHOLOGY REPORT NAME: LIZZETH SLADE : 1955 65 Y F BILLING NO.: [id number] LOCATION: [id number] PROCEDURE 07/05/2020 DATE: SURGEON: IWONA AGUILA M.D. RECEIVED 07/05/2020 DATE: ATTENDING: IWONA AGUILA M.D. REPORT DATE: 07/08/2020 COPIES TO: DIAGNOSIS: A. UTERUS, BILATERAL FALLOPIAN TUBES AND OVARIES, RADICAL HYSTERECTOMY UNDIFFERENTIATED CARCINOMA OF ENDOMETRIUM, WITH TRANSMURAL INVASION, AND INVOLVEMENT OF CERVICAL STROMA AND PARAMETRIUM SEE COMMENT Comment: Multiple sections were examined from this large endometrial mass that fills the uterus with involvement of the endocervix and cervical stroma and focal invasion into parametrium. The tumor shows extensive necrosis. The tumor cells show solid growth pattern, in areas with transitional appearance and large areas with rhabdoid cytomorphology. Immunostains were performed. The epithelioid areas are strongly positive for keratin; the rhabdoid areas are strongly positive for both keratin and vimentin. The possiblity of carcinosarcoma with dedifferentiation cannot be excluded. Synaptophysin and chromogranin are negative, ruling out neuroendocrine differentiation. B. LEFT PELVIC LYMPH NODES , EXCISION - TWO LYMPH NODES, NEGATIVE FOR MALIGNANCY (0/2) C. RIGHT PELVIC LYMPH NODES, EXCISION - TWO LYMPH NODES, NEGATIVE FOR MALIGNANCY (0/2) D. OMENTUM, BIOPSY - PORTION OF OMENTAL TISSUE, NEGATIVE FOR MALIGNANCY SPECIMEN Procedure: Radical hysterectomy, Node sampling and [...] Pelvic Nodes Examined: 4 Number of Pelvic Empire Nodes Examined: 0 Total Number of Para-aortic Nodes Examined: 0 Number of Para-aortic Empire Nodes Examined: 0 PATHOLOGIC STAGE CLASSIFICATION (pTNM, [...] Nodes (pN): pN0 FIGO STAGE FIGO Stage: IIIA HAUNTED HISTORY TOUR GUIDE TUMOR BLOCK(S): A1-4 DC/DC Signature> CHICA IZAGUIRRE M.D. CLINICAL INFORMATION: Endometrial cancer SPECIMEN: (A) UTERUS (RFN), WITH/WITHOUT TUBES AND OVARIES (B) LYMPH NODE(S) SPECIMEN (C) LYMPH NODE(S) SPECIMEN (D) OMENTUM BIOPSY GROSS DESCRIPTION: A. Radical hysterectomy, bilateral fallopian tubes and bilateral ovaries Received in formalin is a radical hysterectomy with bilateral fallopian tubes and bilateral ovaries weigh 666 grams. The cervix measures 7 x 6 cm is round, irregular, pink hooks in color with a 3 x 2 cm lesion. The lesion is located on the right half of the cervix. The serosal surface is pink hooks, irregular, evidence of multiple bulging subserosal nodules. No identifiable parametrium is seen. The ectocervical lower uterine are inked with black ink. The specimen is bivalved to reveal a white yellow hooks mass with areas of hemorrhage. The mass is soft with a friable texture. It occupies the endometrial cavity and the endocervical canal. The tumor appears to involve the full thickness of the myometrium and serosal surface. It occupies a 14.5 x 12 area of cut surface. The possible left ovary abuts to the uterus. It measures approximately 2.5 x 2.3 x 2 cm. Sectioning through reveals a yellow white hooks area of hemorrhage. A possible left fallopian tube is also abutting the uterus and sectioning through it reveals a pink lumen. The fallopian tube measures 4 cm in length and 0.6 cm in average diameter. The right ovary is also abutting the uterus. The fallopian tube with fimbria is also abutting the uterus and measures 4 cm in length and 0.7 cm in average diameter. Sectioning through reveals a pinpoint lumen. Resistance Machine Welder Setter sections are submitted. Cassette Summary: 1 anterior cervix; 2 posterior cervix; 3 - 22 insurance service representative sections of the tumor from the endocervical canal to the endometrial cavity; 23 left ovary with abutting fallopian tube; 24 and 25 left fallopian tubes with fimbria; 26 right ovary; 27 - 29 are right fallopian tubes with fimbria. B. Left pelvic lymph nodes Received in formalin are two fibrofatty tissues with the first measuring 2 x 1.5 x 3 cm and the second measuring 2 x 1 x 0.8 cm. They are both bisected and submitted in two separate cassettes. C. Right pelvic lymph nodes Received in formalin are two fibrofatty tissues the first measuring 2 x 1.8 x 0.8 and the second measuring 1.6 x 1.1 x 0.6 cm. They are both bisected and submitted in two separate cassettes. D. Omental biopsy Received in formalin is a yellow fatty tissue that measures 7 x 6 x 2 cm. A insurance service representative section is submitted in one cassette. ENK/MARKUS Disclaimer: The following statement applies to all immunohistochemistry, in situ hybridization, molecular studies, and immunofluorescence testing. The use of one or more reagents in the above tests is regulated as an analyte specific reagent (ASR). These tests were developed and their performance characteristics determined by the clinical laboratories of [facility]. They have not been cleared by the US Food and Drug Administration (FDA). The FDA has determined that such clearance or approval is not necessary. All the above immunostains were performed on paraffin embedded tissue. Appropriate positive and negative controls (where applicable) were run in parallel with the patient's specimen; these controls showed expected staining pattern, with acceptable intensity of staining. Immunohistochemical assays have not been validated on decalcified tissues. Results should be interpreted with caution given the raised possibility of false negativity on decalcified specimens. Professional Performing Location: [address] [address]. DEPARTMENT OF PATHOLOGY AND LABORATORY MEDICINE [place], [place] [address] Normal [facility] CBCon 06-25-2020 Erythrocyte distribution width (RBC) [Ratio] 12.7 % 11.5 - 14.5 % [place] Hematocrit (Bld) [Volume fraction] 41.0 % 35 - 47 % [place] Hemoglobin (Bld) [Mass/Vol] 13.7 g/dL 11.7 - 16 g/dL [place] MCH (RBC) [Entitic mass] 31.0 pg 26 - 34 pg [place] MCHC (RBC) [Mass/Vol] 33.3 % 32 - 36 % [place] MCV (RBC) [Entitic vol] 93.0 fL 79 - 98 fL [place] Platelet mean volume (Bld) [Entitic vol] 8.4 fL 7.4 - 10.4 fL [place] Platelets (Bld) [#/Vol] 324 10*3/uL 140 - 440 10*3/uL [place] RBC (Bld) [#/Vol] 4.41 10*6/uL 3.8 - 5.2 10*6/uL [place] WBC (Bld) [#/Vol] 7.9 10*3/uL 3.6 - 10.7 10*3/uL [place] Test Performed by [facility] [place] [address] [place] Hemogramon 06-25-2020 Erythrocyte distribution width (RBC) [Ratio] 12.7 % Normal 11.5-14.5 [facility] Comment on above: Performed By: #### H EMO #### [address] [address] [place] [address] Hematocrit (Bld) [Volume fraction] 41.0 % Normal 35.0-47.0 [facility] Comment on above: Performed By: #### H EMOG #### [facility] [address], [place] Hemoglobin (Bld) [Mass/Vol] 13.7 g/dL Normal 11.7-16.0 [facility] Comment on above: Performed By: #### H EMOG #### [facility] [address], [place] MCH (RBC) [Entitic mass] 31.0 pg Normal 26.0-34.0 [facility] Comment on above: Performed By: #### H EMOG #### [address], [place] MCHC (RBC) [Mass/Vol] 33.3 % Normal 32.0-36.0 [facility] Comment on above: Performed By: #### H EMOG #### [address], [place] MCV (RBC) [Entitic vol] 93.0 fL Normal 79.0-98.0 [facility] Comment on above: Performed By: #### H EMOG #### [address] [address], [place] Platelet mean volume (Bld) [Entitic vol] 8.4 fL Normal 7.4-10.4 [facility] Comment on above: Performed By: #### H EMOG #### [address], [place] Platelets (Bld) [#/Vol] 324 10*3/uL Normal 140-440 [facility] Comment on above: Performed By: #### H EMOG #### [address] [address], [place] RBC (Bld) [#/Vol] 4.41 10*6/uL Normal 3.80-5.20 [facility] Comment on above: Performed By: #### H EMOG #### [address], [place] WBC (Bld) [#/Vol] 7.9 10*3/uL Normal 3.6-10.7 [facility] [employer] [facility] Comment on above: Performed By: #### H EMOG #### [facility] [employer] [address] [place] [address] TS GELon 06-25-2020 TS GEL ABO Group: A Rh, Gel: POS Antibody Screen Gel: NEG Normal [facility] Comment on above: Performed By: #### T SGL #### [address] [address] [place] [address] [facility] [employer] [facility] TYPE AND SCREENon 06-25-2020 Sodium [Moles/Vol] A [employer] [place], [place] Sodium [Moles/Vol] Negative [employer] [place], [place] Sodium [Moles/Vol] Positive [employer] [place] Test Performed by [facility] [place] [address] [employer] [place], [place] Progress Noteon 03-20-2018 Institutional Aide Authentication Interface Message Text Chief ComplaintPatient presents with Blurred Vision Depends on the shayan of the object, can be blurry up close/far away Diplopia Dry Eye Nystagmus Photophobia When outside pt feels blinded by the sunlight, needs sun glasses even when itscloudy outsideHistory of Presenting Problem:HPI Blurred VisionIn both eyes. Onset was sudden. Vision is blurred. Severity is mild. Thisstarted years ago. Occurring constantly. It is worse at random times.Context: distance vision. Since onset it is stable. Associated symptomsinclude dryness. Negative for eye pain, redness, tearing and headache.Additional comments: Depends on the shayan of the object, can be blurry upclose/far away DiplopiaDisease is chronic. Characterized as vertical. Duration of years. Occurringconstantly. Occurring all the time. Since onset it is stable. Associatedsymptoms include blurred vision. Negative for droopy eyelid, unequal pupilsize, eye pain and headaches. Dry EyeIn both eyes. Associated signs and symptoms include blurred vision and lightsensitivity. Negative for eye pain, burning, redness, tearing, discharge anditching. Occurring intermittently. It is worse throughout the day and atrandom times. Duration of years. Since onset it is stable. Treatments triedinclude artificial tears. Response to treatment was mild improvement. NystagmusIn both eyes. Disease is chronic. Duration of years. Movement is up and down.Since onset it is stable. Associated symptoms include blurred vision. Negativefor droopy eyelid, eye pain and headache. Photophobia In both eyes. Occurring constantly. It is worse at random times. Durationof months. Since onset it is stable. Associated symptoms include blurredvision and photophobia. Negative for discharge, redness, tearing, headaches,itching and swelling. Treatments tried include no treatments. Response totreatment was no improvement. Additional comments: When outside pt feels blindedby the sunlight, needs sun glasses even when its cloudy outside CommentsH/O Downbeat nystagmus, Oscillopsia, Diplopia, Intermittent esotropia,alternating, Anomalous head positionGlasses for computer work/reading Last edited by Daysi Lacy on 03/20/2018 10:29 AM. (History)Ocular History:Ocular History Glasses Yes near and computer Headaches No Refractive Error YesPast Medical History:Past Medical History:Diagnosis Date Anxiety and depression Bipolar 2 disorder depresion Peripheral neuropathy all four extremitiesHistory reviewed. No pertinent surgical history.Review of Systems:Review of SystemsConstitutional: Negative for chills, diaphoresis, fever, malaise/fatigue andweight loss.HENT: Negative for hearing loss.Eyes: Positive for blurred vision. Negative for double vision, photophobia,pain, discharge and redness.Neurological: Negative for dizziness, tingling, sensory change, speech change,focal weakness, seizures and weakness.Endo/Heme/Allerg ies: Does not bruise/bleed easily.A complete ROS was performed. Pertinent positives have been documented above orare in the HPI. All other systems were negative.Allergies:Allerg iesAllergen Reactions Reads Landing Bark [Quercus Robur] Other (See Comments) congestion Other Other (See Comments) Hormone therapy paranoia Shellfish-Derived Products Nausea And Vomiting clams and oysters [place] (Diagnostic) Other (See Comments) Tongue swellsMedications:Current Outpatient PrescriptionsMedication Sig Dispense Refill Dalfampridine (AMPYRA) 10 MG TB12 Take 10 mg by mouth 2 times daily 60 Tab 3 GABAPENTIN PO Take by mouth clonazePAM (KLONOPIN) 0.5 MG tablet Take by mouth 3 times dailyNo current facility-administered medications for this visit.Family Medical History:Family HistoryProblem Relation Age of Onset Glasses BF 7 Y/O Other Amblyopia Neg Hx ChildHD Cataract Neg Hx ChildHD Glaucoma Neg Hx Ptosis Neg Hx Strabismus Neg HxSocial History:Social HistorySocial HistorySocial History Marital status: Spouse name: N/A Number of children: N/A Years of education: N/ASocial History Main Topics Smoking status: Current Some Day Smoker Smokeless tobacco: Never Used Alcohol use None Drug use: Unknown Sexual activity: Not AskedOther Topics Concern NoneSocial History Narrative NoneExam:Physical ExamBase Eye Exam Visual Acuity (HOTV - Blocked) Right Left Both Dist sc 20/40 20/60 20/25 Near cc J7 J4 J2 Correction: Glasses Tonometry (10:40 AM) Right Left Pressure 13 13 Pupils Pupils APD Right PERRL None Left PERRL None Visual [place] (Counting fingers) Right Left Full FullStrabismus Exam Method: Alternate cover E(T)' 6 0 0 0 0 0 0 0 0 E(T) 6 0 0 0 0 0 0 0 0 Nystagmus: downbeat nystagmus AHP: Chin up Jerk r in r jerk l in l, M/A, M/F downbeat worse in lateral gaze and down gazeSlit Lamp and Fundus Exam External Exam Right Left External Normal Normal Slit Lamp Exam Right Left Lids/Lashes Normal Normal Conjunctiva/Sclera White and quiet White and quiet Cornea Clear Clear Anterior Chamber Deep and quiet Deep and quiet Iris Round and reactive Round and reactive Lens Clear Clear Vitreous Normal Normal Fundus Exam Right Left Disc Normal Normal C/D Ratio 0.2 0.2 Macula Normal Normal Vessels Normal Normal Periphery Normal NormalRefraction Wearing Rx Sphere Cylinder [place] Add Right +1.25 +1.00 Left +2.00 +0.50 170 +1.25 Age: 3yrs Type: BifocalImpression/Plan/Re commendations:The patient was oriented to time, place, and person as appropriate for age andcomorbidities.1. Downbeat nystagmus2. Oscillopsia3. Diplopia4. Intermittent esotropia, alternating5. Anomalous head positionRecommend EM surgery OU BSrecess BIO MyectomyI discussed the risks benefits and alternatives of operative correction with theparent(s)/guardian(s)/ finishing machine operator automatic(s). The risks may include but are notlimited to:1. Loss of vision - partial or complete2. Loss of eye3. Hemorrhage4. Reoperation5. Infection6. Loss of LifeThe benefits may include but are not limited to:1. Improvement of visual functionThe parent(s)/guardian(s)/fos ter parent(s) voiced understanding, were allowed toask questions and had these questions answered. They were presented withalternatives including no surgery and gave permission to proceed. Normal [facility] Influenza virus A and B and SARS-CoV-2 (COVID-19) Ag panel - Upper respiratory specim SARS-CoV-2 (COVID-19) RNA MAYELA+probe Ql (Resp) [facility] Work Phone: Vital Signs Date Time Vital Sign Value Performing Clinician Facility 06-12-2025 12:45-0400 Body height 167.[address] Bindu Caldwell MD Work Phone: [facility] 06-12-2025 12:45-0400 Body mass index (BMI) [Ratio] 25.8 kg/m2 Dr. Bindu Caldwell MD Work Phone: [facility] 06-12-2025 12:45-0400 Body temperature 97.3 [degF] Dr. Bindu Caldwell MD Work Phone: [facility] 06-12-2025 12:45-0400 Body weight 72.[address] Bindu Caldwell MD Work Phone: [facility] 06-12-2025 12:45-0400 Diastolic blood pressure 58 mm[Hg] Dr. Bindu Caldwell MD Work Phone: [facility] 06-12-2025 12:45-0400 Heart rate 71 /min Dr. Bindu Caldwell MD Work Phone: [facility] 06-12-2025 12:45-0400 Respiratory rate 16 /min Dr. Bindu Caldwell MD Work Phone: [facility] 06-12-2025 12:45-0400 SaO2% (BldA) [Mass fraction] 97 % Dr. Bindu Caldwell MD Work Phone: [facility] 06-12-2025 12:45-0400 Systolic blood pressure 118 mm[Hg] Dr. Bindu Caldwell MD Work Phone: [facility] 04-22-2025 09:13-0400 Body height 167.[address] Bindu Caldwell MD Work Phone: [facility] 04-22-2025 09:13-0400 Body mass index (BMI) [Ratio] 25.3 kg/m2 Dr. Bindu Caldwell MD Work Phone: [facility] 04-22-2025 09:13-0400 Body temperature 98 [degF] Dr. Bindu Caldwell MD Work Phone: [facility] 04-22-2025 09:13-0400 Body weight 71.[address] Bindu Caldwell MD Work Phone: [facility] 04-22-2025 09:13-0400 Diastolic blood pressure 70 mm[Hg] Dr. Bindu Caldwell MD Work Phone: [facility] 04-22-2025 09:13-0400 Heart rate 72 /min Dr. Bindu Caldwell MD Work Phone: [facility] 04-22-2025 09:13-0400 Respiratory rate 17 /min Dr. Bindu Caldwell MD Work Phone: [facility] 04-22-2025 09:13-0400 SaO2% (BldA) [Mass fraction] 98 % Dr. Bindu Caldwell MD Work Phone: [facility] 04-22-2025 09:13-0400 Systolic blood pressure 118 mm[Hg] Dr. Bindu Caldwell MD Work Phone: [facility] 04-17-2025 10:21-0400 Body mass index (BMI) [Ratio] 25.11 kg/m2 Femi Holman Jr., MD Work Phone: [facility] 04-17-2025 10:21-0400 Body weight 70.58 kg Femi Holman Jr., MD Work Phone: [facility] 04-17-2025 10:21-0400 Diastolic blood pressure 80 mm[Hg] Femi Holman Jr., MD Work Phone: [facility] 04-17-2025 10:21-0400 Heart rate 90 /min Femi Holman Jr., MD Work Phone: [facility] 04-17-2025 10:21-0400 Respiratory rate 16 /min Femi Holman Jr., MD Work Phone: [facility] 04-17-2025 10:21-0400 SaO2% (BldA) [Mass fraction] 97 % Femi Holman Jr., MD Work Phone: [facility] 04-17-2025 10:21-0400 Systolic blood pressure 128 mm[Hg] Femi Holman Jr., MD Work Phone: [facility] 01-07-2025 10:26-0500 Body height 167.[address] Bindu Caldwell MD Work Phone: [facility] 01-07-2025 10:26-0500 Body mass index (BMI) [Ratio] 25.4 kg/m2 Dr. Bindu Caldwell MD Work Phone: [facility] 01-07-2025 10:26-0500 Body temperature 97.5 [degF] Dr. Bindu Caldwell MD Work Phone: [facility] 01-07-2025 10:26-0500 Body weight 71.[address] Bindu Caldwell MD Work Phone: [facility] 01-07-2025 10:26-0500 Diastolic blood pressure 74 mm[Hg] Dr. Bindu Caldwell MD Work Phone: [facility] 01-07-2025 10:26-0500 Heart rate 83 /min Dr. Bindu Caldwell MD Work Phone: [facility] 01-07-2025 10:26-0500 Respiratory rate 14 /min Dr. Bindu Caldwell MD Work Phone: [facility] 01-07-2025 10:26-0500 SaO2% (BldA) [Mass fraction] 98 % Dr. Bindu Caldwell MD Work Phone: [facility] 01-07-2025 10:26-0500 Systolic blood pressure 122 mm[Hg] Dr. Bindu Caldwell MD Work Phone: [facility] 10-17-2024 09:05-0500 Body mass index (BMI) [Ratio] 25.28 kg/m2 Femi Holman Jr., MD Work Phone: [facility] 10-17-2024 09:05-0500 Body weight 71.03 kg Femi Holman Jr., MD Work Phone: [facility] 10-17-2024 09:05-0500 Diastolic blood pressure 84 mm[Hg] Fmei Holman Jr., MD Work Phone: [facility] 10-17-2024 09:05-0500 Heart rate 93 /min Femi Holman Jr., MD Work Phone: [facility] 10-17-2024 09:05-0500 SaO2% (BldA) [Mass fraction] 98 % Femi Holman Jr., MD Work Phone: [facility] 10-17-2024 09:05-0500 Systolic blood pressure 138 mm[Hg] Femi Holman Jr., MD Work Phone: [facility] 07-25-2024 14:21-0400 Body mass index (BMI) [Ratio] 24.82 kg/m2 Femi Holman Jr., MD Work Phone: [facility] 07-25-2024 14:21-0400 Body weight 69.76 kg Femi Holman Jr., MD Work Phone: [facility] 07-25-2024 14:21-0400 Diastolic blood pressure 82 mm[Hg] Femi Holman Jr., MD Work Phone: [facility] 07-25-2024 14:21-0400 Heart rate 83 /min Femi Holman Jr., MD Work Phone: [facility] 07-25-2024 14:21-0400 SaO2% (BldA) [Mass fraction] 98 % Femi Holman Jr., MD Work Phone: [facility] 07-25-2024 14:21-0400 Systolic blood pressure 122 mm[Hg] Femi Holman Jr., MD Work Phone: [facility] 04-22-2024 12:58-0400 Body height 167.6 cm Winsome Barile PA-C Work Phone: [facility] 04-22-2024 12:58-0400 Body mass index (BMI) [Ratio] 24.45 kg/m2 Winsome Barile PA-C Work Phone: [facility] 04-22-2024 12:58-0400 Body weight 68.72 kg Winsome Barile PA-C Work Phone: [facility] 04-22-2024 12:58-0400 Diastolic blood pressure 77 mm[Hg] Winsome Barile PA-C Work Phone: [facility] 04-22-2024 12:58-0400 Heart rate 89 /min Winsome Barile PA-C Work Phone: [facility] 04-22-2024 12:58-0400 SaO2% (BldA) [Mass fraction] 97 % Winsome Barile PA-C Work Phone: [facility] 04-22-2024 12:58-0400 Systolic blood pressure 124 mm[Hg] Winsome Barile PA-C Work Phone: [facility] 02-17-2024 18:10-0400 Body temperature 98.1 [degF] Dr. Bindu Caldwell Work Phone: [facility] 02-17-2024 18:10-0400 Diastolic blood pressure 73 mm[Hg] Dr. Bindu Caldwell Work Phone: [facility] 02-17-2024 18:10-0400 Heart rate 83 /min Dr. Bindu Caldwell Work Phone: [facility] 02-17-2024 18:10-0400 Respiratory rate 17 /min Dr. Bindu Caldwell Work Phone: [facility] 02-17-2024 18:10-0400 SaO2% (BldA) [Mass fraction] 95 % Dr. Bindu Caldwell Work Phone: [facility] 02-17-2024 18:10-0400 Systolic blood pressure 139 mm[Hg] Dr. Bindu Caldwell Work Phone: [facility] 02-17-2024 17:49-0400 Inhaled oxygen flow rate 4 L/min Dr. Bindu Caldwell Work Phone: [facility] 02-17-2024 16:59-0400 Body height 167.[address] Bindu Caldwell Work Phone: [facility] 02-17-2024 16:59-0400 Body mass index (BMI) [Ratio] 25.4 kg/m2 Dr. Bindu Caldwell Work Phone: [facility] 02-17-2024 16:59-0400 Body weight 71.[address] Bindu Caldwell Work Phone: [facility] 11-22-2023 13:50-0500 Body height 167.6 cm Iwona Aguila MD Work Phone: [facility] 11-22-2023 13:50-0500 Body mass index (BMI) [Ratio] 24.69 kg/m2 Iwona Aguila MD Work Phone: [facility] 11-22-2023 13:50-0500 Body weight 69.4 kg Iwona Aguila MD Work Phone: [facility] 11-22-2023 13:50-0500 Diastolic blood pressure 84 mm[Hg] Iwona Aguila MD Work Phone: [facility] 11-22-2023 13:50-0500 Heart rate 76 /min Iwona Aguila MD Work Phone: [facility] 11-22-2023 13:50-0500 Systolic blood pressure 127 mm[Hg] Iwona Aguila MD Work Phone: [facility] 11-21-2023 14:52-0500 Body mass index (BMI) [Ratio] 24.3 kg/m2 Dr. Bindu Caldwell Work Phone: [facility] 11-21-2023 14:52-0500 Body temperature 99 [degF] Dr. Bindu Caldwell Work Phone: [facility] 11-21-2023 14:52-0500 Body weight 68.[address] Bindu Caldwell Work Phone: [facility] 11-21-2023 14:52-0500 Diastolic blood pressure 82 mm[Hg] Dr. Bindu Caldwell Work Phone: [facility] 11-21-2023 14:52-0500 Heart rate 78 /min Dr. Bindu Caldwell Work Phone: [facility] 11-21-2023 14:52-0500 Respiratory rate 14 /min Dr. Bindu Caldwell Work Phone: [facility] 11-21-2023 14:52-0500 SaO2% (BldA) [Mass fraction] 97 % Dr. Bindu Caldwell Work Phone: [facility] 11-21-2023 14:52-0500 Systolic blood pressure 122 mm[Hg] Dr. Bindu Caldwell Work Phone: [facility] 11-13-2023 09:20-0500 Body temperature 97.1 [degF] Dr. Bindu Caldwell Work Phone: [facility] 11-13-2023 09:20-0500 Diastolic blood pressure 76 mm[Hg] Dr. Bindu Caldwell Work Phone: [facility] 11-13-2023 09:20-0500 Heart rate 66 /min Dr. Bnidu Caldwell Work Phone: [facility] 11-13-2023 09:20-0500 Respiratory rate 16 /min Dr. Bindu Caldwell Work Phone: [facility] 11-13-2023 09:20-0500 SaO2% (BldA) [Mass fraction] 97 % Dr. Bindu Caldwell Work Phone: [facility] 11-13-2023 09:20-0500 Systolic blood pressure 115 mm[Hg] Dr. Bindu Caldwell Work Phone: [facility] 11-13-2023 07:35-0500 Body height 167.[address] Bindu Caldwell Work Phone: [facility] 11-13-2023 07:35-0500 Body mass index (BMI) [Ratio] 24.5 kg/m2 Dr. Bindu Caldwell Work Phone: [facility] 11-13-2023 07:35-0500 Body weight 69.[address] Bindu Caldwell Work Phone: [facility] 10-22-2023 08:56-0500 Body mass index (BMI) [Ratio] 24.5 kg/m2 Dr. Bindu Caldwell Work Phone: [facility] 10-22-2023 08:56-0500 Body temperature 97.6 [degF] Dr. Bindu Caldwell Work Phone: [facility] 10-22-2023 08:56-0500 Body weight 68.[address] Bindu Caldwell Work Phone: [facility] 10-22-2023 08:56-0500 Diastolic blood pressure 85 mm[Hg] Dr. Bindu Caldwell Work Phone: [facility] 10-22-2023 08:56-0500 Heart rate 83 /min Dr. Bindu Caldwell Work Phone: [facility] 10-22-2023 08:56-0500 Respiratory rate 18 /min Dr. Bindu Caldwell Work Phone: [facility] 10-22-2023 08:56-0500 SaO2% (BldA) [Mass fraction] 99 % Dr. Bindu Caldwell Work Phone: [facility] 10-22-2023 08:56-0500 Systolic blood pressure 128 mm[Hg] Dr. Bindu Caldwell Work Phone: [facility] 09-08-2023 00:03-0400 Diastolic blood pressure 61 mm[Hg] Dr. Bindu Caldwell Work Phone: [facility] 09-08-2023 00:03-0400 Heart rate 71 /min Dr. Bindu Caldwell Work Phone: [facility] 09-08-2023 00:03-0400 Respiratory rate 15 /min Dr. Bindu Caldwell Work Phone: [facility] 09-08-2023 00:03-0400 SaO2% (BldA) [Mass fraction] 96 % Dr. Bindu Caldwell Work Phone: [facility] 09-08-2023 00:03-0400 Systolic blood pressure 110 mm[Hg] Dr. Bindu Caldwell Work Phone: [facility] 09-07-2023 22:07-0400 Body height 167.[address] Bindu Caldwell Work Phone: [facility] 09-07-2023 22:07-0400 Body mass index (BMI) [Ratio] 24.9 kg/m2 Dr. Bindu Caldwell Work Phone: [facility] 09-07-2023 22:07-0400 Body temperature 97.6 [degF] Dr. Bindu Caldwell Work Phone: [facility] 09-07-2023 22:07-0400 Body weight 70.[address] Bindu Caldwell Work Phone: [facility] 08-16-2023 15:23-0400 Body height 167.[address] Bindu Caldwell Work Phone: [facility] 08-16-2023 15:23-0400 Body mass index (BMI) [Ratio] 24.3 kg/m2 Dr. Bindu Caldwell Work Phone: [facility] 08-16-2023 15:23-0400 Body temperature 97.2 [degF] Dr. Bindu Caldwell Work Phone: [facility] 08-16-2023 15:23-0400 Body weight 68.[address] Bindu Caldwell Work Phone: [facility] 08-16-2023 15:23-0400 Diastolic blood pressure 80 mm[Hg] Dr. Bindu Caldwell Work Phone: [facility] 08-16-2023 15:23-0400 Heart rate 73 /min Dr. Bindu Caldwell Work Phone: [facility] 08-16-2023 15:23-0400 Respiratory rate 14 /min Dr. Bindu Caldwell Work Phone: [facility] 08-16-2023 15:23-0400 SaO2% (BldA) [Mass fraction] 98 % Dr. Bindu Caldwell Work Phone: [facility] 08-16-2023 15:23-0400 Systolic blood pressure 122 mm[Hg] Dr. Bindu Caldwell Work Phone: [facility] 06-19-2023 15:34-0400 Body height 167.1 cm Winsome Barile PA-C Work Phone: [facility] 06-19-2023 15:34-0400 Body weight 69.58 kg Winsome Barile PA-C Work Phone: [facility] 06-19-2023 15:34-0400 Diastolic blood pressure 70 mm[Hg] Winsome Barile PA-C Work Phone: [facility] 06-19-2023 15:34-0400 Heart rate 72 /min Winsome Barile PA-C Work Phone: [facility] 06-19-2023 15:34-0400 SaO2% (BldA) [Mass fraction] 96 % Winsome Barile PA-C Work Phone: [facility] 06-19-2023 15:34-0400 Systolic blood pressure 122 mm[Hg] Winsome Barile PA-C Work Phone: [facility] 05-24-2023 14:52-0400 Body height 167.6 cm Iwona Aguila MD Work Phone: [facility] [employer] 05-24-2023 14:52-0400 Body mass index (BMI) [Ratio] 22.6 kg/m2 Iwona Aguila MD Work Phone: [facility] 05-24-2023 14:52-0400 Body weight 63.5 kg Iwona Aguila MD Work Phone: [facility] 05-24-2023 14:52-0400 Diastolic blood pressure 80 mm[Hg] Iwona Aguila MD Work Phone: [facility] 05-24-2023 14:52-0400 Heart rate 69 /min Iwona Aguila MD Work Phone: [facility] 05-24-2023 14:52-0400 Systolic blood pressure 134 mm[Hg] Iwona Aguila MD Work Phone: [facility] 04-09-2023 13:06-0400 Body height 167.[address] Bindu Caldwell Work Phone: [facility] 04-09-2023 13:06-0400 Body mass index (BMI) [Ratio] 25 kg/m2 Dr. Bindu Caldwell Work Phone: [facility] 04-09-2023 13:06-0400 Body temperature 97.6 [degF] Dr. Bindu Caldwell Work Phone: [facility] 04-09-2023 13:06-0400 Body weight 70.[address] Bindu Caldwell Work Phone: [facility] 04-09-2023 13:06-0400 Diastolic blood pressure 78 mm[Hg] Dr. Bindu Caldwell Work Phone: [facility] 04-09-2023 13:06-0400 Heart rate 73 /min Dr. Bindu Caldwell Work Phone: [facility] 04-09-2023 13:06-0400 Respiratory rate 18 /min Dr. Bindu Caldwell Work Phone: [facility] 04-09-2023 13:06-0400 SaO2% (BldA) [Mass fraction] 98 % Dr. Bindu Caldwell Work Phone: [facility] 04-09-2023 13:06-0400 Systolic blood pressure 126 mm[Hg] Dr. Bindu Caldwell Work Phone: [facility] 03-15-2023 13:33-0400 Body temperature 98.1 [degF] Diana Oscar MD Work Phone: [facility] 03-15-2023 13:33-0400 Diastolic blood pressure 75 mm[Hg] Diana Oscar MD Work Phone: [facility] 03-15-2023 13:33-0400 Heart rate 80 /min Diana Oscar MD Work Phone: [facility] 03-15-2023 13:33-0400 Respiratory rate 10 /min Diana Oscar MD Work Phone: [facility] 03-15-2023 13:33-0400 Systolic blood pressure 122 mm[Hg] Diana Oscar MD Work Phone: [facility] 12-29-2022 13:05-0500 Body height 167.[address] Bindu Caldwell Work Phone: [facility] 12-29-2022 13:05-0500 Body mass index (BMI) [Ratio] 24.6 kg/m2 Dr. Bindu Caldwell Work Phone: [facility] 12-29-2022 13:05-0500 Body temperature 97.8 [degF] Dr. Bindu Caldwell Work Phone: [facility] 12-29-2022 13:05-0500 Body weight 69.[address] Bindu Caldwell Work Phone: [facility] 12-29-2022 13:05-0500 Diastolic blood pressure 106 mm[Hg] Dr. Bindu Caldwell Work Phone: [facility] 12-29-2022 13:05-0500 Heart rate 98 /min Dr. Bindu Caldwell Work Phone: [facility] 12-29-2022 13:05-0500 Respiratory rate 18 /min Dr. Bindu Caldwell Work Phone: [facility] 12-29-2022 13:05-0500 SaO2% (BldA) [Mass fraction] 97 % Dr. Bindu Caldwell Work Phone: [facility] 12-29-2022 13:05-0500 Systolic blood pressure 142 mm[Hg] Dr. Bindu Caldwell Work Phone: [facility] 11-16-2022 14:10-0500 Body height 167.6 cm Mishel Saucedo [employer]IC - [employer] CLERK Work Phone: [facility] 11-16-2022 14:10-0500 Body mass index (BMI) [Ratio] 22.6 kg/m2 Mishel Saucedo [employer] REPAIR MECH[employer]IC - [employer] CLERK Work Phone: [facility] 11-16-2022 14:10-0500 Body weight 63.5 kg Mishel Saucedo TI[employer] REPAIR MECHANIC - [employer] CLERK Work Phone: [facility] 11-16-2022 14:10-0500 Diastolic blood pressure 73 mm[Hg] Mishelsharif Saucedo TIRE REPAIR MECHANIC - TAG CLERK Work Phone: [facility] 11-16-2022 14:10-0500 Heart rate 73 /min Mishelsharif Saucedo TIRE REPAIR MECHANIC - TAG CLERK Work Phone: [facility] 11-16-2022 14:10-0500 Systolic blood pressure 140 mm[Hg] Mishelsharif Saucedo TI[employer] REPAIR MECHANIC - TAG CLERK Work Phone: [facility] 10-14-2022 15:28-0500 SaO2% (BldA) [Mass fraction] 99 % Dr. Bindu Caldwell Work Phone: [facility] 10-14-2022 14:43-0500 Body temperature 101.2 [degF] Dr. Bindu Caldwell Work Phone: [facility] 10-14-2022 14:43-0500 Diastolic blood pressure 80 mm[Hg] Dr. Bindu Caldwell Work Phone: [facility] 10-14-2022 14:43-0500 Heart rate 96 /min Dr. Bindu Caldwell Work Phone: [facility] 10-14-2022 14:43-0500 Respiratory rate 20 /min Dr. Bindu Caldwell Work Phone: [facility] 10-14-2022 14:43-0500 Systolic blood pressure 152 mm[Hg] Dr. Bindu Caldwell Work Phone: [facility] 10-14-2022 14:41-0500 Body height 167.[address] Bindu Caldwell Work Phone: [facility] Work Phone: 10-14-2022 14:41-0500 Body mass index (BMI) [Ratio] 24.2 kg/m2 Dr. Bindu Caldwell Work Phone: [facility] 10-14-2022 14:41-0500 Body weight 68.[address] Bindu Caldwell Work Phone: [facility] 07-17-2022 13:26-0400 Body mass index (BMI) [Ratio] 23.4 kg/m2 Dr. Bindu Caldwell Work Phone: [facility] Work Phone: 07-17-2022 13:26-0400 Body temperature 96.9 [degF] Dr. Bindu Caldwell Work Phone: [facility] Work Phone: 07-17-2022 13:26-0400 Body weight 65.[address] Bindu Caldwell Work Phone: [facility] Work Phone: 07-17-2022 13:26-0400 Diastolic blood pressure 70 mm[Hg] Dr. Bindu Caldwell Work Phone: [facility] Work Phone: 07-17-2022 13:26-0400 Heart rate 71 /min Dr. Bindu Caldwell Work Phone: [facility] Work Phone: 07-17-2022 13:26-0400 Respiratory rate 16 /min Dr. Bindu Caldwell Work Phone: [facility] Work Phone: 07-17-2022 13:26-0400 SaO2% (BldA) [Mass fraction] 98 % Dr. Bindu Caldwell Work Phone: [facility] Work Phone: 07-17-2022 13:26-0400 Systolic blood pressure 112 mm[Hg] Dr. Bindu Caldwell Work Phone: [facility] Work Phone: 04-13-2022 14:40-0400 Body height 167.[address] Bindu Caldwell Work Phone: [facility] Work Phone: 04-13-2022 14:40-0400 Body mass index (BMI) [Ratio] 22.7 kg/m2 Dr. Bindu Caldwell Work Phone: [facility] Work Phone: 04-13-2022 14:40-0400 Body temperature 97.5 [degF] Dr. Bindu Caldwell Work Phone: [facility] Work Phone: 04-13-2022 14:40-0400 Body weight 63.[address] Bindu Caldwell Work Phone: [facility] Work Phone: 04-13-2022 14:40-0400 Diastolic blood pressure 72 mm[Hg] Dr. Bindu Caldwell Work Phone: [facility] Work Phone: 04-13-2022 14:40-0400 Heart rate 62 /min Dr. Bindu Caldwell Work Phone: [facility] Work Phone: 04-13-2022 14:40-0400 Respiratory rate 14 /min Dr. Bindu Caldwell Work Phone: [facility] Work Phone: 04-13-2022 14:40-0400 SaO2% (BldA) [Mass fraction] 97 % Dr. Bindu Caldwell Work Phone: [facility] Work Phone: 04-13-2022 14:40-0400 Systolic blood pressure 118 mm[Hg] Dr. Bindu Caldwell Work Phone: [facility] Work Phone: 01-09-2022 10:03-0500 Body height 167.[address] Bindu Caldwell Work Phone: [facility] Work Phone: 01-09-2022 10:03-0500 Body mass index (BMI) [Ratio] 22.7 kg/m2 Dr. Bindu Caldwell Work Phone: [facility] Work Phone: 01-09-2022 10:03-0500 Body temperature 96.1 [degF] Dr. Bindu Caldwell Work Phone: [facility] Work Phone: 01-09-2022 10:03-0500 Body weight 63.[address] Bindu Caldwell Work Phone: [facility] Work Phone: 01-09-2022 10:03-0500 Diastolic blood pressure 80 mm[Hg] Dr. Bindu Caldwell Work Phone: [facility] Work Phone: 01-09-2022 10:03-0500 Heart rate 77 /min Dr. Bindu Caldwell Work Phone: [facility] Work Phone: 01-09-2022 10:03-0500 Respiratory rate 16 /min Dr. Bindu Caldwell Work Phone: [facility] Work Phone: 01-09-2022 10:03-0500 SaO2% (BldA) [Mass fraction] 98 % Dr. Bindu Caldwell Work Phone: [facility] Work Phone: 01-09-2022 10:03-0500 Systolic blood pressure 128 mm[Hg] Dr. Bindu Caldwell Work Phone: [facility] Work Phone: 07-10-2020 08:20-0400 Body Temperature 98.29 [degF] Iwona VanegasKatina [facility], [place] 07-10-2020 08:20-0400 BP Diastolic 74 mm[Hg] [facility] [place] 07-10-2020 08:20-0400 BP Systolic 135 mm[Hg] [facility] [place] 07-10-2020 08:20-0400 Pulse (Heart Rate) 72 /min Iwona Moura [facility], [place] 07-10-2020 08:20-0400 Pulse Oximetry 97 % [facility] [place] 07-10-2020 08:20-0400 Respiratory Rate 12 /min Iwona Aguila [facility], [place] 07-05-2020 06:02-0400 BMI (Body Mass Index) 19.85 kg/m2 [facility] [place] 07-05-2020 06:02-0400 Body weight 55.79 kg [facility] [place] 07-05-2020 06:02-0400 Height 167.6 cm [facility] [place] 06-25-2020 13:18-0400 BMI (Body Mass Index) 19.85 kg/m2 [facility] [place] 06-25-2020 13:18-0400 Body Temperature 99.1 [degF] [place]wona [place] [facility] 06-25-2020 13:18-0400 Body weight 55.79 kg [facility]wona [facility] [place] 06-25-2020 13:18-0400 BP Diastolic 90 mm[Hg] [facility] [place] 06-25-2020 13:18-0400 BP Systolic 126 mm[Hg] [facility] [place] 06-25-2020 13:18-0400 Height 167.6 cm [facility] [place] 06-25-2020 13:18-0400 Pulse (Heart Rate) 84 /min [facility] [place] [place] 06-25-2020 13:18-0400 Pulse Oximetry 98 % [facility] [place] 06-25-2020 13:18-0400 Respiratory Rate 16 /min Iwona Moura [facility]- [place], [place] Encounters Encounter Date Encounter Type Care Provider Facility Start: 06-12-2025 End: 06-12-2025 Patient encounter procedure Jose J LUKE -[facility] Work Phone: Start: 06-12-2025 End: 06-12-[address] Bindu Caldwell MD Work Phone: -[facility] Start: 04-22-2025 End: 04-22-[address] Bindu Caldwell MD -[facility] Work Phone: Start: 04-22-2025 End: 04-22-[address] Bindu Caldwell MD [facility] Start: 04-22-2025 End: 04-22-[address] Bindu Caldwell MD Work Phone: [facility] Work Phone: Start: 04-22-2025 End: 04-22-2025 ambulatory [facility] Facility:[facility] Start: 04-17-2025 End: 04-17-2025 Patient encounter procedure Femi Holman MD Work Phone: Neurology Comment on above: Parkinson's disease, unspecified whether dyskinesia present, unspecified whether manifestations fluctuate (HCC) Start: 04-17-2025 End: 04-17-2025 ambulatory FMEI HOLMAN JR Facility:[facility] Start: 02-16-2025 End: 02-16-[address] Bindu Caldwell MD -[facility] Start: 02-16-2025 End: 02-16-2025 ambulatory [facility] Facility:[facility] Start: 01-07-2025 End: 01-07-[address] Bindu Caldwell MD -[facility] Work Phone: Start: 01-07-2025 End: 01-07-[address] Bindu Caldwell MD Work Phone: [facility] Work Phone: Start: 01-07-2025 End: 01-07-[facility] Start: 10-17-2024 End: 10-21-2024 Patient encounter procedure Femi Holman MD Work Phone: Neurology Comment on above: Parkinson's disease, unspecified whether dyskinesia present, unspecified whether manifestations fluctuate (HCC) (Primary Dx) Start: 10-17-2024 End: 10-17-2024 ambulatory FEMI HOLMAN JR Facility:[facility] Start: 10-11-2024 End: 10-15-2024 Refill Femi Holman MD Work Phone: Neurology Comment on above: Refill Request Start: 09-08-2024 End: 09-08-2024 ambulatory Femi Holman MD Work Phone: Neurology Comment on above: Forwarding results Start: 09-02-2024 End: 09-03-2024 ambulatory Femi Holman MD Work Phone: Neurology Comment on above: Recent MRI Start: 08-28-2024 End: 08-28-2024 ambulatory FEMI HOLMAN JR Facility:[facility] Start: 08-28-2024 End: 08-28-2024 Subsequent hospital visit by physician [facility] (I-Stat/1.5t) Work Phone: Radiology Comment on above: Parkinson's disease, unspecified whether dyskinesia present, unspecified whether manifestations fluctuate (HCC) [G20.A1] Start: 07-30-2024 End: 07-30-2024 ambulatory Diana Oscar MD Work Phone: [facility] General Rheumatology and Arthritis Start: 07-30-2024 End: 07-30-2024 Patient encounter procedure Diana Oscar MD Work Phone: [facility] Rheumatology [facility] Comment on above: Appointments Start: 07-25-2024 End: 07-25-2024 Patient encounter procedure Femi Holman MD Work Phone: Neurology Comment on above: Parkinson's disease, unspecified whether dyskinesia present, unspecified whether manifestations fluctuate (HCC) (Primary Dx); Recurrent falls; Abnormality of gait Start: 07-25-2024 End: 07-25-2024 ambulatory FEMI HOLMAN JR Facility:[facility] Start: 05-20-2024 End: 05-20-2024 Telephone encounter Iwona Aguila MD Work Phone: [facility] Start: 05-16-2024 ambulatory Winsome pickett PA-C Work Phone: [facility] General Rheumatology [facility] Arth[facility] Start: 05-16-2024 Patient encounter procedure Winsome Heath PA-C Work Phone: [facility]ology [facility] Comment on above: Methotrexate prescri ption Start: 04-22-2024 Telephone encounter Winsome villalpando PA-C Work Phone: [facility] Rheumatology and Arthritis Start: 04-22-2024 End: 04-22-2024 Patient encounter procedure Winsome Heath PA-C Work Phone: [facility] Rheumatology and Arthritis Comment on above: Psoriasis with arthr opathy (HCC) (Primary Dx); Osteopenia of multiple sites; Vitamin D deficiency, unspecified; Primary osteoarthritis involving multiple joints; Tremor; Balance disorder Start: 04-22-2024 End: 04-22-2024 ambulatory BINDU CALDWELL Facility:[facility] Start: 02-17-2024 End: 02-17-2024 Emergency department patient visit Dr. Bindu Caldwell Work Phone: [facility]-Emergency Department Work Phone: Start: 01-31-2024 End: 01-31-2024 ambulatory DIANA OSCAR Facility[facility] Start: 01-07-2024 Refill Winsome pickett PA-C Work Phone: [facility] Rheumatology and Arthritis Comment on above: Refill Request Start: 11-22-2023 End: 11-22-2023 ambulatory IWONA AGUILA [facility] Start: 11-22-2023 End: 11-22-2023 Office outpatient visit 10 minutes Iwona Aguila MD Work Phone: [facility] Comment on above: Endometrial cancer, FIGO stage IIIB (HCC) (Primary Dx) Start: 11-21-2023 End: 11-21-[address] Bindu Caldwell Work Phone: [facility] Internal Medicine Work Phone: Start: 11-13-2023 Non-patient / Non-visit Dr. Kash Caldwell Work Phone: [facility] Start: 11-13-2023 End: 11-13-2023 Admission to same day surgery center Dr. Bindu Caldwell Work Phone: [facility]-Endoscopy Work Phone: Start: 11-13-2023 End: 11-13-[address] Bindu Caldwell Work Phone: [facility] Work Phone: Start: 10-22-2023 End: 10-22-[address] Bindu Caldwell Work Phone: [facility] Work Phone: Start: 10-15-2023 Refill Winsome pickett PA-C Work Phone: [facility] Rheumatology and Arthritis Comment on above: Refill Request Start: 09-07-2023 End: 09-08-2023 Emergency department patient visit Dr. Bindu Caldwell Work Phone: [facility]-Emergency Department Work Phone: Start: 08-28-2023 End: 08-28-[address] Bindu Caldwell Work Phone: [facility] Work Phone: Start: 08-28-2023 End: 08-28-[address] Bindu Caldwell Work Phone: [facility]-Pulmonary Services/Neurology Work Phone: Start: 08-27-2023 End: 08-27-[address] Bindu Caldwell Work Phone: [facility] Internal Medicine Work Phone: Start: 08-16-2023 End: 08-16-[address] Bindu Caldwell Work Phone: [facility] Work Phone: Start: 08-16-2023 End: 08-16-[address] Bindu Caldwell Work Phone: [facility] Internal Medicine Work Phone: Start: 07-12-2023 End: 07-12-[address] Bindu Caldwell Work Phone: [facility] Work Phone: Start: 07-12-2023 End: 07-12-[address] Bindu Caldwell Work Phone: [facility]-Outpatient Bone Densitometry Work Phone: Start: 06-20-2023 Telephone encounter Winsome villalpando PA-C Work Phone: [facility] Arthritis and Rheumatology [place] Comment on above: medication question ; clarify directions on medication Start: 06-19-2023 End: 06-19-2023 Patient encounter procedure Winsome Heath PA-C Work Phone: [facility] Rheumatology and Arthritis Comment on above: Psoriasis with arthr opathy (HCC) (Primary Dx); Vitamin D deficiency, unspecified ; Low back pain, unspecified back pain laterality, unspecified chronicity, unspecified whether sciatica present Start: 06-19-2023 End: 06-19-20[facility] Start: 06-06-2023 End: 06-06-[address] Bindu Caldwell Work Phone: [facility] Work Phone: Start: 06-06-2023 End: 06-06-[address] Bindu Caldwell Work Phone: [facility]-Physical Therapy Work Phone: Start: 05-24-2023 End: 05-24-2023 ambulatory IWONA AGUILA [facility] Start: 05-24-2023 End: 05-24-2023 Office outpatient visit 10 minutes Iwona Aguila MD Work Phone: [facility] Gynecologic Oncology Comment on above: Endometrial cancer, FIGO stage IIIB (HCC) (Primary Dx) Start: 04-23-2023 Telephone encounter Diana erwin MD Work Phone: [facility] Rheumatology and Arthritis Comment on above: Orders Start: 04-09-2023 End: 04-09-[address] Bindu Caldwell Work Phone: [facility] Internal Medicine Work Phone: Start: 03-15-2023 End: 03-15-2023 Subsequent hospital visit by physician [facility] Comment on above: Pain in joint, multi ple sites [M25.50] Start: 03-15-2023 End: 03-15-2023 Patient encounter procedure Diaan Oscar MD Work Phone: [facility] Rheumatology and Arthritis Comment on above: Osteoporosis, unspec ified osteoporosis type, unspecified pathological fracture presence (Primary Dx); Pain in joint, multiple sites; Vitamin D deficiency, unspecified ; Psoriasis with arthropathy (HCC) Start: 12-29-2022 End: 12-29-[address] Bindu Caldwell Work Phone: [facility] Work Phone: Start: 12-29-2022 End: 12-29-[address] Bindu Caldwell Work Phone: [facility] Internal Medicine Start: 11-16-2022 End: 11-16-2022 Office outpatient visit 15 minutes Mishel Saucedo APRN - [facility] Work Phone: [facility] [employer] Oncology Comment on above: Endometrial cancer, FIGO stage IIIB (HCC) (Primary Dx) Start: 10-14-2022 End: 10-14-2022 Emergency department patient visit Dr. Bindu Caldwell Work Phone: [facility]-Emergency Department Start: 10-10-2022 End: 10-10-[address] Bindu Caldwell Work Phone: [facility] Work Phone: Start: 10-10-2022 End: 10-10-[address] Bindu Caldwell Work Phone: [facility] Start: 07-17-2022 End: 07-17-[address] Bindu Caldwell Work Phone: [facility] Internal Medicine Start: 07-11-2022 End: 07-11-[address] Bindu Caldwell Work Phone: [facility] Start: 04-13-2022 End: 04-13-[address] Bindu Caldwell Work Phone: [facility] Internal Medicine Start: 04-05-2022 End: 04-05-[address] Bindu Caldwell Work Phone: [facility] Start: 02-09-2022 End: 02-09-[address] Bindu Caldwell Work Phone: [facility] Start: 02-02-2022 End: 02-02-[address] Bindu Caldwell Work Phone: [facility] Start: 01-09-2022 End: 01-09-[address] Bindu Caldwell Work Phone: [facility] Internal Medicine Start: 12-06-2021 End: 12-06-[address] Bindu Caldwell Work Phone: [facility] Start: 11-21-2021 End: 11-21-[address] Bindu Caldwell Work Phone: [facility] Start: 05-20-[address] Lucho Caldwell Work Phone: [facility] Start: 07-05-2020 End: 07-10-2020 Evaluation and management of inpatient Iwona Duarte Bearbear Work Phone: [facility] Oncology Comment on above: Post-operative state (Primary Dx) Start: 06-25-2020 End: 06-25-2020 Subsequent hospital visit by physician Iwona Aguila Work Phone: [facility] Pre-Admit Testing Comment on above: Arrived Start: 03-20-2018 End: 03-20-2018 Ambulatory [facility] Procedures Date Procedure Procedure Detail Performing Clinician Start: 04-22-2025 Vitamin D, 25-hydroxy measurement Dr. Kash Caldwell MD Work Phone: Comment on above: Vitamin D StatusDeficiency: <20 ng/mL (5 0nmol/L)Insufficiency: 20-30 ng/mL (50-75 nmol/L)Sufficiency: 30-100 ng/mL (75-250 nmol/L)Toxicity: >100 ng/mL (>250 nmol/L) Start: 08-28-2024 Mri brain brain stem w/o contrast material Femi Holman MD Work Phone: Start: 02-17-2024 Plain chest X-ray Dr. Bindu Caldwell Work Phone: Start: 11-13-[address] Bindu Caldwell Work Phone: Start: 07-12-2023 Dual energy X-ray absorptiometry Dr. Garrett Caldwell Work Phone: Start: 02-09-2022 Computed tomography of abdomen and pelvis with contrast Dr. Bindu Caldwell Work Phone: Start: 07-08-2020 Urnls dip stick/tablet rgnt auto w/o microscopy Kaylah Larry Work Phone: Start: 07-08-2020 Culture bacterial quanttative colony count urine Kaylah Larry Work Phone: Start: 07-06-2020 Creatinine blood Kaylah Larry Work Phone: Start: 07-06-2020 Blood count complete auto&auto difrntl wbc Xin Tripp Work Phone: Start: 07-05-2020 OPERATIVE REPORT 3m Scanning Start: 07-05-2020 Level iv surg pathology gross&microscopic exam Iwona Felicia Ayla Work Phone: Start: 06-25-2020 Blood count complete automated Stephanie Oconnor Work Phone: Start: 06-25-2020 Blood typing serologic abo Stephanie Norman no Work Phone: Start: 06-24-2019 Lipid 1996 panel - Serum or Plasma Afshan Heath PA-C Work Phone: Start: 06-18-2018 Colonoscopy Diana Oscar MD Work Phone: Start: 06-18-2018 Mammography Diana Oscar MD Work Phone: SARS-CoV-2 & FLU Antigen (Rapid) Dr. Bindu Caldwell Work Phone: SARS-CoV-2 & FLU Antigen (Rapid) Dr. Bindu Caldwell Work Phone: Plan of Treatment Date Care Activity Detail Author Start: 04-29-2034 Urine microalbumin profile DTaP,Tdap,Td Vaccine (3 - Td or Tdap) [facility] Start: 2031 RSV Vaccine (1 - 1-dose 75+ series) RSV Vaccine (1 - 1-dose 75+ series) [facility] Start: 01-28-2027 Diabetes Screening Diabetes Screening [facility] Start: 08-19-2026 Pneumococcal Vaccine: 50+ (3 of 3 - PCV20 or PCV21) Pneumococcal Vaccine: 50+ (3 of 3 - PCV20 or PCV21) [facility] Start: 03-15-2026 DIABETES SCREEN DIABETES SCREEN [facility] Start: 03-15-2026 Diabetes Screening Diabetes Screening [facility] Start: 09-21-2025 End: 09-21-2025 Patient encounter procedure 09/21/2025 3:20 PM EST Office Visit Neurology [address] [place] [address] Femi Holman Jr., MD [address] [place], [place] [id number] 3 month follow up Neurology Comment on above: 3 month follow up Start: 08-16-2025 Pneumococcal Vaccine: 65+ (3 of 3 - PPSV23 or PCV20) Pneumococcal Vaccine: 65+ (3 of 3 - PPSV23 or PCV20) [facility] Start: 08-16-2025 Pneumococcal Vaccine: 65+ (4 - PPSV23 or PCV20) Pneumococcal Vaccine: 65+ (4 - PPSV23 or PCV20) [facility] Start: 08-16-2025 Pneumococcal Vaccine: 65+ (4 of 4 - PPSV23 or PCV20) Pneumococcal Vaccine: 65+ (4 of 4 - PPSV23 or PCV20) [facility] Start: 08-16-2025 Pneumococcal Vaccine: 65+ Years (3 - PPSV23 if available, else PCV20) Pneumococcal Vaccine: 65+ Years (3 - PPSV23 if available, else PCV20) [facility] Start: 08-16-2025 Pneumococcal Vaccine: 65+ Years (3 of 3 - PPSV23 or PCV20) Pneumococcal Vaccine: 65+ Years (3 of 3 - PPSV23 or PCV20) [facility] Start: 04-22-2025 End: 04-22-2025 CBC W Auto Differential panel - Blood [facility] Work Phone: Comment on above: Every 3 months for 4 Occurrences startin g 04/22/2024 until 04/22/2025 Start: 04-22-2025 End: 04-22-2025 Comprehensive metabolic 2000 panel - Serum or Plasma [facility] Comment on above: Every 3 months for 4 Occurrences startin g 04/22/2024 until 04/22/2025 Start: 04-22-2025 Hemoglobin A1c/Hemoglobin.total in Blood [facility] Start: 04-22-2025 Lipid 1996 panel - Serum or Plasma [facility] Start: 04-22-2025 Vitamin D, 25-hydroxy measurement [facility] Start: 04-17-2025 End: 04-17-2025 Patient encounter procedure 04/17/2025 10:20 AM EDT Office Visit Neurology [address] [facility] [place] [id number] Femi Holman Jr., MD [address] [facility] [place] [id number] 6 month follow up Neurology Comment on above: 6 month follow up Start: 11-05-2024 Advance Directive Discussion Advance Directive Discussion [facility] Start: 10-17-2024 End: 10-17-2024 Patient encounter procedure Neurology Comment on above: 2 month follow up 2 month follow up pa rkinsons, recurrent falls, abnormal gait- shayy 07/25/24 WJN- sinemet TID Start: 08-28-2024 End: 08-28-2024 Patient encounter procedure 08/28/2024 1:00 PM EDT Appointment Radiology [address] [facility] [place], [place] [id number] Parkinson's disease, unspecified whether dyskinesia present, unspecified whether... Radiology Comment on above: Parkinson's disease, unspecified whether dyskinesia present, unspecified whether... Start: 07-31-2024 End: 07-31-2024 Patient encounter procedure 07/31/2024 12:20 PM EDT Office Visit [facility] [address] [place], [place] [id number] Diana Oscar MD [address] [facility] [address] [place], [place] [address] 3-4 mo f/up Dr. Eliud Berry. [facility] Comment on above: 3-4 mo f/up Dr. Eliud Berry. Start: 07-25-2024 End: 07-25-2024 Patient encounter procedure 07/25/2024 2:20 PM EDT Office Visit Neurology [address] [facility] [place] [address] Femi Holman Jr., MD [address] [facility] [address] [place] [phone] abnormal gait, poor balance,Tremor hands since 02/2024. Neurology Comment on above: abnormal gait, poor balance,Tremor hands since 02/2024. Start: 07-06-2024 Covid-19 Vaccine () Covid-19 Vaccine () [facility] Start: 07-06-2024 Covid-19 Vaccine () Covid-19 Vaccine () [facility] Start: 07-06-2024 Influenza vaccination [facility] Start: 06-24-2024 Lipid 1996 panel - Serum or Plasma Lipid Screening [facility] Start: 06-24-2024 Lipid panel Lipid Screening [facility] Start: 06-24-2024 LIPID SCREEN LIPID SCREEN [facility] Start: 05-23-2024 End: 05-23-2024 Patient encounter procedure 05/23/2024 11:40 AM EDT Office Visit [facility] [address] [facility] [address] [place] [address] Iwona Aguila MD [address] [facility] [address] [place] [address] [facility] Start: 02-17-2024 Esophagogastroduodenoscopy EGD (Not Applicable) [facility] Start: 11-30-2023 Covid-19 Vaccine () Covid-19 Vaccine () [facility] Start: 11-22-2023 End: 11-22-2023 Patient encounter procedure 11/22/2023 1:40 PM EST Office Visit [facility] [address] [facility] [address] [place] [address] Iwona Aguila MD [address] [facility] [address] [place] [address] [facility] Start: 11-13-2023 Egd balloon dilation esophagus <30 mm diam ESOPH EGD DILATION <30 MM [facility] Start: 11-13-2023 Egd transoral biopsy single/multiple EGD BIOPSY SINGLE/MULTIPLE [facility] Start: 11-13-2023 Patient discharge [facility] Start: 11-05-2023 Advance Directive Discussion Advance Directive Discussion [facility] Start: 11-05-2023 Behavioral Health Screening Behavioral Health Screening [facility] Start: 11-05-2023 Depression Assessment Depression Assessment [facility] Start: 08-16-2023 Evaluation of diagnostic study results [facility] Start: 07-06-2023 Covid-19 Vaccine () Covid-19 Vaccine () [facility] Start: 07-06-2023 Influenza vaccination [facility] Start: 05-24-2023 End: 05-24-2023 Patient encounter procedure 05/24/2023 Office Visit Gynecologic Oncology Iwona Aguila MD [address] [facility] [place] [address] [facility] Medical [facility] [place] [employer]INE[employer] Oncology Start: 05-17-2023 Screening for malignant neoplasm of cervix [facility] Start: 12-29-2022 Patient referral [facility] Work Phone: Start: 11-05-2022 ADVANCE DIRECTIVE DISCUSSION ADVANCE DIRECTIVE DISCUSSION [facility] Start: 11-05-2022 DEPRESSION ASSESSMENT DEPRESSION ASSESSMENT [facility] Start: 01-02-2022 DTaP/Tdap/Td vaccine (2 - Td) DTaP/Tdap/Td vaccine (2 - Td) [facility] Start: 01-02-2022 DTaP/Tdap/Td Vaccines (2 - Td or Tdap) DTaP/Tdap/Td Vaccines (2 - Td or Tdap) [facility] Start: 01-02-2022 Urine microalbumin profile [facility] Start: 12-26-2021 COVID-19 VACCINE (4 - Booster for Pfizer series) COVID-19 VACCINE (4 - Booster for Pfizer series) [facility] Start: 12-26-2021 COVID-19 VACCINE (4 - Pfizer series) COVID-19 VACCINE (4 - Pfizer series) [facility] Start: 2021 BONE DENSITY BONE DENSITY [facility] Start: 2021 Bone Density Screening Bone Density Screening [facility] Start: 2021 Screening for osteoporosis Bone Density Screening [facility] Start: 07-16-2020 End: 07-16-2020 Office Visit 07/16/2020 Office Visit Gynecologic Oncology Iwona Aguila MD [address] [facility] [address] [place] [address] [phone] [facility] PRODUCTION ENGINEER Oncology Start: 07-13-2020 End: 07-13-2020 Office Visit 07/13/2020 Office Visit Gynecologic Oncology Gerri Good PA [address] [facility] [address] [place] [phone] [facility] PRODUCTION ENGINEER Oncology Start: 07-06-2020 Influenza vaccination Flu vaccine (#1) [place] Start: 07-05-2020 End: 07-05-2020 Appointment 07/05/2020 Appointment General Surgery Iwona Aguila MD [address] [facility] [address] [place] [address] [phone] [facility] General Surgery Start: 06-27-2020 ANNUAL PCP TEAM CHRONIC DISEASE VISIT ANNUAL PCP TEAM CHRONIC DISEASE VISIT [facility] Start: 05-05-2020 Annual Wellness Visit (AWV) Annual Wellness Visit (AWV) [place] Start: 06-18-2019 Colonoscopy COLONOSCOPY [facility] Start: 06-18-2019 COLORECTAL CANCER SCREENING COLORECTAL CANCER SCREENING [facility] Start: 06-18-2019 Mammography [facility] Start: 06-18-2019 Screening for malignant neoplasm of breast Mammogram Screening [facility] Start: 06-18-2019 Screening for malignant neoplasm of colon [facility] Start: 08-29-2017 Screening for malignant neoplasm of cervix Cervical Cancer Screening [facility] Start: 2016 RSV Immunization aged 60 or older (1 - 1-dose 60+ series) RSV Immunization aged 60 or older (1 - 1-dose 60+ series) [facility] Start: 2016 RSV Vaccine (1 - 1-dose 60+ series) RSV Vaccine (1 - 1-dose 60+ series) [facility] Start: 2016 RSV Vaccine (1 - Risk 60-74 years 1-dose series) RSV Vaccine (1 - Risk 60-74 years 1-dose series) [facility] Start: 06-24-2014 Pneumococcal 0-64 years Vaccine (2 of 3 - PCV13) Pneumococcal 0-64 years Vaccine (2 of 3 - PCV13) [place] Start: 06-24-2014 PNEUMOCOCCAL: 65+ (2 - PCV) PNEUMOCOCCAL: 65+ (2 - PCV) [facility] Start: 05-05-2011 Medicare Annual Wellness Visit Medicare Annual Wellness Visit [facility] Start: 2006 Screening for malignant neoplasm of breast Breast cancer screen [place] Start: 2006 Screening for malignant neoplasm of colon Colon cancer screen colonoscopy [place] Start: 2001 COLOGUARD (FIT-DNA) COLOGUARD (FIT-DNA) [facility] Start: [address] COLONOGRAPHY [facility] Start: 2001 FECAL OCCULT BLOOD FECAL OCCULT BLOOD [facility] Start: 2001 Screening for malignant neoplasm of colon [facility] Start: 2001 SIGMOIDOSCOPY SIGMOIDOSCOPY [facility] Start: 1996 Lipid panel Lipid screen [place] Start: 1996 Screening for malignant neoplasm of breast Mammogram [facility] Start: 1974 Annual PCP Team Chronic Disease Visit Annual PCP Team Chronic Disease Visit [facility] Start: 1974 Anxiety Screening Anxiety Screening [facility] Start: 1974 Depression Screening Depression Screening [facility] Start: 1974 Diabetes mellitus screening Diabetes Screening [facility] Start: 1974 HEPATITIS C SCREENING HEPATITIS C SCREENING [facility] Start: 1974 Hepatitis C screening Hepatitis C Screening [facility] Start: 1971 HIV screening HIV screen [place] Start: 1968 Depression Screening Depression Screening [facility] Start: 1956 Examination of skin Derm Melanoma Skin Check [facility] Start: 1956 Hepatitis B Vaccines (1 of 3 - 3-dose series) Hepatitis B Vaccines (1 of 3 - 3-dose series) [facility] Start: 1956 Hepatitis C screening Hepatitis C screen [place] Start: 1956 Lipid panel Lipid Panel [facility] Start: 1956 Medicare Annual Wellness (AWV) Medicare Annual Wellness (AWV) [facility] Start: 1956 Screening for malignant neoplasm of colon [facility] Start: 1956 Screening for osteoporosis Bone Density Scan [facility] End: 03-14-2024 25-hydroxyvitamin D3 [Mass/volume] in Serum or Plasma VITAMIN D 25 HYDROXY Lab Routine Pain in joint, multiple sites Vitamin D deficiency, unspecified 4 Occurrences starting 03/15/2023 until 03/14/2024 [facility] Work Phone: Comment on above: 4 Occurrences starting 03/15/2023 until 03/14/2024 25-hydroxyvitamin D3 [Mass/volume] in Serum or Plasma VITAMIN D 25 HYDROXY Lab Routine Pain in joint, multiple sites Vitamin D deficiency, unspecified 03/15/2023 2:47 PM EDT [facility] Work Phone: End: 04-22-2025 25-hydroxyvitamin D3 [Mass/volume] in Serum or Plasma VITAMIN D 25 HYDROXY Lab Routine Psoriasis with arthropathy (HCC) Osteopenia of multiple sites Vitamin D deficiency, unspecified Primary osteoarthritis involving multiple joints Every 3 months for 4 Occurrences starting 04/22/2024 until 04/22/2025 [facility] Comment on above: Every 3 months for 4 Occurrences startin g 04/22/2024 until 04/22/2025 Alanine aminotransfe rase [Enzymatic activity/volume] in Serum or Plasma [facility] Albumin [Mass/volume ] in Serum or Plasma [facility] Alkaline phosphatase [Enzymatic activity/volume] in Serum or Plasma [facility] Ambulatory ECG [facility] Anion gap in Serum or Plasma [facility] Bilirubin, total measurement [facility] BUN/Creatinine ratio [facility] Calcium [Mass/volume ] in Serum or Plasma [facility] Carbon dioxide, tota l [Moles/volume] in Central venous blood [facility] End: 03-14-2024 CBC W Auto Differential panel - Blood CBC + DIFF Lab Routine Pain in joint, multiple sites 4 Occurrences starting 03/15/2023 until 03/14/2024, 1 completed [facility] Work Phone: Comment on above: 4 Occurrences starting 03/15/2023 until 03/14/2024, 1 completed Cholesterol [Mass/vo lume] in Serum or Plasma [facility] Cholesterol in HDL [ Mass/volume] in Serum or Plasma [facility] End: 03-14-2024 Comprehensive metabolic 2000 panel - Serum or Plasma COMP METABOLIC PANEL Lab Routine Pain in joint, multiple sites 4 Occurrences starting 03/15/2023 until 03/14/2024, 1 completed [facility] Work Phone: Comment on above: 4 Occurrences starting 03/15/2023 until 03/14/2024, 1 completed Creatinine [Mass/vol ume] in Serum or Plasma [facility] DXA Bone [Mass/Area] Bone density [facility] End: 04-13-2024 DXA-AXIAL SKELETON DXA-AXIAL SKELETON Radiology Routine Osteoporosis, unspecified osteoporosis type, unspecified pathological fracture presence 1 Occurrences starting 03/15/2023 until 04/13/2024 [facility] Work Phone: Comment on above: 1 Occurrences starting 03/15/2023 until 04/13/2024 Erythrocyte mean cor puscular volume determination [facility] Glucose [Mass/volume ] in Serum or Plasma [facility] Hematocrit [Volume F raction] of Blood [facility] Hemoglobin [Mass/volume] in Blood [facility] Leukocytes [#/volume] in Blood [facility] Low density lipoprot ein cholesterol measurement [facility] Mean corpuscular hem oglobin concentration determination [facility] Mean corpuscular hem oglobin determination [facility] Measurement of renal function [facility] End: 08-24-2025 MR Brain [facility] Routine Parkinson's disease, unspecified whether dyskinesia present, unspecified whether manifestations fluctuate (HCC) Recurrent falls Abnormality of gait 1 Occurrences starting 07/25/2024 until 08/24/2025 [facility] Work Phone: Comment on above: 1 Occurrences starting 07/25/2024 until 08/24/2025 Neutrophil count [facility] Neutrophil percent d ifferential count [facility] Oxygen therapy [Minimum Data Set ] Initiate Oxygen Therapy Protocol Respiratory Care Routine Daily until discontinued starting 07/05/2020 [facility] Comment on above: Daily until discontinued starting 2019 Patient Education [facility] Work Phone: Patient referral [facility] Work Phone: Platelets [#/volume] in Blood [facility] Potassium measurement [facility] End: 04-13-2024 Radex spine lumbosacral 2/3 views XR LUMBAR GENERAL 3V AP/LAT/L5-S1 Radiology Routine Pain in joint, multiple sites 1 Occurrences starting 03/15/2023 until 04/13/2024 [facility] Work Phone: Comment on above: 1 Occurrences starting 03/15/2023 until 04/13/2024 End: 03-15-2023 Radex spine lumbosacral 2/3 views [facility] Work Phone: Comment on above: 1 Occurrences starting 03/15/2023 until 03/15/2023 End: 04-13-2024 Radiologic examination sacroiliac jnts <3 views XR SACROILIAC JOINTS 2V AP PELVIS/FERGUESON Radiology Routine Pain in joint, multiple sites 1 Occurrences starting 03/15/2023 until 04/13/2024 [facility] Work Phone: Comment on above: 1 Occurrences starting 03/15/2023 until 04/13/2024 End: 03-15-2023 Radiologic examination sacroiliac jnts <3 views [facility] Work Phone: Comment on above: 1 Occurrences starting 03/15/2023 until 03/15/2023 Red blood cell count [facility] Red cell distributio n width determination [facility] SARS-CoV-2 & FLU Antigen (Rapid) SARS-CoV-2 & FLU Antigen (Rapid) [facility] Work Phone: Serum chloride measurement [facility] Sodium measurement [facility] Spirometry panel Incentive federico metry Respiratory Care Routine Every 2hr while awake until discontinued starting 07/05/2020 [facility] Comment on above: Every 2hr while awake until discontinued starting 07/05/2020 Total cholesterol:HD L ratio measurement [facility] Total protein measurement [facility] Triglycerides measurement [facility] Urea nitrogen [Mass/ volume] in Serum or Plasma [facility] VLDL cholesterol measurement [facility] XR Knee GE 4 Views [facility] End: 04-13-2024 XR KNEE SURVEY ARTHRITIS 1V AP BILATERAL XR KNEE SURVEY ARTHRITIS 1V AP BILATERAL Radiology Routine Pain in joint, multiple sites 1 Occurrences starting 03/15/2023 until 04/13/2024 [facility] Work Phone: Comment on above: 1 Occurrences starting 03/15/2023 until 04/13/2024 End: 03-15-2023 XR KNEE SURVEY ARTHRITIS 1V AP BILATERAL [facility] Work Phone: Comment on above: 1 Occurrences starting 03/15/2023 until 03/15/2023 [facility] Immunizations Immunization Date Immunization Notes Care Provider [facility] 09-08-2024 Seasonal trivalent influenza vaccine, adjuvanted, preservative free Dr. Bindu Caldwell MD Work Phone: [facility] 04-29-2024 tetanus toxoid, redu zac diphtheria toxoid, and acellular pertussis vaccine, adsorbed Dr. Bindu Caldwell MD Work Phone: [facility] 09-04-2022 influenza virus vacc ine, unspecified formulation Iwona Aguila MD Work Phone: [facility] 10-31-2021 Pfizer SARS-CoV-2 Vaccination Mishel Colunga CNP Work Phone: [facility] 08-19-2021 pneumococcal conjuga te vaccine, [address] Bindu Caldwell Work Phone: [facility] 08-19-2021 pneumococcal vaccine , unspecified formulation Dr. Bindu Caldwell Work Phone: [facility] Work Phone: 02-05-2021 Pfizer SARS-CoV-2 Vaccination Mishel Saucedo [employer] [facility] Work Phone: [facility] 01-15-2021 [facility] Work Phone: [facility] 08-16-2020 influenza, injectable,quadrivalent, preservative free, pediatric Dr. Bindu Caldwell Work Phone: [facility] 08-16-2020 pneumococcal polysaccharide vaccine, [address] Bindu Caldwell Work Phone: [facility] 08-16-2020 pneumococcal vaccine , unspecified formulation Dr. Bindu Caldwell Work Phone: [facility] Work Phone: 08-16-2020 Flucelvax Quad 2019- 2020 (PF) (flu vac qs 2019(4 yr up)CD(PF)) 60 mcg ([address] Bindu Caldwell Work Phone: [facility] Work Phone: 09-19-2019 influenza, injectabl e, quadrivalent, contains preservative Diana Oscar MD Work Phone: [facility] Work Phone: 12-02-2018 zoster vaccine recombinant Diana Oscar MD Work Phone: [facility] Work Phone: 09-07-2018 influenza, injectabl e, quadrivalent, contains preservative Diana Oscar MD Work Phone: [facility] Work Phone: 04-29-2018 zoster vaccine recombinant Diana Oscar MD Work Phone: [facility] Work Phone: 08-27-2017 influenza, injectabl e, quadrivalent, contains preservative Diana Oscar MD Work Phone: [facility] Work Phone: 08-29-2016 influenza, injectabl e, quadrivalent, contains preservative Diana Oscar MD Work Phone: [facility] 06-24-2013 pneumococcal polysaccharide vaccine, 23 valent Diana Oscar MD Work Phone: [facility] 01-03-2012 tetanus toxoid, redu zac diphtheria toxoid, and acellular pertussis vaccine, adsorbed Diana Oscar MD Work Phone: [facility] Payers Date Payer Category Payer Self-pay [id number] 2021 Private Health Insurance [id number] 2021 Private Health Insurance [id number] 2019 Private Health Insurance [id number] 2011 Medicare [id number] 2011 Medicare [id number] Medicare [id number] Unknown [id number] Unknown [id number] Unknown [id number] Unknown [id number] [id number] Unknown [id number] [id number] Unknown [id number] [id number] Unknown [id number] Social History Date Type Detail Facility Start: 06-25-2020 End: 06-07-2024 Tobacco smoking status NHIS Current every day smoker [facility] Work Phone: History of tobacco use [facility] Start: 06-25-2020 End: 03-15-2023 Cigarettes smoked current (pack per day) - Reported [facility] Start: 06-25-2020 End: 07-09-2020 Tobacco use and exposure Current user [facility] Start: 06-25-2020 End: 04-17-2025 Alcohol intake Current drinker of alcohol (finding) [place] Start: 1955 Sex Assigned At Not on file M [facility] Start: 11-06-2022 End: 05-24-2023 Exposure to SARS-CoV-2 (event) Not sure [place] Start: 01-09-2022 End: 02-17-2024 Tobacco smoking status NHIS Unknown if ever smoked [facility] Start: 1955 Sex Assigned At Female [facility] Start: 05-14-2014 End: 07-25-2024 Tobacco use and exposure Smokeless tobacco non-user [facility] Work Phone: Start: 11-16-2022 End: 03-15-2023 Tobacco use panel [facility] Start: 11-09-2022 Sexual orientation Heterosexual (gretta marte) [facility] Adult Depression Screening Assessment 1 [facility] Start: 01-18-2025 Sex Female (finding) [facility] NEGATED: Highlighted row [facility] Goals Date Patient Goal Desired Activity /State Functional Status Date Assessment Result Facility 02-09-2015 Are you deaf, or do you have serious difficulty hearing No 02/09/2015 8:23 AM Darlene Turner LPN No [facility] 02-09-2015 Are you blind, or do you have serious difficulty seeing, even when wearing glasses No 02/09/2015 8:23 AM Darlene Turner LPN No [facility] 02-09-2015 Do you have serious difficulty walking or climbing stairs No 02/09/2015 8:23 AM Darlene Turner LPN No [facility] 02-09-2015 Do you have difficul ty dressing or bathing No 02/09/2015 8:23 AM Darlene Turner LPN No [facility] 02-09-2015 Because of a physica l, mental, or emotional condition, do you have difficulty doing errands alone such as visiting a physician's office or shopping No 02/09/2015 8:23 AM Darlene Turner LPN No [facility] Mental Status Date Assessment Result Facility 02-17-2024 Cognitive function Level Of Cons ciousness Awake;Alert;Appropriate;Fol lows Commands [facility] Work Phone: 11-13-2023 Cognitive function Voice/Name [facility] Work Phone: 09-07-2023 Cognitive function Level Of Cons ciousness Awake;Alert;Appropriate;Fol lows Commands [facility] Work Phone: 10-14-2022 Cognitive function Level Of Cons ciousness Awake;Alert;Appropriate;Fol lows Commands [facility] Work Phone: 02-09-2015 Because of a physica l, mental, or emotional condition, do you have serious difficulty concentrating, remembering, or making decisions No 02/09/2015 8:23 AM Darlene Turner LPN No [facility] Clinical Notes 10-12-2006 to 06-12-2025 Note Date & Type Note Facility 06-12-2025 Progress note [facility] 06-12-2025 Progress note Note Date/Time June 12, 2025 1:18pm [facility] [address] [place] [address] [place] [address] OFFICE VISIT Date of Service: 06/12/25 MR#: [id number] Acct: [id number] Name: LIZZETH SLADE Rep #: [id number] Provider: TI Rabago Age/Sex: 70/F Location: [facility] Status: Signed Intake Vital Signs 04/22/25 09:13 06/12/25 12:45 Height 5 ft 6 in 5 ft 6 in Weight: 157 lb 160 lb 4 oz BMI 25.3 25.8 BP 118/70 118/58 L Blood Pressure Location Lt brachial Lt brachial Position Sitting Sitting Respiration 17 16 Pulse 72 71 Pulse Source Monitor Monitor Temp 98.0 F 97.3 F L Temp Source Temporal Temporal Pulse Oximetry (%) 98 97 Oxygen Delivery Method room air room air Intake Visit Reasons: LEFT KNEE PAIN Chief Complaint: L 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: No Accompanied by: Self Is patient in pain?: Yes Allergies strawberry Allergy (Severe, Verified 06/12/25 12:40) Angioedema oak Allergy (Mild, Verified 06/12/25 12:40) Itching clams Adverse Reaction (Mild, Verified 06/12/25 12:40) Abd cramps/diarrhea clindamycin Adverse Reaction (Mild, Verified 06/12/25 12:40) Nausea Medications ?Medication ?Instructions ?Recorded ?Confirmed ?Type acetaminophen 500 mg tablet 500 mg PO Q6H PRN pain 06/12/25 History (Tylenol Extra Strength) duloxetine 20 mg capsule,delayed 60 mg PO BID 04/09/23 06/12/25 History release clonazepam 0.5 mg tablet 0.5 mg PO DAILY 06/04/2406/29 History omeprazole 40 mg capsule,delayed 40 mg PO DAILY #90 ca ps 07/10/24 06/12/25 Rx release clobetasol 0.05 % shampoo 1 applic topical DAILY PRN S KIN 09/08/24 06/12/25 Rx #118 mL amlodipine 10 mg tablet 10 mg PO DAILY #90 tabs 02/0 02/2706/12/25 Rx hydrocortisone 2.5 % topical cream 1 applic topical BI D PRN rash 12/09/24 06/12/25 Rx #28.35 grams atorvastatin 20 mg tablet 20 mg PO QDAY #90 tabs 02/1706/12/25 Rx carbidopa 25 mg-levodopa 100 mg 1.5 tab PO TID 2 5 06/12/25 History tablet carbidopa ER 50 mg-levodopa 200 mg 1 tab PO QHS 06/12/25 History tablet,extended release gabapentin 600 mg tablet 600 mg PO ONCE pain 04/22/25 06/12/25 History meloxicam 15 mg tablet 15 mg PO QDAY #30 tabs 06/1206/12/25 Rx Have you fallen in the past year?: Yes Nurse's Note: 70 year old F patient presents with L knee pain. She says there was no injury tocause the pain. The pain is more medial and during extension with popping/clicking. Says the pain while moving is 7 of 8 out of 10. Pain has been present for 1 month, and has been taking extra strength tylenol for the pain. Patient has a history of arthritis and recenlty diagnosised with parkinson's disease by Dr. Holman at [facility] last year. [facility] Medical History (Updated 06/12/25 @ 13:16 by Jose J LUKE, TI) Flatulence Vivid dream Medication side effects Post-menopausal Grief reaction Hyperlipidemia Abrasion of left upper extremity Change in skin mole Tremor Frequent falls Esophageal stenosis Wears glasses Cancer Marijuana use Alcohol use Back pain Gastric reflux Smoker Leg cramps Hypertension History of edema History of Holter monitoring History of irregular heartbeat Difficulty swallowing Flu vaccine need Arrhythmia Hearing loss Vitamin D deficiency Borderline type 2 diabetes mellitus Fatigue Macrocytosis Screening for thyroid disorder Abdominal tenderness History of endometrial cancer Health care maintenance Psoriatic arthritis History of suicide attempt Depression Anxiety Neuropathy Arthritis Surgical History S/P hysterectomy History of surgical removal of ganglion cyst Family History Father Anxiety Diabetes Depression Heart disease Mental Disorders Psychiatric care CVA (cerebral vascular accident) Arthritis Sister Anxiety Arthritis Depression Diabetes Heart disease Mental Disorders Psychiatric care Respiratory disease Mother Arthritis Otosclerosis Social History household members: spouse housing: house Smoking Status: Current every day smoker tobacco type: cigarettes alcohol intake: current details: 1-2 glasses substance use type: does not use caffeine: Yes what type of physical activity do you participate in: walking seatbelt use: always do you feel safe at home: Yes additional social history: -[facility] Chief Complaint: L Knee Details: LIZZETH SLADE, is a 70 F who presents to the office today for left knee pains for probably around the past month. She does not recall any injury or new activities. She states that she did do a lot of gardening which was new or different for her. She states that both were hurting for a while but its the left that has persisted. She has been taking some Tylenol and has been wearing asleeve on it. She has not tried ice or heat to the area. Denies previous surgeries on the knee or any previous history Exam Const General: cooperative, healthy appearing, comfortable, no acute distress and welldeveloped Nutritional Appearance: average body habitus Orientation: alert, awake and oriented x3 Resp Effort & Inspection: normal respiratory effort and able to speak in complete sentences Musc Musculoskeletal: Yes joint tenderness (Left knee); No joint redness, decreased range of motion or muscle weakness Other: Inspection of the left knee shows no acute or gross abnormalities. Maybe some minor bony prominence noted. There is no localized or generalized swelling and there is no obvious effusions. She has no erythema, ecchymosis/bruising, or other skin changes. Overall range of motion is good symmetric to the right knee. She does have some crepitus noted with passive and active motion of the left knee. Her ACL, PCL, and collateral ligaments are intact without laxity or discomfort during maneuvers. Patient has negative seated Gerry's. She does have some discomfort with manual epilation of the patella relaxed with leg extended. She does have a negative Stephen's test though. She has soft compartments throughout the lower extremity. Normal sensation. Neuro General: patient alert, patient awake, patient oriented x3, gait normal and moves all extremities Coding Level of Care Code Off vis,est,level 3 Diagnoses Acute pain of left knee M25.562 Chronicity: acute Assessment and Plan Assessment and Plan (1) Left knee pain: Status: Acute Qualifiers: Chronicity: acute Qualified Code(s): M25.562 - Pain in left knee Plan: Patient presents the office today for left knee pain which has been occurring for approximately 1 month now. There was no acute injury or inciting incident that she can recall at the same time she states that she was doing a little bit more gardening than normal for her. Both knees initially were hurting but she says the left knee has continued. She again has not noticed any swelling or skin changes. There is no mechanical symptoms to the knee. She has a little bit of difficulty describing really where the pains are. She has a little bit of medial lateral joint line tenderness and some again pains with manipulation of the patella. It seems like the patellar discomfort is more concerning or noticeable than the medial lateral joint line. At this time we did discuss anatomy and physiology as well as pathophysiology of osteoarthritis. I do want a go ahead and get some x-rays of her knee. At this point she is not really tried anything other than Tylenol and therefore I want her to go ahead with someice and/or heat to her what ever feels best for her. We did discuss topical Voltaren versus meloxicam and she would like to try an oral medication once daily instead of the ibuprofen. She can still take some Tylenol if needed whileon the meloxicam. I do think that we hopefully can get this calm down and then try to switch to a topical Voltaren for her. I do not think that an injection is warranted at this time with her symptoms. Will notify her of the x-ray results. Can return to the office in 2 to 3 months with continued pains or any worsening in the meantime. This note was generated with [employer] dictation software. It may contain incorrectwords, spelling, and punctuation that were not noted in checking the note beforesigning. Orders: Orders Knee 4 or More Views Today M25.562 - Pain in left knee Medications: New meloxicam 15 mg PO QDAY 30 tabs 0RF Plan Details Follow Up: 3 Months Clinical Quality Measures Falls Risk Screening/Assistive Devices Have you fallen in the past year?: Yes 06/12/25 8505 <Electronically signed by Jose J LUKE> Date _ Jose J LUKE Cosigner Signature: Date (if applicable) CC: ~ [facility] [employer] Work Phone: 1(672) 483-784406-18-2025 Evaluation note* Diagnosis Onset Date Resolution Status Admit Date Flatulence acute April 22 9:09am Health care maintenance acute [facility] 2024 9:09am Medication side effects acute [facility] 2024 9:09am Vivid dream acute April 22 9:09am Borderline type 2 diabetes mellitus chronic April 22, 2025 9:09am Fatigue chronic April 22 9:09am Hypertension chronic April 22, 025 9:09am Left knee pain acute June 12:35pm [facility] Work Phone: 1(862) 513-785606-13-2025 NoteHNO ID: [id number] Author: FEMI HOLMAN JR, MD Service: ? Author Type: Physician Type: Progress Notes Filed: 04/17/2025 11:01 Note Text: ESTABLISHED PATIENT VISIT CHIEF COMPLAINT: Follow Up HISTORY OF PRESENT ILLNESS: Lizzeth Slade is a 69 year old female, BMI 25.11 kg/m2 with a PMH significant for and per last visit of 24: 1. Parkinson's disease, unspecified whether dyskinesia present, unspecified whether manifestations fluctuate (HCC) - ICD9: 332.0, ICD10: G20.A1 Overall patient doing well on Sinemet 25/100mg TID with meals as above with no side effects, and definite improvements on neurologic examination. Still room for further improvement. Discussed with patient and will try to further increase Sinemet to 1.5 tablets with breakfast, lunch and dinner. Again reviewed possible SE and ADRs with patient. Encouraged exercise.Discussed therapy programs. Patient will contact us immediately if any difficulties tolerating higher dose of Sinemet. Patient reports a little better since increase in Sinemet. No falls. However still feels unsteady on feet. Most unsteady first thing in the AM. States is having some discomfort in the legs at night. Feels tone more increased later at night around bedtime at 10PM - about 4 hours after last dose of Sinemet. No tremors. No constipation. Hands occasionally feel cramped up. In a PD class weekly for therapy. REVIEW OF SYSTEMS GENERAL:No weight loss, malaise or fevers. HEENT:Negative for frequent or significant headaches, No changes in hearing or vision, no nose bleeds or other nasal problems NECK:Negative for lumps, goiter, pain and significant neck swelling RESPIRATORY: Negative for cough, wheezing or shortness of breath. CARDIOVASCULAR: Negative for chest pain, leg swelling or palpitations. GASTROINTESTINAL: Negative for abdominal discomfort, blood in stools or black stools or change in bowel habits GENITOURINARY: No history of dysuria, frequency or incontinence MUSCULOSKELETAL: Negative for joint pain or swelling, back pain or muscle pain. NEUROLOGIC:Negative for focal numbness or weakness, headaches and dizziness or syncope, vision changes, speech/languag changes - EXCEPT that as per HPI above. LAB/IMAGING: Those performed since patient's last visit have been reviewed. WBC (k/uL) Date Value 01/29/2024 5.46 RBC (m/uL) Date Value 01/29/2024 4.10 Hemoglobin (g/dL) Date Value 01/29/2024 13.6 Hematocrit (%) Date Value 01/29/2024 42.2 MCV (fL) Date Value 01/29/2024 102.9 (H) MCH (pg) Date Value 01/29/2024 33.2 MCHC (g/dL) Date Value 01/29/2024 32.2 RDW-CV (%) Date Value 01/29/2024 13.3 Platelet Count (k/uL) Date Value 01/29/2024 319 MPV (fL) Date Value 01/29/2024 10.2 Glucose (mg/dL) Date Value 01/29/2024 75 BUN (mg/dL) Date Value 01/29/2024 14 Creatinine (mg/dL) Date Value 01/29/2024 0.67 Sodium (mmol/L) Date Value 01/29/2024 138 Potassium (mmol/L) Date Value 01/29/2024 4.1 Chloride (mmol/L) Date Value 01/29/2024 102 CO2 (mmol/L) Date Value 01/29/2024 25 Protein, Total (g/dL) Date Value 01/29/2024 7.2 Albumin (g/dL) Date Value 01/29/2024 4.5 Calcium, Total (mg/dL) Date Value 01/29/2024 9.4 Alkaline Phosphatase (U/L) Date Value 01/29/2024 153 (H) Bilirubin, Total (mg/dL) Date Value 01/29/2024 0.6 AST (U/L) Date Value 01/29/2024 42 (H) ALT (U/L) Date Value 01/29/2024 12 MEDICATIONS: atorvastatin (LIPITOR) 20 mg tablet Take 20 mg by mouth once daily. carbidopa-levodopa (SINEMET) 25-100 mg per tablet Take 1.5 tab with breakfast, lunch and dinner (about 4-5 hours apart). omeprazole (PRILOSEC) 40 mg capsule Take 40 mg by mouth once daily. folic acid 1 mg tablet Take 2 tablets by mouth once daily. amLODIPine (NORVASC) 10 mg tablet Take 10 mg by mouth once daily. acetaminophen (TYLENOL EXTRA STRENGTH) 500 mg tablet Take 500 mg by mouth twice daily as needed. Clobetasol Propionate 0.05 % sham Apply to affected area. hydrocortisone 2.5 % cream Apply to affected area. gabapentin (NEURONTIN) 600 mg tablet Take 1-2 tablets (600mg to 1200mg) in the morning, 2 tablets (1200mg) at noon, and 2 tablets (1200mg) at bedtime. (Patient taking differently: Take 600 mg by mouth daily at bedtime.) DULoxetine (CYMBALTA) 20 mg capsule Take 60 mg by mouth once daily. clonazePAM (KLONOPIN) 0.5 mg tablet Take 1 tablet by mouth daily at bedtime. methotrexate 2.5 mg tablet Take 8 tablets by mouth one time a week. (Patient not taking: Reported on 04/17/2025) HISTORIES PAST MEDICAL HISTORY Diagnosis Date Depressive disorder, not elsewhere classified Excessive or frequent menstruation Insomnia, unspecified Neuropathy stocking glove. Nystagmus unable to drive and causes vision problems FAMILY HISTORY Problem Relation Age of Onset Arthritis Mother Osteoporosis Mother Hearing Loss Mother Heart Father Diabetes Father S (more content not included)...[facility]06-13-2025 History of Present illness Narrative* Femi Holman Jr., MD - 04/17/2025 10:32 AM EDT ESTABLISHED PATIENT VISIT CHIEF COMPLAINT: Follow Up HISTORY OF PRESENT ILLNESS: Lizzeth Slade is a 69 year old female, BMI 25.11 kg/m2 with a PMH significant for and per last visit of 10/17/24: 1. Parkinson's disease, unspecified whether dyskinesia present, unspecified whether manifestations fluctuate ([facility]) - ICD9: 332.0, ICD10: G20.A1 Overall patient doing well on Sinemet 25/100mg TID with meals as above with no side effects, and definite improvements on neurologic examination. Still room for further improvement. Discussed with patient and will try to further increase Sinemet to 1.5 tablets with breakfast, lunch and dinner. Again reviewed possible SE and ADRs with patient. Encouraged exercise.Discussed therapy programs. Patient will contact us immediately if any difficulties tolerating higher dose of Sinemet. Patient reports a little better since increase in Sinemet. No falls. However still feels unsteady on feet. Most unsteady first thing in the AM. States is having some discomfort in the legs at night. Feels tone more increased later at night around bedtime at 10PM - about 4 hours after last dose of Sinemet. No tremors. No constipation. Hands occasionally feel cramped up. In a PD class weekly for therapy. REVIEW OF SYSTEMS GENERAL:No weight loss, malaise or fevers. HEENT:Negative for frequent or significant headaches, No changes in hearing or vision, no nose bleeds or other nasal problems NECK:Negative for lumps, goiter, pain and significant neck swelling RESPIRATORY: Negative for cough, wheezing or shortness of breath. CARDIOVASCULAR: Negative for chest pain, leg swelling or palpitations. GASTROINTESTINAL: Negative for abdominal discomfort, blood in stools or black stools or change in bowel habits GENITOURINARY: No history of dysuria, frequency or incontinence MUSCULOSKELETAL: Negative for joint pain or swelling, back pain or muscle pain. NEUROLOGIC:Negative for focal numbness or weakness, headaches and dizziness or syncope, vision changes, speech/languag changes - EXCEPT that as per HPI above. LAB/IMAGING: Those performed since patient's last visit have been reviewed. WBC (k/uL) Date Value 01/29/2024 5.46 RBC (m/uL) Date Value 01/29/2024 4.10 Hemoglobin (g/dL) Date Value 01/29/2024 13.6 Hematocrit (%) Date Value 01/29/2024 42.2 MCV (fL) Date Value 01/29/2024 102.9 (H) MCH (pg) Date Value 01/29/2024 33.2 MCHC (g/dL) Date Value 01/29/2024 32.2 RDW-CV (%) Date Value 01/29/2024 13.3 Platelet Count (k/uL) Date Value 01/29/2024 319 MPV (fL) Date Value 01/29/2024 10.2 Glucose (mg/dL) Date Value 01/29/2024 75 BUN (mg/dL) Date Value 01/29/2024 14 Creatinine (mg/dL) Date Value 01/29/2024 0.67 Sodium (mmol/L) Date Value 01/29/2024 138 Potassium (mmol/L) Date Value 01/29/2024 4.1 Chloride (mmol/L) Date Value 01/29/2024 102 CO2 (mmol/L) Date Value 01/29/2024 25 Protein, Total (g/dL) Date Value 01/29/2024 7.2 Albumin (g/dL) Date Value 01/29/2024 4.5 Calcium, Total (mg/dL) Date Value 01/29/2024 9.4 Alkaline Phosphatase (U/L) Date Value 01/29/2024 153 (H) Bilirubin, Total (mg/dL) Date Value 01/29/2024 0.6 AST (U/L) Date Value 01/29/2024 42 (H) ALT (U/L) Date Value 01/29/2024 12 MEDICATIONS: atorvastatin (LIPITOR) 20 mg tablet Take 20 mg by mouth once daily. carbidopa-levodopa (SINEMET) 25-100 mg per tablet Take 1.5 tab with breakfast, lunch and dinner (about 4-5 hours apart). omeprazole (PRILOSEC) 40 mg capsule Take 40 mg by mouth once daily. folic acid 1 mg tablet Take 2 tablets by mouth once daily. amLODIPine (NORVASC) 10 mg tablet Take 10 mg by mouth once daily. acetaminophen (TYLENOL EXTRA STRENGTH) 500 mg tablet Take 500 mg by mouth twice daily as needed. Clobetasol Propionate 0.05 % sham Apply to affected area. hydrocortisone 2.5 % cream Apply to affected area. gabapentin (NEURONTIN) 600 mg tablet Take 1-2 tablets (600mg to 1200mg) in the morning, 2 tablets (1200mg) at noon, and 2 tablets (1200mg) at bedtime. (Patient taking differently: Take 600 mg by mouth daily at bedtime.) DULoxetine (CYMBALTA) 20 mg capsule Take 60 mg by mouth once daily. clonazePAM (KLONOPIN) 0.5 mg tablet Take 1 tablet by mouth daily at bedtime. methotrexate 2.5 mg tablet Take 8 tablets by mouth one time a week. (Patient not taking: Reported on 04/17/2025) HISTORIES PAST MEDICAL HISTORY Diagnosis Date Depressive disorder, not elsewhere classified Excessive or frequent menstruation Insomnia, unspecified Neuropathy stocking glove. Nystagmus unable to drive and causes vision problems FAMILY HISTORY Problem Relation Age of Onset Arthritis Mother Osteoporosis Mother Hearing Loss Mother Heart Father Diabetes Father Stroke Father Cataract Father other (Other) Father other (Menorrhagia) Sister Hysterectomy other (Depression) Paternal Grandmother Heart Paternal Grandfather Diabetes Sister SOCIAL HISTORY Social History Tobacco Use Smoking status: Every Day Current packs/day: 0.50 Average packs/day: 0.5 packs/day for 20.0 years (10.0 ttl pk-yrs) Types: Cigarettes Smokeless tobacco: Never Vaping Use Vaping status: Never Used Substance Use Topics Alcohol use: Yes Comment: occasional glass of wine Drug use: No PHYSICAL EXAMINATION BP 128/80 (BP Site: Left Arm, BP Position: Sitting) Pulse 90 Resp 16 Wt 70.6 kg (155 lb 9.6 oz) LMP 12/08/2010 SpO2 97% BMI 25.11 kg/m GENERAL EXAM: General appearance: NAD, pleasant. HEENT: NC/AT, nasal congestion absent Lungs: CTA bilaterally. CV: RRR nl S1, S2 Extr: No cyanosis, clubbing or edema. Skin: Cool to touch. NEUROLOGICAL EXAM: General: Awake, alert, oriented x3 (person,place,time), fluent, no dysarthria; comprehension, naming, repetition intact. CN: PERRL, EOMI and without nystagmus, VFF to confrontation, facial sensation and strength are normal and symmetric, hearing is intact to finger rub bilaterally, palate and tongue movements are intact and symmetric. SCM and trapezius strength normal. Motor: Normal bulk and strength (5/5) bilaterally (throughout extremities x4). Mild cogwheel in LUE. Coordination: FNF, HTS intact. Mild impairment in LUE on KAYLA. No resting tremors. Sensation: Light touch, vibration, temperature intact throughout. No evidence of neglect. Gait: No issues rising from chair without UE assist. Narrow based and stable with normal stride butdecrease arm swing in LUE. Romberg normal. No retropulsion. Assessment and Plan: ASSESSMENT/PLAN: 1. Parkinson's disease, unspecified whether dyskinesia present, unspecified whether manifestations fluctuate (HCC) - ICD9: 332.0, ICD10: G20.A1 Patient with some improvement in PD symptoms per subjective history, but exam showing increasing tone and decreased arm swing on R. Patient also noting most unsteady in AM with increased tone during night - question if due to Sinemet dinner dose at that time wearing off. D/w patient and will place on trial of Sinemet CR 50/200mg QHS to see if any benefit regarding night time and AM symptoms. We also discussed possibly increasing the daytime dosing of Sinemet from 1.5 to 2 tabs (25/100mg), but pt would prefer to first see how the evening dose of CR impacts her symptoms first. Patient agrees with plan. Follow up in 3 months or sooner prn. Note, med refills provided. Also, pt scheduled for yearly labs soon - will need to review when available as most recent from 01/2024. Femi Holman MD Medical Decision Making: Problems: Moderate: 1+ chronic illnesses with change Data: Unique test result(s) reviewed: 1 Risk: Moderate: Drug management Medical Decision Making Level: 4 - Moderate [facility]* Diagnosis Onset Date Resolution Status Admit Date Grief reaction acute January 07, 2025 10:07am Anxiety and depression chronic [facility] 2024 10:07am Borderline type 2 diabetes mellitus chronic January 07, 2025 10:07am Hypertension chronic January 07 025 10:07am Tremor chronic January 07 10:07am [facility] Work Phone: 1(679) 700-643603-05-2025 Evaluation note* Diagnosis Onset Date Resolution Status Admit Date Grief reaction acute January 07, 2025 10:07am Anxiety and depression chronic [facility] 2024 10:07am Borderline type 2 diabetes mellitus chronic January 07, 2025 10:07am Hypertension chronic January 07, 025 10:07am Tremor chronic January 07 10:07am Flatulence acute April 22 9:09am Health care maintenance acute [facility] 2024 9:09am Medication side effects acute [facility] 2024 9:09am Vivid dream acute April 22 9:09am Borderline type 2 diabetes mellitus chronic April 22, 2025 9:09am Fatigue chronic April 22 9:09am Hypertension chronic April 22, 025 9:09am [facility] Work Phone: 1(725) 781-716312-13-2024 NoteHNO ID: [id number] Author: FEMI HOLMAN JR, MD Service: ? Author Type: Physician Type: Progress Notes Filed: 10/21/2024 23:24 Note Text: ESTABLISHED PATIENT VISIT CHIEF COMPLAINT: Follow Up HISTORY OF PRESENT ILLNESS: Lizzeth Slade is a 69 year old female, BMI 25.28 kg/m2 with a PMH significant for and per last office visit of 07/25/24: 1. Parkinson's disease, unspecified whether dyskinesia present, unspecified whether manifestations fluctuate (HCC) - ICD9: 332.0, ICD10: G20.A1 (primary diagnosis) 2. Recurrent falls - ICD9: V15.88, ICD10: R29.6 3. Abnormality of gait - ICD9: 781.2, ICD10: R26.9 Patient with history and specifically and exam strongly suggestive of Parkinson's disease (PD). Noted family history of PD as above. While patient has been on meds that could result in Parkinsonism such as Abilify, it has been years and was only taking for a short time per provided history. Dx d/w pt in detail including etiologies, physiology, workup (clinical dx), treatment and prognosis. I explained to pt that as she has never had an MRI brain, I would like to proceed with such to confirm no other contributing factors of symptoms such as old strokes or vascular Parkinsonism. She agrees. However, I would also like to try and treat symptoms based on clinical presentation, and we discussed various PD med options, including SEs and ADRs. Pt agrees with starting treatment and decision made to start Sinemet 25/100mg TID with meals (4-5 hours apart). SE and ADRs d/w pt. She will contact us if any issues. Encouraged exercise and discussed topic of use it or lose it. No therapy at this time but may benefit in future if not increasing exercise on own. Follow up in about 8 weeks to see how pt is doing on meds. States tremors in hands much improved since on Sinemet but still difficulties with balance. 1 fall since last seen - states was walking out of the dentist office and fell over a curb. Currently taking Sinemet 25/100mg at breakfast, lunch and bedtime. No side effects from medication. MRI brain reviewed with pt and unremarkable for acute process or source of events; per rad report: No acute intracranial abnormality. Chronic microvascular ischemic changes and generalized parenchymal volume loss. No new symptoms. No side effects including no changes in mood. No definite on-off effect. REVIEW OF SYSTEMS GENERAL:No weight loss, malaise or fevers. HEENT:Negative for frequent or significant headaches, No changes in hearing or vision, no nose bleeds or other nasal problems NECK:Negative for lumps, goiter, pain and significant neck swelling RESPIRATORY: Negative for cough, wheezing or shortness of breath. CARDIOVASCULAR: Negative for chest pain, leg swelling or palpitations. GASTROINTESTINAL: Negative for abdominal discomfort, blood in stools or black stools or change in bowel habits GENITOURINARY: No history of dysuria, frequency or incontinence MUSCULOSKELETAL: Chronic knee pain. NEUROLOGIC:Negative for focal numbness or weakness, headaches and dizziness or syncope, vision changes, speech/languag changes - EXCEPT that as per HPI above. SKIN:Negative for lesions, rash, and itching. LAB/IMAGING: Those performed since patient's last visit have been reviewed. WBC (k/uL) Date Value 01/29/2024 5.46 RBC (m/uL) Date Value 01/29/2024 4.10 Hemoglobin (g/dL) Date Value 01/29/2024 13.6 Hematocrit (%) Date Value 01/29/2024 42.2 MCV (fL) Date Value 01/29/2024 102.9 (H) MCH (pg) Date Value 01/29/2024 33.2 MCHC (g/dL) Date Value 01/29/2024 32.2 RDW-CV (%) Date Value 01/29/2024 13.3 Platelet Count (k/uL) Date Value 01/29/2024 319 MPV (fL) Date Value 01/29/2024 10.2 Glucose (mg/dL) Date Value 01/29/2024 75 BUN (mg/dL) Date Value 01/29/2024 14 Creatinine (mg/dL) Date Value 01/29/2024 0.67 Sodium (mmol/L) Date Value 01/29/2024 138 Potassium (mmol/L) Date Value 01/29/2024 4.1 Chloride (mmol/L) Date Value 01/29/2024 102 CO2 (mmol/L) Date Value 01/29/2024 25 Protein, Total (g/dL) Date Value 01/29/2024 7.2 Albumin (g/dL) Date Value 01/29/2024 4.5 Calcium, Total (mg/dL) Date Value 01/29/2024 9.4 Alkaline Phosphatase (U/L) Date Value 01/29/2024 153 (H) Bilirubin, Total (mg/dL) Date Value 01/29/2024 0.6 AST (U/L) Date Value 01/29/2024 42 (H) ALT (U/L) Date Value 01/29/2024 12 MEDICATIONS: carbidopa-levodopa (SINEMET) 25-100 mg per tablet Take 1 tab with breakfast, lunch and dinner (about 4-5 hours apart). methotrexate 2.5 mg tablet Take 8 tablets by mouth one time a week. omeprazole (PRILOSEC) 40 mg capsule Take 40 mg by mouth once daily. folic acid 1 mg tablet Take 2 tablets by mouth once daily. amLODIPine (NORVASC) 10 mg tablet Take 10 mg by mouth once daily. acetaminophen (TYLENOL EXTRA STRENGTH) 500 mg tablet Take 500 mg by mouth twice daily as needed. Clobetasol Propio (more content not included)...[facility] 10-17-2024 History of Present illness Narrative* Femi Holman Jr., MD - 10/17/2024 9:18 AM EST ESTABLISHED PATIENT VISIT CHIEF COMPLAINT: Follow Up HISTORY OF PRESENT ILLNESS: Lizzeth Slade is a 69 year old female, BMI 25.28 kg/m2 with a PMH significant for and per last office visit of 07/25/24: 1. Parkinson's disease, unspecified whether dyskinesia present, unspecified whether manifestations fluctuate (HCC) - ICD9: 332.0, ICD10: G20.A1 (primary diagnosis) 2. Recurrent falls - ICD9: V15.88, ICD10: R29.6 3. Abnormality of gait - ICD9: 781.2, ICD10: R26.9 Patient with history and specifically and exam strongly suggestive of Parkinson's disease (PD). Noted family history of PD as above. While patient has been on meds that could result in Parkinsonism such as Abilify, it has been years and was only taking for a short time per provided history. Dx d/w pt in detail including etiologies, physiology, workup (clinical dx), treatment and prognosis. I explained to pt that as she has never had an MRI brain, I would like to proceed with such to confirm no other contributing factors of symptoms such as old strokes or vascular Parkinsonism. She agrees. However, I would also like to try and treat symptoms based on clinical presentation, and we discussed various PD med options, including SEs and ADRs. Pt agrees with starting treatment and decision made to start Sinemet 25/100mg TID with meals (4-5 hours apart). SE and ADRs d/w pt. She will contact us if any issues. Encouraged exercise and discussed topic of use it or lose it. No therapy at this time but may benefit in future if not increasing exercise on own. Follow up in about 8 weeks to see howpt is doing on meds. States tremors in hands much improved since on Sinemet but still difficulties with balance. 1 fall since last seen - states was walking out of the dentist office and fell over a curb. Currently taking Sinemet 25/100mg at breakfast, lunch and bedtime. No side effects from medication. MRI brain reviewed with pt and unremarkable for acute process or source of events; per rad report: No acute intracranial abnormality. Chronic microvascular ischemic changes and generalized parenchymal volume loss. No new symptoms. No side effects including no changes in mood. No definite on-off effect. REVIEW OF SYSTEMS GENERAL:No weight loss, malaise or fevers. HEENT:Negative for frequent or significant headaches, No changes in hearing or vision, no nose bleeds or other nasal problems NECK:Negative for lumps, goiter, pain and significant neck swelling RESPIRATORY: Negative for cough, wheezing or shortness of breath. CARDIOVASCULAR: Negative for chest pain, leg swelling or palpitations. GASTROINTESTINAL: Negative for abdominal discomfort, blood in stools or black stools or change in bowel habits GENITOURINARY: No history of dysuria, frequency or incontinence MUSCULOSKELETAL: Chronic knee pain. NEUROLOGIC:Negative for focal numbness or weakness, headaches and dizziness or syncope, vision changes, speech/languag changes - EXCEPT that as per HPI above. SKIN:Negative for lesions, rash, and itching. LAB/IMAGING: Those performed since patient's last visit have been reviewed. WBC (k/uL) Date Value 01/29/2024 5.46 RBC (m/uL) Date Value 01/29/2024 4.10 Hemoglobin (g/dL) Date Value 01/29/2024 13.6 Hematocrit (%) Date Value 01/29/2024 42.2 MCV (fL) Date Value 01/29/2024 102.9 (H) MCH (pg) Date Value 01/29/2024 33.2 MCHC (g/dL) Date Value 01/29/2024 32.2 RDW-CV (%) Date Value 01/29/2024 13.3 Platelet Count (k/uL) Date Value 01/29/2024 319 MPV (fL) Date Value 01/29/2024 10.2 Glucose (mg/dL) Date Value 01/29/2024 75 BUN (mg/dL) Date Value 01/29/2024 14 Creatinine (mg/dL) Date Value 01/29/2024 0.67 Sodium (mmol/L) Date Value 01/29/2024 138 Potassium (mmol/L) Date Value 01/29/2024 4.1 Chloride (mmol/L) Date Value 01/29/2024 102 CO2 (mmol/L) Date Value 01/29/2024 25 Protein, Total (g/dL) Date Value 01/29/2024 7.2 Albumin (g/dL) Date Value 01/29/2024 4.5 Calcium, Total (mg/dL) Date Value 01/29/2024 9.4 Alkaline Phosphatase (U/L) Date Value 01/29/2024 153 (H) Bilirubin, Total (mg/dL) Date Value 01/29/2024 0.6 AST (U/L) Date Value 01/29/2024 42 (H) ALT (U/L) Date Value 01/29/2024 12 MEDICATIONS: carbidopa-levodopa (SINEMET) 25-100 mg per tablet Take 1 tab with breakfast, lunch and dinner (about 4-5 hours apart). methotrexate 2.5 mg tablet Take 8 tablets by mouth one time a week. omeprazole (PRILOSEC) 40 mg capsule Take 40 mg by mouth once daily. folic acid 1 mg tablet Take 2 tablets by mouth once daily. amLODIPine (NORVASC) 10 mg tablet Take 10 mg by mouth once daily. acetaminophen (TYLENOL EXTRA STRENGTH) 500 mg tablet Take 500 mg by mouth twice daily as needed. Clobetasol Propionate 0.05 % sham Apply to affected area. hydrocortisone 2.5 % cream Apply to affected area. gabapentin (NEURONTIN) 600 mg tablet Take 1-2 tablets (600mg to 1200mg) in the morning, 2 tablets (1200mg) at noon, and 2 tablets (1200mg) at bedtime. (Patient taking differently: Take 600 mg by mouth daily at bedtime.) DULoxetine (CYMBALTA) 20 mg capsule Take 60 mg by mouth once daily. clonazePAM (KLONOPIN) 0.5 mg tablet Take 1 tablet by mouth daily at bedtime. vitamin D3-vitamin K2 1,250-200 mcg cap Take 1 capsule by mouth one time a week. Out of med (Patient not taking: Reported on 07/25/2024) ergocalciferol, vitamin D2, (VITAMIN D2 ORAL) Take 1,000 Units by mouth once daily. Out of med cyanocobalamin (VITAMIN B-12) 1,000 mcg tab Take 1,000 mcg by mouth two times a day. Ran out of med Ibuprofen 200 mg cap Take by mouth as needed. HISTORIES PAST MEDICAL HISTORY Diagnosis Date Depressive disorder, not elsewhere classified Excessive or frequent menstruation Insomnia, unspecified Neuropathy stocking glove. Nystagmus unable to drive and causes vision problems FAMILY HISTORY Problem Relation Age of Onset Arthritis Mother Osteoporosis Mother Hearing Loss Mother Heart Father Diabetes Father Stroke Father Cataract Father other (Other) Father other (Menorrhagia) Sister Hysterectomy other (Depression) Paternal Grandmother Heart Paternal Grandfather Diabetes Sister SOCIAL HISTORY Social History Tobacco Use Smoking status: Every Day Current packs/day: 0.50 Average packs/day: 0.5 packs/day for 20.0 years (10.0 ttl pk-yrs) Types: Cigarettes Smokeless tobacco: Never Vaping Use Vaping status: Never Used Substance Use Topics Alcohol use: Yes Comment: occasional glass of wine Drug use: No PHYSICAL EXAMINATION BP 138/84 (BP Site: Left Arm, BP Position: Sitting) Pulse 93 Wt 71 kg (156 lb 9.6 oz) LMP 12/08/2010 SpO2 98% BMI 25.28 kg/m NEUROLOGICAL EXAM: General: Masked facies appears improved. Awake, alert, oriented x3 (person,place,time), speech fluent, no dysarthria; comprehension, naming, repetition intact. Fund of knowledge grossly normal by MOCA. CN: PERRL, EOMI, VFF to confrontation, facial sensation and strength are normal and symmetric, hearing is intact to finger rub bilaterally, palate and tongue movements are intact and symmetric. SCM and trapezius strength normal. Motor: Increased tone of cogwheel nature in RUE>>LUE. Normal bulk and strength (5/5) bilaterally (throughout extremities x4). Coordination: FNF nml. KAYLA normal in the RUE and near normal in the LUE. Tremor with posture and activity but not rest (low amp and high freq and minimal compared to last visit). Sensation: Light touch, vibration, temperature intact throughout. No evidence of neglect. Gait: Able to rise from chair without assist of upper exts. Upright posture. Stride normal. Now swinging arms luis daniel (slightly decreased in RUE). 1-2 steps to turn 180 degrees and unsteady. No retropulsion on pull testing. Romberg normal. Assessment and Plan: ASSESSMENT/PLAN: 1. Parkinson's disease, unspecified whether dyskinesia present, unspecified whether manifestations fluctuate ([facility]) - ICD9: 332.0, ICD10: G20.A1 Overall patient doing well on Sinemet 25/100mg TID with meals as above with no side effects, and definite improvements on neurologic examination. Still room for further improvement. Discussed with patient and will try to further increase Sinemet to 1.5 tablets with breakfast, lunch and dinner. Again reviewed possible SE and ADRs with patient. Encouraged exercise.Discussed therapy programs. Patient will contact us immediately if any difficulties tolerating higher dose of Sinemet. Otherwise, if doing well, will follow up in 6 months. Femi Holman MD I spent a total of 30+ minutes on the date of the service which included preparing to see the patient, [id number] patient care, completing clinical documentation, obtaining and/or reviewing separately obtained history, performing a medically appropriate examination, counseling and educating the pa tient/family/caregiver, ordering medications, tests, or procedures, independently interpreting results (not separately reported), and communicating results to the patient/family/caregiver. [facility] Tele[facility] encounter Note * Telephone Encounter - Nikki Jones MA - 10/15/2024 3:31 PM EST Patient has appointment 10/17. Nikki Jones MA [facility]12-[facility]24 Miscellaneous Notes* Telephone Encounter - Nikki Jones MA - 10/15/2024 3:31 PM EST Patient has appointment 10/17. Nikki Jones MA [facility] Telephone encounter Note * Telephone Encounter - Femi Holman Jr., MD - 09/03/2024 1:51 PM EDT Per rad report the MRI brain did not show any acute changes and no changes to suggest a definite etiology of Parkinsonism. Femi Holman MD [facility]10[facility] Miscellaneous Notes* Telephone Encounter - Femi Holman Jr., MD - 09/03/2024 1:51 PM EDT Per rad report the MRI brain did not show any acute changes and no changes to suggest a definite etiology of Parkinsonism. Femi Holman MD documented [facility] History of Present illness Narrative* Savanna Macias RT(R) - 08/28/2024 1:00 PM EDT Radiology Service Progress Note PATIENT NAME: Lizzeth Slade DATE OF SERVICE: August 28, 2024 TIME: 1:22 PM PATIENT IDENTITY VERIFICATION COMPLETED USING TWO (2) IDENTIFIERS: Name and Date of confirmedby patient verbally. FALL SCREENING: Has the patient had 2 falls in the last year or 1 fall with injury or currently using an Ambulatory Assistive Device (Walker, Cane, Wheelchair, Crutches, etc.)? No PATIENT GENDER DATA: Female. status: : No status: NO. PATIENT RELEVANT IMPLANT DATA REVIEWED: Yes PATIENT PRESENTS WITH AN IMPLANTABLE OR ATTACHED DIRECTOR FINANCIAL ANALYSIS: No RADIOLOGY DEPARTMENT: MR; Exam(s) Completed: Head: Routine Brain PERIPHERAL IV DATA: Not applicable SIGNED BY: KG Gonzalez) August 28, 2024 1:22 PM documented in [facility] encounterC[facility]24 NoteHNO ID: [id number] Author: SAVANNA MACIAS RT (R) Service: ? Author Type: Technologist Type: Progress Notes Filed: 08/28/2024 13:22 Note Text: Radiology Service Progress Note PATIENT NAME: Lizzeth Slade DATE OF SERVICE: August 28, 2024 TIME: 1:22 PM PATIENT IDENTITY VERIFICATION COMPLETED USING TWO (2) IDENTIFIERS: Name and Date of confirmed by patient verbally. FALL SCREENING: Has the patient had 2 falls in the last year or 1 fall with injury or currently using an Ambulatory Assistive Device (Walker, Cane, Wheelchair, Crutches, etc.)? No PATIENT GENDER DATA: Female. status: : No status: NO. PATIENT RELEVANT IMPLANT DATA REVIEWED: Yes PATIENT PRESENTS WITH AN IMPLANTABLE OR ATTACHED DIRECTOR FINANCIAL ANALYSIS: No RADIOLOGY DEPARTMENT: MR; Exam(s) Completed: Head: Routine Brain PERIPHERAL IV DATA: Not applicable SIGNED BY: KG Gonzalez) August 28, 2024 1:22 [facility]09-20-2024 NoteHNO ID: [id number] Author: FEMI HOLMAN JR, MD Service: ? Author Type: Physician Type: Progress Notes Filed: 07/25/2024 15:26 Note Text: NEW PATIENT (CONSULT) HISTORY AND PHYSICAL EXAM PRIMARY CARE PHYSICIAN: Bindu Caldwell MD REASON FOR CONSULT: See below REFERRING PHYSICIAN: No ref. provider found CHIEF COMPLAINT: Abnormal gait and unsteady on my feet. Consultation requested by No ref. provider found for an opinion regarding chief complaint of Patient presents with: New Patient: Abnormal gait, poor balance, tremor in hands and my final recommendations will be communicated back to the requesting physician by way of shared medical record or letter via [place] mail. HISTORY OF PRESENT ILLNESS: Lizzeth Slade is a 69 year old female, BMI 24.82 kg/m2 with a PMH significant for that noted below including documentation of neuropathy. Per neuro notes in 2013: Lizzeth Slade is a 59 year old female with history of presumptive peripheral neuropathy (unknown cause), vertical nystagmus, bipolar disease and trigger finger presenting for evaluation of burning pain in her hands and feet. Exam is significant for distal limb predominant hyperesthesia/dysesthesia, and vertical nystagmus with impaired station (possible truncal titubation). She has previously been evaluated for neuropathy with EMG, QSART, and lab work (vitamins B1, B6, B12, MMA, HgA1C) but studies essentially unrevealing. Findings of intact reflexes and hyperesthesia are most consistent with small fiber neuropathy. 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 Skin biopsy on 07/25/14: The epidermal nerve fiber densities are normal at all sites. There is no evidence of a small fiber sensory neuropathy. Pt now presents with complaint of falling over the past 5 months (5 falls total). Adds that she now has tremors in luis daniel fingers (with posture). States no warning. Not tripping on anything. Balance just disappears. Typically falls forward. No dizziness or lightheadedness. States it is quite sudden. No loc. Off lithium years ago. States PCP concerned Cymbalta impacting hands. Still on gabapentin for electrical shock pain in all 4 extremities. States the latter has resolved. No neck pain but notes having OA in lower back. XR of L spine in 2022 per report: Lower lumbar predominant degenerative changes Variant lumbosacral anatomy Counting reference: Lumbosacral junction. For the purposes of this report, L4-5 is considered the level of the iliac crest. Lumbarization S1 States has to remind self to picking supervisor feet when walks as finds self shuffling. No changes in sense of smell. No changes in handwriting. Rare constipation. Difficulties with fine motor tasks. No definite RBD symptoms. Paternal uncle with Parkinson's. Chronic nystagmus (unchanged today vs last notes of years ago). CT brain on 06/07/24 at [facility] per report showed no acute changes. CT C spine that same data per report make no mention of fx, acute change or central canal narrowing. REVIEW OF SYSTEMS GENERAL:No weight loss, malaise or fevers. HEENT:Negative for frequent or significant headaches, No changes in hearing or vision, no nose bleeds or other nasal problems NECK:Negative for lumps, goiter, pain and significant neck swelling RESPIRATORY: Negative for cough, wheezing or shortness of breath. CARDIOVASCULAR: Negative for chest pain, leg swelling or palpitations. GASTROINTESTINAL: Negative for abdominal discomfort, blood in stools or black stools or change in bowel habits GENITOURINARY: No history of dysuria, frequency or incontinence MUSCULOSKELETAL: Negative for joint pain or swelling, back pain or muscle pain. NEUROLOGIC:See HPI. SKIN:Negative for lesions, rash, and itching. PSYCHIATRIC: Negative for sleep disturbance, mood disorder and recent psychosocial stressors. HEMATOLOGIC/LYMPHATIC/IMMUNOLOGIC:Negative for prolonged bleeding, bruising easily or swollen nodes. ENDOCRINE: Negative for cold or heat intolerance, polyuria, polydipsia and goiter. The remainder of the ROS was reviewed and is negative. LAB/IMAGING: Reviewed and include: WBC (k/uL) Date Value 01/29/2024 5.46 RBC (m/uL) Date Value 01/29/2024 4.10 Hemoglobin (g/dL) Date Value 01/29/2024 13.6 Hematocrit (%) Date Value 01/29/2024 42.2 MCV (fL) Date Value 01/29/2024 102.9 (H) MCH (pg) Date Value 01/29/2024 33.2 MCHC (g/dL) Date Value 01/29/2024 32.2 RDW-CV (%) Date Value 01/29/2024 13.3 Platelet Count (k/uL) Date Value 01/29/2024 319 MPV (fL) Date Value 01/29/2024 10.2 Glucose (mg/dL) Date Value 01/29/2024 75 BUN (mg/dL) Date Value 01/29/2024 14 Creatinine (mg/dL) Date Value 01/29/2024 0.67 Sodium (mmol/L) Date Value 01/29/2024 138 Potassium (mmol/L) Date Value 01/29/2024 4.1 Chloride (mmol/L) Date Value (more content not included)...[facility]09-20-2024 Note HNO ID: [id number] Author: FEMI HOLMAN JR, MD Service: ? Author Type: Physician Type: Progress Notes Filed: 07/25/2024 15:26 Note Text: 07/25/2024 PROMIS Global Health Physical Health Summary Physical health: Fair Everyday physical activity, ability: A little Fatigue: Moderate Pain level: 4 General health: Fair Social activities/roles, ability: Fair Physical Health T-Score 34.9 (Poor) Physical Health Percentile 7 PROMIS Global Health Mental Health Summary Quality of life: Fair Mental health (mood,thinking): Fair Social satisfaction: Fair Emotional problems (anxious,depressed): Often Mental Health T-Score 33.8 (Fair) Mental Health Percentile 5 PHQ-9 Score: 11(Moderate Depression) RACHELL-7 Score: 13(Moderate Anxiety) NEURO-QOL Cognitive Function T-Score 45(Within Normal Limits) Neuro-Qol Cognitive Function Percentile 31 PROMIS Physical Function T-Score 31(Moderate Dysfunction) PROMIS Physical Function Percentile 3 PROMIS Pain Interference T-Score 63(Moderate) PROMIS Pain Interference Percentile 10 Percentiles provide an indication of how a patient's score ranks in relation to the [place] general population. > 31st percentile is within normal limits or better *< 31st percentile is at least ? SD worse than population, which may be clinically relevant < 16th percentile is at least 1 SD worse than population and warrants attention 07/25/2024 Sleep Apnea Probability Snores loudly: Yes Tired, fatigued or sleepy in daytime: No Stops breathing or choking/gasping during sleep: No High blood pressure: Yes Sleep Apnea Probability Score: 29 (Sleep study not recommended)[facility] History of Present illness Narrative* Femi Holman Jr., MD - 07/25/2024 2:26 PM EDT NEW PATIENT (CONSULT) HISTORY AND PHYSICAL EXAM PRIMARY CARE PHYSICIAN: Bindu Caldwell MD REASON FOR CONSULT: See below REFERRING PHYSICIAN: No ref. provider found CHIEF COMPLAINT: Abnormal gait and unsteady on my feet. Consultation requested by No ref. provider found for an opinion regarding chief complaint of Patient presents with: New Patient: Abnormal gait, poor balance, tremor in hands and my final recommendations will be communicated back to the requesting physician by way of sharedmedical record or letter via [place] mail. HISTORY OF PRESENT ILLNESS: Lizzeth Slade is a 69 year old female, BMI 24.82 kg/m2 with a PMH significant for that noted below including documentation of neuropathy. Per neuro notes in 2013: Lizzeth Slade is a 59 year old female with history of presumptive peripheral neuropathy (unknown cause), vertical nystagmus, bipolar disease and trigger finger presenting for evaluation of burning pain in her hands and feet. Exam is significant for distal limb predominant hyperesthesia/dysesthesia, and vertical nystagmus with impaired station (possible truncal titubation). She has previously been evaluated for neuropathy with EMG, QSART, and lab work (vitamins B1, B6, B12, MMA, HgA1C) but studies essentially unrevealing. Findings of intact reflexes and hyperesthesia are most consistent with small fiber neuropathy. 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 Skin biopsy on 07/25/14: The epidermal nerve fiber densities are normal at all sites. There is no evidence of a small fiber sensory neuropathy. Pt now presents with complaint of falling over the past 5 months (5 falls total). Adds that she nowhas tremors in luis daniel fingers (with posture). States no warning. Not tripping on anything. Balance just disappears. Typically falls forward. No dizziness or lightheadedness. States it is quite sudden. No loc. Off lithium years ago. States PCP concerned Cymbalta impacting hands. Still on gabapentin forelectrical shock pain in all 4 extremities. States the latter has resolved. No neck pain but notes having OA in lower back. XR of L spine in 2022 per report: Lower lumbar predominant degenerative changes Variant lumbosacral anatomy Counting reference: Lumbosacral junction. For the purposes of this report, L4-5 is considered the level of the iliac crest. Lumbarization S1 States has to remind self to picking supervisor feet when walks as finds self shuffling. No changes in sense of smell. No changes in handwriting. Rare constipation. Difficulties with fine motor tasks. No definite RBD symptoms. Paternal uncle with Parkinson's. Chronic nystagmus (unchanged today vs last notes of years ago). CT brain on 06/07/24 at [facility] per report showed no acute changes. CT C spine that same data per report make no mention of fx, acute change or central canal narrowing. REVIEW OF SYSTEMS GENERAL:No weight loss, malaise or fevers. HEENT:Negative for frequent or significant headaches, No changes in hearing or vision, no nose bleeds or other nasal problems NECK:Negative for lumps, goiter, pain and significant neck swelling RESPIRATORY: Negative for cough, wheezing or shortness of breath. CARDIOVASCULAR: Negative for chest pain, leg swelling or palpitations. GASTROINTESTINAL: Negative for abdominal discomfort, blood in stools or black stools or change in bowel habits GENITOURINARY: No history of dysuria, frequency or incontinence MUSCULOSKELETAL: Negative for joint pain or swelling, back pain or muscle pain. NEUROLOGIC:See HPI. SKIN:Negative for lesions, rash, and itching. PSYCHIATRIC: Negative for sleep disturbance, mood disorder and recent psychosocial stressors. HEMATOLOGIC/LYMPHATIC/IMMUNOLOGIC:Negative for prolonged bleeding, bruising easily or swollen nodes. ENDOCRINE: Negative for cold or heat intolerance, polyuria, polydipsia and goiter. The remainder of the ROS was reviewed and is negative. LAB/IMAGING: Reviewed and include: WBC (k/uL) Date Value 01/29/2024 5.46 RBC (m/uL) Date Value 01/29/2024 4.10 Hemoglobin (g/dL) Date Value 01/29/2024 13.6 Hematocrit (%) Date Value 01/29/2024 42.2 MCV (fL) Date Value 01/29/2024 102.9 (H) MCH (pg) Date Value 01/29/2024 33.2 MCHC (g/dL) Date Value 01/29/2024 32.2 RDW-CV (%) Date Value 01/29/2024 13.3 Platelet Count (k/uL) Date Value 01/29/2024 319 MPV (fL) Date Value 01/29/2024 10.2 Glucose (mg/dL) Date Value 01/29/2024 75 BUN (mg/dL) Date Value 01/29/2024 14 Creatinine (mg/dL) Date Value 01/29/2024 0.67 Sodium (mmol/L) Date Value 01/29/2024 138 Potassium (mmol/L) Date Value 01/29/2024 4.1 Chloride (mmol/L) Date Value 01/29/2024 102 CO2 (mmol/L) Date Value 01/29/2024 25 Protein, Total (g/dL) Date Value 01/29/2024 7.2 Albumin (g/dL) Date Value 01/29/2024 4.5 Calcium, Total (mg/dL) Date Value 01/29/2024 9.4 Alkaline Phosphatase (U/L) Date Value 01/29/2024 153 (H) Bilirubin, Total (mg/dL) Date Value 01/29/2024 0.6 AST (U/L) Date Value 01/29/2024 42 (H) ALT (U/L) Date Value 01/29/2024 12 MEDICATIONS: Current Outpatient Medications Medication Sig Dispense Refill methotrexate 2.5 mg tablet Take 8 tablets by mouth one time a week. 96 tablet 0 omeprazole (PRILOSEC) 40 mg capsule Take 40 mg by mouth once daily. folic acid 1 mg tablet Take 2 tablets by mouth once daily. 180 tablet 3 amLODIPine (NORVASC) 10 mg tablet Take 10 mg by mouth once daily. acetaminophen (TYLENOL EXTRA STRENGTH) 500 mg tablet Take 500 mg by mouth twice daily as needed. Clobetasol Propionate 0.05 % sham Apply to affected area. hydrocortisone 2.5 % cream Apply to affected area. ergocalciferol, vitamin D2, (VITAMIN D2 ORAL) Take 1,000 Units by mouth once daily. Out of med cyanocobalamin (VITAMIN B-12) 1,000 mcg tab Take 1,000 mcg by mouth two times a day. Ran out of med gabapentin (NEURONTIN) 600 mg tablet Take 1-2 tablets (600mg to 1200mg) in the morning, 2 tablets (1200mg) at noon, and 2 tablets (1200mg) at bedtime. (Patient taking differently: Take 600 mg by mouth daily at bedtime.) 540 tablet 0 Ibuprofen 200 mg cap Take by mouth as needed. DULoxetine (CYMBALTA) 20 mg capsule Take 60 mg by mouth once daily. clonazePAM (KLONOPIN) 0.5 mg tablet Take 1 tablet by mouth daily at bedtime. vitamin D3-vitamin K2 1,250-200 mcg cap Take 1 capsule by mouth one time a week. Out of med (Patient not taking: Reported on 07/25/2024) No current facility-administered medications for this visit. HISTORIES PAST MEDICAL HISTORY Diagnosis Date Depressive disorder, not elsewhere classified Excessive or frequent menstruation Insomnia, unspecified Neuropathy stocking glove. Nystagmus unable to drive and causes vision problems FAMILY HISTORY Problem Relation Age of Onset Arthritis Mother Osteoporosis Mother Hearing Loss Mother Heart Father Diabetes Father Stroke Father Cataract Father other (Other) Father other (Menorrhagia) Sister Hysterectomy other (Depression) Paternal Grandmother Heart Paternal Grandfather Diabetes Sister SOCIAL HISTORY Social History Tobacco Use Smoking status: Every Day Current packs/day: 0.50 Average packs/day: 0.5 packs/day for 20.0 years (10.0 ttl pk-yrs) Types: Cigarettes Smokeless tobacco: Never Vaping Use Vaping status: Never Used Substance Use Topics Alcohol use: Yes Comment: occasional glass of wine Drug use: No PHYSICAL EXAMINATION BP 122/82 (BP Site: Left Arm, BP Position: Sitting) Pulse 83 Wt 69.8 kg (153 lb 12.8 oz) LMP 12/08/2010 SpO2 98% BMI 24.82 kg/m GENERAL EXAM: General appearance: NAD, pleasant. HEENT: NC/AT, nasal congestion absent, no oral lesions, membranes moist. NECK: No masses, supple. Lungs: CTA bilaterally. No wheezes present. CV: RRR nl S1, S2. No carotid bruits. Extr: No cyanosis, clubbing or edema. No evidence of fasciculations. Extremity pulses palpable and normal. Skin: Cool to touch. NEUROLOGICAL EXAM: General: Mild masked facies. Awake, alert, oriented x3 (person,place,time), speech fluent, no dysarthria; comprehension, naming, repetition intact. Fund of knowledge grossly normal by MOCA. CN: PERRL, fundi with no evidence of papilledema, EOMI and without nystagmus, VFF to confrontation,facial sensation and strength are normal and symmetric, hearing is intact to finger rub bilaterally, palate and tongue movements are intact and symmetric. SCM and trapezius strength normal. Motor: Increased tone of cogwheel nature in RUE>>LUE. Normal bulk and strength (5/5) bilaterally (throughout extremities x4). Reflexes: 2/4 and symmetric, plantar stimulation is flexor. Coordination: All fine motor mvmts bradykin. KAYLA impaired in RUE>>LUE. Tremor with posture and activity but not rest.. Sensation: Light touch, vibration, temperature intact throughout. No evidence of neglect. Gait: Able to rise from chair without assist of upper exts. Mild stooped posture. Decreased stride.Decreased arm swing (near absent on R) in luis daniel UEs. 5 steps to turn 180 degrees and unsteady. +Retropulsion on pull. Romberg normal. Assessment and Plan: ASSESSMENT/PLAN: 1. Parkinson's disease, unspecified whether dyskinesia present, unspecified whether manifestations fluctuate (HCC) - ICD9: 332.0, ICD10: G20.A1 (primary diagnosis) 2. Recurrent falls - ICD9: V15.88, ICD10: R29.6 3. Abnormality of gait - ICD9: 781.2, ICD10: R26.9 Patient with history and specifically and exam strongly suggestive of Parkinson's disease (PD). Noted family history of PD as above. While patient has been on meds that could result in Parkinsonism such as Abilify, it has been years and was only taking for a short time per provided history. Dx d/w pt in detail including etiologies, physiology, workup (clinical dx), treatment and prognosis. I explained to pt that as she has never had an MRI brain, I would like to proceed with such to confirm no other contributing factors of symptoms such as old strokes or vascular Parkinsonism. She agrees. However, I would also like to try and treat symptoms based on clinical presentation, and we discussed various PD med options, including SEs and ADRs. Pt agrees with starting treatment and decision made to start Sinemet 25/100mg TID with meals (4-5 hours apart). SE and ADRs d/w pt. She will contact us if any issues. Encouraged exercise and discussed topic of use it or lose it. No therapy at this time but may benefit in future if not increasing exercise on own. Follow up in about 8 weeks to see howpt is doing on meds. Femi Holman MD I spent a total of 45 minutes on the date of the service which included preparing to see the patient, [id number] patient care, completing clinical documentation, obtaining and/or reviewing separately obtained history, performing a medically appropriate examination, counseling and educating the pat ient/family/caregiver, ordering medications, tests, or procedures, and communicating results to thepatient/family/caregiver. Medical Decision Making: Problems: Moderate: New problem with uncertain prognosis Data: Unique test result(s) reviewed: 3+ Unique test(s) ordered: 1 Risk: Moderate: Drug management Medical Decision Making Level: 4 - Moderate * Femi Holman Jr., MD - 07/25/2024 2:26 PM EDT 07/25/2024 PROMIS Global Health Physical Health Summary Physical health: Fair Everyday physical activity, ability: A little Fatigue: Moderate Pain level: 4 General health: Fair Social activities/roles, ability: Fair Physical Health T-Score 34.9 (Poor) Physical Health Percentile 7 PROMIS Global Health Mental Health Summary Quality of life: Fair Mental health (mood,thinking): Fair Social satisfaction: Fair Emotional problems (anxious,depressed): Often Mental Health T-Score 33.8 (Fair) Mental Health Percentile 5 PHQ-9 Score: 11(Moderate Depression) RACHELL-7 Score: 13(Moderate Anxiety) NEURO-QOL Cognitive Function T-Score 45(Within Normal Limits) Neuro-Qol Cognitive Function Percentile 31 PROMIS Physical Function T-Score 31(Moderate Dysfunction) PROMIS Physical Function Percentile 3 PROMIS Pain Interference T-Score 63(Moderate) PROMIS Pain Interference Percentile 10 Percentiles provide an indication of how a patient's score ranks in relation to the [place] general population. > 31st percentile is within normal limits or better *< 31st percentile is at least SD worse than population, which may be clinically relevant < 16th percentile is at least 1 SD worse than population and warrants attention 07/25/2024 Sleep Apnea Probability Snores loudly: Yes Tired, fatigued or sleepy in daytime: No Stops breathing or choking/gasping during sleep: No High blood pressure: Yes Sleep Apnea Probability Score: 29 (Sleep study not recommended) documented in this encounterC[facility] Telephone encounter Note * Telephone Encounter - Meka Day RN - 05/20/2024 4:16 PM EDT Pt called and left VM with a sweatband maker to do a pelvic exam for surveillance. Dr. Lizzeth Sin is in [place]. [facility] [id number] Miscellaneous Notes* Telephone Encounter - Meka Day RN - 05/20/2024 4:16 PM EDT Pt called and left VM with a sweatband maker to do a pelvic exam for surveillance. Dr. Lizzeth Sin is in [place]. * Telephone Encounter - Meka Day RN - 05/20/2024 1:39 PM EDT Pt called and is asking if she can see an oncologist in [place] due to transportation issues and being cancer free for 4 years. If so would you recommend anyone in particular? * Telephone Encounter - Stacy Reaves - 05/20/2024 1:22 PM EDT Patient stated they were unable to make appt on 05/23 due to transportation. Stated they were unsureof next steps if they should try to see an Oncologist in [place] or r/s with provider. Please advise, thank you! documented in this encounterSCherrington [id number] Telephone encounter Note* Telephone Encounter - Meka Day RN - 05/20/2024 1:39 PM EDT Pt called and is asking if she can see an oncologist in [place] due to transportation issues and being cancer free for 4 years. If so would you recommend anyone in particular? [facility] [id number] Telephone encounter Note* Telephone Encounter - Stacy Reaves - 05/20/2024 1:22 PM EDT Patient stated they were unable to make appt on 05/23 due to transportation. Stated they were unsureof next steps if they should try to see an Oncologist in [place] or r/s with provider. Please advise, thank you! [facility] [id number] Telephone encounter Note* Telephone Encounter - Nancy Lucio - 04/22/2024 2:05 PM EDT Referral to Neurology: Your form has been successfully submitted and your request is being processed. Confirmation number: [id number] [facility]06-18-[facility] Miscellaneous Notes* Telephone Encounter - Nancy Lucio - 04/22/2024 2:05 PM EDT Referral to Neurology: Your form has been successfully submitted and your request is being processed. Confirmation number: [id number] documented in this encounterCleveland Clinic [facility]06-18-2024 NoteHNO ID: [id number] Author: WINSOME HEATH PA-C Service: ? Author Type: Physician [employer] Type: Progress Notes Filed: 04/22/2024 15:06 Note Text: [facility] General Arthritis and Rheumatology Winsome Heath PA-C [address] [place] [address] [place]- [address] [place] [address] [place]- [address] [place] [address] ; RHEUMATOLOGY PROGRESS NOTE Patient is here for a follow up visit for Patient presents with: psoriasis with arthropathy HPI: Lizzeth Slade is a 68 year old female who presents with PsA, OA MTX 8 tabs weekly, FA 2 mg daily- she splits MTX dose Doing better with increased dose of MTX Missed 1 dose- forgot MTX. No recent infections 3/10 pain in low back, hips, knees Still doing exercises at home. Chair yoga weekly. Completed water PT. Walking more. Swelling- none AM stiffness- 10 min Psoriasis- none. Scalp lesions are gone now Tylenol prn 2x weekly Vit D 1000 units daily No chest pain, shortness of breath No falls, [...] .5 packs/day, for 20 years. Types: Cigarettes PAST MEDICAL HISTORY Diagnosis Date Depressive disorder, [...] HYSTERECTOMY UNSPECIFIED ORAL SURGERY PROCEDURE, BY REPORT [place] [facility] History Review: I have reviewed and modified as needed, the following during this visit: Allergies, Past Medical History, Past Surgical History, Past Family History, Past Social History. Interval Review of Systems CONSTITUTIONAL: Recent Weight [...] No PSYCHIATRIC: Anxiety: No Poor sleep: No BP 124/77 (BP Site: Left Arm, BP Position: Sitting) Pulse 89 Ht 167.6 cm (5' 6) Wt 68.7 kg (151 lb 8 oz) LMP 12/08/2010 SpO2 97% BMI 24.45 kg/m? Physical Exam GENERAL: Well appearing, alert, [...] joint line tenderness bl knees Lab Results: 01/26 Cr 0.67 AST 42, ALT 12, alk phos 153 CBC with MCV 102.9 Vit D 21.2 03/2023 Cr 0.73 LFT normal CBC normal [...] lumbar degenerative changes. Right-sided sacralization L5. Hip (more content not included)...[facility] 04-22-2024 History of Present illness Narrative* Winsome Heath PA-C - 04/22/2024 1:30 PM EDT Images from the original note were not included. [facility] Arthritis and [facility] Winsome Heath PA-C [place]- [address] [place] [address] [place]- [address] [place] [address] [place]- [address] [place] [address] ; RHEUMATOLOGY PROGRESS NOTE Patient is here for a follow up visit for Patient presents with: psoriasis with arthropathy HPI: Lizzeth Slade is a 68 year old female who presents with PsA, OA MTX 8 tabs weekly, FA 2 mg daily- she splits MTX dose Doing better with increased dose of MTX Missed 1 dose- forgot MTX. No recent infections 3/10 pain in low back, hips, knees Still doing exercises at home. Chair yoga weekly. Completed water PT. Walking more. Swelling- none AM stiffness- 10 min Psoriasis- none. Scalp lesions are gone now Tylenol prn 2x weekly Vit D 1000 units daily No chest pain, shortness of breath No falls, no fx Brief Rheumatological history - Reviewed notes - Psoriasis, seen by Dr. Watson. MTX. PsA Dr. Thayer - neg MELONIE, RF, CCP. She has been on MTX. She thought it worked well in the beginning. Now has more pain in hips, knees,ankles. Sometimes writs. No swelling. Itchy plaques on scalp. She takes pred 5 mg as needed. No recent x rays. HTN, DM2 Total hysterectomy for endometrial cancer 2019 Family history of autoimmune disease: none Smoking status: Tobacco Use: .5 packs/day, for 20 years. Types: Cigarettes PAST MEDICAL HISTORY Diagnosis Date Depressive disorder, [...] HYSTERECTOMY UNSPECIFIED ORAL SURGERY PROCEDURE, BY REPORT [place] History Review: I have reviewed and modified as needed, the following during this visit: Allergies,Past Medical History, Past Surgical History, Past Family History, Past Social History. Interval Review of Systems CONSTITUTIONAL: Recent Weight [...] No PSYCHIATRIC: Anxiety: No Poor sleep: No BP 124/77 (BP Site: Left Arm, BP Position: Sitting) Pulse 89 Ht 167.6 cm (5' 6) Wt 68.7 kg (151 lb 8 oz) LMP 12/08/2010 SpO2 97% BMI 24.45 kg/m Physical Exam GENERAL: Well appearing, alert, comfortable, in no acute distress, well- hydrated, well nourished. HEENT: Negative for external ears normal. Canals are clear. Both TMs visualized and are normal. EyeExam normal. External nose normal, no nasal ulcer [...] joint line tenderness bl knees Lab Results: 01/26 Cr 0.67 AST 42, ALT 12, alk phos 153 CBC with MCV 102.9 Vit D 21.2 03/2023 Cr 0.73 LFT normal CBC normal [...] maintained bilaterally. No acute fracture or dislocation. BMD 07/28 - osteopenia. Lowest T score -1.7 L spine Assessment and Plan (L40.50) Psoriasis with arthropathy (HCC) (primary encounter diagnosis) (M85.89) Osteopenia of multiple sites (E55.9) Vitamin D deficiency, unspecified (M15.9) Primary osteoarthritis involving multiple joints (R25.1) Tremor (R26.89) Balance disorder 68-year-old female with previously diagnosed with psoriasis and psoriatic arthritis on methotrexateis here for evaluation management recommendation. Diagnosed and treated from previous power checker. On methotrexate 8 tablets weekly and folic acid daily, joints and psoriasis doing much better with increased dose. May need Otelza or Humira. She is using steroid shampoo Blood work every 3 months. Appointments every 3 months. She has osteoarthritis in her lumbar spine, knees, hips. Water therapy recently helped tremendouslyand has noticed reduced pain. Continue home exercises, Tylenol, ibuprofen as needed. Using gabapentin 600 mg 1-2 times daily. Chair yoga. Walking. Exercising. Feeling better. Osteopenia on the bone density scan 07/28 with T-score -1.7 lumbar spine. Total hysterectomy. No h/ofragility fractures. Vit D 1000 units daily. Increase calcium in diet. Screening every 2 years- due07/30. Has been off Vitamins a few months. PCP is giving. Was on Vit D 1000 units daily. Elevated AST. MTX dose lowered 01/26 to 8 tabs. No h/o of fatty liver. Drinks 1-2 glasses wine nightly. Continue to monitor. Only using Tylenol 2x per week. Never uses ibuprofen. GERD. Food getting stuck in throat. On omeprazole now. Getting EGD 05/28. Reports poor balance, tremors in bl hands since 02/26. PCP recently referred to neurologist Plan: PsA stable, no active psoriasis Continue MTX 8 tabs weekly, FA 2 mg daily Standing labs- obtain every 3 mo Elevated AST 01/26- MTX lowered 01/26, does drink wine nightly. May need to cut back on alcohol use. Discussed Will need vit D supp- check labs BMD due next 07/30 Needs to see neuro- [place] [facility]- Dr. Holman- consult placed for tremor and balance problem Office Visit on 04/22/24 COMPLETE BLOOD COUNT AND DIFFERENTIAL COMPREHENSIVE METABOLIC PANEL VITAMIN D 25 HYDROXY CONSULT TO NEUROLOGY Medication orders placed this encounter methotrexate 2.5 mg tablet Sig: Take 8 tablets by mouth one time a week. Dispense: 96 tablet Refill: 0 Return in about 3 months (around 07/23/2024) for PsA, Dr. Oscar. Winsome Heath PA-C documented in this encounterC[facility]03-28-2024 NoteHNO ID: [id number] Author: DIANA OSCAR MD Service: ? Author Type: Physician Type: Progress Notes Filed: 01/31/2024 13:07 Note Text: RHEUMATOLOGY PROGRESS NOTE Patient is here for a follow up visit for Patient presents with: Joint Pain HPI: Lizzeth Slade is a 68 year old female who [...] HYSTERECTOMY UNSPECIFIED ORAL SURGERY PROCEDURE, BY REPORT [place] History Review: I have reviewed and modified as needed, the following during this visit: Allergies, Past Medical History, Past Surgical History, Past Family History, Past Social History. BP 123/66 Pulse 70 Temp 37.1 ?C (98.7 ?F) (Temporal) Resp 13 Wt 69.4 kg (153 lb) LMP 12/08/2010 BMI 24.86 kg/m? Physical Exam GENERAL: Well appearing, alert, [...] maintained bilaterally. No acute fracture or dislocation. BMD 07/28 - osteopenia. Lowest T score -1.7 L spine Assessment and Plan (L40.50) Psoriasis with arthropathy (HCC) 68-year-old female with previously diagnosed with psoriasis and psoriatic arthritis on methotrexate is here for evaluation management recommendation. Diagnosed and treated from previous power checker. On methotrexate 10 tablets weekly and folic acid daily, joints and psoriasis doing much better with increased dose. Blood work every 3 months. Appointments (more content not included)...[facility]03-04-[facility] Miscellaneous Notes* Telephone Encounter - Yoly Bone MA - 01/07/2024 8:29 AM EST Pharmacy faxed requesting the following refill. Requested Prescriptions Pending Prescriptions Disp Refills methotrexate 2.5 mg tablet 120 tablet 0 Sig: TAKE 10 TABLETS EVERY SUNDAY Patient last appointment: 06/19/2023 Next Appointment: 01/31/2024 Patient Phone numbers: [phone] (home) Request is for script(s) to be escript to pharmacy. Yoly Bone MA documented in this encounterC[facility]01-18-[facility] History of Present illness Narrative* Iwona Aguila MD - 11/22/2023 1:40 PM EST Chief Complaint Patient presents with Endometrial Cancer Pt has no concerns HISTORY OF THE PRESENT ILLNESS: Lizzeth Slade is a 68 y.o. female with stage IIIB undifferentiated uterine carcinoma. I initiallysaw her in early 05/2020. About 3 weeks [...] these sites. CEA and CA-125 were normal. Patient underwent endometrial biopsy: DIAGNOSIS: ENDOMETRIAL BIOPSY [...] Pelvic Nodes Examined: 4 Number of Pelvic Empire Nodes Examined: 0 Total Number of Para-aortic Nodes Examined: 0 Number of Para-aortic Empire Nodes Examined: 0 PATHOLOGIC STAGE CLASSIFICATION (pTNM, [...] STAGE FIGO Stage: IIIB Discharged home with wharton due to urinary retention. Passed void trial in the office several days later. Adjuvant treatment recommended and the patient declined. Interval History: Presents to the office today for routine surveillance of disease. She has been doing well since herlast visit. She denies chest pain, shortness of breath, nausea, vomiting, bloating, early satiety. She denies abdominal or pelvic pain, constipation, urinary problems. Used to have regular bowel movements daily in the morning. Sometimes in the middle of the day or the night she will have to have a bowel movement as well. Denies blood in stool. BRBPR, melena, pencil thin stools, etc. Denies vaginal bleeding or abnormal vaginal discharge. Is the primary care provider for her chronically ill . Had endoscopy and esophageal dilation. Started on omeprazole. Had food stuck for 4 hours, ended up in the ER. Feeling better since the dilation. Past Medical History: Diagnosis Date Arthritis Bipolar 2 disorder (CMS/HCC) ([facility]) Cancer (CMS/HCC) ([facility]) Endometrial Cataract bilateral H/O emotional problems Heart murmur HTN (hypertension) Neuropathy Psoriatic arthritis (HCC) Suicide attempt ([facility]) 2009 or before Past Surgical History: Procedure Laterality Date CYST REMOVAL removed on palms TOTAL ABDOMINAL HYSTERECTOMY W/ BILATERAL SALPINGOOPHORECTOMY 07/05/2020 Exploratory laparotomy, radical abdominal hysterectomy with bilateral salpingo- oophorectomy, bilateral pelvic lymph node sampling, omental biopsy; DR. IWONA VANEGAS ACH [place] WISDOM TOOTH EXTRACTION Bilateral as teen Social History Socioeconomic History Marital status: Tobacco Use Smoking status: Every Day Packs/day: .5 Types: Cigarettes Smokeless tobacco: Current Substance and Sexual Activity Alcohol use: Yes Alcohol/week: 7.0 standard drinks of alcohol Drug use: Never Family History Problem Relation Name Age of Onset Depression Father Arthritis Sister Anxiety disorder Sister Mental illness Father psychiatric care Other ([id number]) Father CVA Anxiety disorder Father Other ([id number]) Mother otosclerosis Uterine cancer Neg Hx Heart [...] mouth daily. cholecalciferol (Vitamin D-3) 1.25 MG (62227 UT) capsule clobetasol (Temovate) 0.05 % cream [...] methotrexate 2.5 MG tablet Take by mouth. omeprazole (PriLOSEC) [address] capsule Take 40 mg by mouth daily. [DISCONTINUED] mirtazapine (Remeron) 30 MG tablet Take 30 mg by mouth Nightly. [DISCONTINUED] predniSONE (Deltasone) 5 MG tablet TAKE 1 TABLET Oral EVERY DAY NEEDED take for 3-5 days with a flare No current facility-administered medications on file prior to visit. Allergies as of 11/22/2023 - Reviewed 11/22/2023 Allergen Reaction Noted Doxycycline Dizziness 05/24/2023 Shellfish-derived products Nausea And Vomiting 02/27/2017 [place] (diagnostic) 02/27/2017 REVIEW OF SYSTEMS: A 12 point review of systems was performed and is as per the history of the present illness, all other systems were reviewed and are negative. Vitals: 11/22/23 1350 BP: 127/84 Pulse: 76 Body mass index is 24.69 kg/m . Physical Exam Constitutional: Appearance: Normal [...] Endometrial cancer, FIGO stage IIIB (HCC) Lizzeth Slade is a 68 y.o. with stage IIIB undifferentiated endometrial cancer. She is at high risk of recurrence given the advanced stage disease and high risk histology. Again, she is at risk forboth local as well as distant recurrence based [...] recognition. I apologize for minor errors in screen printer helper which may be present. documented in this encounterSCherrington [id number] Procedure [facility]01-09-2024 Procedure [facility]12-11-2023 Miscellaneous Notes* Telephone Encounter - Yoly Bone MA - 10/15/2023 3:57 PM EST Pharmacy faxed requesting the following refill. Requested Prescriptions Pending Prescriptions Disp Refills folic acid 1 mg tablet [Pharmacy Med Name: FOLIC ACID TABS 1MG] 180 tablet 3 Sig: TAKE 2 TABLETS ONCE DAILY methotrexate 2.5 mg tablet [Pharmacy Med Name: METHOTREXATE TAB 2.5MG] 120 tablet 3 Sig: TAKE 10 TABLETS EVERY SUNDAY Patient last appointment: 06/19/2023 Next Appointment: 12/03/2023 Patient Phone numbers: [phone] (home) Request is for script(s) to be escript to pharmacy. Yoly Bone MA documented in this encounterC[facility]11-[facility]-2023 Discharge summary Author Alek Blanc [facility] September 07, 2023 11:43pm Note Date/Time September 07, 2023 1 0:46pm [facility] Medical Records Department [address] [place] [id number] Emergency Department Summary 09/07/23 MR#: [id number] Acct: [id number] Name: LIZZETH SLADE Rep #:[id number] : [id number] 68 From: Alek Blanc DO PCP: Dr. Bindu Caldwell MD Status:R EG ER Location: ED HPI History of Present Illness Chief Complaint: Foreign Body Informant: patient and spouse/S.O. Narrative Narrative: Patient is a 68-year-old female with past medical history of hypertension psoriasis and endometrial cancer. She states that roughly 6 months ago she had an episode where while eating felt like the food became stuck. She states shewaited a few hours and the symptoms passed. She states around 7 PM today she was eating beef when she felt like the food once again became stuck. She states that since that time she cannot even swallow water without vomiting. Shestates she gave the symptoms roughly 3 hours to improve and they have not done so and secondary to this she comes to the hospital for evaluation. [facility] Medical History Abdominal tenderness Anxiety Arrhythmia Arthritis Borderline type 2 diabetes mellitus Cataracts, bilateral Depression Fatigue Flu vaccine need Health care maintenance Hearing loss Heart murmur History of emotional problems History of endometrial cancer History of suicide attempt History of UTI Macrocytosis Neuropathy Psoriatic arthritis Screening for thyroid disorder Seasonal allergies Vision problems Vitamin D deficiency Home Medications pseudoephedrine HCl 30 mg tablet (Sudafed) 60 mg PO ONCE PRN 01/26/20 [History Last Taken Unknown] clonazepam 0.5 mg tablet 0.5 mg PO BID 12/08/20 [History Last Taken Unknown] hydrocortisone 2.5 % topical cream 1 applic topical BID PRN rash #28.35 grams 02/07/21 [Rx Last Taken Unknown] acetaminophen 500 mg tablet (Tylenol Extra Strength) 500 mg PO Q6H PRN 02/18/21 [History Last Taken Unknown] folic acid 1 mg tablet 1 mg PO DAILY 08/19/21 [History Last Taken Unknown] clobetasol 0.05 % shampoo 1 applic topical DAILY 1 week #118 mL 08/25/21 [Rx Last Taken Unknown] amlodipine 10 mg tablet 10 mg PO DAILY #90 tabs 01/01/23 [Rx Last Taken Unknown] cholecalciferol (vitamin D3) 1,250 mcg (50,000 unit) capsule 1,250 mcg PO QWEEK #14 caps 01/09/23 [Rx Last Taken Unknown] duloxetine 20 mg capsule,delayed release 60 mg PO BID 04/09/23 [History Last Taken Unknown] methotrexate sodium 2.5 mg tablet mg PO 08/16/23 [History Last Taken Unknown] cyanocobalamin (vitamin B-12) 2,000 mcg lozenges 2,000 mcg PO DAILY #100 ea 09/03/23 [Rx Last Taken Unknown] gabapentin 600 mg tablet 600 mg PO Q8H pain 3 months #270 tabs 09/03/23 [Rx Last Taken Unknown] Allergy/AdvReac Type Severity Reaction Status Date / Time clindamycin AdvReac Mild Nausea Verified 09/07/23 22:09 Family History Father Anxiety Diabetes Depression Heart disease Mental Disorders Psychiatric care CVA (cerebral vascular accident) Sister Anxiety Arthritis Depression Diabetes Heart disease Mental Disorders Psychiatric care Respiratory disease Mother Arthritis Otosclerosis Surgical History History of surgical removal of ganglion cyst Social History Smoking Status: Current every day smoker tobacco type: cigarettes alcohol intake: current details: 1-2 glasses substance use type: does not use caffeine: Yes what type of physical activity do you participate in: walking seatbelt use: always do you feel safe at home: Yes additional social history: -Uri ROS ROS ED Constitutional Constitutional ED: Denies chills or fever(s) ENT ENT ED: Reports sore throat Cardiovascular Cardiovascular: Denies chest pain Respiratory/Chest Respiratory/Chest: Denies cough or dyspnea Gastrointestinal Gastrointestinal: Reports nausea and vomiting; Denies abdominal pain or diarrhea Genitourinary Genitourinary ED: Denies dysuria Musculoskeletal Musculoskeletal: Denies myalgias Integumentary Denies rash Neurologic Neurologic: Denies headache(s) Hematologic/Lymphatic Hematologic/Lymphatic: Denies easy bleeding or easy bruising EXAM Physical Exam Const Vital Signs: 09/07/23 22:07 09/07/23 22:28 Temperature 97.6 F L Temperature Source Temporal Pulse Rate 79 Respiratory Rate 16 Respiratory Effort Normal Non-Labored Respiratory Pattern Normal Blood Pressure 135/84 H Blood Pressure Mean 101 Pulse Ox 93 Oxygen Delivery Method Room Air Positive well nourished and well developed General Appearance ED: well developed HEENT Reports moist mucous membranes HEENT Narrative: No tongue or lip swelling No foreign body noted Eyes PERRL and EOMs intact bilaterally Neck supple Resp normal respiratory effort and clear to auscultation bilaterally Cardio regular rate and regular rhythm Extremity normal to inspection Neuro oriented x3 and CN's II-XII intact bilaterally Sensorium / Orientation: alert Psych mental status grossly normal Skin no rashes or lesions noted MDM MDM MDM Narrative Medical decision making narrative: Patient presented to the ER in no acute distress with history and exam most consistent with complete esophageal obstruction. At this time she does not haverespiratory distress or difficulty breathing so my concern for airway obstruction or aspiration is low and I do not feel there is need for imaging or laboratory studies. The patient was given morphine and Ativan to help relax smooth muscle. She then was made to drink soda and with the medication and increased pressure from the carbonated beverage she did have spontaneous passageof the esophageal food bolus. She was watched for another 10 to 15 minutes in the ER and was able to drink without any pain or difficulty. Therefore at this time as patient's had spontaneous passage of the food bolus with no signs of respiratory distress and no difficulty swallowing after the event she is otherwise safe for discharge History & Record Review Discussion w/independent historian: Patient and Significant other Discharge Plan Triage Chief Complaint: Foreign Body ED Provider: Alek Blanc Dx/Rx/DC Orders Clinical Impression: Esophageal obstruction due to food impaction, Psoriasis, Hypertension Instructions: ED Esophageal Foreign Body, Resolved Prescriptions: No Action pseudoephedrine HCl [Sudafed] 30 mg tablet 60 mg PO ONCE PRN clonazepam 0.5 mg tablet 0.5 mg PO BID acetaminophen [Tylenol Extra Strength] 500 mg tablet 500 mg PO Q6H PRN folic acid 1 mg tablet 1 mg PO DAILY duloxetine 20 mg capsule,delayed release(DR/EC) 60 mg PO BID methotrexate sodium 2.5 mg tablet PO hydrocortisone 2.5 % cream 1 applic TOPICAL BID PRN (Reason: rash) Qty: 28.35 2RF clobetasol 0.05 % shampoo 1 applic TOPICAL DAILY 7 Days Qty: 118 1RF Rx Instructions: May repeat treatment after 1 week if rash persists amlodipine 10 mg tablet 10 mg PO DAILY Qty: 90 3RF cholecalciferol (vitamin D3) 1,250 mcg (50,000 unit) capsule 1,250 mcg PO QWEEK Qty: 14 2RF gabapentin 600 mg tablet 600 mg PO Q8H 90 Days Qty: 270 3RF cyanocobalamin (vitamin B-12) 2,000 mcg lozenge 2,000 mcg PO DAILY Qty: 100 3RF Primary Care Provider: Bindu Caldwell Referrals: Bindu Caldwell MD [Primary Care Provider] - Activity Restrictions/Additional Instructions: Please continue all of your home medications as directed by your doctor. As this is the second time this is happened discussed with your family doctor referral to a gage designer for potential EGD. If you have any further concerns or worsening symptoms please return for repeat evaluation Disposition Disposition: Home, Self Care What to do if you have Problems For any increased pain, shortness of breath, bleeding, nausea or vomiting, chestpain, or any unexpected problems, contact your Primary Care Provider. Call [employer] [facility] ([phone]) or report to the closest Emergency Room. Call 911 if necessary. 09/07/23 8944 <Electronically signed by Alek Blanc DO> Cosigner Signature (if applicable): CC: Dr. Bindu Caldwell MD ~ Signed [facility] Work Phone: 1(475) 732-147508-16-2023 Miscellaneous Notes* Telephone Encounter - Lisa Richards MA - 06/20/2023 2:43 PM EDT Rx mail pharmacy faxed requesting the following refill. [facility] faxed a clarification request. They want to clarify the directions on this patient's prescription for Methotrexate. Noted on patient's 06-19-23 visit: On methotrexate 10 tablets weekly and folic acid daily, joints and psoriasis doing much better withincreased dose. Requested Prescriptions Pending Prescriptions Disp Refills methotrexate 2.5 mg tablet 120 tablet 0 Sig: Take 10 tablets by mouth every Sunday. Patient is taking 8 tablets PO on Sunday Patient last appointment: 06/19/23 Next Appointment: 12/03/23 Patient Phone numbers: [phone] (home) Request is for script(s) to be escript to pharmacy. Lisa Richards MA documented in this encounterCleveland Clinic [facility]08-15-2023 NoteHNO ID: [id number] Author: Winsome Heath PA-C Service: ? Author Type: Physician [employer] Manager Type: Progress Notes Filed: 06/19/2023 4:41 PM Note Text: [facility] General Arthritis and Rheumatology Winsome Heath [address] [place] [address] RHEUMATOLOGY PROGRESS NOTE Patient is here for a follow up visit for Patient presents with: Osteoporosis: Needs refills HPI: Lizzeth Slade is a 68 year old female who [...] HYSTERECTOMY UNSPECIFIED ORAL SURGERY PROCEDURE, BY REPORT [place] [facility] History Review: I have reviewed and modified as needed, the following during this visit: Allergies, Past Medical History, Past Surgical History, Past Family History, Past Social History. BP 122/70 (BP Site: Left Arm, BP Position: Sitting) Pulse 72 Ht 167.1 cm (5' 5.78) Wt 69.6 kg (153 lb 6.4 oz) [...] unspecified whether sciatica pr (more content not included)...[facility]08-15-2023 History of Present illness Narrative* Winsome Heath PA-C - 06/19/2023 3:44 PM EDT Images from the original note were not included. [facility] Arthritis and Rheumatology Winsome Heath [address] [place] [address] RHEUMATOLOGY PROGRESS NOTE Patient is here for a follow up visit for Patient presents with: Osteoporosis: Needs refills HPI: Lizzeth Slade is a 68 year old female who [...] beginning. Now has more pain in hips, knees,ankles. Sometimes writs. No swelling. Itchy plaques on [...] HYSTERECTOMY UNSPECIFIED ORAL SURGERY PROCEDURE, BY REPORT [place] [facility] History Review: I have reviewed and modified as needed, the following during this visit: Allergies,Past Medical History, Past Surgical History, Past Family History, Past Social History. BP 122/70 (BP Site: Left Arm, BP Position: Sitting) Pulse 72 Ht 167.1 cm (5' 5.78) Wt 69.6 kg (153 lb 6.4 oz) LMP 12/08/2010 SpO2 96% BMI 24.93 kg/m Physical Exam GENERAL: Well appearing, alert, comfortable, in no acute distress, well- hydrated, well nourished. HEENT: Negative for external ears normal. Canals are clear. Both TMs visualized and are normal. EyeExam normal. External nose normal, no nasal ulcer [...] diagnosed with psoriasis and psoriatic arthritis on methotrexateis here for evaluation management recommendation. Diagnosed and treated from previous power checker. On methotrexate 10 tablets weekly and folic acid daily, joints and psoriasis doing much better with increased dose. Blood work every 3 months. Appointments every 3 months. She has osteoarthritis in her lumbar spine, knees, hips. Water therapy recently helped tremendouslyand has noticed reduced pain. Continue home exercises, [...] months (around 09/19/2023) for PsA, Dr. Oscar. Winsome Heath PA-C documented in this encounterCleveland Clinic [facility]08-02-2023 Discharge summary Author Axel Benitez [facility] June 06, 2023 1:40pm Note Date/Time June 06, 2023 1:4 0pm [facility] Physical Therapy [facility] [place] [address] / REHABILITATION SERVICES DISCHARGE SUMMARY MR#: [id number] Acct: [id number] Name: LIZZETH SLADE Rep #: [id number] : 1955 68 From: Axel Benitez DPT, OCS, CSCS Referring Dr.: Dr. Diana Oscar MD Status: REG RCR Insurance: MEDICARE PART A B [facility] INS Discharge Summary D/C summary: It has been my pleasure to treat LIZZETH SLADE referred by Dr. Diana Oscar MD, with the diagnosis of LBP for a total of 13 visit(s). Discharge Date: 06/06/23 Please see the following information for a summary of their discharge status. Subjective Subjective: Back is much better. Knees still sore. 40-50 % better. Knees still hurt 6-9/10. Back not really problem. HEP: daily. Sleep is reasonably good. Knees sometimes hurt. Activities at home are pretty normal, strated getting back to yard work. Can work for 30 minutes. Pain LBP: Pain Intensity (Out of 10): 7 BLE: Pain Intensity (Out of 10): 5 Overall Improvement % Improvement: 50 Objective Objective/Function: Walks slowly but safely and without antalgia today, steps reciprocally with one rail. LB AROM is min limited in extension and flexionn and no pain or hesitation today. Goals Goal 1:: Pt feel 75% better in overall pain to 1/10 at worst. Goal Progress: 50% Goal 2:: I appropriate HEP(pool, gym or home) to manage condition Goal Progress: Goal Met Goal 3:: Oswestry back 5 or better Goal Progress: Progressing Goal 4:: sleep without interruption due to discomfort Goal Progress: Progressing Plan Plan: *3 more pool sessions* *BDB CORE *F/U with HEP *FWD LUNGES 2x week for 5 more vists per POC, please treat in the pool with aggressive LE and core strength and ROM to LB. Please provide more aggressive LE strength adncore HEP including rotation via HEP as patient compliance. Will d/c after last aquatic visit if patient doing well and able to manage, otherwise rahman chedule recheck with EG. D/C Information Discharge Comments: Pt to cotninue HEP daily and f/u with doctor next week. Overall back is better but knees still bothersome. d/c sentence: If there are questions or concerns regarding this patient's physical therapy, please feel free to call me at [phone]. Thank you for the referral of thispatient. Sincerely, Axel Benitez DPT, OCS, CSCS Balance/Gait/Functional tests Balance/Special Test Scores Functional Gait Assessment Score: 25 % Disability: 16.6700 Oswestry Low Back Score: 16 <Electronically signed by Axel Benitez DPT, OCS, CSCS> 06/06/23 1340 CC: Dr. Bindu Caldwell MD; Dr. Diana Oscar MD ~ EBG Signed [facility] Work Phone: 1(636) 645-377307-20-2023 History of Present illness Narrative* Iwona Aguila MD - 05/24/2023 2:40 PM EDT Chief Complaint Patient presents with Endometrial Cancer Undifferentiated uterine carcinoma -pt has no concerns HISTORY OF THE PRESENT ILLNESS: Lizzeth Slade is a 68 y.o. female with stage IIIB undifferentiated uterine carcinoma. I initiallysaw her in early 05/2020. About 3 weeks [...] CA-125 were normal. Often accompanied by her case sealer/counselor and transportation, Miroslava. Patient underwent endometrial biopsy: [...] Pelvic Nodes Examined: 4 Number of Pelvic Empire Nodes Examined: 0 Total Number of Para-aortic Nodes Examined: 0 Number of Para-aortic Empire Nodes Examined: 0 PATHOLOGIC STAGE CLASSIFICATION (pTNM, [...] STAGE FIGO Stage: IIIB Discharged home with wharton due to urinary retention. Passed void trial in the office several days later. Adjuvant treatment recommended and the patient declined. Interval History: Presents to the office today for routine surveillance of disease. She has been doing well since herlast visit. She denies chest pain, shortness of breath, nausea, vomiting, bloating, early satiety. She denies abdominal or pelvic pain, constipation, urinary problems. Denies vaginal bleeding or abnormal vaginal discharge. Sob with exertion, not worsening. Is the primary care provider for her chronically ill . Past Medical History: Diagnosis Date Arthritis Bipolar 2 disorder (CMS/HCC) ([facility]) Cancer (CMS/HCC) ([facility]) Endometrial Cataract bilateral H/O emotional problems Heart murmur HTN (hypertension) Neuropathy Psoriatic arthritis (HCC) Suicide attempt ([facility]) 2009 or before Past Surgical History: Procedure Laterality Date CYST REMOVAL removed on palms TOTAL ABDOMINAL HYSTERECTOMY W/ BILATERAL SALPINGOOPHORECTOMY 07/05/2020 Exploratory laparotomy, radical abdominal hysterectomy with bilateral salpingo- oophorectomy, bilateral pelvic lymph node sampling, omental biopsy; DR. IWONA VANEGAS ACH [place] WISDOM TOOTH EXTRACTION Bilateral as teen Social History Socioeconomic History Marital status: Tobacco Use Smoking status: Every Day Packs/day: 0.50 Types: Cigarettes Smokeless tobacco: Current Substance and Sexual Activity Alcohol use: Yes Alcohol/week: 7.0 standard drinks of alcohol Drug use: Never Often accompanied by her case work aide who is a good source of support. Family History Problem Relation Name Age of Onset Depression Father Arthritis Sister Anxiety disorder Sister Mental illness Father psychiatric care Other ([id number]) Father CVA Anxiety disorder Father Other ([id number]) Mother otosclerosis Uterine cancer Neg Hx Heart [...] mouth daily. cholecalciferol (Vitamin D-3) 1.25 MG (64111 UT) capsule clobetasol (Temovate) 0.05 % cream [...] 05/24/2023 Shellfish-derived products Nausea And Vomiting 02/27/2017 [place] (diagnostic) 02/27/2017 REVIEW OF SYSTEMS: A 12 [...] Endometrial cancer, FIGO stage IIIB (HCC) Lizzeth Slade is a 68 y.o. with stage IIIB undifferentiated endometrial cancer. She is at high risk of recurrence given the advanced stage disease and high risk histology. Again, she is at risk forboth local as well as distant recurrence based [...] recognition. I apologize for minor errors in screen printer helper which may be present. documented in this [facility]06-19-[facility]23 Miscellaneous Notes* Telephone Encounter - Vita Collado LPN - 04/23/2023 11:50 AM EDT [facility] [phone]. Received transmission confirmation. Vita Collado LPN documented in this encounterC[facility] Clinic [facility]05-11-2023 History of Present illness Narrative* RT Mickie(R) - 03/15/2023 3:00 PM EDT Radiology Service Progress Note PATIENT NAME: Lizzeth Slade DATE OF SERVICE: March 15, 2023 TIME: 2:53 PM PATIENT IDENTITY VERIFICATION COMPLETED USING TWO (2) IDENTIFIERS: Name and Date of confirmedby patient verbally. FALL SCREENING: Has the patient [...] IV DATA: Not applicable SIGNED BY: RT Mickie(Nathaly) March 15, 2023 2:53 PM documented in this encounterCleveland Clinic [facility] Hospital05-11-2023 Instructions* Patient Instructions* Diana Oscar MD - 03/15/2023 1:55 PM EDT Patient education: Dry eye (The Basics) Written by the doctors and editors at [facility] What is dry eye? -- Dry [...] treatment for dry eye. They can keep theeye moist and help with the symptoms of dry eye. You can buy artificial tears at the drug store or grocery store without a prescription. They come in liquid, gel, or ointments. Your doctor or nurse will help you decide which form is best for you. It is usually best to avoid eye drops that are meantto reduce redness. Artificial tears help with the [...] to see an eye doctor (called an rough and truing machine operator). The eye doctor can do more tests and might suggest other treatments. These include prescription eye drops (like Restasis) or ointments, special glasses or goggles, oral medicines (pills), or surgery. This topic retrieved from [employer] on: Jan 24, 2018. BONE MINERAL DENSITY PATIENT INSTRUCTIONS Bone mineral density testing measures the amount of calcium in certain parts of your bones. This information determines how strong your bones are. The test is used to detect osteoporosis, a disease in which the bone's mineral content and density are low, increasing a person's risk of fractures. Thelumbar spine (lower back) and the hip are [...] your usual activities immediately. documented in this encounterCleveland Clinic [facility]05-11-2023 History of Present illness Narrative* Diana Oscar MD - 03/15/2023 1:21 PM EDT RHEUMATOLOGY NEW PATIENT NOTE REFERRING PHYSICIAN: Bindu Caldwell CHIEF COMPLAINT: Patient presents with: Joint Pain New Patient HPI: Lizzeth Slade is a 67 year old female who presents with joint pain Reviewed notes - Psoriasis, seen by Dr. Watson. MTX. PsA Dr. Thayer - neg MELONIE, RF, CCP. She has been on MTX. She thought it worked well in the beginning. Now has more pain in hips, knees,ankles. Sometimes writs. No swelling. 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 BP 122/75 Pulse 80 Temp 36.7 C (98.1 F) (Temporal) Resp 10 LMP 12/08/2010 Physical Exam GENERAL: Well appearing, alert, comfortable, in no acute distress, well- hydrated, well nourished. HEENT: Negative for external ears normal. Canals are clear. Both TMs visualized and are normal. EyeExam normal. External nose normal, no nasal ulcer [...] diagnosed with psoriasis and psoriatic arthritis on methotrexateis here for evaluation management recommendation. Patient currently [...] file. Diana Oscar MD [facility] History of Present illness Narrative* Mishel Saucedo, TIRE REPAIR MECHANIC - TAG CLERK - 11/16/2022 2:00 PM EST @[email or web address]@ Chief Complaint Patient presents with Follow-up HISTORY OF THE PRESENT ILLNESS: Lizzeth Slade is a 67 y.o. female with stage IIIB undifferentiated uterine carcinoma. I initiallysaw her in early 05/2020. About 3 weeks [...] CA-125 were normal. Often accompanied by her case sealer/counselor and transportation, Miroslava. Patient underwent endometrial biopsy: [...] Pelvic Nodes Examined: 4 Number of Pelvic Empire Nodes Examined: 0 Total Number of Para-aortic Nodes Examined: 0 Number of Para-aortic Empire Nodes Examined: 0 PATHOLOGIC STAGE CLASSIFICATION (pTNM, [...] STAGE FIGO Stage: IIIB Discharged home with wharton due to urinary retention. Passed void trial in the office several days later. Adjuvant treatment recommended and the patient declined. Interval History: Presents to the office today for routine surveillance of disease. She has been doing well since herlast visit. She denies chest pain, shortness of breath, nausea, vomiting, bloating, early satiety. She denies abdominal or pelvic pain, constipation, urinary problems. Denies vaginal bleeding or abnormal vaginal discharge. Sob with exertion, not worsening. Reports occasional chronic problem with difficulty in urinating, not worsening, not concerning to pt. She reports occasionally when she tries to urinate, nothing comes out, then a little while later she is able to urinate without issues. Again, not changing or worsening. Diagnosed with psoriatic arthritis. Taking meloxicam for pain. Recently started on methotrexate. Is the primary care provider for her chronically ill . Often accompanied by her case managerwho is a good source of support. Past Medical History: Diagnosis Date Arthritis Bipolar 2 disorder (CMS/HCC) (HCC) Cancer (CMS/HCC) (HCC) Endometrial Cataract bilateral H/O emotional problems Heart murmur HTN (hypertension) Neuropathy Psoriatic arthritis (HCC) Suicide attempt (CMS/HCC) (HCC) 2009 or before Past Surgical History: Procedure Laterality Date CYST REMOVAL removed on palms TOTAL ABDOMINAL HYSTERECTOMY W/ BILATERAL SALPINGOOPHORECTOMY 07/05/2020 Exploratory laparotomy, radical abdominal hysterectomy with bilateral salpingo- oophorectomy, bilateral pelvic lymph node sampling, omental biopsy; DR. IWONA VANEGAS [facility] WISDOM TOOTH EXTRACTION Bilateral as teen @MEDCMED@ Allergies as of 11/16/2022 (No Known Allergies) REVIEW OF SYSTEMS: As per the HPI, otherwisenegative. Vitals: 11/16/22 1410 BP: (!) 140/73 Pulse: 73 Body mass index is 22.6 kg/m . [...] and Affect: Mood normal. Behavior: Behavior normal. LABS: IMAGING: ASSESSMENT/PLAN: 67 y.o. with stage IIIB undifferentiated endometrial cancer. She is at high risk of recurrence given the advanced stage disease and high risk histology. Again, she is at risk for both local as well as distant recurrence based upon the histology and advanced stage at diagnosis. Follow up in 6 months. The patient had an opportunity to ask questions, all of which were answered to the best of my ability. She is in agreement with the above noted plan. We discussed routine surveillance of disease per the NCCN guidelines with history and physical examination every 3-6 months for the first 2 years followed by every 6-12 months for years 3 through 5. We discussed the imaging will be obtained on an as-needed basis, based upon history and physical exam findings. I spent a total time of 15 minutes reviewing previous notes, test results, obtaining history, communicating results to the patient as well as counseling the patient, documenting clinical information in the patient's electronic medical record and coordinating care for the patient. Disclaimer: This note was dictated by speech recognition. I apologize for minor errors in screen printer helper which may be present. documented in this encounterSCherrington [id number] History of Past illness Narrative* Problem Noted Date Resolved Date Pain in limb 10/12/2006 03/10/2011 documented as of this encounter (statuses as of 03/15/2023) [address]08-2006 History of Past illness Narrative* Problem Noted Date Resolved Date Pain in limb 10/12/2006 03/10/2011 documented as of this encounter (statuses as of 03/16/2023) [address]08-2006 History of Past illness Narrative* Problem Noted Date Resolved Date Pain in limb 10/12/2006 03/10/2011 documented as of this encounter (statuses as of 04/23/2023) [address]08-2006 History of Past illness Narrative* Problem Noted Date Diagnosed Date Resolved Date Pain in limb 10/12/2006 03/10/2011 documented as of this encounter (statuses as of 06/20/2023) [address]08-2006 History of Past illness Narrative* Problem Noted Date Diagnosed Date Resolved Date Pain in limb 10/12/2006 03/10/2011 documented as of this encounter (statuses as of 06/21/2023) [address]08-2006 History of Past illness Narrative* Problem Noted Date Diagnosed Date Resolved Date Pain in limb 10/12/2006 03/10/2011 documented as of this encounter (statuses as of 10/16/2023) [address]-2006 History of Past illness Narrative* Problem Noted Date Diagnosed Date Resolved Date Pain in limb 10/12/2006 03/10/2011 documented as of this encounter (statuses as of 01/07/2024) [facility] Diagnosis Onset Date Resolution Status Anxiety and depression chron ic Hypertension chronic Psoriatic arthritis chronic Abdominal tenderness acute History of endometrial cancer chronic Hypertension [facility] Work Phone: Evaluation note* Diagnosis Onset Date Resolution Status Abdominal tenderness acute History of endometrial cancer chronic Hypertension chronic [facility] Work Phone: Evaluation note* Diagnosis Onset Date Resolution Status Abdominal tenderness acute History of endometrial cancer chronic Hypertension chronic Borderline type 2 diabetes mellitus acute Fatigue acute Macrocytosis acute Screening for thyroid disorder acute Vitamin D deficiency acute History of endometrial cancer chronic Hypertension [facility] Work Phone: Evaluation note* Diagnosis Onset Date Resolution Status Fatigue acute Borderline type 2 diabetes mellitus chronic Hypertension [facility] Work Phone: Evaluation note* Diagnosis Onset Date Resolution Status Hearing loss chronic Hypertension chronic Psoriatic arthritis chronic Vitamin D deficiency chronic [facility] Work Phone: Evaluation note* Diagnosis Osteoporosis, unspecified osteoporosis type, unspecified pathological fracture presence- Primary Pain in joint, multiple sites Vitamin D deficiency, unspecified Psoriasis with arthropathy (HCC) Psoriatic arthropathy [facility]* Diagnosis Pain in joint, multiple sites [facility]* Diagnosis Endometrial cancer, FIGO stage IIIB (HCC)- Primary [facility]* Diagnosis Onset Date Resolution Status Anxiety and depression chron ic Borderline type 2 diabetes mellitus chronic Hypertension chronic Psoriatic arthritis [facility] Work Phone: Evaluation note* Diagnosis Psoriasis with arthropathy (HCC)- Primary Psoriatic arthropathy Vitamin D deficiency, unspecified Low back pain, unspecified back pain laterality, unspecified chronicity, unspecified whether sciatica present [facility]* Diagnosis Psoriasis with arthropathy (HCC) Psoriatic arthropathy documented in this encounter [facility] note* Diagnosis Onset Date Resolution Status Arrhythmia acute Flu vaccine need acute Anxiety and depression chron ic Borderline type 2 diabetes mellitus chronic Hypertension chronic Psoriatic arthritis [facility] Work Phone: Evaluation note* Diagnosis Psoriasis with arthropathy (HCC) Psoriatic arthropathy [facility]* Diagnosis Onset Date Resolution Status Arrhythmia acute Flu vaccine need acute Anxiety and depression chron ic Borderline type 2 diabetes mellitus chronic Hypertension chronic Psoriatic arthritis chronic Difficulty swallowing acute [facility] Work Phone: Evaluation note* Diagnosis Endometrial cancer, FIGO stage IIIB (HCC)- Primary documented in this encounter [facility] note* Diagnosis Onset Date Resolution Status Difficulty swallowing acute Esophageal stenosis acute Anxiety and depression chron ic Borderline type 2 diabetes mellitus chronic Hypertension chronic [facility] Work Phone: Evaluation note* Diagnosis Psoriasis with arthropathy (HCC)- Primary Psoriatic arthropathy Osteopenia of multiple sites Vitamin D deficiency, unspecified Primary osteoarthritis involving multiple joints Tremor Abnormal involuntary movements Balance disorder Other symptoms involving nervous and musculoskeletal systems documented in this encounter [facility] note* Diagnosis Psoriasis with arthropathy (HCC) Psoriatic arthropathy Osteopenia of multiple sites Vitamin D deficiency, unspecified Primary osteoarthritis involving multiple joints documented in this encounter [facility] note* Diagnosis Routine gynecological examination- Primary Screening for malignant neoplasm of the cervix Breast screening, unspecified Bipolar affective disorder (HCC) Bipolar disorder, unspecified INSOMNIA NOS Insomnia, unspecified Screening cholesterol level Screening for lipoid disorders Encounter for long-term (current) use of other medications Leiomyoma Other benign neoplasm of connective and other soft tissue of unspecified site Special screening for malignant neoplasms, colon Weight loss Loss of weight Parkinson's disease, unspecified whether dyskinesia present, unspecified whether manifestations fluctuate (HCC)- Primary Recurrent falls Personal history of fall Abnormality of gait documented in this encounter [facility] note* Diagnosis Routine gynecological examination- Primary Screening for malignant neoplasm of the cervix Breast screening, unspecified Bipolar affective disorder (HCC) Bipolar disorder, unspecified INSOMNIA NOS Insomnia, unspecified Screening cholesterol level Screening for lipoid disorders Encounter for long-term (current) use of other medications Leiomyoma Other benign neoplasm of connective and other soft tissue of unspecified site Special screening for malignant neoplasms, colon Weight loss Loss of weight Parkinson's disease, unspecified whether dyskinesia present, unspecified whether manifestations fluctuate (HCC) Recurrent falls Personal history of fall Abnormality of gait documented in this encounter [facility] note* Diagnosis Routine gynecological examination- Primary Screening for malignant neoplasm of the cervix Breast screening, unspecified Bipolar affective disorder (HCC) Bipolar disorder, unspecified INSOMNIA NOS Insomnia, unspecified Screening cholesterol level Screening for lipoid disorders Encounter for long-term (current) use of other medications Leiomyoma Other benign neoplasm of connective and other soft tissue of unspecified site Special screening for malignant neoplasms, colon Weight loss Loss of weight Parkinson's disease, unspecified whether dyskinesia present, unspecified whether manifestations fluctuate (HCC) [facility]* Diagnosis Endometrial cancer, FIGO stage IIIB (HCC)- Primary documented in this encounter [facility] note* Diagnosis Routine gynecological examination- Primary Screening for malignant neoplasm of the cervix Breast screening, unspecified Bipolar affective disorder (HCC) Bipolar disorder, unspecified INSOMNIA NOS Insomnia, unspecified Screening cholesterol level Screening for lipoid disorders Encounter for long-term (current) use of other medications Leiomyoma Other benign neoplasm of connective and other soft tissue of unspecified site Special screening for malignant neoplasms, colon Weight loss Loss of weight Parkinson's disease, unspecified whether dyskinesia present, unspecified whether manifestations fluctuate (HCC)- Primary documented in this encounter [facility] note* Diagnosis Routine gynecological examination- Primary Screening for malignant neoplasm of the cervix Breast screening, unspecified Bipolar affective disorder (HCC) Bipolar disorder, unspecified INSOMNIA NOS Insomnia, unspecified Screening cholesterol level Screening for lipoid disorders Encounter for long-term (current) use of other medications Leiomyoma Other benign neoplasm of connective and other soft tissue of unspecified site Special screening for malignant neoplasms, colon Weight loss Loss of weight Parkinson's disease, unspecified whether dyskinesia present, unspecified whether manifestations fluctuate (HCC) [facility] Author Prasanth Webber [facility] November 13, 2023 8:38am Note Date/Time November 13, 2023 8: 38am [facility] System Medical Records Department [address] [place] [address] History & Physical Exam 11/13/23 0838 MR#: [id number] Acct: [id number] Name: LIZZETH SLADE Rep #:[id number] : 1955 68 From: Prasanth coffman MD PCP: Dr. 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: No Is patient in pain?: Yes (pain while swallowing ) Pain scale (1-10): 2 Allergies oak Allergy (Mild, Verified 10/22/23 08:59) Itchingclams Adverse Reaction (Mild, Verified 10/22/23 08:59) Abd cramps/diarrheaclindamycin Adverse Reaction (Mild, Verified 09/07/23 22:09) Nausea Medications pseudoephedrine HCl 30 mg tablet (Sudafed) 60 mg PO ONCE PRN 01/26/20 [History Confirmed 10/22/23] clonazepam 0.5 mg tablet 0.5 mg PO BID 12/08/20 [History Confirmed 10/22/23] hydrocortisone 2.5 % topical cream 1 applic topical BID PRN rash #28.35 grams 02/07/21 [Rx Confirmed 10/22/23] acetaminophen 500 mg tablet (Tylenol Extra Strength) 500 mg PO Q6H PRN 02/18/21 [History Confirmed 10/22/23] folic acid 1 mg tablet 1 mg PO DAILY 08/19/21 [History Confirmed 10/22/23] clobetasol 0.05 % shampoo 1 applic topical DAILY 1 week #118 mL 08/25/21 [Rx Confirmed 10/22/23] amlodipine 10 mg tablet 10 mg PO DAILY #90 tabs 01/01/23 [Rx Confirmed 10/22/23] cholecalciferol (vitamin D3) 1,250 mcg (50,000 unit) capsule 1,250 mcg PO QWEEK #14 caps 01/09/23 [Rx Confirmed 10/22/23] duloxetine 20 mg capsule,delayed release 60 mg PO BID 04/09/23 [History Confirmed 10/22/23] methotrexate sodium 2.5 mg tablet mg PO 08/16/23 [History Confirmed 10/22/23] gabapentin 600 mg tablet 600 mg PO Q8H pain 3 months #270 tabs 09/03/23 [Rx Confirmed 10/22/23] cyanocobalamin (vitamin B-12) 2,000 mcg tablet 2,000 mcg PO DAILY #90 tabs 09/11/23 [Rx Confirmed 10/22/23] omeprazole 40 mg capsule,delayed release 40 mg PO DAILY #60 caps 10/22/23 [Rx Confirmed 10/22/23] [facility] Medical History (Updated 10/22/23 @ 12:[address] Prasanth Webber MD) Abdominal tenderness Anxiety Arrhythmia Arthritis Borderline type 2 diabetes mellitus Cataracts, bilateral Depression Difficulty swallowing Fatigue Flu vaccine need Health care maintenance Hearing loss Heart murmur History of emotional problems History of endometrial cancer History of suicide attempt History of UTI Macrocytosis Neuropathy Psoriatic arthritis Screening for thyroid disorder Seasonal allergies Vision problems Vitamin D deficiency Surgical History (Updated 10/22/23 @ 08:55 by Vale Mejia LPN) History of surgical removal of ganglion cyst S/P hysterectomy Family History Father Anxiety Diabetes Depression Heart disease Mental Disorders Psychiatric care CVA (cerebral vascular accident) ArthritisSister Anxiety Arthritis Depression Diabetes Heart disease Mental Disorders Psychiatric care Respiratory diseaseMother Arthritis Otosclerosis Social History (Updated 10/22/23 @ 08:56 by Vale Mejia LPN) Smoking Status: Current every day smoker tobacco type: cigarettes alcohol intake: current details: 1-2 glasses substance use type: does not use caffeine: Yes what type of physical activity do you participate in: walking seatbelt use: always do you feel safe at home: Yes additional social history: -Uri HPI HPI HPI: Patient is a 68-year-old female here with dysphagia. She reports that for abouta year she has been having difficulty swallowing only occasionally. She reportsthat it is usually food. She says it feels like a sticking in her chest. She does not take anything for reflux. She has never had an EGD. ROS General General: Yes fatigue; No weight change, appetite, colon cancer, breast cancer or weakness HEENT HEENT: Yes difficulty swallowing; No eye injury, eye surgery, swollen glands or hoarseness Endo Endocrine: No thyroid disease, diabetes mellitus, thyroid cancer, Hair loss, heat intolerance or cold intolerance Skin Skin: No rash or changing moles Breast Breast: No left breast lump, right breast lump, nipple discharge, breast pain, abnormal mammogram, abnormal US or breast enlargement Musc Musculoskeletal: Yes back problems and arthritis; No rheumatoid arthritis, gout or joint pain Cardio Cardiovascular: Yes murmur and high blood pressure; No pacemaker, heart disease, atrial fibrillation, heart attack, heart stent, palpitations, shortness of breat with exertion or chest pain Psych Psychiatric: Yes depression and anxiety; No hearing voices Resp Respiratory: No shortness of breath, No sleep apnea, Yes cough, No COPD, No asthma, No emphysema and No wheezing Gastro Gastrointestinal: No abdominal pain, No nausea or vomiting, No diarrhea, No constipation, No blood in stool, No acid reflux, No hemorrhoids, No ulcers, No gallbladder problem and No black,tarry stools Devyn Hematologic: No blood thinners, No blood disorders, No bleeding, No anemia and No blood clots Neuro Neurologic: No system reviewed and no additional complaints, except as documented, No as per HPI, No abnormal gait, No abnormal hearing, No abnormal movements, No abnormal speech, No behavioral changes, No burning sensations, No confusion, No convulsions, No disequilibrium, No dizziness, No localized weakness, No frequent falls, No headache(s), No lack of coordination, No loss ofvision, No memory loss, Yes numbness, No other visual disturbances, No radicularpain, No restless legs, No sensory deficit, No syncope, Yes tingling, No tremor(s), No weakness and No other Exam Const General: cooperative Orientation: alert and oriented x3 HENSC Head: normal to inspection Neck Neck: normal visual inspection and full ROM Chest Chest palpation & inspection: normal inspection of the chest Resp Effort & Inspection: normal respiratory effort Auscultation: clear to auscultation bilaterally Cardio Rate: regular rate Rhythm: regular rhythm GI Inspection: non-distended Palpation: soft and nontender Skin General: no rashes or lesions noted Neuro General: patient alert and patient oriented x3 Extrem General: full ROM Psych Appearance: grossly normal Mental Status: mental status grossly normal Assessment and Plan Assessment and Plan (1) Difficulty swallowing: Status: Acute Qualifiers: Dysphagia type: esophageal phase Qualified Code(s): R13.19 - Other dysphagia Plan: Patient is having dysphagia. I started her on a PPI until I am able to scope her. I explained EGD to her and possible dilation. I explained increased risk of bleeding and perforation with dilation. Patient understands the risks and iswhen to proceed with EGD and possible dilation. I explained endoscopy in detailto the patient. I explained the risks including but not limited to stroke or heart attack with anesthesia, perforation of the GI tract, bleeding, infection. I explained that any of these could necessitate further emergency surgery. The patient understands and all questions were answered sufficiently. The patient wishes to proceed with procedure. Prasanth Webber MD Pager: [facility] [address] [place] [address], [address] [place] [address] Office: I have examined the patient and the H&P has been reviewed. There are no clinicalchanges since date of exam. 11/13/23 0838 <Electronically signed by Prasanth Webber MD> Cosigner Signature (if applicable): CC: Dr. Prasanth Webber MD; Dr. Bindu Caldwell MD~ Signed [facility] Work Phone: Hospital Discharge instructions Additional Instructions See a dentist at the earliest possible time.[facility] Work Phone: Hospital Discharge instructions Additional Instructions Please continue all of your home medications as directed by your doctor. As this is the second time this is happened discussed with your family doctor referral to a gage designer for potential EGD. If you have any further concerns or worsening symptoms please [facility]: Reason for referral (narrative)* Diagnostic Procedure Only (Routine) - Closed Specialty Diagnoses / Procedures Referred By Contac t Referred To Contact XR IMAGING Diagnoses Pain in joint, multiple sites Procedures XR SACROILIAC JOINTS 2V AP PELVIS/FERGUESON RADIOLOGIC EXAMINATION SACROILIAC JNTS <3 VIEWS Diana Oscar MD [facility] [address] [address] Xr Imaging Referral ID Status Reason Start Date Expiration Date V isits Requested Visits Authorized [id number] Closed Auto-Generate d Referral 03/15/2023 04/13/2024 1 1 * Diagnostic Procedure Only (Routine) - Closed Specialty Diagnoses / Procedures Referred By Contac t Referred To Contact XR IMAGING Diagnoses Pain in joint, multiple sites Procedures XR LUMBAR GENERAL 3V AP/LAT/L5-S1 RADEX SPINE LUMBOSACRAL 2/3 VIEWS Diana Oscar MD [address] [place] [address] Xr Imaging Referral ID Status Reason Start Date Expiration Date V isits Requested Visits Authorized [id number] Closed Auto-Generate d Referral 03/15/2023 04/13/2024 1 1 * Diagnostic Procedure Only (Routine) - Closed Specialty Diagnoses / Procedures Referred By Contac t Referred To Contact XR IMAGING Diagnoses Pain in joint, multiple sites Procedures XR KNEE SURVEY ARTHRITIS 1V AP BILATERAL RADIOLOGIC EXAM BOTH KNEES STANDING ANTEROPOST Diana Oscar MD [address] [place] [address] Xr Imaging Referral ID Status Reason Start Date Expiration Date V isits Requested Visits Authorized [id number] Closed Auto-Generate d Referral 03/15/2023 04/13/2024 1 1 [facility] for referral (narrative)* Diagnostic Procedure Only (Routine) - Closed Specialty Diagnoses / Procedures Referred By Contac t Referred To Contact XR IMAGING Diagnoses Pain in joint, multiple sites Procedures XR SACROILIAC JOINTS 2V AP PELVIS/FERGUESON RADIOLOGIC EXAMINATION SACROILIAC JNTS <3 VIEWS Diana Oscar MD [address] [place] [address] Xr Imaging Referral ID Status Reason Start Date Expiration Date V isits Requested Visits Authorized [id number] Closed Auto-Generate d Referral 03/15/2023 04/13/2024 1 1 * Diagnostic Procedure Only (Routine) - Closed Specialty Diagnoses / Procedures Referred By Contac t Referred To Contact XR IMAGING Diagnoses Pain in joint, multiple sites Procedures XR LUMBAR GENERAL 3V AP/LAT/L5-S1 RADEX SPINE LUMBOSACRAL 2/3 VIEWS Diana Oscar MD [address] [place] [address] Xr Imaging Referral ID Status Reason Start Date Expiration Date V isits Requested Visits Authorized [id number] Closed Auto-Generate d Referral 03/15/2023 04/13/2024 1 1 * Diagnostic Procedure Only (Routine) - Closed Specialty Diagnoses / Procedures Referred By Contac t Referred To Contact XR IMAGING Diagnoses Pain in joint, multiple sites Procedures XR KNEE SURVEY ARTHRITIS 1V AP BILATERAL RADIOLOGIC EXAM BOTH KNEES STANDING ANTEROPOST Diana Oscar MD [address] [place] [address] Xr Imaging Referral ID Status Reason Start Date Expiration Date V isits Requested Visits Authorized [id number] Closed Auto-Generate d Referral 03/15/2023 04/13/2024 1 1 [facility]No reason for referral information availableWElyria [facility] Work Phone: Reason for visit Narrative* Diagnostic Procedure Only (Routine) - Closed Specialty Diagnoses / Procedures Referred By Contac t Referred To Contact XR IMAGING Diagnoses Pain in joint, multiple sites Procedures XR SACROILIAC JOINTS 2V AP PELVIS/FERGUESON RADIOLOGIC EXAMINATION SACROILIAC JNTS <3 VIEWS Diana Oscar MD [address] [place] [address] Xr Imaging Referral ID Status Reason Start Date Expiration Date V isits Requested Visits Authorized [id number] Closed Auto-Generate d Referral 03/15/2023 04/13/2024 1 1 [facility] Summary Purpose Family History No Family History Records Found Relationship Condition Age at Onset Recorded Date/T danny father Anxiety Unknown Diabetes mellitus Unknown Depression Unknown Cardiac disease Unknown Unknown Psychiatric care Unknown Cerebrovascular accident (CVA) Unknown sister Anxiety Unknown Arthritis Unknown Disorder of respiratory system Unknown mother Arthritis Unknown Otosclerosis Unknown Relationship Condition Age at Onset Recorded Date/T danny father Anxiety Unknown Diabetes mellitus Unknown Depression Unknown Cardiac disease Unknown Unknown Psychiatric care Unknown Cerebrovascular accident (CVA) Unknown Arthritis Unknown sister Anxiety Unknown Disorder of respiratory system Unknown mother Arthritis Unknown Otosclerosis Unknown Advance Directives No Advanced Directives Records FoundDocuments on File Type Date Recorded 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 anation ACP-Advance Directive ACP-Power of Small Boat Engineer Latest Code Status on File Code Status Date Activated Date Inactivated Comments Full Code 07/05/2020 3:20 PM Full Code 07/05/2020 5:46 AM 07/05/2020 3:17 PM Advance Directive Response Recorded Date/ Time Name of Medical Power of Small Boat Engineer Uri Alarconprashanthnora October 14, 2022 2:51pm Living Will Yes October 14, 022 2:51pm Power of Small Boat Engineer Yes October 14, 2022 2:51pm Documents on File Type Date Recorded 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 anation Advance Directive(s) 09/04/2014 2:45 PM Advance Directive(s) 09/04/2014 2:46 PM Documents on File Type Date Recorded 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 anation Advance Directive(s) 09/04/2014 2:45 PM Advance Directive(s) 09/04/2014 2:46 PM Documents on File Type Date Recorded 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 anation Advance Directives and Living Will 07/05/2020 Advance Directive Response Recorded Date/ Time Living Will Yes October 14, 2 022 3:51pm Power of Small Boat Engineer Yes October 14, 2022 3:51pm Documents on File Type Date Recorded 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 anation Advance Directive(s) 09/04/2014 2:46 PM Advance Directive(s) 09/04/2014 2:45 PM Advance Directive Response Recorded Date/ Time Living Will No September 07 10:28pm Power of Small Boat Engineer No September 07, 2023 10:28pm Advance Directive Response Recorded Date/ Time Name of Medical Power of Small Boat Engineer SPOUSE November 08, 2023 3:42pm Living Will Yes November 08 3:42pm Power of Small Boat Engineer Yes November 08, 2 024 3:42pm Advance Directive Response Recorded Date/ Time Name of Medical Power of Small Boat Engineer SPOUSE November 08, 2023 4:42pm Name of Medical Power of Small Boat Engineer Uri February 17, 2024 3:00pm Living Will Yes February 17, 2024 3:00pm Power of Small Boat Engineer Yes February 16 3:00pm Documents on File Type Date Recorded 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 Yes June 07, 2024 12:56pm Discharge Instructions * Instructions* Gracie Khan RN - 06/25/2020 Please bring your [facility] Surgical Information folder on the day of [...] through Care Everywhere. * Hysterectomy: Abdominal: Pre-op (American) * Oophorectomy: Laparoscopic: Pre-op (American) documented in this encounter* Discharge Instr - Lab* Vale Higgins RN - 07/09/2020 11:22 AM EDT Your physician has ordered skilled home care services for you. Your home care will be provided by: [facility] [phone] * Additional Instructions* Xin Tripp MD - 07/05/2020 Please follow your post operative care instructions given to you by your [place] Worker Oncologist's office at your pre operative visit. Please call the office with questions or concerns and be sure to follow up at your scheduled post operative visit. * Attachments The following attachments cannot be sent through Care Everywhere. * Coronavirus Disease (COVID-19): General Info (American) documented in this encounter History of Present Illness * Gerardo Littlejohn - 06/25/2020 1:00 PM EDT Labs obtained on first attempt with 22 gauge needle at R AC site, patient tolerated well, site benign. documented in this encounter* Isauro Medel DO - 07/10/2020 5:12 AM EDT PRODUCTION ENGINEER Oncology Progress Note Date: 07/10/2020 Time: 5:14 AM Lizzeth Slade 65 y.o. female POD # 5 s/p ex lap, radical MARIFER, BSO, LNS, omental biopsy Patient seen and examined. No complaints this AM. Pain is controlled. Patient is tolerating oral intake. She has a Wharton in place. She denies any vaginal bleeding. [...] 98% 97% Weight: Height: Intake/Output: Last Shift: @[id number]@ Current Shift: No intake/output data recorded. Physical [...] C Lamari, DO 600 mg at 07/09/20 181 enoxaparin (LOVENOX) injection 40 mg 40 mg Subcutaneous Daily Kaylah Larry MD 40 mg at 07/09/20 122 clonazePAM (KLONOPIN) tablet 0.5 mg 0.5 mg [...] tablet 650 mg 650 mg Oral Q6H iXn Tripp MD 650 mg at 07/09/202120 ondansetron [...] 1.4 1.0 - 4.3 10*3/uL Final Absolute [place] # 07/06/2020 0.9* 0.0 - 0.8 10*3/uL Final Absolute Eos # 07/06/2020 0.0 0.0 - 0.5 10*3/uL Final Absolute Baso # 07/06/2020 0.0 0.0 - 0.2 10*3/uL Final CREATININE 07/06/2020 0.58 0.52 - 1.25 mg/dL Final eGFR 07/06/2020 >90.0 >60 mL/min Final EGFR IF NonAfrican Lebanese 07/06/2020 >90.0 >60 mL/min Final Comment: KDIGO [...] 5.0 - 8.0 NA Final . Specific [place], Urine 07/08/2020 1.013 1.005 - 1.030 NA [...] Few Negative /[LPF] Final . Assessment/Plan: Lizzeth Seng Slade 65 y.o. female POD#5 s/p ex lap, radical MARIFER, BSO, LNS, omental biopsy Postoperative Care - Doing well - continue wharton catheter - Encourage ambulation and use of incentive spirometer - Pain controlled: yes - DVT Proph: SCDs while in bed, Lovenox - Diet:General - ADAT Urinary Retention - Wharton in place - to be discharged with Wharton UTI - UA + Leuks - Bactrim [...] No resolved hospital problems. * Isauro Medel, 07/10/2020, 5:14 AM Associated attestation - Ant Lucero MD - 07/10/2020 7:47 AM EDT Pt doing well. No isues. Agree with D/C home * Kaylah Larry MD - 07/09/2020 6:06 PM EDT Patient was evaluated at the bedside this afternoon. She had no acute complaints. She denies Fever/Chills, Chest Pain, SOB, N/V, BLANCAS, VC. Pain is well- controlled. Wharton remains in place. She denies vaginal bleeding. [...] 07/09/2020 9:33 AM EDT Physical Therapy Facility/Department: [facility] Initial Assessment NAME: Lizzeth Slade : 1955 Date of Service: 07/09/2020 Discharge [...] past surgical history that includes cyst removal; [place] tooth extraction (Bilateral); and marifer and bso (cervix removed) (07/05/2020). Restrictions Vision/Hearing [...] Ambulation Assistance: Independent Transfer Assistance: Independent Active Account Service Associate: No Mode of Transportation: Walk Occupation: Retired [...] light within reach, Gait belt AM-PAC Score AM-[facility] Inpatient Mobility Raw Score : 24 (07/09/20920) AM-[facility] Inpatient T-Scale Score : 61.14 (07/09/20920) Mobility Inpatient CMS 0-100% Score: 0 (07/09/20920) Mobility Inpatient [facility] G-Code Modifier : CH (07/09/20920) Goals Therapy Time Individual Concurrent Group Co-treatment Time In 0855 Time Out 0918 Minutes 23 Timed Code Treatment Minutes: 10 Minutes(Treatment procedure) Patient s Physical Therapy Plan of Care supervision is transferred to [facility] Physical Therapist. This PT wore N95, face shield, and gloves throughout the entire session. Pt wore mask while amb in hallway. Mitch Oakes PT * Kaylah Larry MD - 07/09/2020 6:01 AM EDT Gynecologic Oncology Progress Note Date: 07/09/2020 Time: 6:01 AM Lizzeth Slade 65 y.o. female POD#4 s/p ex lap, radical MARIFER, BSO, LNS, omental biopsy Patient seen and [...] Xin Tripp MD 30 mg at 07/08/20 213 sodium chloride flush 0.9 % injection 10 mL 10 mL Intravenous 2 times per day Xin Tripp MD 10 mL at 07/08/202137 sodium chloride flush 0.9 % injection 10 [...] 1.4 1.0 - 4.3 10*3/uL Final Absolute [place] # 07/06/2020 0.9* 0.0 - 0.8 10*3/uL Final Absolute Eos # 07/06/2020 0.0 0.0 - 0.5 10*3/uL Final Absolute Baso # 07/06/2020 0.0 0.0 - 0.2 10*3/uL Final CREATININE 07/06/2020 0.58 0.52 - 1.25 mg/dL Final eGFR 07/06/2020 >90.0 >60 mL/min Final EGFR IF NonAfrican Lebanese 07/06/2020 >90.0 >60 mL/min Final Comment: KDIGO [...] 5.0 - 8.0 NA Final . Specific [place], Urine 07/08/2020 1.013 1.005 - 1.030 NA [...] 07/08/2020 Few Negative /[LPF] Final . Assessment/Plan: Lizzethandrew Randley 65 y.o. female POD#4 s/p ex lap, radical MARIFER, BSO, LNS, omental biopsy Postoperative care - Doing well - wharton catheter - Encourage ambulation and use of incentive spirometer, PT consulted - Pain controlled - DVT Proph:SCDs while in bed, lovenox - Diet:General - ADAT Urinary retention - wharton in place, will go home with it [...] cervix (HCC) Endometrial cancer, FIGO stage IIIB ([facility]) Resolved Problems: * No resolved hospital problems. * Kaylah Larry MD 07/09/2020, 6:01 AM Associated attestation - Iwona Aguila MD - 07/09/2020 2:48 PM EDT [...] her ability to ambulateat home with a Wharton catheter in place. We discussed using a [...] N/V, BLANCAS, VC. Pain is well- controlled. Wharton in place, reports some pressure/pain and is [...] Larry MD - 07/08/2020 5:36 AM EDT PRODUCTION ENGINEER Progress Note Date: 07/08/2020 Time: 5:37 AM Lizzeth Slade 65 y.o. female POD#3 s/p ex lap, radical MARIFER, BSO, LNS, omental biopsy Patient seen and examined. She has no acute complaints. Pain is controlled on pain medication. Patient is tolerating oral intake. Wharton removed yesterday, PVR on bladder scan consistently [...] 650 mg 650 mg Oral Q6H Xin Trpip MD 650 mg at 07/08/20 0429 promethazine (PHENERGAN) tablet 12.5 mg 12.5 mg [...] 1.4 1.0 - 4.3 10*3/uL Final Absolute [place] # 07/06/2020 0.9* 0.0 - 0.8 10*3/uL Final Absolute Eos # 07/06/2020 0.0 0.0 - 0.5 10*3/uL Final Absolute Baso # 07/06/2020 0.0 0.0 - 0.2 10*3/uL Final CREATININE 07/06/2020 0.58 0.52 - 1.25 mg/dL Final eGFR 07/06/2020 >90.0 >60 mL/min Final EGFR IF NonAfrican Lebanese 07/06/2020 >90.0 >60 mL/min Final Comment: KDIGO [...] affect renal tubular creatinine secretion. Assessment/Plan: Lizzeth Slade 65 y.o. female POD#3 s/p ex lap, radical MARIFER, BSO, LNS, omental biopsy 1. Postoperative care - Doing well, vitals stable - wharton reinserted 2/2 urinary retention - Encourage ambulation [...] MD 07/08/2020, 5:37 AM Associated attestation - Iwona Aguila MD - 07/08/2020 3:32 PM EDT [...] the urethra and bladder pressures since her Wharton catheter was replaced yesterday for urinary retention. [...] patient's urinary complaints are secondary to the Wharton catheter. Given the radical nature of her [...] Huntley DO - 07/07/2020 3:47 PM EDT PRODUCTION ENGINEER Oncology PM Rounding Note Patient was evaluated at the bedside this afternoon. She is complaining of mild upper abdominal pain. She denies Fever/Chills, Chest Pain, SOB, N/V, BLANACS, VC. She denies vaginal bleeding. She is ambulating well. She is passing flatus, no bowel movement. Wharton removed this AM and patient voided spontaneously [...] greater than 150, will plan to replace wharton. - Hydralazine ordered PRN for elevated BP [...] be monitored and followed by the diet accessibility lift technician. * Kaylah Larry MD - 07/07/2020 5:48 AM EDT Gynecologic Oncology Progress Note Date: 07/07/2020 Time: 5:49 AM Lizzeth Slade 65 y.o. female POD#2 s/p ex lap, radical MARIFER, BSO, LNS, omental biopsy Patient seen and examined. She has no acute complaints. Pain is controlled. Patient is tolerating oral intake. Wharton remains in place. She denies any vaginal [...] Daily Xin Tripp MD 600 mg at 07/06/20 2154 mirtazapine (REMERON) tablet 30 mg 30 mg Oral Nightly Xin Tripp MD 30 mg at 07/06/20 215 sodium chloride flush 0.9 % injection 10 mL 10 mL Intravenous 2 times per day Xin Tripp MD 10 mL at 07/06/20 2155 sodium chloride flush 0.9 % injection 10 [...] 1.4 1.0 - 4.3 10*3/uL Final Absolute [place] # 07/06/2020 0.9* 0.0 - 0.8 10*3/uL Final Absolute Eos # 07/06/2020 0.0 0.0 - 0.5 10*3/uL Final Absolute Baso # 07/06/2020 0.0 0.0 - 0.2 10*3/uL Final CREATININE 07/06/2020 0.58 0.52 - 1.25 mg/dL Final eGFR 07/06/2020 >90.0 >60 mL/min Final EGFR IF NonAfrican Lebanese 07/06/2020 >90.0 >60 mL/min Final Comment: KDIGO [...] affect renal tubular creatinine secretion. Assessment/Plan: Lizzeth Slade 65 y.o. female POD#2 s/p ex lap, radical MARIFER, BSO, LNS, omental biopsy 1. Postoperative care - Doing well, vitals stable - remove wharton catheter today and perform bladder scans after [...] MD 07/07/2020, 5:49 AM Associated attestation - Iwona Aguila MD - 07/07/2020 1:20 PM EDT [...] she may have to go home with wharton. Working on optimizing pain control.Remainder of plan [...] VC. Pain is well- controlled. Pt has wharton in. She denies vaginal bleeding. Is ambulating. [...] no complaints. Continue routine post-operative care. Continue wharton until tomorrow AM. I evaluated the patient this afternoon and agree with above note. Patient meeting post-operative milestones. * Kaylah Larry MD - 07/06/2020 5:47 AM EDT PRODUCTION ENGINEER Progress Note Date: 07/06/2020 Time: 5:47 AM Lizzeth Slade 65 y.o. female POD#1 s/p ex lap, radical MARIFER, BSO, LNS, omental biopsy Patient seen and examined. She has no acute complaints. Pain is controlled. Patient is tolerating oral intake. Wharton in place. She denies any vaginal bleeding. [...] 1.4 1.0 - 4.3 10*3/uL Final Absolute [place] # 07/06/2020 0.9* 0.0 - 0.8 10*3/uL Final Absolute Eos # 07/06/2020 0.0 0.0 - 0.5 10*3/uL Final Absolute Baso # 07/06/2020 0.0 0.0 - 0.2 10*3/uL Final Assessment/Plan: Lizzeth Slade 65 y.o. female POD#1 s/p ex lap, radical MARIFER, BSO, LNS, omental biopsy 1. Postoperative care - Doing well, vitals stable - continue wharton catheter - Encourage ambulation and use of [...] MD 07/06/2020, 5:47 AM Associated attestation - Iwona Aguila MD - 07/06/2020 12:08 PM EDT [...] pain regimen. Has not been OOB yet, wharton in place. Tolerated breakfast. AFVSS. PE findings [...] EDT PM Rounding Note POD#0 from Radical [id number] Lymph node sampling and omental biopsy. Patient seen and examined. Doing well drowsy from anesthesia. Pain controlled. Tolerating sips of water. Denies nausea/vomiting. Denies flatus. Vitals: 07/05/20 1415 BP: 127/77 Pulse: 51 Resp: 12 Temp: SpO2: 94% Abd: small areas of staining noted on dressing otherwise C/D/I Plan: continue routine post-operative care Wharton to stay in D/C IVF once tolerating [...] Note Gynecology Discharge Summary Patient Name: Lizzeth Slade Patient : 1955 Primary Care Physician: BINDU CALDWELL Admit Date: 07/05/2020 Attending Provider: Iwona Agulia MD Principal Diagnosis: Post-operative care Other Diagnosis: Post-operative state [Z98.890] Patient Active Problem List Diagnosis ? Post- operative state Surgical Operations & Procedures: exploratory laparotomy, radical abdominal hysterectomy with bilateral salpingo-oophorectomy, bilateral pelvic lymph node sampling, omental biopsy 07/05/2020 Consultations: PT Hospital Course: Lizzeth Slade is a 65 y.o. female admitted on 07/05/2020 for planned exploratory laparotomy, radical abdominal hysterectomy with bilateral salpingo-oophorectomy, bilateral pelvic lymph node sampling, omental biopsy 07/05/2020 due to locally advanced high grade gynecologic malignancy on EMB. She was admitted for post-operative care. She had urinary retention and her wharton remained in place at discharge. She was also diagnosed with (more content not included)... Chief Complaint and Reason for Visit Chief Complaint Admit Date 4 M FU January 07, 2025 10:0 7am 3 M FU April 22, 2025 9:09 am Reason for Visit Admit Date Grief reaction January 07, 2025 10:0 7am Anxiety and depression January 07, 2025 1 0:07am Borderline type 2 diabetes mellitus [facility] h 2024 10:07am Hypertension January 07, 2025 10:0 7am Tremor January 07, 2025 10:0 7am Chief Complaint PHONE-3 M FU ARTHRITIS/PAIN- COPY PCP 7WK F/U Reason for Visit Anxiety and depressi on Hypertension Psoriatic arthritis Abdominal tenderness History of endometrial cancer Hypertension Chief Complaint PHONE-3 M FU ARTHRITIS/PAIN- COPY PCP 7WK F/U Malignant neoplasm of uterus, part unspecified Reason for Visit Anxiety and depressi on Hypertension Psoriatic arthritis Abdominal tenderness History of endometrial cancer Hypertension Chief Complaint 7WK F/U Malignant neoplasm of uterus, part unspecified Reason for Visit Abdominal tenderness History of endometrial cancer Hypertension Chief Complaint 7WK F/U Malignant neoplasm of uterus, part unspecified 3 M FU Reason for Visit Abdominal tenderness History of endometrial cancer Hypertension Borderline type 2 diabetes mellitus Fatigue Macrocytosis Screening for thyroid disorder Vitamin D deficiency History of endometrial cancer Hypertension Chief Complaint PAIN- COPY PCP 3 M FU PAIN- COPY PCP fever, swelling to face Reason for Visit Fatigue Borderline type 2 diabetes mellitus Hypertension Chief Complaint PAIN- COPY PCP fever, swelling to face 5 M FU Reason for Visit Hearing loss Hypertension Psoriatic arthritis Vitamin D deficiency Chief Complaint 3 M FU LOW BACK PAIN RX HERE Reason for Visit Anxiety and depressi on Borderline type 2 diabetes mellitus Hypertension Psoriatic arthritis Chief Complaint 3 M FU LOW BACK PAIN RX HERE SCREENING Reason for Visit Anxiety and depressi on Borderline type 2 diabetes mellitus Hypertension Psoriatic arthritis Chief Complaint LOW BACK PAIN RX HER E SCREENING 4 M FU Reason for Visit Arrhythmia Flu vaccine need Anxiety and depression Borderline type 2 diabetes mellitus Hypertension Psoriatic arthritis Chief Complaint LOW BACK PAIN RX HER E SCREENING 4 M FU EKG Cardiac arrhythmia, unspecified Reason for Visit Arrhythmia Flu vaccine need Anxiety and depression Borderline type 2 diabetes mellitus Hypertension Psoriatic arthritis Chief Complaint LOW BACK PAIN RX HER E SCREENING 4 M FU EKG Cardiac arrhythmia, unspecified foreign body Reason for Visit Arrhythmia Flu vaccine need Anxiety and depression Borderline type 2 diabetes mellitus Hypertension Psoriatic arthritis Chief Complaint 4 M FU EKG Cardiac arrhythmia, unspecified foreign body Dysphagia Reason for Visit Arrhythmia Flu vaccine need Anxiety and depression Borderline type 2 diabetes mellitus Hypertension Psoriatic arthritis Difficulty swallowing Chief Complaint Dysphagia 3 M FU fooriegn body Reason for Visit Difficulty swallowin g Esophageal stenosis Anxiety and depression Borderline type 2 diabetes mellitus Hypertension Chief Complaint Admit Date 4 M FU January 07, 2025 10:0 7am Reason for Visit Admit Date Grief reaction January 07, 2025 10:0 7am Anxiety and depression January 07, 2025 1 0:07am Borderline type 2 diabetes mellitus [facility] h 2024 10:07am Hypertension January 07, 2025 10:0 7am Tremor January 07, 2025 10:0 7am Flatulence April 22, 2025 9:09 am Health care maintenance April 22, 2025 9:09am Medication side effects April 22, 2025 9:09am Vivid dream April 22, 2025 9:09 am Borderline type 2 diabetes mellitus April 22, 2025 9:09am Fatigue April 22, 2025 9:09 am Hypertension April 22, 2025 9:09 am Chief Complaint Admit Date 3 M FU April 22, 2025 9:09 am LEFT KNEE PAIN June 12, 2025 12: 35pm Reason for Visit Admit Date Flatulence April 22, 2025 9:09 am Health care maintenance April 22, 2025 9:09am Medication side effects April 22, 2025 9:09am Vivid dream April 22, 2025 9:09 am Borderline type 2 diabetes mellitus April 22, 2025 9:09am Fatigue April 22, 2025 9:09 am Hypertension April 22, 2025 9:09 am Left knee pain June 12, 2025 12: 35pm Reason for Referral Specialty Diagnoses / Procedures Referred By Hussein higgins Referred To Contact Neurology Diagnoses Tremor Balance disorder Procedures CONSULT TO NEUROLOGY OFFICE/OUTPATIENT [facility] 60 MINUTES Winsome Heath PA-C [address] [place] [address] Referral ID Status Reason Start Date Expiration Date Visits Requested Visits Authorized [id number] Authorized PCP Requested Referral 04/22/2024 04/22/2025 1 1 Specialty Diagnoses / Procedures Referred By Hussein higgins Referred To Contact MR IMAGING Diagnoses Parkinson's disease, unspecified whether dyskinesia present, unspecified whether manifestations fluctuate (HCC) Recurrent falls Abnormality of gait Procedures MRI BRAIN WO IVCON MRI BRAIN BRAIN STEM W/O CONTRAST MATERIAL Femi Holman Jr., MD [address] [place] [address] [place] [address] Referral ID Status Reason Start Date Expiration Date Visits Requested Visits Authorized [id number] Authorized Auto-Generat ed Referral 07/25/2024 08/24/2025 1 1 Referral ID Status Reason Start Date Expiration Date V isits Requested Visits Authorized [id number] Closed Auto-Generate d Referral 07/25/2024 08/24/2025 1 1 Additional Source Comments INFORMATION SOURCE (unrecogn ized section and content) DATE CREATED AUTHOR 04/24/2018 [facility] DATE CREATED AUTHOR AUTHOR'S ORGANIZ ATION 01/27/2021 [facility] DATE CREATED AUTHOR AUTHOR'S ORGANIZ ATION 04/24/2024 [facility] DATE CREATED AUTHOR AUTHOR'S ORGANIZ ATION 05/24/2024 [facility] DATE CREATED AUTHOR AUTHOR'S ORGANIZ ATION 04/23/2025 [facility] DATE CREATED AUTHOR AUTHOR'S ORGANIZ ATION 06/14/2025 [facility] Goals (unrecognized section and content) Goals may be documented in a n alternate sectionGoals may be documented in an alternate sectionGoals may be documented in an alternate sectionGoals may be documented in an alternate sectionGoals may be documented in an alternate sectionGoals may be documented in an alternate sectionGoals may be documented in an alternate sectionGoals may be documented in an alternate sectionGoals may be documented in an alternate sectionGoals may be documented in an alternate sectionGoals may be documented in an alternate sectionGoals may be documented in an alternate sectionGoals may be documented in an alternate sectionGoals may be documented in an alternate sectionGoals may be documented in an alternate sectionGoals may be documented in an alternate section Care Teams (unrecognized sec tion and content) Team Status: Active Member Role Status Dates Dr. Edna Jin MD Family Provider Active Dr. Bindu Caldwell MD Primary Care Provider Active Team Status: Inactive Member Role Status Dates Dr. Bindu Caldwell MD Primary Care P tanya, Attending Provider, Referring Provider Active Team Status: Inactive Member Role Status Dates Dr. Bindu Caldwell MD Primary Care Provider Active Dr. Ketty Thayer MD Attending Provider, Referring Provider Active Team Status: Inactive Member Role Status Dates Dr. Bindu Caldwell MD Primary Care Provider Active Dr. Sharri Vazquez DO Attending Provider, Emergency Pro vider Active Pumping Station Supervisor Relationship Specialty Start Date End Date Bindu Caldwell MD [address] [place] [address] PCP - General Internal Medicine 11/08/22 Pumping Station Supervisor Relationship Specialty Start Date End Date Bindu Caldwell MD [address] [place] [address] PCP - General Internal Medicine 11/08/22 Pumping Station Supervisor Relationship Specialty Start Date End Date Bindu Caldwell MD [address] [place] [address] PCP - General Internal Medicine 11/08/22 Pumping Station Supervisor Relationship Specialty Start Date End Date Loren Caldwell MD [address] [facility] [address] [place], [place] [id number] PCP - General 06/18/20 Mishel Saucedo APRN - BROOKS [address] [facility] [address] [place] [address] Nurse Practitioner Certified Nurse Practitioner 11/14/22 Iwona Aguila MD [address] [facility] [place] [address] Consulting Physician Gynecologic Oncology 05/24/23 Team Status: Inactive Member Role Status Dates Dr. Bindu Caldwell MD Primary Care Provider Active Dr. Diana Oscar MD Attending Provider, Referring Provider Active [employer] Station Supervisor Relationship Specialty Start Date End Date Bindu Caldwell MD [address] [place] [address] PCP - General Internal Medicine 11/08/22 Pumping Station Supervisor Relationship Specialty [place] [address] [place] [address] [place] [address] PCP - General Internal Medicine 11/08/22 Team Status: Inactive Member Role Status Dates Dr. Bindu Caldwell MD Primary Care Provider, Atten ding Provider Active Team Status: Inactive Member Role Status Dates Dr. Bindu Caldwell MD Primary Care Provider Active Dr. Alek Blanc DO Emergency Provider Active Team Status: Inactive Member Role Status Dates Dr. Bindu Caldwell MD Primary Care Provider, Refer ring Provider Active Dr. Prasanth Webber MD Attending Provider Active Team Status: Active Member Role Status Dates Dr. Bindu Caldwell MD Primary Care Provider, Refer ring Provider Active Dr. Prasanth Webber MD Attending Provider, Other Provider Active Team Status: Inactive Member Role Status Dates Dr. Bindu Caldwell MD Primary Care Provider Active Dr. Alek Blanc DO Attending Provider, Emergency Pr ovider Active Pumping Station Supervisor Relationship Specialty Start Date End Date Loren Caldwell MD [address] [facility] [address] [place] [address] PCP - General 06/18/20 Mishel Saucedo, JADA - TAG CLERK [address] [facility] [address] [place] [address] Nurse Practitioner Certified Nurse Practitioner 11/14/22 Iwona Aguila MD [address] [facility] [address] [place] [address] Consulting Physician Gynecologic Oncology 05/24/23 Team Status: Inactive Member Role Status Dates Dr. Bindu Caldwell MD Primary Care Provider Active Arya Stanton MD Emergency Provider Active Pumping Station Supervisor Relationship Specialty Start Date End Date Bindu Caldwell MD [address] [place], [place] [address] PCP - General Internal Medicine 11/08/22 Pumping Station Supervisor Relationship Specialty Start Date End Date Bindu Caldwell MD [address] [place], [place] [address] PCP - General Internal Medicine 11/08/22 Pumping Station Supervisor Relationship Specialty Start Date End Date Bindu Caldwell MD [address] [place], [place] [id number] PCP - General Internal Medicine 11/08/22 Pumping Station Supervisor Relationship Specialty Start Date End Date Loren Caldwell MD [address] [facility] [address] [place], [place] [id number] PCP - General 06/18/20 Mishel Saucedo, TIRE REPAIR MECHANIC - TAG CLERK [address] [place] [address] Nurse Practitioner Certified Nurse Practitioner 11/14/22 Iwona Aguila MD [address] [place] [address] Consulting Physician Gynecologic Oncology 05/24/23 Pumping Station Supervisor Relationship Specialty Start Date End Date iBndu Caldwell MD [address] [place], [place] [address] PCP - General Internal Medicine 11/08/22 Pumping Station Supervisor Relationship Specialty Start Date End Date Bindu Caldwell MD [address] [place], [place] [id number] PCP - General Internal Medicine 11/08/22 Pumping Station Supervisor Relationship Specialty Start Date End Date Bindu Caldwell MD [address] [place] [address] PCP - General Internal Medicine 11/08/22 Pumping Station Supervisor Relationship Specialty Start Date End Date Bindu Caldwell MD [address] [place] [address] PCP - General Internal Medicine 11/08/22 Pumping Station Supervisor Relationship Specialty Start Date End Date Bindu Caldwell MD [address] [place] [address] PCP - General Internal Medicine 11/08/22 Pumping Station Supervisor Relationship Specialty Start Date End Date Loren Caldwell MD [address] [facility] [address] [place] [address] PCP - General 06/18/20 Mishel Saucedo, TIRE REPAIR MECHANIC - TAG CLERK [address] [facility] [address] [place] [address] Nurse Practitioner Certified Nurse Practitioner 11/14/22 Pumping Station Supervisor Relationship Specialty Start Date End Date Bindu Caldwell MD [address] [place] [address] PCP - General Internal Medicine 11/08/22 Team Status: Inactive Member Role Status Dates Dr. Bindu Caldwell MD Primary Care Provider Active Start: January 07, 2025 End: January 07, 2025 Dr. Bindu Caldwell MD Attending Provider Active Start: January 07, 2025 End: January 07, 2025 Dr. Bindu Caldwell MD Referring Provider Active Start: January 07, 2025 End: January 07, 2025 Pumping Station Supervisor Relationship Specialty Start Date End Date Bindu Caldwell, MD [address] [place] [address] PCP - General Internal Medicine 11/08/22 Team Status: Inactive Member Role Status Dates Dr. Bindu Caldwell MD Primary Care Provider Active Start: February 16, 2025 End: February 16, 2025 Dr. Bindu Caldwell MD Attending Provider Active Start: February 16, 2025 End: February 16, 2025 Dr. Bindu Caldwell MD Referring Provider Active Start: February 16, 2025 End: February 16, 2025 Team Status: Inactive Member Role Status Dates Dr. Bindu Caldwell MD Primary Care Provider Active Start: April 22, 2025 End: April 22, 2025 Dr. Bindu Caldwell MD Attending Provider Active Start: April 22, 2025 End: April 22, 2025 Dr. Bindu Caldwell MD Referring Provider Active Start: April 22, 2025 End: April 22, 2025 Team Status: Active Member Role Status Dates Dr. Bindu Caldwell MD Primary Care Provider Active Start: April 22, 2025 Dr. Bindu Caldwell MD Attending Provider Active Start: April 22, 2025 Dr. Bindu Caldwell MD Referring Provider Active Start: April 22, 2025 Team Status: Active Member Role/Relationship Status Dates Dr. Edna Jin MD Family Provider Active Dr. Bindu Caldwell MD Primary Care Provider Active Team Status: Inactive Member Role/Relationship Status Dates Dr. Bindu Caldwell MD Primary Care Provider Active Start: February 16, 2025 End: February 16, 2025 Dr. Bindu Caldwell MD Attending Provider Active Start: February 16, 2025 End: February 16, 2025 Dr. Bindu Caldwell MD Referring Provider Active Start: February 16, 2025 End: February 16, 2025 Team Status: Inactive Member Role/Relationship Status Dates Dr. Bindu Caldwell MD Primary Care Provider Active Start: April 22, 2025 End: April 22, 2025 Dr. Bindu Caldwell MD Attending Provider Active Start: April 22, 2025 End: April 22, 2025 Dr. Bindu Caldwell MD Referring Provider Active Start: April 22, 2025 End: April 22, 2025 Team Status: Inactive Member Role/Relationship Status Dates Dr. Bindu Caldwell MD Primary Care Provider Active Start: April 22, 2025 End: April 22, 2025 Dr. Bindu Caldwell MD Attending Provider Active Start: April 22, 2025 End: April 22, 2025 Dr. Bindu Caldwell MD Referring Provider Active Start: April 22, 2025 End: April 22, 2025 Team Status: Inactive Member Role/Relationship Status Dates Dr. Bindu Caldwell MD Primary Care Provider Active Start: June 12, 2025 End: June 12, 2025 Dr. Bindu Caldwell MD Referring Provider Active Start: June 12, 2025 End: June 12, 2025 TI Matthews Attending Provider Active St art: June 12, 2025 End: June 12, 2025 Source Comments (unrecognize d section and content) In the event this informatio n is protected by the Federal Confidentiality of Alcohol and Drug Abuse Patient Records regulations: The Federal rules restrict any use of the information to criminally investigate or prosecute any alcohol or drug abuse patient.[facility] the event this information is protected by the Federal Confidentiality of Alcohol and Drug Abuse Patient Records regulations: The Federal rules restrict any use of the information to criminally investigate or prosecute any alcohol or drug abuse patient.[facility] Hospital[facility] the event this information is protected by the Federal Confidentiality of Alcohol and Drug Abuse Patient Records regulations: The Federal rules restrict any use of the information to criminally investigate or prosecute any alcohol or drug abuse patient.[facility] Hospital[facility] the event this information is protected by the Federal Confidentiality of Alcohol and Drug Abuse Patient Records regulations: The Federal rules restrict any use of the information to criminally investigate or prosecute any alcohol or drug abuse patient.[facility] Hospital[facility] the event this information is protected by the Federal Confidentiality of Alcohol and Drug Abuse Patient Records regulations: The Federal rules restrict any use of the information to criminally investigate or prosecute any alcohol or drug abuse patient.[facility] Hospital[facility] the event this information is protected by the Federal Confidentiality of Alcohol and Drug Abuse Patient Records regulations: The Federal rules restrict any use of the information to criminally investigate or prosecute any alcohol or drug abuse patient.[facility] Hospital[facility] the event this information is protected by the Federal Confidentiality of Alcohol and Drug Abuse Patient Records regulations: The Federal rules restrict any use of the information to criminally investigate or prosecute any alcohol or drug abuse patient.[facility] Hospital[facility] the event this information is protected by the Federal Confidentiality of Alcohol and Drug Abuse Patient Records regulations: The Federal rules restrict any use of the information to criminally investigate or prosecute any alcohol or drug abuse patient.[facility] Hospital[facility] the event this information is protected by the Federal Confidentiality of Alcohol and Drug Abuse Patient Records regulations: The Federal rules restrict any use of the information to criminally investigate or prosecute any alcohol or drug abuse patient.[facility] Hospital[facility] the event this information is protected by the Federal Confidentiality of Alcohol and Drug Abuse Patient Records regulations: The Federal rules restrict any use of the information to criminally investigate or prosecute any alcohol or drug abuse patient.[facility] Hospital[facility] the event this information is protected by the Federal Confidentiality of Alcohol and Drug Abuse Patient Records regulations: The Federal rules restrict any use of the information to criminally investigate or prosecute any alcohol or drug abuse patient.[facility] Hospital[facility] the event this information is protected by the Federal Confidentiality of Alcohol and Drug Abuse Patient Records regulations: The Federal rules restrict any use of the information to criminally investigate or prosecute any alcohol or drug abuse patient.[facility] Hospital[facility] the event this information is protected by the Federal Confidentiality of Alcohol and Drug Abuse Patient Records regulations: The Federal rules restrict any use of the information to criminally investigate or prosecute any alcohol or drug abuse patient.[facility] Hospital[facility] the event this information is protected by the Federal Confidentiality of Alcohol and Drug Abuse Patient Records regulations: The Federal rules restrict any use of the information to criminally investigate or prosecute any alcohol or drug abuse patient.[facility] Hospital[facility] the event this information is protected by the Federal Confidentiality of Alcohol and Drug Abuse Patient Records regulations: The Federal rules restrict any use of the information to criminally investigate or prosecute any alcohol or drug abuse patient.[facility] HospitalIn the event this information is protected by the Federal Confidentiality of Alcohol and Drug Abuse Patient Records regulations: The Federal rules restrict any use of the information to criminally investigate or prosecute any alcohol or drug abuse patient.[facility] HospitalIn the event this information is protected by the Federal Confidentiality of Alcohol and Drug Abuse Patient Records regulations: The Federal rules restrict any use of the information to criminally investigate or prosecute any alcohol or drug abuse patient.[facility] HospitalIn the event this information is protected by the Federal Confidentiality of Alcohol and Drug Abuse Patient Records regulations: The Federal rules restrict any use of the information to criminally investigate or prosecute any alcohol or drug abuse patient.[facility] Reason for Visit (unrecogniz ed section and content) Reason Comments Joint Pain New Patient Reason Comments Orders Reason Comments Endometrial Cancer Undifferentiated igiugig rine carcinoma-pt has no concerns Reason Comments Osteoporosis Needs refills Reason Comments medication question clarify directions on medication Reason Comments Refill Request Reason Comments Endometrial Cancer Pt has no concerns Reason Onset Date Comments Refill Request 01/07/2024 Reason Comments psoriasis with arthropathy Reason Comments New Patient Abnormal gait, poor balance, tremor in hands Specialty Diagnoses / Procedures Referred By Contac t Referred To Contact MR IMAGING Diagnoses Parkinson's disease, unspecified whether dyskinesia present, unspecified whether manifestations fluctuate (HCC) Recurrent falls Abnormality of gait Procedures MRI BRAIN WO IVCON MRI BRAIN BRAIN STEM W/O CONTRAST MATERIAL Femi Holman Jr., MD [address] [facility] [address] [place] [address] [place] [address] Referral ID Status Reason Start Date Expiration Date V isits Requested Visits Authorized [id number] Closed Auto-Generate d Referral 07/25/2024 08/24/2025 1 1 Reason Comments Follow-up Reason Comments New Patient Parkinsons, recurren t falls, abnormal gait Reason Comments Follow Up Parkinson's, at last visit Sinemet was increased to 1.5 tab TID, patient states she is doing well with no side effects FOR RECORDS PERTAINING TO PATIENTS WHO ARE [...] BE BASED ON THE PRIMARY CLINICAL RECORDS. [facility]. provides no warranty or guarantee of the accuracy or completeness of information in this document.
--- NOTE | 2025-06-19 06:30 | RAD_ITS ---
PROCEDURE: KNEE 4 OR MORE VIEWS 06/19/2025 REASON FOR EXAM: PAIN TECHNIQUE: Left knee 4 views COMPARISON: None FINDINGS: Chondrocalcinosis is visible in the medial and lateral meniscus. There is mild medial joint space narrowing. There is no acute fracture or dislocation. There is a visible joint effusion. Vascular calcifications are noted. RAD/Knee 4 or More Views IMPRESSION: Chondrocalcinosis is visible in the medial and lateral meniscus. There is mild medial joint space narrowing. Reading Location: [facility]
== END | disposition home or self-care (01) ==
LOC: RAD 06:16
PROVIDERS: PCP Internal Medicine; Referring Provider Physician Assistant; Visit Provider Physician Assistant
DX: M25.562 Pain in left knee (principal)
CPT/HCPCS: 73564

== ENCOUNTER → 2025-08-19 | Outpatient (CLI) | payer MEDICARE, OTHER, SELFPAY ==
--- NOTE | 2025-08-19 11:41 | BD_ITS ---
PROCEDURE: DEXA BONE DENSITY STUDY 08/19/2025 REASON FOR EXAM: POST MENOPAUSAL F, age 70 y/o . Postmenopausal. TECHNIQUE: Procedure Code: BDDBD Modality: DX Procedure: DEXA BONE DENSITY STUDY COMPARISON: July 12, 2023. FINDINGS: BMD and T-SCORES Lumbar spine: 0.720 g/cm2, T-score -2.4 Levels: L1 through L4 Change from prior: Loss of 5.1%. Left femoral neck: 0.669 g/cm2, T-score -1.6 Femoral neck comparison data not recommended for monitoring change. Left total hip: 0.766 g/cm2, T-score -1.4 Change from prior: Loss of 3.3%. Right femoral neck: 0.708 g/cm2, T-score -1.3 Femoral neck comparison data not recommended for monitoring change. Right total hip: 0.804 g/cm2, T-score -1.1 Change from prior: Loss of 1.3%. The World Health Organization has defined the following categories based on bone density: Normal bone density: T-score equal to or greater than -1.0 Osteopenia: T-score between -1.0 and -2.5 Osteoporosis: T-score equal to or less than -2.5 FRAX (or Comparable) Fracture Risk Assessment: 10 Year Probability of Fracture: Major Osteoporotic Fracture: 11% Hip Fracture: 2.5% (Note: FRAX is not to be reported in setting of normal range bone density, osteoporosis on DEXA, known history of osteoporosis, prior osteoporotic hip or vertebral fracture, or for any patient undergoing pharmacological treatment for bone loss.) The National Osteoporosis Foundation (NOF) recommends pharmacological treatment for patients with a FRAX 10-year risk of 3% or higher for a hip fracture, or 20% or higher for a major osteoporotic fracture, to prevent osteoporosis and reduce fracture risk. The patient does meet the pharmacological treatment recommendations for prevention of osteoporosis. BD/Dexa Bone Density Study IMPRESSION: OSTEOPENIA. Recommend follow-up as clinically warranted. Reading Location: [place] [address]
== END | disposition home or self-care (01) ==
LOC: OPBD 11:37
PROVIDERS: PCP Internal Medicine; Referring Provider Internal Medicine; Visit Provider Internal Medicine
DX: Z78.0 Asymptomatic menopausal state (principal); M85.80 Other specified disorders of bone density and structure, unspecified site
CPT/HCPCS: 77080

== ENCOUNTER → 2025-08-26 | Outpatient (CLI) | payer MEDICARE, OTHER, SELFPAY ==
--- NOTE | 2025-08-26 08:43 | MRI_ITS ---
PROCEDURE: LOWER EXT JOINT ONLY (ROUTINE) 08/26/2025 REASON FOR EXAM: KNEE PAIN AND MECHANICAL SYMPTOMS TECHNIQUE: Procedure Code: MRILEJ Modality: MR Procedure: LOWER EXT JOINT ONLY (ROUTINE) T1, T2, PD, multiplanar and multisequence images were obtained without IV contrast administration. COMPARISON: COMPARISON : None FINDINGS: Bone Marrow: There is a 1.2 by 0.8 cm interosseous ganglion deep to the PCL insertion. There is no occult fracture. Cruciate ligaments: There is increased T2 signal and attenuation in the mid and distal aspect of the ACL without laxity, grade 2 sprain. The posterior cruciate appears intact. Collateral ligaments: Medial collateral ligament appears intact. The lateral collateral ligament complex appears intact. Menisci: There is a complex tear in the posterior horn and body of the medial meniscus which extends to the tibial surface, with extrusion. The lateral meniscus appears intact. Extensor compartment. The distal quadriceps and patellar tendons are intact. Effusion: There is a moderate joint effusion. Plica are noted in the superior joint space. There is no Dunaway's cyst. Soft Tissues: There is no mass or adenopathy. Cartilage: There is moderate chondromalacia in the medial compartment. MRI/Lower Ext Joint Only (Routine) IMPRESSION: There is a 1.2 by 0.8 cm interosseous ganglion deep to the PCL insertion. There is increased T2 signal and attenuation in the mid and distal aspect of th e ACL without laxity, grade 2 sprain. There is a complex tear in the posterior horn and body of the medial meniscus w hich extends to the tibial surface, with extrusion. There is a moderate joint effusion. Plica are noted in the superior joint space. Reading Location: [facility]
== END | disposition home or self-care (01) ==
LOC: MRI 08:37
PROVIDERS: PCP Internal Medicine; Referring Provider Orthopaedic Surgery; Visit Provider Orthopaedic Surgery
DX: M11.262 Other chondrocalcinosis, left knee (principal); M25.562 Pain in left knee
CPT/HCPCS: 73721

== ENCOUNTER 2025-10-06 12:02 | Day surgery (SDC) | payer MEDICARE, OTHER, SELFPAY ==
--- NOTE | 2025-09-25 14:15 | PAT.ANESEVAL ---
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 When Was Last Pacemaker Check QUESTION #4 FULL TEXT: You/Your Family Experience fever (hyperthermia) with Anesthesia Last Oral Intake Last Oral intake: Last Oral Intake NPO since Meds taken in AM with sips of water? Meds patient instructed to take am of surgery PONV PONV - audio visual collections coordinator: PONV - audio visual collections coordinator Female Yes 09/25/25 13:11 HX of Motion Sickness No 09/25/25 13:11 HX of N/V After Surgery No 09/25/25 13:11 Non-Smoker Yes 09/25/25 13:11 Duration of Surgery greater No 09/25/25 13:11 than 60 minutes Number of Risk Factors 2 09/25/25 13:11 PONV Score Moderate Risk 09/25/25 13:11 Height & Weight Height & Weight: Anesthesia: Height & Weight Height 5 ft 6 in 07/20/25 09:02 Respiratory Assessment Respiratory Assessment - audio visual collections coordinator: Respiratory Tract Infection Hx - audio visual collections coordinator Hx Respiratory Tract Infection No 09/25/25 13:11 STOP Sleep Apnea STOP Sleep Apnea - audio visual collections coordinator: STOP Sleep Apnea - audio visual collections coordinator Hx Hypertension Yes 09/25/25 13:11 Hx Sleep Apnea No 09/25/25 13:11 CPAP BIPAP Do you snore loudly (louder No 09/25/25 13:11 than talking or can be heard Do you often feel tired/ No 09/25/25 13:11 fatigued/ sleepy during daytime? Has anyone observed you stop No 09/25/25 13:11 breathing during sleep? STOP Results Negative 09/25/25 13:11 QUESTION #5 FULL TEXT : Do you snore loudly (louder than talking or can be heard through closed doors)? Tobacco Use History Tobacco Use History - audio visual collections coordinator: Tobacco Use History - audio visual collections coordinator Tobacco Use Smoking Status Current every day smoker 09/25/25 13:11 Hx Tobacco Use Yes 09/25/25 13:11 Years Smoking Packs Smoked per Day Smoking Cessation Date was No - quit smoking greater 09/25/25 13:11 within the last 15 years than 15 years ago Hx Smoking Cessation Date Hx Smoking Cessation No 09/25/25 13:11 Counseling Hematologic Medial History Hematologic Hx - audio visual collections coordinator: Hematologic Medical Hx - floor grinder Hx of Blood Transfusion No 09/25/25 13:11 Hx of Transfusion in last 3 No 09/25/25 13:11 Months Date of Last Transfusion (if within last 3 months) Ever experience any problems No 09/25/25 13:11 with transfusion(s)? Specify any problems Hx of Preganancy in last 3 No 09/25/25 13:11 Months Nurse Filling Out Transfusion JZOLLINGE 09/25/25 13:11 & Questions: Date: 09/25/25 09/25/25 13:11 Time: 13:13 09/25/25 13:11 Patient unable to answer at this time (ie. confused, unrespo /Reproduction History /Reproductive History - audio visual collections coordinator: /Reproductive Hx- audio visual collections coordinator Hx Now No 09/25/25 13:11 Gestational Age (in weeks): EDC: Hx Hx Para Hx Section SAB No 09/25/25 13:11 Does the father of the baby or his family experience fever w Father of the baby Malignant Hypertension history comment [facility] Medical History (Updated 09/25/25 @ 13:11 by Kenya Chamberlain) Flatulence Vivid dream Medication side effects Post-menopausal Grief reaction Hyperlipidemia Abrasion of left upper extremity Change in skin mole Tremor Frequent falls Esophageal stenosis Wears glasses Cancer Marijuana use Alcohol use Back pain Gastric reflux Smoker Leg cramps Hypertension History of edema History of Holter monitoring History of irregular heartbeat Difficulty swallowing Flu vaccine need Arrhythmia Hearing loss Vitamin D deficiency Borderline type 2 diabetes mellitus Fatigue Macrocytosis Screening for thyroid disorder Abdominal tenderness History of endometrial cancer Health care maintenance Psoriatic arthritis History of suicide attempt Depression Anxiety Neuropathy Arthritis Home Medications ?Medication ?Instructions ?Recorded ?Last Taken ?Type acetaminophen 500 mg tablet 500 mg PO Q6H PRN pain 02/18/21 Unknown History (Tylenol Extra Strength) clonazepam 0.5 mg tablet 0.5 mg PO DAILY 06/04/24 Unknown History omeprazole 40 mg capsule,delayed 40 mg PO DAILY #90 caps 07/10/24 Unknown Rx release clobetasol 0.05 % shampoo 1 applic topical DAILY PRN SKIN 09/08/24 Unknown Rx #118 mL amlodipine 10 mg tablet 10 mg PO DAILY #90 tabs 12/09/24 Unknown Rx hydrocortisone 2.5 % topical cream 1 applic topical BID PRN rash 12/09/24 Unknown Rx #28.35 grams carbidopa 25 mg-levodopa 100 mg 1.5 tab PO TID 04/22/25 Unknown History tablet duloxetine 60 mg capsule,delayed 60 mg PO BID 07/13/25 Unknown History release gabapentin 600 mg tablet 600 mg PO QDAY pain 07/20/25 Unknown History atorvastatin 20 mg tablet 20 mg PO QDAY #90 tabs 09/08/25 Unknown Rx Allergy/AdvReac Type Severity Reaction Status Date / Time strawberry Allergy Severe Angioedema Verified 09/25/25 13:03 oak Allergy Mild Itching Verified 09/25/25 13:03 clams AdvReac Mild Abd Verified 09/25/25 13:03 cramps/diarrhea clindamycin AdvReac Mild Nausea Verified 09/25/25 13:03 Family History Father Anxiety Diabetes Depression Heart disease Mental Disorders Psychiatric care CVA (cerebral vascular accident) Arthritis Sister Anxiety Arthritis Depression Diabetes Heart disease Mental Disorders Psychiatric care Respiratory disease Mother Arthritis Otosclerosis Surgical History S/P hysterectomy History of surgical removal of ganglion cyst Social History household members: spouse housing: house Smoking Status: Current every day smoker tobacco type: cigarettes alcohol intake: current details: 1-2 glasses substance use type: does not use caffeine: Yes what type of physical activity do you participate in: walking seatbelt use: always do you feel safe at home: Yes additional social history: -Uri Audit: Pertinent Findings Pertinent Findings Pulmonary function results/spirometer pertinent findings: Chest x-ray 02/17/2024. No acute cardiopulmonary disease. Recommendation Anesthesia Recommendation Anesthesia recommendation: OPTIMIZED for anesthesia
[2025-10-06] VITALS (13 sets, daily range): BP systolic 132–153; BP diastolic 7–93; PULSE 66–79; RESP 14–16; TEMP 36.1–36.7; O2SAT 89–98; BMI 27.0
[2025-10-06] MEDS: Lactated Ringers 1,000 ML 15 ML IV (12:32)
--- NOTE | 2025-10-06 12:42 | PRE.ANES_ITS ---
ASA Classification* ASA Classification ASA Classification: 3 Assessment & Plan Anesthesia* Anesthesia Assessment Anesthesia Assessment: Discussed sedation and/or anesthesia options, risks, benefits, and alternatives with patient/parents/legal guardian/POA. Questions invited. The patient/parents/legal guardian/POA seems to understand and agrees to proceed with anesthesia plan. Reviewed the physical assessment, medical history, allergy history and patient home medications list prior to surgery/procedure/anesthetic and documented any changes. Performed airway and anesthesia risk assessments. Anesthesia Type Anesthesia Type: General History Source History Obtained from:: Patient and Chart Anesthesia Focused Assessment* Temperature: 98.1 F Pulse Rate: 79 Blood Pressure: 132/73 Respiratory Rate: 14 Pulse Ox: 98 Oxygen Delivery Method: Room Air Airway Assessment Mouth opens: >3 cm Mallampati Score: IV Teeth Condition: Chipped/Broken (Patient has some chipped molars on the right lower jaw.) and Missing (Patient is missing several teeth. The rest are tight.) Neck Range of motion (ROM): Limited ROM (Somewhat Decreased) Labs Anesthesia Preop lab: CBC WBC, (4.4-11.0) 5.2 K/mm3 04/22/25, 10:05 RBC, (4.2-5.4) 4.13 M/mm3 L 04/22/25, 10:05 Hgb, (12.0-15.0) 13.3 g/dL 04/22/25, 10:05 Hct, (37-47) 40.3 % 04/22/25, 10:05 Plt Count, (150-450) 255 K/mm3 04/22/25, 10:05 CHEMISTRY Potassium, (3.3-5.1) 4.5 mmol/L 04/22/25, 10:05 Sodium, (133-145) 139 mmol/L 04/22/25, 10:05 BUN, (4-19) 13 mg/dL 04/22/25, 10:05 Creatinine, (0.70-1.20) 0.70 mg/dL 04/22/25, 10:05 Glucose, (70-99) 87 mg/dL 04/22/25, 10:05 TSH, (0.358-3.74) 2.00 uIU/mL 08/16/23, 16:11 COAG Pre-Assessment Diagnosis/Proposed Procedure Planned Operative Procedure(s): (L) Left knee partial medial meniscectomy Arthroscopy and excision of ganglion Anesthesia History Anesthesia History - inserting press operator: Anesthesia History - inserting press operator Hx Hospitalization No 09/25/25 13:11 Any Problems With Anesthesia No 09/25/25 13:11 Cholinesterase deficiency No 09/25/25 13:11 You/Your Family Experience No 09/25/25 13:11 fever (hyperthermia) with Relationship Recent Exposure to Contagious No 10/06/25 12:22 Disease Does patient have nerve No 09/25/25 13:11 stimulator Patient instructed to have device shut off --Does patient have Pacemaker No 10/06/25 12:22 or ICD? When Was Last Pacemaker Check QUESTION #4 FULL TEXT: You/Your Family Experience fever (hyperthermia) with Anesthesia Last Oral Intake Last Oral intake: Last Oral Intake NPO since 06:00 10/06/25 12:22 Meds taken in AM with sips of Yes 10/06/25 12:22 water? Meds patient instructed to see med list 10/06/25 12:22 take am of surgery Any additional information?: Yes Meds taken in AM with sips of water?: Yes PONV PONV - inserting press operator: PONV - inserting press operator Female Yes 09/25/25 13:11 HX of Motion Sickness No 09/25/25 13:11 HX of N/V After Surgery No 09/25/25 13:11 Non-Smoker Yes 09/25/25 13:11 Duration of Surgery greater No 09/25/25 13:11 than 60 minutes Number of Risk Factors 2 09/25/25 13:11 PONV Score Moderate Risk 09/25/25 13:11 Height & Weight Height & Weight: Anesthesia: Height & Weight Height 5 ft 6 in 10/06/25 12:22 Weight: 76 kg 10/06/25 12:22 Body Mass Index (BMI) 27.0 10/06/25 12:22 Respiratory Assessment Respiratory Assessment - inserting press operator: Respiratory Tract Infection Hx - inserting press operator Hx Respiratory Tract Infection No 09/25/25 13:11 STOP Sleep Apnea STOP Sleep Apnea - inserting press operator: STOP Sleep Apnea - inserting press operator Hx Hypertension Yes 09/25/25 13:11 Hx Sleep Apnea No 09/25/25 13:11 CPAP BIPAP Do you snore loudly (louder No 09/25/25 13:11 than talking or can be heard Do you often feel tired/ No 09/25/25 13:11 fatigued/ sleepy during daytime? Has anyone observed you stop No 09/25/25 13:11 breathing during sleep? STOP Results Negative 09/25/25 13:11 QUESTION #5 FULL TEXT : Do you snore loudly (louder than talking or can be heard through closed doors)? Tobacco Use History Tobacco Use History - inserting press operator: Tobacco Use History - inserting press operator Tobacco Use Smoking Status Current every day smoker 09/25/25 13:11 Hx Tobacco Use Yes 09/25/25 13:11 Years Smoking Packs Smoked per Day Smoking Cessation Date was No - quit smoking greater 09/25/25 13:11 within the last 15 years than 15 years ago Hx Smoking Cessation Date Hx Smoking Cessation No 09/25/25 13:11 Counseling Any additional information?: Yes Smoking Status: Current every day smoker (Patient did smoke today.) Hematologic Medial History Hematologic Hx - inserting press operator: 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 Specify any problems Hx of Preganancy in last 3 No 09/25/25 13:11 Months Nurse Filling Out Transfusion JZOLLRODNEY 09/25/25 13:11 & Questions: Date: 09/25/25 09/25/25 13:11 Time: 13:13 09/25/25 13:11 Patient unable to answer at this time (ie. confused, unrespo /Reproduction History /Reproductive History - inserting press operator: /Reproductive Hx- inserting press operator Hx Now No 09/25/25 13:11 Gestational Age (in weeks): EDC: Hx Hx Para Hx Section SAB No 09/25/25 13:11 Does the father of the baby or his family experience fever w Father of the baby Malignant Hypertension history comment Active Medications Active Medications: Current Medications Generic Name Dose Route Start Last Admin Trade Name Freq PRN Reason Stop Dose Admin Lactated Ringer's 1,000 mls @ 15 mls/hr 10/06/25 12:15 10/06/25 12:32 IV 15 mls/hr .Q48H DOC Administration PFSH Medical History (Updated 09/25/25 @ 13:11 by Kenya Chamberlain) Flatulence Vivid dream Medication side effects Post-menopausal Grief reaction Hyperlipidemia Abrasion of left upper extremity Change in skin mole Tremor Frequent falls Esophageal stenosis Wears glasses Cancer Marijuana use Alcohol use Back pain Gastric reflux Smoker Leg cramps Hypertension History of edema History of Holter monitoring History of irregular heartbeat Difficulty swallowing Flu vaccine need Arrhythmia Hearing loss Vitamin D deficiency Borderline type 2 diabetes mellitus Fatigue Macrocytosis Screening for thyroid disorder Abdominal tenderness History of endometrial cancer Health care maintenance Psoriatic arthritis History of suicide attempt Depression Anxiety Neuropathy Arthritis Home Medications ?Medication ?Instructions ?Recorded ?Last Taken ?Type acetaminophen 500 mg tablet 500 mg PO Q6H PRN pain Unknown History (Tylenol Extra Strength) clonazepam 0.5 mg tablet 0.5 mg PO DAILY 06/04/24 Unk nown History omeprazole 40 mg capsule,delayed 40 mg PO DAILY #90 ca ps 07/10/24 Unknown Rx release clobetasol 0.05 % shampoo 1 applic topical DAILY PRN S KIN 09/08/24 Unknown Rx #118 mL amlodipine 10 mg tablet 10 mg PO DAILY #90 tabs 02/2710/06/25 07:00 Rx hydrocortisone 2.5 % topical cream 1 applic topical BI D PRN rash 12/09/24 Unknown Rx #28.35 grams carbidopa 25 mg-levodopa 100 mg 1.5 tab PO TID 2 5 10/06/25 07:00 History tablet duloxetine 60 mg capsule,delayed 60 mg PO BID 07/13/25 10/06/25 07:00 History release gabapentin 600 mg tablet 600 mg PO QDAY pain 07/20/25 Unknown History atorvastatin 20 mg tablet 20 mg PO QDAY #90 tabs 09/08 Unknown Rx Allergy/AdvReac Type Severity Reaction Status Date / Time strawberry Allergy Severe Angioedema Verified 10/06/25 12:20 oak Allergy Mild Itching Verified 10/06/25 12:20 clams AdvReac Mild Abd Verified 10/06/25 12:20 cramps/diarrhea clindamycin AdvReac Mild Nausea Verified 10/06/25 12:20 Family History Father Anxiety Diabetes Depression Heart disease Mental Disorders Psychiatric care CVA (cerebral vascular accident) Arthritis Sister Anxiety Arthritis Depression Diabetes Heart disease Mental Disorders Psychiatric care Respiratory disease Mother Arthritis Otosclerosis Surgical History S/P hysterectomy History of surgical removal of ganglion cyst Social History household members: spouse housing: house Smoking Status: Current every day smoker (Patient did smoke today.) tobacco type: cigarettes alcohol intake: current details: 1-2 glasses substance use type: does not use caffeine: Yes what type of physical activity do you participate in: walking seatbelt use: always do you feel safe at home: Yes additional social history: -Uri Review of Systems (Anesthesia) ROS Narrative System reviewed and no additional complaints, except as documented.
--- NOTE | 2025-10-06 13:04 | PCM.HP.BLA ---
History and Physical Date of Admission: 10/06/25 [facility] [address] [place] [address] OFFICE VISIT Date of Service: 09/07/25 MR#: [id number] Acct: [id number] Name: PHYLICIA SLADE Rep #: [id number] : [id number] Provider: Dr. Donis Harding, Age/Sex: 70/F Location: [facility] [place].[facility] Status: Signed Intake Vital Signs 07/20/2509:02 Height 5 ft 6 in Weight: 160 lb BMI 25.8 BP 110/64 Blood Pressure Location Lt brachial Position Sitting Respiration 14 Pulse 71 Pulse Source Monitor Temp 98.6 F Temp Source Temporal Pulse Oximetry (%) 98 Oxygen Delivery Method room air Intake Visit Reasons: LEFT KNEE Chief Complaint: MRI Review Accompanied by: Self Is patient in pain?: Yes Pain scale (1-10): 8 Allergies strawberry Allergy (Severe, Verified 09/07/25 09:44) Angioedema oak Allergy (Mild, Verified 09/07/25 09:44) Itching clams Adverse Reaction (Mild, Verified 09/07/25 09:44) Abd cramps/diarrhea clindamycin Adverse Reaction (Mild, Verified 09/07/25 09:44) Nausea Medications ?Medication ?Instructions ?Recorded ?Confirmed ?Type acetaminophen 500 mg tablet 500 mg PO Q6H PRN pain 02/18/21 09/07/25 History (Tylenol Extra Strength) clonazepam 0.5 mg tablet 0.5 mg PO DAILY 06/04/24 09/07/25 History omeprazole 40 mg capsule,delayed 40 mg PO DAILY #90 caps 07/10/24 09/07/25 Rx release clobetasol 0.05 % shampoo 1 applic topical DAILY PRN SKIN 09/08/24 09/07/25 Rx #118 mL amlodipine 10 mg tablet 10 mg PO DAILY #90 tabs 12/09/24 09/07/25 Rx hydrocortisone 2.5 % topical cream 1 applic topical BID PRN rash 12/09/24 09/07/25 Rx #28.35 grams atorvastatin 20 mg tablet 20 mg PO QDAY #90 tabs 02/17/25 09/07/25 Rx carbidopa 25 mg-levodopa 100 mg 1.5 tab PO TID 04/22/25 09/07/25 History tablet duloxetine 60 mg capsule,delayed 120 mg PO QDAY 07/13/25 09/07/25 History release gabapentin 600 mg tablet 600 mg PO QDAY pain 07/20/25 09/07/25 History Have you fallen in the past year?: Yes PFSH Medical History Flatulence Vivid dream Medication side effects Post-menopausal Grief reaction Hyperlipidemia Abrasion of left upper extremity Change in skin mole Tremor Frequent falls Esophageal stenosis Wears glasses Cancer Marijuana use Alcohol use Back pain Gastric reflux Smoker Leg cramps Hypertension History of edema History of Holter monitoring History of irregular heartbeat Difficulty swallowing Flu vaccine need Arrhythmia Hearing loss Vitamin D deficiency Borderline type 2 diabetes mellitus Fatigue Macrocytosis Screening for thyroid disorder Abdominal tenderness History of endometrial cancer Health care maintenance Psoriatic arthritis History of suicide attempt Depression Anxiety Neuropathy Arthritis Surgical History S/P hysterectomy History of surgical removal of ganglion cyst Family History Father Anxiety Diabetes Depression Heart disease Mental Disorders Psychiatric care CVA (cerebral vascular accident) Arthritis Sister Anxiety Arthritis Depression Diabetes Heart disease Mental Disorders Psychiatric care Respiratory disease Mother Arthritis Otosclerosis Social History household members: spouse housing: house Smoking Status: Current every day smoker tobacco type: cigarettes alcohol intake: current details: 1-2 glasses substance use type: does not use caffeine: Yes what type of physical activity do you participate in: walking seatbelt use: always do you feel safe at home: Yes additional social history: -[facility] LEFT KNEE Details: This documentation accurately reflects the service provided and the decisions made by me, Dr. Donis Harding, DO 09/07/25 0759. Part of today?s visit was documented by Malorie Andersen ATC, acting as scribe. PHYLICIA SLADE is a 70 year old F here today for left knee MRI review. Patient rates her pain a / today. Patient states she got a few days of relief from the steroid injection given on 07/13/2025. She denies any new injuries or falls to the knee. Pain is anterior and posterior medial. She is having complaints of painful mechanical symptoms as well as significant instability. 07/13/2025 visit:70 year old F with medical history significant for but not limited to Parkinson's disease, psoriasis/psoriatic arthritis, hypertension, anxiety depression, difficulty swallowing, arrhythmia, borderline type 2 diabetes, fatigue, macrocytosis, on 0.5 mg clonazepam daily, gabapentin, meloxicam here today for left knee pain. Patient rates her pain a 6/10 today. She states the knee has been bothering her for at least 6-7 weeks after extensive weeding around her house . she describes the pain mostly over the anterior aspect of the knee. She states the knee feels like it is unstable and gives out on her at times. She states the knee snaps pretty often and it is painful when it occurs. She denies any numbness/tingling. She denies any injections, physical therapy or prior surgery. She has a prescription for meloxicam that Milton Blair prescribed but she has not noticed any relief from that. Patient did recall that when it started bothering her she was weeding in her garden and was doing a lot of stooping. Both of the knees were bothersome at this time but the right one recovered and left continued to bother her. She has been taking the Meloxicam for a few weeks. Plan:Patient is here today for left knee pain. I reviewed her left knee x-rays that were taken prior to her appointment today and explained she does have medial and lateral chondrocalcinosis. This is typically seen with pseudogout but since she does not have a lot of fluid in the knee it would not be easy to aspirate and send for testing. Recommend a steroid injection today to calm down the pain and inflammation in the knee. She should give this a couple weeks to kick in and if it does not give her any relief in about a month then we can re-evaluate the knee and consider MRI at that point. Patient would like to proceed with a steroid injection today. Ortho Exam General General: Yes no acute distress and Yes well groomed Neurologic: Yes alert and Yes oriented x3 Psychologic: Yes reasonable and appropriate Right Knee Patella Translation: 1 Left Knee Skin/Wound: Yes CDI, No ecchymosis, No erythema and No swelling Knee ROM: Yes ROM-Extension -20 to 0 and No ROM-Flexion 0-140 (118) Examination: Yes Crepitus, Yes Pain with flexion and No Gerry's Test Stability: NML: Anterior Drawer, NML: Posterior Drawer, NML: Valgus 0, NML: Valgus 30, NML: Varus 0 and NML: Varus 30 Apprehension with Lateral Translation: No Patella Translation: 1 Patella Grind: Yes KNEE: pain in anterior/anterior medial knee mild swelling full EXT + Patellar Grind FLEX 118 - tenderness medial joint line - tenderness pes - tenderness lateral joint line anterior knee pain with medial gerry's but no click crepitation under patella Head: Normocephalic Atraumatic Chest: symmetrical rise, non-labored breathing, no audible wheeze Abdomen: no guarding, non-rigid Supplemental Info 08/26/2025 MRI left knee:There is a 1.2 by 0.8 cm interosseous ganglion deep to the PCL insertion. There is increased T2 signal and attenuation in the mid and distal aspect of the ACL without laxity, grade 2 sprain. There is a complex tear in the posterior horn and body of the medial meniscus which extends to the tibial surface, with extrusion. There is a moderate joint effusion. Plica are noted in the superior joint space 06/19/2025 x-ray left knee: There is chondrocalcinosis of the medial and lateral compartments there is very mild medial joint space narrowing no joint effusion vascular calcifications are noted Coding Level of Care Code Off vis,est,level 4 Diagnoses Complex tear of medial meniscus of left knee as current injury, subsequent encounter S83.232D Tear current or old: current Encounter type: subsequent encounter Meniscus tear of knee type: complex Assessment and Plan Assessment and Plan (1) Tear of medial meniscus of left knee: Status: Acute Qualifiers: Tear current or old: current Encounter type: subsequent encounter Meniscus tear of knee type: complex Qualified Code(s): S83.232D - Complex tear of medial meniscus, current injury, left knee, subsequent encounter Plan Patient is here today for left knee pain and MRI review. I explained to her that she does have a medial meniscus tear of the left knee. Since she has not responded to conservative treatments at this point she would be a candidate for an arthroscopic surgical procedure of the left knee to go in and clean up the cartilage. I spoke to her about the pros, cons, risks and benefits of the surgical procedure. Patient would like to proceed with the surgical procedure and would like to get it done as soon as possible. Follow up after surgery for post-op appointment or sooner if pain, swelling, numbness or associated symptoms, or concerns develop. All questions answered. Patient in agreement of plan. Clinical Quality Measures Falls Risk Screening/Assistive Devices Have you fallen in the past year?: Yes 09/07/25 1030 <Electronically signed by Donis Harding DO> Date Donis Harding DO I have examined the patient and the H&P has been reviewed. There are no clinical changes since date of exam.
[2025-10-06] MEDS: Cefazolin 1 GM/5 ML Vial 2 GM IV (13:47)
[2025-10-06] MEDS: Midazolam 2 MG/2 ML Syringe IV (13:47)
[2025-10-06] MEDS: Lidocaine 1% (5 ml sdv) 5 ML Vial 8 ML IV (13:52)
[2025-10-06] MEDS: fentaNYL 100 MCG/2 ML Ampul IV (14:00)
[2025-10-06] MEDS: Lidocaine 1% /Epi 1:100 (20ml) 20 ML Vial (14:09)
[2025-10-06] MEDS: Epinephrine (1 mg/ml) 1 MG/ML VIAL (14:09)
--- NOTE | 2025-10-06 14:35 | OP.PCM_ITS ---
Operative Report (Standard) Operative Information Date of Procedure: 10/06/25 Pre-Operative Diagnosis: Left knee medial meniscus tear Post-Operative Diagnosis: Left knee complex tear medial meniscus DJD Surgery/Procedure Performed: Left knee arthroscopic partial medial meniscectomy communications intern: Yes Automatic Typewriter Inspector: Jose J Blair Tasks completed by registrar assistant: Opening & closing Type of Anesthesia: General RN Documented Start/Stop Times: Operation Date: 10/06/25 14:00 Case Time Into Pre-Op 10/06/25 12:08 Out of Pre-Op 10/06/25 13:46 Anesthesia Start 10/06/25 13:47 Into Room 10/06/25 13:47 Procedure Start 10/06/25 14:09 Procedure Start Time: 14:09 Procedure Stop Time: 14:36 Select all DRAINS/GRAFTS/IMPLANTS that apply: None Estimated Blood Loss: 5 Specimen collected: No Description of surgery: Preop diagnosis: Left knee complex tear medial meniscus chondrocalcinosis Postoperative diagnosis: Complex tear posterior horn medial meniscus grade 3 cartilage wear medial and patellofemoral compartments Procedure: Left knee arthroscopic partial medial meniscectomy Anesthesia: General Estimated blood loss: 5 mL Tourniquet time: 22 minutes 300 mmHg Complications: none Indication for procedure: 70-year-old female patient with ongoing knee pain failing conservative treatment did have MRI evidence of medial meniscus tear, the patient did wish to proceed with an elective arthroscopic surgery to attempt to alleviate the symptoms. Risk benefits and alternatives of the procedure were reviewed including risk of bleeding infection nerve artery tissue damage need for further surgery continued pain and expected postoperative course. Procedure: The patient was met in the preoperative holding area. The operative extremity was identified by both patient and physician and family and marked. Patient was brought back to the operating room on a wheeled cart and transferred to the operating table in the supine position. Anesthesia was started. A well- padded tourniquet was placed on the operative extremity. A lower extremity leg eaton was secured to the operative extremity. The contralateral extremity was well-padded and the end of the bed was flexed to 90 degrees. The patient was prepped and draped in the usual sterile fashion. A timeout was called to ensure the proper patient, procedure, and extremity were being contemplated. 0.5% Marcaine with epinephrine was injected into the planned incisional areas under the skin only. An Esmarch was used to exsanguinate the extremity and the tourniquet was inflated. An 11 blade scalpel was used to make a stab incision in the anterior lateral portal. The arthroscope was inserted into the intercondylar notch and inflow and outflow tubes were attached. Arthroscopic visualization began. The medial compartment was entered. An 18-gauge spinal needle was used to establish the placement for anterior medial portal. An 11 blade scalpel was used to make a stab incision. Blunt probe was inserted followed by a meniscal probe. Upon probing was found to have a complex extensive tearing of the posterior horn of the medial meniscus with use of arth roscopic biting instruments as well as a shaver and ArthroCare a partial medial meniscectomy was performed there was noted to be grade 3 cartilage wear on the periphery of the medial tibial plateau as well as areas of the medial femoral condyle the ACL was found to be intact. The lateral compartment was entered degenerative fraying of the meniscus and chondrocalcinosis was seen The arthroscope was switched to the medial portal to complete the procedure. The medial and lateral gutters were inspected and were free of loose bodies. The patellofemoral joint was inspected and there was grade 3 cartilage wear throughout the trochlea and patellar apex there was a small area of grade 4 in the trochlea. There was good patellar tracking. The knee was thoroughly irrigated and drained. An intra-articular injection with 5 cc 0.5% Marcaine plain and 40 mg of Depo-Medrol was injected intra-articularly. The arthroscope was removed the portals were closed with 3-0 nylon arthroscopic stitches. Followed by Xeroform 4 x 4's ABDs web roll and an Joe wrap. The tourniquet was let down and the drapes were removed. All counts were correct. The patient was brought back to the PACU in stable condition. Surgical Findings: as above Complications Complications: No
--- NOTE | 2025-10-06 14:38 | EX.PCM.DISCH ---
Discharge Instructions Diet Discharge Diet: No restrictions Activity Keep extremity elevated above heart level: Operative Extremity Dressing / Incision Call your doctor if you observe: Shortness of breath and Chest pain Additional Dressing/Incision Instructions:: Ice and elevate next 72 hours .keep dressing on clean and dry for 48 hours then may remove begin showering daily but do not submerge in tub or pool. After shower may apply Band-Aids . Encourage knee range of motion weightbearing as tolerated, use crutches until confident in knee then may discontinue. No strenuous activity. When not ambulating keep iced and elevated next 72 hours. Do not mix pain medication with recreational drugs or alcohol only take as prescribed can be addictive and abusive, call with any questions or concerns. Follow Up Care Please Follow Up With: Donis Harding DO When: 2 weeks Test Results: Test results from this visit will be discussed in further detail at your follow-up appointment, if applicable. Discharge Plan Admission Primary Reason for Your Visit: Left knee arthroscopy Attending Provider: Donis Harding Primary Care Provider: Sofia Caldwell Instructions Print Language: [place] Discharge Orders/Prescriptions Prescriptions: New hydrocodone-acetaminophen 5-325 mg tablet 1 - 2 tab PO Q4H PRN (Reason: pain) 5 Days Qty: 25 0RF Continued clonazepam 0.5 mg tablet 0.5 mg PO DAILY acetaminophen [Tylenol Extra Strength] 500 mg tablet 500 mg PO Q6H PRN (Reason: pain) clobetasol 0.05 % shampoo 1 applic TOPICAL DAILY PRN (Reason: SKIN) Qty: 118 3RF Rx Instructions: May repeat treatment after 1 week if rash persists carbidopa-levodopa 25-100 mg tablet 1.5 tab PO TID gabapentin 600 mg tablet 600 mg PO QDAY duloxetine 60 mg capsule,delayed release(DR/EC) 60 mg PO BID omeprazole 40 mg capsule,delayed release(DR/EC) 40 mg PO DAILY Qty: 90 3RF amlodipine 10 mg tablet 10 mg PO DAILY Qty: 90 3RF hydrocortisone 2.5 % cream 1 applic TOPICAL BID PRN (Reason: rash) Qty: 28.35 2RF atorvastatin 20 mg tablet 20 mg PO QDAY Qty: 90 1RF Referrals / Follow Up: Sofia Caldwell MD [Primary Care Provider, Internal Medicine] Disposition Disposition (needs filled in before D/C Order can be placed): Home, Self Care
--- NOTE | 2025-10-06 14:51 | PCM.POST.ANE ---
Anesthesia: Postop Eval I Current Vital Signs Temperature: 97.1 F Pulse Rate: 73 Blood Pressure: 136/69 Respiratory Rate: 16 Pulse Ox: 94 Assessment Airway patent: Yes Spontaneous unlabored respirations: Yes nausea: No Vomiting: No Anesthesia Complication: No Fluid Hydration Crystalloid volume administer (ml): 1,200 Total IV fluid infused: 1,200 Progress Note Anesthesia document: Postop Eval 1 completed: Yes
--- NOTE | 2025-10-06 20:41 | POSTOPAN2_ITS ---
Anesthesia Postop Eval I Sum Postop Eval Completion status Anesthesia document: Postop Eval 1 completed: Yes Anesthesia Postop Eval I Summary Anesthesia Postop Eval I Summary: Anesthesia Postop Eval I: Assessment Summary Airway patent Yes 10/06/25 14:51 SYSTEMS TEST ANALYST.TNES Spontaneous unlabored Yes 10/06/25 14:51 SYSTEMS TEST ANALYST.TNES respirations Mental status nausea No 10/06/25 14:51 SYSTEMS TEST ANALYST.TNES Vomiting No 10/06/25 14:51 SYSTEMS TEST ANALYST.TNES Anesthesia Postop Eval I: Fluid Summary Crystalloid volume administer 1,200 10/06/25 14:51 SYSTEMS TEST ANALYST.TNES (ml) Colloids volume administered ( ml) Blood Product volume administered (ml) Total IV fluid infused 1,200 10/06/25 14:51 SYSTEMS TEST ANALYST.TNES Anesthesia Postop Eval I: Summary Notes Anesthesia Complication No 10/06/25 14:51 SYSTEMS TEST ANALYST.TNES Anesthesia Complication Comment: Post-operative progress note Anesthesia: Postop Eval II Evaluation Mental status: Awake and Calm Pain Level: 1 nausea: No Vomiting: No Complications Anesthesia Complication: No
--- NOTE | 2025-10-06 20:41 | PCM.POSTANE2 ---
Anesthesia Postop Eval I Sum Postop Eval Completion status Anesthesia document: Postop Eval 1 completed: Yes Anesthesia Postop Eval I Summary Anesthesia Postop Eval I Summary: Anesthesia Postop Eval I: Assessment Summary Airway patent Yes 10/06/25 14:51 PRESCHOOL ASSISTANT PRINCIPAL.TNES Spontaneous unlabored Yes 10/06/25 14:51 PRESCHOOL ASSISTANT PRINCIPAL.TNES respirations Mental status nausea No 10/06/25 14:51 PRESCHOOL ASSISTANT PRINCIPAL.TNES Vomiting No 10/06/25 14:51 PRESCHOOL ASSISTANT PRINCIPAL.TNES Anesthesia Postop Eval I: Fluid Summary Crystalloid volume administer 1,200 10/06/25 14:51 PRESCHOOL ASSISTANT PRINCIPAL.TNES (ml) Colloids volume administered ( ml) Blood Product volume administered (ml) Total IV fluid infused 1,200 10/06/25 14:51 PRESCHOOL ASSISTANT PRINCIPAL.TNES Anesthesia Postop Eval I: Summary Notes Anesthesia Complication No 10/06/25 14:51 PRESCHOOL ASSISTANT PRINCIPAL.TNES Anesthesia Complication Comment: Post-operative progress note Anesthesia: Postop Eval II Evaluation Mental status: Awake and Calm Pain Level: 1 nausea: No Vomiting: No Complications Anesthesia Complication: No
== END 2025-10-06 16:44 | disposition home or self-care (01) ==
LOC: SDC 12:02 → AC 12:04
PROVIDERS: PCP Internal Medicine; Referring Provider Orthopaedic Surgery; Visit Provider Orthopaedic Surgery
PROC: (CPT 29870; principal; 2025-10-06 13:40)
DX: S83.232A Complex tear of medial meniscus, current injury, left knee, initial encounter (principal); G20.A1 Parkinson's disease without dyskinesia, without mention of fluctuations; X58.XXXA Exposure to other specified factors, initial encounter; M17.12 Unilateral primary osteoarthritis, left knee; M11.262 Other chondrocalcinosis, left knee; I10 Essential (primary) hypertension; F17.210 Nicotine dependence, cigarettes, uncomplicated; Z79.1 Long term (current) use of non-steroidal anti-inflammatories (NSAID); Z79.899 Other long term (current) drug therapy
CPT/HCPCS: 29881; 01400; J2405